=== PATIENT | female | born 1960 | race African-American/Black ===

== ENCOUNTER 2017-07-22 00:58 | Emergency (ER) | payer MEDICAID ==
[~2017-07-22] VITALS: Ht 160 cm; Wt 73.0 kg
[~2017-07-22 00:58] MED LIST: CALC-906 PO; CLON0.1T14 PO; DOLU50TA PO; GABA800T97 PO; LAMI100T4 PO; LISI10TA5 PO; VIT1TABL71 PO; WARF5TAB76 PO; ZIAG3 PO
[2017-07-22] MEDS ORDERED: KETOROLAC 60MG/2ML VIAL IM ONE (02:00)
[2017-07-22 03:00] VITALS: BP 169/78
== END 2017-07-22 03:00 | disposition home or self-care (01) ==
LOC: ER 00:58
DX: G44.209 Tension-type headache, unspecified, not intractable (principal); H54.62 Unqualified visual loss, left eye, normal vision right eye; E11.9 Type 2 diabetes mellitus without complications; R56.9 Unspecified convulsions; I10 Essential (primary) hypertension; Z79.01 Long term (current) use of anticoagulants; Z86.73 Personal history of transient ischemic attack (TIA), and cerebral infarction without residual deficits; Z88.5 Allergy status to narcotic agent; Z90.49 Acquired absence of other specified parts of digestive tract; Z90.710 Acquired absence of both cervix and uterus
CPT/HCPCS: 96372; 99283; J1885; Z7610

== ENCOUNTER 2017-08-05 17:01 | Emergency (ER) | payer MEDICAID ==
[~2017-08-05] VITALS: Ht 167.6 cm; Wt 65.0 kg
[2017-08-05] MEDS ORDERED: SODIUM CHLORIDE 0.9% 1000ML BAG (SEPSIS BOLUS) IV ONE (17:30)
[2017-08-05 18:28] LABS: BASOPHILS % 0.8 % (0.0-2.0); EOSINOPHILS % 2.6 % (0.0-5.0); HEMATOCRIT. 28.9 % (36.0-48.0); HEMOGLOBIN. 9.4 g/dL (12.0-16.0); LYMPHOCYTES % 17.6 % (20.0-50.0); MEAN CORPUSCULAR HEMOGLOBIN 29.8 pg (28.0-32.0); MEAN CORPUSCULAR VOLUME 91.3 fL (81.0-99.0); MEAN PLATELET VOLUME 7.9 fl (7.4-10.4); MONOCYTES % 10.9 % (2.0-8.0); NEUTROPHILS % 68.1 % (40.0-76.0); PLATELET 364 x1000/uL (130-400); RED BLOOD CELL COUNT 3.16 mill/uL (4.2-5.4)
[2017-08-05] MEDS ORDERED: KETOROLAC 30MG/ML VIAL ONE (18:29)
[2017-08-05] MEDS ORDERED: ACETAMINOPHEN 325MG TABLET PO ONE (18:30)
[2017-08-05] MEDS ORDERED: KETOROLAC 30MG/ML VIAL IV ONE (18:30)
[2017-08-05 18:36] LABS: CHLORIDE 103 mEq/L (98-107); PROTHROMBIN TIME 10.2 sec (9.4-11.6)
[2017-08-05] MEDS ORDERED: MORPHINE SULFATE 4 MG/ML CPJ (NOT FOR IM USE) IV ONE (19:15)
[2017-08-05 20:29] LABS: CLARITY URINE CLEAR (CLEAR); COLOR URINE YELLOW (YELLOW); KETONES URINE NEGATIVE (NEGATIVE); LEUKOCYTE ESTERASE URINE NEGATIVE (NEGATIVE); NITRITE URINE NEGATIVE (NEGATIVE); OCCULT BLOOD URINE NEGATIVE (NEGATIVE); PROTEIN URINE 4+ (NEGATIVE); SPECIFIC GRAVITY URINE 1.019 (1.005-1.030); UROBILINOGEN URINE 0.2 E.U./dL (0.2-1.0)
[2017-08-05 22:23] VITALS: BP 179/80
[2017-08-09] MEDS ORDERED: REN800 PO (12:14)
[2017-08-09] MEDS ORDERED: CHOL500063 PO (12:14)
[2017-08-09] MEDS ORDERED: ETRA200T PO (12:14)
[2017-08-09] MEDS ORDERED: [UNRECOGNIZED DRUG - CODE] PO (12:14)
[2017-08-09] MEDS ORDERED: DARU1TAB PO ×2 (12:14→12:19)
[2017-08-09] MEDS ORDERED: GABA-529 PO (12:15)
[2017-08-09] MEDS ORDERED: CHOL100044 PO (12:16)
[2017-08-09] MEDS ORDERED: ASPI-1160 PO (12:17)
[2017-08-09] MEDS ORDERED: HYDR-4135 PO (12:17)
[2017-08-09] MEDS ORDERED: LABE200T PO (12:22)
[2017-08-09] MEDS ORDERED: ATOR80TA PO (12:23)
[2017-08-09] MEDS ORDERED: DARB40VI IJ (12:25)
[2017-08-09] MEDS ORDERED: ATRO10DR LEFTEYE (12:28)
[2017-08-09] MEDS ORDERED: PRED1DRO LEFTEYE (12:30)
[2017-08-09] MEDS ORDERED: TIMO15DR12 LEFTEYE (12:32)
[2017-08-09] MEDS ORDERED: XALAO LEFTEYE (12:33)
[2017-08-09] MEDS ORDERED: BRIM.2 LEFTEYE (12:34)
== END 2017-08-05 23:32 | disposition home or self-care (01) ==
LOC: ER 17:31
DX: M79.1 Myalgia (principal); R53.1 Weakness; I10 Essential (primary) hypertension; E11.9 Type 2 diabetes mellitus without complications; Z99.2 Dependence on renal dialysis; Z86.73 Personal history of transient ischemic attack (TIA), and cerebral infarction without residual deficits; Z79.01 Long term (current) use of anticoagulants; Z88.5 Allergy status to narcotic agent
CPT/HCPCS: 36415; 71045; 74176; 80053; 81003; 83605; 85025; 85610; 87040; 87086; 93005; 96361; 96374; 99285; J2270; J7030; Z7610; J1885

== ENCOUNTER 2017-08-06 21:39 | Emergency (ER) | payer MEDICAID ==
[~2017-08-06] VITALS: Ht 162.6 cm; Wt 73.0 kg
[2017-08-07] MEDS ORDERED: ACETAMINOPHEN 500MG TABLET PO ONE
[2017-08-07] MEDS ORDERED: HYDROCODONE/ACETAMINOPHEN 5/325MG TABLET PO ONE (03:30)
[2017-08-07 08:01] VITALS: BP 159/74
[2017-08-09] MEDS ORDERED: ETRA200T PO (12:14)
[2017-08-09] MEDS ORDERED: [UNRECOGNIZED DRUG - CODE] PO (12:14)
[2017-08-09] MEDS ORDERED: REN800 PO (12:14)
[2017-08-09] MEDS ORDERED: CHOL500063 PO (12:14)
[2017-08-09] MEDS ORDERED: DARU1TAB PO ×2 (12:14→12:19)
[2017-08-09] MEDS ORDERED: GABA-529 PO (12:15)
[2017-08-09] MEDS ORDERED: CHOL100044 PO (12:16)
[2017-08-09] MEDS ORDERED: HYDR-4135 PO (12:17)
[2017-08-09] MEDS ORDERED: ASPI-1160 PO (12:17)
[2017-08-09] MEDS ORDERED: LABE200T PO (12:22)
[2017-08-09] MEDS ORDERED: ATOR80TA PO (12:23)
[2017-08-09] MEDS ORDERED: DARB40VI IJ (12:25)
[2017-08-09] MEDS ORDERED: ATRO10DR LEFTEYE (12:28)
[2017-08-09] MEDS ORDERED: PRED1DRO LEFTEYE (12:30)
[2017-08-09] MEDS ORDERED: TIMO15DR12 LEFTEYE (12:32)
[2017-08-09] MEDS ORDERED: XALAO LEFTEYE (12:33)
[2017-08-09] MEDS ORDERED: BRIM.2 LEFTEYE (12:34)
== END 2017-08-07 08:44 | disposition home or self-care (01) ==
LOC: ER 21:45
DX: S00.83XA Contusion of other part of head, initial encounter (principal); E11.9 Type 2 diabetes mellitus without complications; J34.2 Deviated nasal septum; R56.9 Unspecified convulsions; W18.30XA Fall on same level, unspecified, initial encounter; Y93.89 Activity, other specified; Y99.8 Other external cause status; Y92.89 Other specified places as the place of occurrence of the external cause; Z79.01 Long term (current) use of anticoagulants; Z88.5 Allergy status to narcotic agent; Z99.2 Dependence on renal dialysis; Z98.890 Other specified postprocedural states
CPT/HCPCS: 70486; 99284; Z7610

== ENCOUNTER 2018-01-04 03:40 | Emergency (ER) | payer MEDICAID ==
[~2018-01-04] VITALS: Ht 157.5 cm; Wt 54.5 kg
[~2018-01-04 03:40] MED LIST changes: +ACET500C42 PO; +AMLO10TA4 PO; +ASPI-1160 PO; +ATRO10DR LEFTEYE; +BRIM.2 LEFTEYE; -CALC-906 PO; +CHOL100044 PO; +CHOL500063 PO; -CLON0.1T14 PO; +DARB40VI SUBCUT; +DARU1TAB PO; +ETRA200T PO; +GABA-529 PO; +GABA-531 PO; -GABA800T97 PO; +HYDR-4134 PO; +LABE200T5 PO; -LAMI100T4 PO; +LEVE500T19 PO; -LISI10TA5 PO; +PRED1DRO LEFTEYE; +REN800 PO; +TIMO15DR12 LEFTEYE; -VIT1TABL71 PO; -WARF5TAB76 PO; +XALAO LEFTEYE; -ZIAG3 PO; +[UNRECOGNIZED DRUG - CODE] PO
[2018-01-04 06:08] VITALS: BP 113/68
== END 2018-01-04 06:30 | disposition home or self-care (01) ==
LOC: ER 03:40
DX: T82.898A Other specified complication of vascular prosthetic devices, implants and grafts, initial encounter (principal); Y84.1 Kidney dialysis as the cause of abnormal reaction of the patient, or of later complication, without mention of misadventure at the time of the procedure; E11.22 Type 2 diabetes mellitus with diabetic chronic kidney disease; I12.0 Hypertensive chronic kidney disease with stage 5 chronic kidney disease or end stage renal disease; N18.6 End stage renal disease; Z99.2 Dependence on renal dialysis; Z88.6 Allergy status to analgesic agent; Z88.5 Allergy status to narcotic agent; Y93.E1 Activity, personal bathing and showering; Y92.012 Bathroom of single-family (private) house as the place of occurrence of the external cause
CPT/HCPCS: 71045; 99283; Z7610

== ENCOUNTER 2018-01-19 09:46 | Emergency (ER) | payer MEDICAID ==
[~2018-01-19] VITALS: Ht 165.1 cm; Wt 70.0 kg
[~2018-01-19 09:46] MED LIST changes: +DARU1TAB MT; +ETRA200T MT
[2018-01-19] MEDS ORDERED: PROCHLORPERAZINE 10MG/2ML VIAL IV ONE (10:15)
[2018-01-19] MEDS ORDERED: DIPHENHYDRAMINE 50MG/ML VIAL IV ONE (10:15)
[2018-01-19 10:44] LABS: BASOPHILS % 0.9 % (0.0-2.0); EOSINOPHILS % 2.1 % (0.0-5.0); HEMATOCRIT. 36.6 % (36.0-48.0); HEMOGLOBIN. 11.3 g/dL (12.0-16.0); LYMPHOCYTES % 25.8 % (20.0-50.0); MEAN CORPUSCULAR HEMOGLOBIN 29.9 pg (28.0-32.0); MEAN CORPUSCULAR VOLUME 96.9 fL (81.0-99.0); MEAN PLATELET VOLUME 8.3 fl (7.4-10.4); MONOCYTES % 9.6 % (2.0-8.0); NEUTROPHILS % 61.6 % (40.0-76.0); PLATELET 169 x1000/uL (130-400); RED BLOOD CELL COUNT 3.78 mill/uL (4.2-5.4); RED CELL DISTRIBUTION WIDTH 15.4 % (11.6-14.6)
[2018-01-19 10:48] LABS: CHLORIDE 111 mEq/L (98-107)
[2018-01-19 11:00] LABS: CARBAMAZEPINE < 0.5 ug/mL (4-12); PHENOBARBITAL < 2.1 ug/mL (15.0-40.0)
[2018-01-19] MEDS ORDERED: TETRACAINE 0.5% OPHTH DROPS 4ML OP ONE (12:30)
[2018-01-19] MEDS ORDERED: ONDANSETRON HCL 4MG/2ML INJ IV STA (12:43)
[2018-01-19] MEDS ORDERED: MORPHINE SULFATE 4 MG/ML CPJ (NOT FOR IM USE) IV STA (12:43)
[2018-01-19 16:11] VITALS: BP 148/91
== END 2018-01-19 16:14 | disposition home or self-care (01) ==
LOC: ER 10:05
DX: R51 Headache (principal); E11.9 Type 2 diabetes mellitus without complications; I10 Essential (primary) hypertension; Z88.6 Allergy status to analgesic agent; Z88.5 Allergy status to narcotic agent; Z79.82 Long term (current) use of aspirin; Z79.899 Other long term (current) drug therapy; Z86.73 Personal history of transient ischemic attack (TIA), and cerebral infarction without residual deficits
CPT/HCPCS: 36415; 70450; 80053; 80156; 80165; 80184; 80185; 84484; 85025; 93005; 96374; 96375; 99285; J0780; J1200; J2270; J2405

== ENCOUNTER 2018-01-23 03:43 | Emergency (ER) | payer MEDICAID ==
[~2018-01-23] VITALS: Ht 160 cm; Wt 73.0 kg
[2018-01-23] MEDS ORDERED: HYDROCODONE/ACETAMINOPHEN 5/325MG TABLET PO ONE (05:15)
[2018-01-23 05:34] LABS: HEMATOCRIT. 32.2 % (36.0-48.0); HEMOGLOBIN. 10.2 g/dL (12.0-16.0); LYMPHOCYTES % 33.5 % (20.0-50.0); MEAN CORPUSCULAR HEMOGLOBIN 29.9 pg (28.0-32.0); MEAN CORPUSCULAR VOLUME 94.3 fL (81.0-99.0); MEAN PLATELET VOLUME 8.2 fl (7.4-10.4); MONOCYTES % 8.8 % (2.0-8.0); NEUTROPHILS % 53.7 % (40.0-76.0); PLATELET 168 x1000/uL (130-400); RED BLOOD CELL COUNT 3.41 mill/uL (4.2-5.4); RED CELL DISTRIBUTION WIDTH 14.6 % (11.6-14.6)
[2018-01-23 05:37] LABS: CHLORIDE 112 mEq/L (98-107)
[2018-01-23 08:00] VITALS: BP 141/73
== END 2018-01-23 09:00 | disposition home or self-care (01) ==
LOC: ER 03:43
DX: I10 Essential (primary) hypertension (principal); M54.9 Dorsalgia, unspecified; Z79.899 Other long term (current) drug therapy; Z79.82 Long term (current) use of aspirin; Z88.6 Allergy status to analgesic agent; Z88.9 Allergy status to unspecified drugs, medicaments and biological substances
CPT/HCPCS: 36415; 71045; 80053; 83880; 84484; 85025; 93005; 99285; Z7610

== ENCOUNTER 2018-04-02 22:40 | Emergency (ER) | payer MEDICAID ==
[~2018-04-02] VITALS: Ht 162.6 cm; Wt 50.0 kg
[2018-04-03] MEDS ORDERED: ACETAMINOPHEN 325MG TABLET PO STA (00:35)
[2018-04-03] MEDS ORDERED: BALANCED SALT IRRIG SOLN 15ML IO ONE (00:45)
[2018-04-03] MEDS ORDERED: FLUORESCEIN SODIUM 1MG/STRIP OP ONE (00:45)
[2018-04-03] MEDS ORDERED: TETRACAINE 0.5% OPHTH DROPS 4ML OP ONE (00:45)
[2018-04-03 01:29] LABS: CHLORIDE 96 mEq/L (98-107); EOSINOPHILS % 2.3 % (0.0-5.0); HEMATOCRIT. 27.7 % (36.0-48.0); HEMOGLOBIN. 8.9 g/dL (12.0-16.0); LYMPHOCYTES % 28.5 % (20.0-50.0); MEAN CORPUSCULAR HEMOGLOBIN 28.4 pg (28.0-32.0); MEAN CORPUSCULAR VOLUME 88.6 fL (81.0-99.0); MEAN PLATELET VOLUME 8.1 fl (7.4-10.4); MONOCYTES % 11.1 % (2.0-8.0); NEUTROPHILS % 57.1 % (40.0-76.0); PLATELET 159 x1000/uL (130-400); RED BLOOD CELL COUNT 3.12 mill/uL (4.2-5.4); RED CELL DISTRIBUTION WIDTH 15.2 % (11.6-14.6)
[2018-04-03] MEDS ORDERED: MORPHINE SULFATE 10 MG/ML CPJ IV NR (01:57)
[2018-04-03] MEDS ORDERED: MORPHINE SULFATE 10 MG/ML CPJ IM ONE (05:15)
[2018-04-03 08:34] VITALS: BP 113/51
== END 2018-04-03 08:35 | disposition home or self-care (01) ==
LOC: ER 22:40
DX: S00.83XA Contusion of other part of head, initial encounter (principal); H10.9 Unspecified conjunctivitis; I12.9 Hypertensive chronic kidney disease with stage 1 through stage 4 chronic kidney disease, or unspecified chronic kidney disease; N18.9 Chronic kidney disease, unspecified; R56.9 Unspecified convulsions; B20 Human immunodeficiency virus [HIV] disease; W01.0XXA Fall on same level from slipping, tripping and stumbling without subsequent striking against object, initial encounter; Y93.89 Activity, other specified; Y92.9 Unspecified place or not applicable; Z88.5 Allergy status to narcotic agent; Z88.6 Allergy status to analgesic agent; Z79.82 Long term (current) use of aspirin; Z86.73 Personal history of transient ischemic attack (TIA), and cerebral infarction without residual deficits
CPT/HCPCS: 36415; 70450; 80053; 82962; 85025; 96372; 96374; 99284; J2270

== ENCOUNTER 2018-04-04 13:39 | Inpatient (IN) | payer MEDICAID ==
[~2018-04-04] VITALS: Ht 160 cm; Wt 75.3 kg
[2018-04-04 15:21] LABS: BASOPHILS % 0.4 % (0.0-2.0); EOSINOPHILS % 4.8 % (0.0-5.0); HEMATOCRIT. 25.4 % (36.0-48.0); HEMOGLOBIN. 8.4 g/dL (12.0-16.0); LYMPHOCYTES % 20.4 % (20.0-50.0); MEAN CORPUSCULAR HEMOGLOBIN 29.1 pg (28.0-32.0); MEAN CORPUSCULAR VOLUME 88.2 fL (81.0-99.0); MEAN PLATELET VOLUME 8.8 fl (7.4-10.4); MONOCYTES % 7.5 % (2.0-8.0); NEUTROPHILS % 66.9 % (40.0-76.0); PLATELET 161 x1000/uL (130-400); RED BLOOD CELL COUNT 2.88 mill/uL (4.2-5.4); RED CELL DISTRIBUTION WIDTH 15.4 % (11.6-14.6)
[2018-04-04 15:22] LABS: CHLORIDE 98 mEq/L (98-107)
[2018-04-04 15:27] LABS: ETHANOL BLOOD < 10 mg/dL
[2018-04-04] MEDS ORDERED: LEVETIRACETAM 1000MG/100ML 100 ML IV ONE (15:30)
[2018-04-04] MEDS: ACETAMINOPHEN 650MG/20.3ML UDC PO ONE ×2 (16:00→19:30)
[2018-04-04 17:05] LABS: CLARITY URINE TURBID (CLEAR); COLOR URINE YELLOW (YELLOW); KETONES URINE TRACE (NEGATIVE); LEUKOCYTE ESTERASE URINE 3+ (NEGATIVE); NITRITE URINE NEGATIVE (NEGATIVE); OCCULT BLOOD URINE 1+ (NEGATIVE); PROTEIN URINE 3+ (NEGATIVE); SPECIFIC GRAVITY URINE 1.019 (1.005-1.030); UROBILINOGEN URINE 0.2 E.U./dL (0.2-1.0)
[2018-04-04 17:30] LABS: *AMPHETAMINES SCREEN URINE NEGATIVE (NEGATIVE); *BARBITURATES SCREEN URINE NEGATIVE (NEGATIVE); *BENZODIAZEPINES SCREEN URINE NEGATIVE (NEGATIVE); *COCAINE SCREEN URINE NEGATIVE (NEGATIVE); METHADONE URINE SCREEN NEGATIVE (NEGATIVE); OPIATES URINE SCREEN PRESUMTIVE POSITIVE (NEGATIVE); PHENCYCLIDINE URINE SCREEN NEGATIVE (NEGATIVE)
[2018-04-04] MEDS ORDERED: CEFTRIAXONE 1 G PREMIX 50 ML IV ONE (17:30)
[2018-04-04 17:31] LABS: CANNABINOID URINE SCREEN NEGATIVE (NEGATIVE)
[2018-04-04] MEDS: NAPROXEN 250MG TABLET PO PRN (23:22)
[2018-04-05] VITALS (10 sets, daily range): BP systolic 98–157; BP diastolic 50–71
[2018-04-05] MEDS ORDERED: ACETAMINOPHEN 325MG TABLET PO PRN (03:00)
[2018-04-05] MEDS ORDERED: DARBEPOETIN ALFA IN POLYSORBAT 40 MCG SUBCUT SCH (03:45)
[2018-04-05] MEDS ORDERED: LABETALOL HCL 200 MG PO SCH (03:45)
[2018-04-05] MEDS ORDERED: [UNRECOGNIZED DRUG - REMARK] PO SCH (03:45)
[2018-04-05] MEDS ORDERED: ACETAMINOPHEN 500MG TABLET PO PRN (04:45)
[2018-04-05] MEDS: GABAPENTIN 100MG CAPSULE PO SCH ×3 (06:29→21:20)
[2018-04-05] MEDS: HYDRALAZINE HCL 50MG TABLET PO SCH ×3 (06:29→21:20)
[2018-04-05] MEDS ORDERED: PNEUMOCOCCAL 23-VAL P-SAC VAC 0.5 ML IM ONE (08:00)
[2018-04-05] MEDS: AMLODIPINE 10MG TABLET PO SCH (08:28)
[2018-04-05] MEDS: ASPIRIN 81MG TABLET PO SCH (08:28)
[2018-04-05] MEDS: SEVELAMER CARBONATE 800 MG TABLET PO SCH ×3 (08:29→18:14)
[2018-04-05] MEDS: LEVETIRACETAM 500MG TABLET PO SCH ×2 (08:29→20:29)
[2018-04-05] MEDS ORDERED: ETRAVIRINE MT SCH (09:00)
[2018-04-05] MEDS ORDERED: MEDICATION NOT ON FORMULARY EA (Dolutegravir Sodium (Tivicay) 50 MG) PO SCH (09:00)
[2018-04-05] MEDS ORDERED: MEDICATION NOT ON FORMULARY EA (Gabapentin 100 MG) PO SCH (09:00)
[2018-04-05] MEDS: LABETALOL HCL 200MG TABLET PO SCH ×2 (09:00→20:29)
[2018-04-05] MEDS ORDERED: MEDICATION NOT ON FORMULARY EA (Sevelamer Hcl (Renagel) 800 MG) PO SCH (09:00)
[2018-04-05] MEDS ORDERED: MEDICATION NOT ON FORMULARY EA (Hydralazine Hcl 50 MG) PO SCH (09:00)
[2018-04-05] MEDS: NAPROXEN 250MG TABLET PO PRN (10:00)
[2018-04-05] MEDS ORDERED: INFLUENZA VIRUS VACCINE(AFLURIA) 0.5ML SYR IM ONE (10:00)
[2018-04-05 10:14] LABS: BASOPHILS % 0.8 % (0.0-2.0); EOSINOPHILS % 5.7 % (0.0-5.0); HEMATOCRIT. 21.9 % (36.0-48.0); LYMPHOCYTES % 28.1 % (20.0-50.0); MEAN CORPUSCULAR HEMOGLOBIN 28.6 pg (28.0-32.0); MEAN CORPUSCULAR VOLUME 89.9 fL (81.0-99.0); MEAN PLATELET VOLUME 8.8 fl (7.4-10.4); NEUTROPHILS % 57.4 % (40.0-76.0); PLATELET 138 x1000/uL (130-400); RED BLOOD CELL COUNT 2.43 mill/uL (4.2-5.4); RED CELL DISTRIBUTION WIDTH 15.6 % (11.6-14.6)
[2018-04-05 10:26] LABS: HEMOGLOBIN. 6.9 g/dL (12.0-16.0)
[2018-04-05] MEDS: HYDROCODONE/ACETAMINOPHEN 5/325MG TABLET PO PRN ×3 (12:03→23:10)
[2018-04-05] MEDS ORDERED: LEVETIRACETAM 500MG TABLET PO PRN (15:03)
[2018-04-06] VITALS: BP 108/70
[2018-04-06 00:56] LABS: HEMATOCRIT 28.9 % (36.0-48.0); HEMOGLOBIN 9.3 g/dL (12.0-16.0)
[2018-04-06 04:00] VITALS: BP 101/53
[2018-04-06] MEDS: HYDROCODONE/ACETAMINOPHEN 5/325MG TABLET PO PRN ×4 (04:31→21:00)
[2018-04-06] MEDS: GABAPENTIN 100MG CAPSULE PO SCH ×3 (05:27→21:00)
[2018-04-06] MEDS: HYDRALAZINE HCL 50MG TABLET PO SCH ×3 (05:27→21:00)
[2018-04-06 07:31] LABS: BASOPHILS % 0.4 % (0.0-2.0); EOSINOPHILS % 3.2 % (0.0-5.0); HEMATOCRIT. 25.4 % (36.0-48.0); HEMOGLOBIN. 8.5 g/dL (12.0-16.0); LYMPHOCYTES % 15.6 % (20.0-50.0); MEAN CORPUSCULAR HEMOGLOBIN 29.3 pg (28.0-32.0); MEAN CORPUSCULAR VOLUME 87.6 fL (81.0-99.0); MEAN PLATELET VOLUME 8.2 fl (7.4-10.4); NEUTROPHILS % 73.8 % (40.0-76.0); PLATELET 152 x1000/uL (130-400); RED BLOOD CELL COUNT 2.91 mill/uL (4.2-5.4); RED CELL DISTRIBUTION WIDTH 14.7 % (11.6-14.6)
[2018-04-06] MEDS: SEVELAMER CARBONATE 800 MG TABLET PO SCH ×3 (07:55→16:21)
[2018-04-06 08:00] VITALS: BP 95/36
[2018-04-06] MEDS: LEVETIRACETAM 500MG TABLET PO SCH ×2 (08:19→20:59)
[2018-04-06] MEDS: LABETALOL HCL 200MG TABLET PO SCH ×2 (08:19→20:59)
[2018-04-06] MEDS: NAPROXEN 250MG TABLET PO PRN (08:19)
[2018-04-06] MEDS: ASPIRIN 81MG TABLET PO SCH (08:19)
[2018-04-06] MEDS: AMLODIPINE 10MG TABLET PO SCH (08:19)
[2018-04-06 12:00] VITALS: BP 95/47
[2018-04-06 16:00] VITALS: BP 105/71
[2018-04-06] MEDS: FLUCONAZOLE 100MG TABLET PO SCH (18:42)
[2018-04-06 20:00] VITALS: BP 144/87
[2018-04-07] VITALS: BP 105/44
[2018-04-07] MEDS: HYDROCODONE/ACETAMINOPHEN 5/325MG TABLET PO PRN ×3 (01:49→12:22)
[2018-04-07 04:00] VITALS: BP 126/60
[2018-04-07] MEDS: HYDRALAZINE HCL 50MG TABLET PO SCH ×2 (05:26→14:00)
[2018-04-07] MEDS: GABAPENTIN 100MG CAPSULE PO SCH ×2 (05:26→14:00)
[2018-04-07 07:35] VITALS: BP 112/51
[2018-04-07 07:50] LABS: BASOPHILS % 0.4 % (0.0-2.0); EOSINOPHILS % 3.9 % (0.0-5.0); HEMATOCRIT. 26.3 % (36.0-48.0); HEMOGLOBIN. 8.8 g/dL (12.0-16.0); LYMPHOCYTES % 19.1 % (20.0-50.0); MEAN CORPUSCULAR HEMOGLOBIN 29.4 pg (28.0-32.0); MEAN CORPUSCULAR VOLUME 88.2 fL (81.0-99.0); MEAN PLATELET VOLUME 8.2 fl (7.4-10.4); MONOCYTES % 10.7 % (2.0-8.0); NEUTROPHILS % 65.9 % (40.0-76.0); PLATELET 154 x1000/uL (130-400); RED BLOOD CELL COUNT 2.98 mill/uL (4.2-5.4); RED CELL DISTRIBUTION WIDTH 15.3 % (11.6-14.6)
[2018-04-07] MEDS: FLUCONAZOLE 100MG TABLET PO SCH (08:29)
[2018-04-07] MEDS: LEVETIRACETAM 500MG TABLET PO SCH (08:29)
[2018-04-07] MEDS: SEVELAMER CARBONATE 800 MG TABLET PO SCH ×2 (08:29→13:10)
[2018-04-07] MEDS: ASPIRIN 81MG TABLET PO SCH (08:31)
[2018-04-07] MEDS: AMLODIPINE 10MG TABLET PO SCH (08:31)
[2018-04-07] MEDS: LABETALOL HCL 200MG TABLET PO SCH (08:31)
[2018-04-07] MEDS: LEVOFLOXACIN 250MG TABLET PO SCH ×2 (11:00→13:10)
[2018-04-07 12:00] VITALS: BP_SYST 106; BP_SYST 126; BP_DIAS 47; BP_DIAS 51
[2018-04-07 16:00] VITALS: BP 124/54
[2018-04-07 17:13] VITALS: BP 124/54
== END 2018-04-07 18:35 | disposition home or self-care (01) | DRG 470 ==
LOC: ER 13:39 → 8WST 17:22 → EDBEDREQ 17:25 → EDBEDREQTM 17:25 → ENRESERV 21:45
PROVIDERS: ADMIT Internal Medicine; ATTEND Internal Medicine
PROC: 30233N1 Transfusion of Nonautologous Red Blood Cells into Peripheral Vein, Percutaneous Approach (ICD-10-PCS; principal; 2018-04-05)
PROC: 5A1D70Z Performance of Urinary Filtration, Intermittent, Less than 6 Hours Per Day (ICD-10-PCS; 2018-04-05)
DX: I12.0 Hypertensive chronic kidney disease with stage 5 chronic kidney disease or end stage renal disease (principal); G40.419 Other generalized epilepsy and epileptic syndromes, intractable, without status epilepticus; N17.9 Acute kidney failure, unspecified; E11.22 Type 2 diabetes mellitus with diabetic chronic kidney disease; N39.0 Urinary tract infection, site not specified; N18.6 End stage renal disease; G89.4 Chronic pain syndrome; H40.9 Unspecified glaucoma; H54.62 Unqualified visual loss, left eye, normal vision right eye; Z86.73 Personal history of transient ischemic attack (TIA), and cerebral infarction without residual deficits; Z99.2 Dependence on renal dialysis; Z91.19 Patient's noncompliance with other medical treatment and regimen; Z88.8 Allergy status to other drugs, medicaments and biological substances; Z88.5 Allergy status to narcotic agent; Z79.899 Other long term (current) drug therapy; D63.1 Anemia in chronic kidney disease
CPT/HCPCS: 36415; 36430; 76700; 80048; 80076; 80305; 82140; 82542; 82962; 85014; 85018; 86850; 86900; 86920; 90686; 90732; 96365; 96367; 99285; G0482; J0696; J1953; J7050; P9016

== ENCOUNTER 2018-05-11 21:55 | Emergency (ER) | payer MEDICAID ==
[~2018-05-11] VITALS: Ht 162.6 cm; Wt 50.0 kg
[~2018-05-11 21:55] MED LIST changes: -GABA-531 PO; -LABE200T5 PO
[2018-05-11] MEDS ORDERED: HYDROCODONE/ACETAMINOPHEN 5/325MG TABLET PO ONE (23:30)
[2018-05-12 00:11] LABS: BASOPHILS % 0.5 % (0.0-2.0); EOSINOPHILS % 0.7 % (0.0-5.0); HEMATOCRIT. 37.8 % (36.0-48.0); HEMOGLOBIN. 12.2 g/dL (12.0-16.0); LYMPHOCYTES % 15.5 % (20.0-50.0); MEAN CORPUSCULAR HEMOGLOBIN 29.9 pg (28.0-32.0); MEAN CORPUSCULAR VOLUME 92.5 fL (81.0-99.0); MEAN PLATELET VOLUME 8.6 fl (7.4-10.4); MONOCYTES % 7.6 % (2.0-8.0); NEUTROPHILS % 75.7 % (40.0-76.0); PLATELET 201 x1000/uL (130-400); RED BLOOD CELL COUNT 4.09 mill/uL (4.2-5.4); RED CELL DISTRIBUTION WIDTH 16.7 % (11.6-14.6)
[2018-05-12 00:15] LABS: PROTHROMBIN TIME 9.7 sec (9.1-11.1)
[2018-05-12 00:18] LABS: CHLORIDE 98 mEq/L (98-107)
[2018-05-12] MEDS ORDERED: HYDROCODONE/ACETAMINOPHEN 5/325MG TABLET PO ONE (01:30)
[2018-05-12 05:25] VITALS: BP 166/80
== END 2018-05-12 05:25 | disposition home or self-care (01) ==
LOC: ER 21:55
DX: S09.8XXA Other specified injuries of head, initial encounter (principal); W01.0XXA Fall on same level from slipping, tripping and stumbling without subsequent striking against object, initial encounter; Y93.9 Activity, unspecified; Y92.89 Other specified places as the place of occurrence of the external cause; H10.9 Unspecified conjunctivitis; H57.12 Ocular pain, left eye; I12.0 Hypertensive chronic kidney disease with stage 5 chronic kidney disease or end stage renal disease; E11.22 Type 2 diabetes mellitus with diabetic chronic kidney disease; N18.6 End stage renal disease; Z88.6 Allergy status to analgesic agent; Z99.2 Dependence on renal dialysis; Z79.82 Long term (current) use of aspirin; Z91.011 Allergy to milk products
CPT/HCPCS: 36415; 99284

== ENCOUNTER 2018-06-11 21:10 | Inpatient (IN) | payer MEDICAID ==
[~2018-06-11] VITALS: Ht 162.6 cm; Wt 56.3 kg
[2018-06-11] MEDS ORDERED: SODIUM CHLORIDE 0.9% 1000ML BAG (SEPSIS BOLUS) IV ONE (21:45)
[2018-06-11 23:18] LABS: CHLORIDE 100 mEq/L (98-107); PROTHROMBIN TIME 9.6 sec (9.1-11.1)
[2018-06-11 23:21] LABS: HEMATOCRIT. 32.2 % (36.0-48.0); HEMOGLOBIN. 10.2 g/dL (12.0-16.0); MEAN CORPUSCULAR HEMOGLOBIN 29.6 pg (28.0-32.0); MEAN CORPUSCULAR VOLUME 93.4 fL (81.0-99.0); MEAN PLATELET VOLUME 8.8 fl (7.4-10.4); PLATELET 174 x1000/uL (130-400); RED BLOOD CELL COUNT 3.45 mill/uL (4.2-5.4); RED CELL DISTRIBUTION WIDTH 15.2 % (11.6-14.6)
[2018-06-11 23:33] LABS: PLATELET ESTIMATE NORMAL
[2018-06-12] VITALS (8 sets, daily range): BP systolic 94–168; BP diastolic 51–69
[2018-06-12] MEDS ORDERED: VANCOMYCIN 1 G PREMIX 200 ML IV ONE (01:15)
[2018-06-12] MEDS ORDERED: PIPERACILLIN/TAZ 3.375G PREMIX 50 ML IV ONE (01:15)
[2018-06-12 01:22] LABS: CLARITY URINE CLOUDY (CLEAR); COLOR URINE YELLOW (YELLOW); KETONES URINE TRACE (NEGATIVE); LEUKOCYTE ESTERASE URINE 1+ (NEGATIVE); NITRITE URINE NEGATIVE (NEGATIVE); OCCULT BLOOD URINE TRACE (NEGATIVE); PH URINE 5.5 (4.5-8.0); PROTEIN URINE 3+ (NEGATIVE); SPECIFIC GRAVITY URINE 1.022 (1.005-1.030); UROBILINOGEN URINE 0.2 E.U./dL (0.2-1.0)
[2018-06-12] MEDS ORDERED: DEXTROSE 50% WATER 50ML SYRINGE IV PRN (06:30)
[2018-06-12] MEDS ORDERED: TRAMADOL 50MG TABLET PO PRN (06:30)
[2018-06-12] MEDS: BLOOD SUGAR DIAGNOSTIC STRIP TEST SCH ×4 (06:55→20:46)
[2018-06-12] MEDS: INSULIN LISPRO 100 UNITS/ML SUBCUT SCH ×4 (07:20→20:46)
[2018-06-12] MEDS ORDERED: NAPROXEN 250MG TABLET PO PRN (08:00)
[2018-06-12] MEDS: HEPARIN 5000 UNITS/ML VIAL SUBCUT SCH ×2 (08:13→21:18)
[2018-06-12] MEDS: GABAPENTIN 100MG CAPSULE PO SCH ×3 (08:13→17:35)
[2018-06-12] MEDS: CEFTRIAXONE 1,000 MG in DEXTROSE 5% WATER 50 ML IV SCH (08:31)
[2018-06-12] MEDS ORDERED: LIDOCAINE HCL 1% 20ML VIAL (Pyxis) INJ ONE (10:57)
[2018-06-12] MEDS ORDERED: HYDROCODONE/ACETAMINOPHEN 5/325MG TABLET PO NR (11:00)
[2018-06-12] MEDS: FOLIC ACID/VITAMIN B COMP W-C TABLET PO SCH (11:16)
[2018-06-12] MEDS: SEVELAMER CARBONATE 800 MG TABLET PO SCH ×2 (13:52→17:35)
[2018-06-12] MEDS: CYCLOBENZAPRINE 10MG TABLET PO SCH ×2 (13:52→21:17)
[2018-06-12] MEDS ORDERED: HYDROCODONE/ACETAMINOPHEN 5/325MG TABLET PO PRN (18:30)
[2018-06-12] MEDS: HYDROCODONE/ACETAMINOPHEN 5/325MG TABLET PO PRN (20:06)
[2018-06-12] MEDS ORDERED: HEPARIN SODIUM 1,000 UNIT/1ML VIAL IV NR (21:15)
[2018-06-12] MEDS: ACETAMINOPHEN 325MG TABLET PO PRN (23:58)
[2018-06-13] VITALS (12 sets, daily range): BP systolic 115–134; BP diastolic 43–77
[2018-06-13] MEDS: INSULIN LISPRO 100 UNITS/ML SUBCUT SCH ×4 (05:31→21:00)
[2018-06-13] MEDS: BLOOD SUGAR DIAGNOSTIC STRIP TEST SCH ×4 (05:31→21:00)
[2018-06-13] MEDS: ACETAMINOPHEN 325MG TABLET PO PRN (05:33)
[2018-06-13] MEDS: CYCLOBENZAPRINE 10MG TABLET PO SCH ×3 (05:33→21:27)
[2018-06-13 07:13] LABS: BASOPHILS % 0.4 % (0.0-2.0); HEMATOCRIT. 27.5 % (36.0-48.0); HEMOGLOBIN. 8.9 g/dL (12.0-16.0); LYMPHOCYTES % 13.9 % (20.0-50.0); MEAN CORPUSCULAR HEMOGLOBIN 29.9 pg (28.0-32.0); MEAN CORPUSCULAR VOLUME 92.8 fL (81.0-99.0); MEAN PLATELET VOLUME 8.7 fl (7.4-10.4); NEUTROPHILS % 71.7 % (40.0-76.0); PLATELET 164 x1000/uL (130-400); RED BLOOD CELL COUNT 2.97 mill/uL (4.2-5.4); RED CELL DISTRIBUTION WIDTH 14.7 % (11.6-14.6)
[2018-06-13 08:10] LABS: PHOSPHORUS 2.3 mg/dL (2.5-4.9)
[2018-06-13] MEDS: SEVELAMER CARBONATE 800 MG TABLET PO SCH ×3 (08:15→17:05)
[2018-06-13] MEDS: HEPARIN 5000 UNITS/ML VIAL SUBCUT SCH ×2 (08:16→21:27)
[2018-06-13] MEDS: FOLIC ACID/VITAMIN B COMP W-C TABLET PO SCH (08:16)
[2018-06-13] MEDS: GABAPENTIN 100MG CAPSULE PO SCH ×3 (08:17→17:05)
[2018-06-13] MEDS: HYDROCODONE/ACETAMINOPHEN 5/325MG TABLET PO PRN ×2 (08:17→19:54)
[2018-06-13] MEDS ORDERED: VANCOMYCIN 500 MG PREMIX 100 ML IV SCH (15:00)
[2018-06-14] VITALS (11 sets, daily range): BP systolic 100–155; BP diastolic 52–91
[2018-06-14] MEDS: CYCLOBENZAPRINE 10MG TABLET PO SCH ×3 (05:55→21:19)
[2018-06-14] MEDS: BLOOD SUGAR DIAGNOSTIC STRIP TEST SCH ×4 (06:50→21:00)
[2018-06-14 07:14] LABS: BASOPHILS % 0.4 % (0.0-2.0); EOSINOPHILS % 4.7 % (0.0-5.0); HEMATOCRIT. 28.4 % (36.0-48.0); HEMOGLOBIN. 9.2 g/dL (12.0-16.0); LYMPHOCYTES % 17.8 % (20.0-50.0); MEAN CORPUSCULAR HEMOGLOBIN 30.2 pg (28.0-32.0); MEAN PLATELET VOLUME 8.2 fl (7.4-10.4); MONOCYTES % 10.8 % (2.0-8.0); NEUTROPHILS % 66.3 % (40.0-76.0); PLATELET 191 x1000/uL (130-400); RED BLOOD CELL COUNT 3.05 mill/uL (4.2-5.4); RED CELL DISTRIBUTION WIDTH 14.8 % (11.6-14.6)
[2018-06-14] MEDS: SEVELAMER CARBONATE 800 MG TABLET PO SCH ×3 (07:20→18:24)
[2018-06-14] MEDS: INSULIN LISPRO 100 UNITS/ML SUBCUT SCH ×4 (07:20→21:00)
[2018-06-14] MEDS: GABAPENTIN 100MG CAPSULE PO SCH ×3 (08:12→18:24)
[2018-06-14] MEDS: FOLIC ACID/VITAMIN B COMP W-C TABLET PO SCH (08:12)
[2018-06-14] MEDS: HYDROCODONE/ACETAMINOPHEN 5/325MG TABLET PO PRN ×2 (08:13→19:48)
[2018-06-14] MEDS: CEFTRIAXONE 1,000 MG in DEXTROSE 5% WATER 50 ML IV SCH (08:13)
[2018-06-14] MEDS: HEPARIN 5000 UNITS/ML VIAL SUBCUT SCH ×2 (08:26→21:18)
[2018-06-14] MEDS ORDERED: VANCOMYCIN 750 MG PREMIX 150 ML IV SCH (14:00)
[2018-06-14] MEDS ORDERED: ALPRAZOLAM 0.5 MG TABLET PO NR (14:30)
[2018-06-14] MEDS ORDERED: ATROPINE SULFATE LEFTEYE SCH (20:15)
[2018-06-14] MEDS ORDERED: MEDICATION NOT ON FORMULARY EA (Timolol Maleate 1 DROP) LEFTEYE SCH (20:15)
[2018-06-14] MEDS ORDERED: NACL 0.9% LEFTEYE SCH (20:15)
[2018-06-14] MEDS ORDERED: [UNRECOGNIZED DRUG - OTHER] LEFTEYE SCH (20:15)
[2018-06-14] MEDS ORDERED: EPOETIN ALFA 10000UNITS/ML VIAL SUBCUT SCH (21:00)
[2018-06-14] MEDS: PREDNISOLONE ACETATE 1% OPHTH DROPS 1ML LEFTEYE SCH (21:19)
[2018-06-14] MEDS: TIMOLOL MALEATE 0.5% OPHTH DROPS 5ML LEFTEYE SCH (21:20)
[2018-06-14] MEDS: ATROPINE SULFATE 1% OPHTH 2ML LEFTEYE SCH (21:20)
[2018-06-14] MEDS: LEVETIRACETAM 500MG TABLET PO SCH (21:22)
[2018-06-15] VITALS (7 sets, daily range): BP systolic 123–139; BP diastolic 64–79
[2018-06-15] MEDS: CYCLOBENZAPRINE 10MG TABLET PO SCH ×2 (07:03→15:10)
[2018-06-15] MEDS: HYDROCODONE/ACETAMINOPHEN 5/325MG TABLET PO PRN (07:04)
[2018-06-15] MEDS: BLOOD SUGAR DIAGNOSTIC STRIP TEST SCH ×4 (07:04→20:29)
[2018-06-15] MEDS: INSULIN LISPRO 100 UNITS/ML SUBCUT SCH ×4 (07:50→21:37)
[2018-06-15 07:55] LABS: BASOPHILS % 0.5 % (0.0-2.0); HEMATOCRIT. 28.2 % (36.0-48.0); LYMPHOCYTES % 23.5 % (20.0-50.0); MEAN CORPUSCULAR HEMOGLOBIN 29.9 pg (28.0-32.0); MEAN CORPUSCULAR VOLUME 93.8 fL (81.0-99.0); MEAN PLATELET VOLUME 8.2 fl (7.4-10.4); MONOCYTES % 12.1 % (2.0-8.0); NEUTROPHILS % 58.9 % (40.0-76.0); PLATELET 185 x1000/uL (130-400); RED BLOOD CELL COUNT 3.01 mill/uL (4.2-5.4); RED CELL DISTRIBUTION WIDTH 15.1 % (11.6-14.6)
[2018-06-15] MEDS: FOLIC ACID/VITAMIN B COMP W-C TABLET PO SCH (10:28)
[2018-06-15] MEDS: GABAPENTIN 100MG CAPSULE PO SCH ×3 (10:28→17:47)
[2018-06-15] MEDS: LEVETIRACETAM 500MG TABLET PO SCH ×2 (10:29→20:29)
[2018-06-15] MEDS: HEPARIN 5000 UNITS/ML VIAL SUBCUT SCH (10:29)
[2018-06-15] MEDS: SEVELAMER CARBONATE 800 MG TABLET PO SCH ×3 (10:29→17:46)
[2018-06-15] MEDS: TIMOLOL MALEATE 0.5% OPHTH DROPS 5ML LEFTEYE SCH ×2 (10:30→20:29)
[2018-06-15] MEDS: PREDNISOLONE ACETATE 1% OPHTH DROPS 1ML LEFTEYE SCH ×4 (10:30→20:29)
[2018-06-15] MEDS: ATROPINE SULFATE 1% OPHTH 2ML LEFTEYE SCH ×2 (10:30→20:29)
[2018-06-15] MEDS ORDERED: HEPARIN 100 UNITS/1 ML VIAL IVF SCH (13:00)
== END 2018-06-15 22:20 | disposition home or self-care (01) | DRG 720 ==
LOC: ER 21:10 → 3WST 06-12 01:37 → EDBEDREQ 06-12 01:39 → EDBEDREQTM 06-12 01:39 → ENRESERV 06-12 03:43 → 6EST 06-14 21:47
PROVIDERS: ADMIT Internal Medicine; ATTEND Internal Medicine
PROC: 02HV33Z Insertion of Infusion Device into Superior Vena Cava, Percutaneous Approach (ICD-10-PCS; principal; 2018-06-12)
PROC: B548ZZA Ultrasonography of Superior Vena Cava, Guidance (ICD-10-PCS; 2018-06-12)
PROC: 5A1D70Z Performance of Urinary Filtration, Intermittent, Less than 6 Hours Per Day (ICD-10-PCS; 2018-06-12)
PROC: 5A1D70Z Performance of Urinary Filtration, Intermittent, Less than 6 Hours Per Day (ICD-10-PCS; 2018-06-13)
PROC: 5A1D70Z Performance of Urinary Filtration, Intermittent, Less than 6 Hours Per Day (ICD-10-PCS; 2018-06-14)
DX: A41.9 Sepsis, unspecified organism (principal); G93.40 Encephalopathy, unspecified; E11.22 Type 2 diabetes mellitus with diabetic chronic kidney disease; I12.0 Hypertensive chronic kidney disease with stage 5 chronic kidney disease or end stage renal disease; I95.9 Hypotension, unspecified; E83.39 Other disorders of phosphorus metabolism; N18.6 End stage renal disease; D64.9 Anemia, unspecified; G40.909 Epilepsy, unspecified, not intractable, without status epilepticus; G89.29 Other chronic pain; H40.9 Unspecified glaucoma; H54.62 Unqualified visual loss, left eye, normal vision right eye; N39.0 Urinary tract infection, site not specified; R51 Headache; R29.6 Repeated falls; M54.9 Dorsalgia, unspecified; R62.7 Adult failure to thrive; W18.39XA Other fall on same level, initial encounter; Y93.89 Activity, other specified; Y99.8 Other external cause status; Z88.6 Allergy status to analgesic agent; Z88.8 Allergy status to other drugs, medicaments and biological substances; Z79.82 Long term (current) use of aspirin; Z79.899 Other long term (current) drug therapy; I69.354 Hemiplegia and hemiparesis following cerebral infarction affecting left non-dominant side; Z79.4 Long term (current) use of insulin; Z90.710 Acquired absence of both cervix and uterus; Z90.49 Acquired absence of other specified parts of digestive tract; Z91.19 Patient's noncompliance with other medical treatment and regimen; Z99.2 Dependence on renal dialysis; Y92.009 Unspecified place in unspecified non-institutional (private) residence as the place of occurrence of the external cause; Z83.3 Family history of diabetes mellitus; Z82.49 Family history of ischemic heart disease and other diseases of the circulatory system
CPT/HCPCS: 36415; 36569; 71045; 72170; 76937; 80048; 80051; 80202; 82542; 82962; 83605; 84100; 84145; 84484; 93005; 93971; 96365; 97162; 99291; C1725; J0696; J0885; J1642; J1644; J1815; J2543; J3370; J3490; J7030; J7040; J7050; J7060

== ENCOUNTER 2019-01-02 22:43 | Emergency (ER) | payer MEDICAID ==
[~2019-01-02] VITALS: Ht 165.1 cm; Wt 66.0 kg
[~2019-01-02 22:43] MED LIST changes: -ACET500C42 PO; -ASPI-1160 PO; +ASPI81TA47 MT; -DARB40VI SUBCUT; -DARU1TAB PO; -ETRA200T MT; -GABA-529 PO; -LEVE500T19 PO; -XALAO LEFTEYE; +[UNRECOGNIZED DRUG - CODE] OP; -[UNRECOGNIZED DRUG - CODE] PO
[2019-01-03] MEDS ORDERED: ACETAMINOPHEN 325MG TABLET PO STA (00:39)
[2019-01-03 01:02] LABS: INR 0.9; PROTHROMBIN TIME 9.6 sec (9.6-11.0)
[2019-01-03 01:15] LABS: CHLORIDE 101 mEq/L (98-107)
[2019-01-03 01:18] LABS: ETHANOL BLOOD < 10 mg/dL
[2019-01-03 01:29] LABS: HEMATOCRIT. 25.9 % (36.0-48.0); HEMOGLOBIN. 8.3 g/dL (12.0-16.0); MEAN CORPUSCULAR HEMOGLOBIN 28.1 pg (28.0-32.0); MEAN CORPUSCULAR VOLUME 87.3 fL (81.0-99.0); MEAN PLATELET VOLUME 7.6 fl (7.4-10.4); PLATELET 171 x1000/uL (130-400); RED BLOOD CELL COUNT 2.96 mill/uL (4.2-5.4); RED CELL DISTRIBUTION WIDTH 16.5 % (11.6-14.6)
[2019-01-03 01:49] LABS: CLARITY URINE CLEAR (CLEAR); COLOR URINE YELLOW (YELLOW); KETONES URINE NEGATIVE (NEGATIVE); LEUKOCYTE ESTERASE URINE NEGATIVE (NEGATIVE); NITRITE URINE NEGATIVE (NEGATIVE); OCCULT BLOOD URINE NEGATIVE (NEGATIVE); PH URINE 8.5 (4.5-8.0); PROTEIN URINE 3+ (NEGATIVE); SPECIFIC GRAVITY URINE 1.014 (1.005-1.030); UROBILINOGEN URINE 0.2 E.U./dL (0.2-1.0)
[2019-01-03 01:58] LABS: *AMPHETAMINES SCREEN URINE NEGATIVE (NEGATIVE); *BARBITURATES SCREEN URINE NEGATIVE (NEGATIVE); *BENZODIAZEPINES SCREEN URINE NEGATIVE (NEGATIVE); *COCAINE SCREEN URINE NEGATIVE (NEGATIVE); METHADONE URINE SCREEN NEGATIVE (NEGATIVE); OPIATES URINE SCREEN NEGATIVE (NEGATIVE); PHENCYCLIDINE URINE SCREEN NEGATIVE (NEGATIVE)
[2019-01-03 01:59] LABS: CANNABINOID URINE SCREEN NEGATIVE (NEGATIVE)
[2019-01-03 03:36] LABS: PLATELET ESTIMATE NORMAL
[2019-01-03] MEDS ORDERED: GABAPENTIN 400MG CAPSULE PO SCH (04:26)
[2019-01-03] MEDS ORDERED: HYDROCODONE/ACETAMINOPHEN 5/325MG TABLET PO STA (06:57)
[2019-01-03 07:48] VITALS: BP 160/80
== END 2019-01-03 08:08 | disposition home or self-care (01) ==
LOC: ER 22:43
DX: R10.12 Left upper quadrant pain (principal); I12.0 Hypertensive chronic kidney disease with stage 5 chronic kidney disease or end stage renal disease; N18.6 End stage renal disease; D63.1 Anemia in chronic kidney disease; Z99.2 Dependence on renal dialysis; Z90.49 Acquired absence of other specified parts of digestive tract; Z88.5 Allergy status to narcotic agent; Z88.8 Allergy status to other drugs, medicaments and biological substances; Z90.710 Acquired absence of both cervix and uterus
CPT/HCPCS: 36415; 76770; 80305; 80320; 81003; 99284; G0480

== ENCOUNTER 2019-01-23 19:32 | Emergency (ER) | payer MEDICAID ==
[~2019-01-23] VITALS: Ht 162.6 cm; Wt 68.0 kg
[2019-01-23] MEDS ORDERED: ONDANSETRON HCL 4MG/2ML INJ IV ONE (20:15)
[2019-01-23] MEDS ORDERED: MORPHINE SULFATE 4 MG/ML CPJ (NOT FOR IM USE) IV ONE (20:15)
[2019-01-23 20:52] LABS: BASOPHILS % 0.4 % (0.0-2.0); EOSINOPHILS % 0.7 % (0.0-5.0); HEMATOCRIT. 31.3 % (36.0-48.0); HEMOGLOBIN. 10.1 g/dL (12.0-16.0); LYMPHOCYTES % 9.4 % (20.0-50.0); MEAN CORPUSCULAR HEMOGLOBIN 28.6 pg (28.0-32.0); MEAN CORPUSCULAR VOLUME 88.3 fL (81.0-99.0); MEAN PLATELET VOLUME 8.3 fl (7.4-10.4); MONOCYTES % 11.1 % (2.0-8.0); NEUTROPHILS % 78.4 % (40.0-76.0); PLATELET 240 x1000/uL (130-400); RED BLOOD CELL COUNT 3.54 mill/uL (4.2-5.4); RED CELL DISTRIBUTION WIDTH 15.8 % (11.6-14.6)
[2019-01-23 20:58] LABS: CHLORIDE 102 mEq/L (98-107)
[2019-01-24 00:34] VITALS: BP 144/87
== END 2019-01-24 01:08 | disposition home or self-care (01) ==
LOC: ER 20:08
DX: R53.1 Weakness (principal); R51 Headache; G40.909 Epilepsy, unspecified, not intractable, without status epilepticus; I12.0 Hypertensive chronic kidney disease with stage 5 chronic kidney disease or end stage renal disease; N18.6 End stage renal disease; Z90.49 Acquired absence of other specified parts of digestive tract; Z90.710 Acquired absence of both cervix and uterus; Z99.2 Dependence on renal dialysis; Z88.6 Allergy status to analgesic agent
CPT/HCPCS: 36415; 70450; 80053; 84484; 85025; 93005; 96374; 96375; 99284; J2270; J2405; Z7610

== ENCOUNTER 2019-02-15 02:20 | Inpatient (IN) | payer MEDICAID ==
[~2019-02-15] VITALS: Ht 160 cm; Wt 71.7 kg
[2019-02-15] MEDS ORDERED: MORPHINE SULFATE 4 MG/ML CPJ (NOT FOR IM USE) IV STA (03:30)
[2019-02-15] MEDS ORDERED: DIPHENHYDRAMINE 50MG/ML VIAL IV ONE (03:30)
[2019-02-15] MEDS ORDERED: ONDANSETRON HCL 4MG/2ML INJ IV STA (03:30)
[2019-02-15] MEDS ORDERED: ASPIRIN 81MG TABLET PO ONE (03:30)
[2019-02-15] MEDS ORDERED: NITROGLYCERIN OINT 1GM/INCH UDPKT TD ONE (03:30)
[2019-02-15 03:52] LABS: BASOPHILS % 0.8 % (0.0-2.0); EOSINOPHILS % 1.1 % (0.0-5.0); HEMATOCRIT. 23.5 % (36.0-48.0); HEMOGLOBIN. 7.6 g/dL (12.0-16.0); MEAN CORPUSCULAR HEMOGLOBIN 28.4 pg (28.0-32.0); MEAN CORPUSCULAR VOLUME 88.3 fL (81.0-99.0); MEAN PLATELET VOLUME 9.4 fl (7.4-10.4); MONOCYTES % 14.3 % (2.0-8.0); NEUTROPHILS % 58.8 % (40.0-76.0); PLATELET 135 x1000/uL (130-400); RED BLOOD CELL COUNT 2.66 mill/uL (4.2-5.4)
[2019-02-15 03:56] LABS: CHLORIDE 109 mEq/L (98-107)
[2019-02-15 08:00] VITALS: BP 181/90
[2019-02-15] MEDS ORDERED: DEXTROSE 50% WATER 50ML SYRINGE IV PRN (08:45)
[2019-02-15] MEDS ORDERED: ENOXAPARIN 30MG/0.3ML SYR SUBCUT SCH (09:30)
[2019-02-15] MEDS: HYDROCODONE/ACETAMINOPHEN 5/325MG TABLET PO PRN ×3 (09:56→20:27)
[2019-02-15] MEDS: CLONIDINE 0.1MG TABLET PO SCH ×3 (10:00→21:05)
[2019-02-15] MEDS: FOLIC ACID/VITAMIN B COMP W-C TABLET PO SCH (10:22)
[2019-02-15] MEDS: AMLODIPINE 10MG TABLET PO SCH (10:23)
[2019-02-15] MEDS: MORPHINE SULFATE 2 MG/ML CPJ (NOT FOR IM USE) IV PRN ×2 (11:35→17:53)
[2019-02-15] MEDS: BLOOD SUGAR DIAGNOSTIC STRIP TEST SCH ×3 (11:42→21:03)
[2019-02-15 12:00] VITALS: BP 150/61
[2019-02-15] MEDS: HYDRALAZINE HCL 50MG TABLET PO SCH ×2 (13:33→21:05)
[2019-02-15] MEDS: CALCIUM ACETATE 667MG CAPSULE PO SCH ×2 (13:36→18:29)
[2019-02-15] MEDS: INSULIN LISPRO 100 UNITS/ML SUBCUT SCH ×3 (13:37→20:55)
[2019-02-15 13:49] LABS: CREATINE KINASE MB FRACTION 2.2 ng/mL (0.5-3.6)
[2019-02-15 16:00] VITALS: BP 131/68
[2019-02-15 16:01] LABS: HEMATOCRIT 23.4 % (36.0-48.0); HEMOGLOBIN 7.6 g/dL (12.0-16.0)
[2019-02-15] MEDS: NITROGLYCERIN OINT 1GM/INCH UDPKT TD SCH ×2 (16:08→21:06)
[2019-02-15] MEDS ORDERED: LORAZEPAM 2MG/ML CPJ IV PRN (17:30)
[2019-02-15 20:00] VITALS: BP 122/64
[2019-02-15] MEDS: LEVETIRACETAM 500MG/5ML CUP PO SCH (21:03)
[2019-02-16] VITALS (11 sets, daily range): BP systolic 96–138; BP diastolic 50–72
[2019-02-16] MEDS: HYDROCODONE/ACETAMINOPHEN 5/325MG TABLET PO PRN ×2 (01:16→19:10)
[2019-02-16] MEDS: CLONIDINE 0.1MG TABLET PO SCH ×3 (04:00→16:49)
[2019-02-16] MEDS: HYDRALAZINE HCL 50MG TABLET PO SCH ×2 (05:28→14:00)
[2019-02-16] MEDS: NITROGLYCERIN OINT 1GM/INCH UDPKT TD SCH ×2 (05:29→16:50)
[2019-02-16] MEDS: MORPHINE SULFATE 2 MG/ML CPJ (NOT FOR IM USE) IV PRN ×2 (05:30→13:27)
[2019-02-16] MEDS ORDERED: LORAZEPAM 0.5MG TABLET PO PRN (07:00)
[2019-02-16 07:02] LABS: BASOPHILS % 0.4 % (0.0-2.0); EOSINOPHILS % 1.7 % (0.0-5.0); HEMATOCRIT. 22.8 % (36.0-48.0); HEMOGLOBIN. 7.5 g/dL (12.0-16.0); LYMPHOCYTES % 17.2 % (20.0-50.0); MEAN CORPUSCULAR HEMOGLOBIN 28.9 pg (28.0-32.0); MEAN CORPUSCULAR VOLUME 88.4 fL (81.0-99.0); MEAN PLATELET VOLUME 9.4 fl (7.4-10.4); MONOCYTES % 9.4 % (2.0-8.0); NEUTROPHILS % 71.3 % (40.0-76.0); PLATELET 146 x1000/uL (130-400); RED BLOOD CELL COUNT 2.58 mill/uL (4.2-5.4); RED CELL DISTRIBUTION WIDTH 16.7 % (11.6-14.6)
[2019-02-16] MEDS: BLOOD SUGAR DIAGNOSTIC STRIP TEST SCH ×3 (07:40→17:40)
[2019-02-16] MEDS: INSULIN LISPRO 100 UNITS/ML SUBCUT SCH ×3 (08:10→18:10)
[2019-02-16] MEDS: CALCIUM ACETATE 667MG CAPSULE PO SCH ×3 (08:58→18:13)
[2019-02-16] MEDS: FOLIC ACID/VITAMIN B COMP W-C TABLET PO SCH (08:58)
[2019-02-16] MEDS: LEVETIRACETAM 500MG/5ML CUP PO SCH (08:59)
[2019-02-16] MEDS: AMLODIPINE 10MG TABLET PO SCH (08:59)
[2019-02-16] MEDS ORDERED: MEDICATION NOT ON FORMULARY EA (Dolutegravir Sodium (Tivicay) 50 MG) PO SCH (09:00)
[2019-02-16] MEDS ORDERED: BRIMONIDINE 0.2% OPHTH DROPS 5ML LEFTEYE SCH (09:00)
[2019-02-16] MEDS ORDERED: ETRAVIRINE 200 MG PO SCH (09:00)
[2019-02-16] MEDS: TIMOLOL MALEATE 0.5% OPHTH DROPS 5ML LEFTEYE SCH ×2 (09:00→18:13)
== END 2019-02-16 21:16 | disposition home or self-care (01) | DRG 199 ==
LOC: ER 02:20 → 7WST 05:10 → EDBEDREQTM 05:13 → EDBEDREQ 05:13 → ENRESERV 06:22
PROVIDERS: ADMIT Internal Medicine; ATTEND Internal Medicine
PROC: 5A1D70Z Performance of Urinary Filtration, Intermittent, Less than 6 Hours Per Day (ICD-10-PCS; 2019-02-15)
PROC: 30233N1 Transfusion of Nonautologous Red Blood Cells into Peripheral Vein, Percutaneous Approach (ICD-10-PCS; principal; 2019-02-16)
DX: I16.0 Hypertensive urgency (principal); E11.22 Type 2 diabetes mellitus with diabetic chronic kidney disease; N18.6 End stage renal disease; R07.81 Pleurodynia; I12.0 Hypertensive chronic kidney disease with stage 5 chronic kidney disease or end stage renal disease; G40.909 Epilepsy, unspecified, not intractable, without status epilepticus; D64.9 Anemia, unspecified; G89.4 Chronic pain syndrome; J98.11 Atelectasis; J44.9 Chronic obstructive pulmonary disease, unspecified; R74.0 Nonspecific elevation of levels of transaminase and lactic acid dehydrogenase [LDH]; F17.210 Nicotine dependence, cigarettes, uncomplicated; Z86.73 Personal history of transient ischemic attack (TIA), and cerebral infarction without residual deficits; Z99.2 Dependence on renal dialysis; Z88.6 Allergy status to analgesic agent; Z88.8 Allergy status to other drugs, medicaments and biological substances; Z79.899 Other long term (current) drug therapy; Z79.82 Long term (current) use of aspirin; Z90.710 Acquired absence of both cervix and uterus; Z90.49 Acquired absence of other specified parts of digestive tract; Z21 Asymptomatic human immunodeficiency virus [HIV] infection status
CPT/HCPCS: 36415; 71045; 80048; 82553; 82962; 83540; 83550; 84484; 85014; 85018; 86850; 86900; 86920; 93005; 99285; J1200; J1650; J1815; J2060; J2270; J2405; P9016

== ENCOUNTER 2019-04-04 16:19 | Inpatient (IN) | payer MEDICAID ==
[~2019-04-04] VITALS: Ht 160 cm; Wt 67.8 kg
[2019-04-04] MEDS ORDERED: ONDANSETRON HCL 4MG/2ML INJ IV STA (17:58)
[2019-04-04] MEDS ORDERED: MORPHINE SULFATE 4 MG/ML CPJ (NOT FOR IM USE) IV STA (17:58)
[2019-04-04] MEDS ORDERED: ASPIRIN 81MG TABLET PO ONE (18:00)
[2019-04-04 19:19] LABS: BASOPHILS % 0.5 % (0.0-2.0); EOSINOPHILS % 1.9 % (0.0-5.0); HEMATOCRIT. 23.7 % (36.0-48.0); HEMOGLOBIN. 7.9 g/dL (12.0-16.0); LYMPHOCYTES % 19.2 % (20.0-50.0); MEAN CORPUSCULAR HEMOGLOBIN 31.5 pg (28.0-32.0); MEAN CORPUSCULAR VOLUME 93.9 fL (81.0-99.0); MEAN PLATELET VOLUME 7.9 fl (7.4-10.4); MONOCYTES % 13.2 % (2.0-8.0); NEUTROPHILS % 65.2 % (40.0-76.0); PLATELET 230 x1000/uL (130-400); RED BLOOD CELL COUNT 2.52 mill/uL (4.2-5.4); RED CELL DISTRIBUTION WIDTH 16.2 % (11.6-14.6)
[2019-04-04 19:25] LABS: CHLORIDE 111 mEq/L (98-107)
[2019-04-04 19:29] LABS: PARTIAL THROMBOPLASTIN TIME 26.1 sec (23.4-31.0); PROTHROMBIN TIME 10.3 sec (9.6-11.0)
[2019-04-04 21:28] VITALS: BP 164/72
[2019-04-05] MEDS ORDERED: DEXTROSE 50% WATER 50ML SYRINGE IV PRN (00:15)
[2019-04-05] MEDS: MORPHINE SULFATE 2 MG/ML CPJ (NOT FOR IM USE) IV PRN ×3 (01:21→17:01)
[2019-04-05] MEDS: BLOOD SUGAR DIAGNOSTIC STRIP TEST SCH ×4 (07:10→20:39)
[2019-04-05 08:15] VITALS: BP 145/73
[2019-04-05 08:43] LABS: BASOPHILS % 0.5 % (0.0-2.0); EOSINOPHILS % 2.7 % (0.0-5.0); LYMPHOCYTES % 21.2 % (20.0-50.0); MEAN CORPUSCULAR HEMOGLOBIN 31.7 pg (28.0-32.0); MEAN CORPUSCULAR VOLUME 93.3 fL (81.0-99.0); MEAN PLATELET VOLUME 8.3 fl (7.4-10.4); MONOCYTES % 13.1 % (2.0-8.0); NEUTROPHILS % 62.5 % (40.0-76.0); PLATELET 193 x1000/uL (130-400); RED BLOOD CELL COUNT 2.11 mill/uL (4.2-5.4); RED CELL DISTRIBUTION WIDTH 16.4 % (11.6-14.6)
[2019-04-05] MEDS ORDERED: HEPARIN 5000 UNITS/ML VIAL SUBCUT SCH (09:00)
[2019-04-05] MEDS ORDERED: ASPIRIN 81MG TABLET PO SCH (09:00)
[2019-04-05 09:31] LABS: CHLORIDE 113 mEq/L (98-107)
[2019-04-05 09:55] LABS: CREATINE KINASE 113 IU/L (26-192)
[2019-04-05 09:57] LABS: CREATINE KINASE MB FRACTION 4.3 ng/mL (0.5-3.6)
[2019-04-05] MEDS: PANTOPRAZOLE 40MG DR TABLET PO SCH (10:15)
[2019-04-05] MEDS: NICOTINE 14MG PATCH TD SCH (10:15)
[2019-04-05] MEDS: DIPHENHYDRAMINE 25MG CAPSULE PO PRN (11:19)
[2019-04-05 11:46] LABS: HEMATOCRIT. 19.7 % (36.0-48.0); HEMOGLOBIN. 6.7 g/dL (12.0-16.0)
[2019-04-05 12:30] VITALS: BP 115/69
[2019-04-05 14:04] LABS: *AMPHETAMINES SCREEN URINE NEGATIVE (NEGATIVE); *BARBITURATES SCREEN URINE NEGATIVE (NEGATIVE); *BENZODIAZEPINES SCREEN URINE NEGATIVE (NEGATIVE); *COCAINE SCREEN URINE NEGATIVE (NEGATIVE); CANNABINOID URINE SCREEN NEGATIVE (NEGATIVE); METHADONE URINE SCREEN NEGATIVE (NEGATIVE); OPIATES URINE SCREEN PRESUMTIVE POSITIVE (NEGATIVE); PHENCYCLIDINE URINE SCREEN NEGATIVE (NEGATIVE)
[2019-04-05] MEDS ORDERED: LIDOCAINE HCL 1% 20ML VIAL (Pyxis) INJ ONE (14:05)
[2019-04-05] MEDS ORDERED: SODIUM BICARBONATE 4% (2.4MEQ) 5ML VIAL IV ONE (14:05)
[2019-04-05] MEDS ORDERED: HYDRALAZINE 20MG/ML VIAL IV PRN (15:15)
[2019-04-05] MEDS ORDERED: ACETAMINOPHEN 650MG SUPP PR PRN (15:15)
[2019-04-05] MEDS ORDERED: IPRATROPIUM/ALBUTEROL 0.5-3(2.5)MG/3ML NEB HHN PRN (15:15)
[2019-04-05] MEDS ORDERED: ONDANSETRON HCL 4MG/2ML INJ IV PRN (15:15)
[2019-04-05] MEDS ORDERED: LORAZEPAM 2MG/ML CPJ IV PRN (15:15)
[2019-04-05] MEDS ORDERED: LACTULOSE 20G/30ML UDC PO PRN (15:15)
[2019-04-05 16:30] VITALS: BP 156/64
[2019-04-05] MEDS ORDERED: MEDICATION NOT ON FORMULARY EA (Sevelamer Hcl (Renagel) 800 MG) PO SCH (17:00)
[2019-04-05] MEDS ORDERED: ETRAVIRINE 200 MG PO SCH (17:00)
[2019-04-05] MEDS: AMLODIPINE 10MG TABLET PO SCH (17:13)
[2019-04-05 17:15] VITALS: BP 156/64
[2019-04-05] MEDS: PREDNISOLONE ACETATE 1% OPHTH DROPS 5ML LEFTEYE SCH ×2 (17:15→20:39)
[2019-04-05] MEDS: TIMOLOL MALEATE 0.5% OPHTH DROPS 5ML LEFTEYE SCH (17:16)
[2019-04-05 17:29] LABS: BG BASE EXCESS 5.2 mmol/L (-2.0-2.0); BG DEOXYHEMOGLOBIN 3.8 % (0.0-5.0); BG FRACTION INSPIRED OXYGEN 21; BG HCO3 ACT 28.2 mmol/L (22.0-26.0); BG METHEMOGLOBIN 0.3 % (0.0-1.5); BG OXYGEN SATURATION 96.1 % (92.0-98.5); BG OXYHEMOGLOBIN 94.9 % (94.0-97.0); BG PCO2 35.5 mmHg (35.0-45.0); BG PH 7.518 (7.350-7.450); BG PO2 78.1 mmHg (75.0-100.0); BG SAMPLE SITE RIGHT BRACHIAL; BG VENT MODE ROOM AIR
[2019-04-05] MEDS: SEVELAMER CARBONATE 800 MG TABLET PO SCH (19:26)
[2019-04-05 20:00] VITALS: BP 118/71
[2019-04-05] MEDS: DIPHENHYDRAMINE 50MG/ML VIAL IV PRN (20:38)
[2019-04-05] MEDS: HYDRALAZINE HCL 25MG TABLET PO SCH (20:49)
[2019-04-05] MEDS: INSULIN LISPRO 100 UNITS/ML SUBCUT SCH (20:49)
[2019-04-05 22:21] LABS: HEMATOCRIT 22.7 % (36.0-48.0); HEMOGLOBIN 7.8 g/dL (12.0-16.0)
[2019-04-05 22:35] LABS: CREATINE KINASE MB FRACTION 2.4 ng/mL (0.5-3.6)
[2019-04-06] VITALS: BP 125/78
[2019-04-06] MEDS: MORPHINE SULFATE 2 MG/ML CPJ (NOT FOR IM USE) IV PRN ×4 (01:25→21:21)
[2019-04-06 04:00] VITALS: BP 153/83
[2019-04-06] MEDS: DIPHENHYDRAMINE 50MG/ML VIAL IV PRN ×3 (04:00→23:49)
[2019-04-06 06:16] LABS: BASOPHILS % 0.4 % (0.0-2.0); EOSINOPHILS % 0.9 % (0.0-5.0); HEMATOCRIT. 23.9 % (36.0-48.0); HEMOGLOBIN. 8.3 g/dL (12.0-16.0); MEAN CORPUSCULAR HEMOGLOBIN 33.4 pg (28.0-32.0); MEAN CORPUSCULAR VOLUME 96.1 fL (81.0-99.0); MONOCYTES % 12.3 % (2.0-8.0); NEUTROPHILS % 70.4 % (40.0-76.0); RED BLOOD CELL COUNT 2.49 mill/uL (4.2-5.4); RED CELL DISTRIBUTION WIDTH 16.2 % (11.6-14.6)
[2019-04-06] MEDS: BLOOD SUGAR DIAGNOSTIC STRIP TEST SCH ×4 (06:40→21:07)
[2019-04-06] MEDS: PANTOPRAZOLE 40MG DR TABLET PO SCH (06:40)
[2019-04-06] MEDS: HYDRALAZINE HCL 25MG TABLET PO SCH ×3 (06:40→21:06)
[2019-04-06] MEDS: INSULIN LISPRO 100 UNITS/ML SUBCUT SCH ×4 (07:50→21:00)
[2019-04-06] MEDS: SEVELAMER CARBONATE 800 MG TABLET PO SCH ×3 (08:44→17:33)
[2019-04-06] MEDS: AMLODIPINE 10MG TABLET PO SCH (08:45)
[2019-04-06] MEDS: NICOTINE 14MG PATCH TD SCH (08:45)
[2019-04-06] MEDS: CHOLECALCIFEROL (D3) 1000 UNIT TABLET PO SCH (08:45)
[2019-04-06] MEDS: TIMOLOL MALEATE 0.5% OPHTH DROPS 5ML LEFTEYE SCH ×2 (08:46→17:34)
[2019-04-06] MEDS: PREDNISOLONE ACETATE 1% OPHTH DROPS 5ML LEFTEYE SCH ×4 (08:46→21:07)
[2019-04-06] MEDS: BRIMONIDINE 0.2% OPHTH DROPS 5ML LEFTEYE SCH (08:46)
[2019-04-06 08:59] LABS: MEAN PLATELET VOLUME 8.3 fl (7.4-10.4); PLATELET 209 x1000/uL (130-400)
[2019-04-06] MEDS ORDERED: MEDICATION NOT ON FORMULARY EA (Dolutegravir Sodium (Tivicay) 50 MG) PO SCH (09:00)
[2019-04-06] MEDS: DIPHENHYDRAMINE 25MG CAPSULE PO PRN (10:02)
[2019-04-06 12:00] VITALS: BP 129/63
[2019-04-06 16:00] VITALS: BP 134/62
[2019-04-06 20:00] VITALS: BP 116/63
[2019-04-07] VITALS: BP 139/45
[2019-04-07] MEDS: MORPHINE SULFATE 2 MG/ML CPJ (NOT FOR IM USE) IV PRN ×3 (02:28→21:29)
[2019-04-07 04:00] VITALS: BP 128/82
[2019-04-07] MEDS: DIPHENHYDRAMINE 50MG/ML VIAL IV PRN ×2 (06:44→12:21)
[2019-04-07] MEDS: PANTOPRAZOLE 40MG DR TABLET PO SCH (06:44)
[2019-04-07] MEDS: HYDRALAZINE HCL 25MG TABLET PO SCH ×3 (06:44→21:28)
[2019-04-07] MEDS: BLOOD SUGAR DIAGNOSTIC STRIP TEST SCH ×4 (06:45→20:48)
[2019-04-07] MEDS: INSULIN LISPRO 100 UNITS/ML SUBCUT SCH ×4 (07:50→20:48)
[2019-04-07 08:00] VITALS: BP 171/73
[2019-04-07 09:09] LABS: % CD 3 POS. LYMPHOCYTES 86.2 % (57.5-86.2); % CD 4 POS. LYMPHOCYTES 40.8 % (30.8-58.5); % CD 8 POS. LYMPH 44.2 % (12.0-35.5); ABSOLUTE CD 3 517 /uL (622-2402); ABSOLUTE CD 4 HELPER 245 /uL (359-1519); ABSOLUTE CD 8 SUPPRESSOR 265 /uL (109-897); ABSOLUTE EOSINOPHILS 0.1 x10E3/uL (0.0-0.4); ABSOLUTE LYMPHOCYTES 0.6 x10E3/uL (0.7-3.1); ABSOLUTE MONOCYTES 0.3 x10E3/uL (0.1-0.9); ABSOLUTE NEUTROPHILS 3.4 x10E3/uL (1.4-7.0); BASOPHILS 0 % (Not Estab.); CD4/CD8 RATIO 0.92 (0.92-3.72); HEMATOCRIT 21.2 % (34.0-46.6); HEMOGLOBIN 6.7 g/dL (11.1-15.9); IMMATURE GRANULOCYTES 0 % (Not Estab.); LYMPHOCYTES 14 % (Not Estab.); MEAN CORPUSCULAR HEMOGLOBIN 29.6 pg (26.6-33.0); MEAN CORPUSCULAR HGB CONC. 31.6 g/dL (31.5-35.7); MEAN CORPUSCULAR VOLUME 94 fL (79-97); MONOCYTES 8 % (Not Estab.); NEUTROPHILS 76 % (Not Estab.); PLATELETS 233 x10E3/uL (150-450); RBC 2.26 x10E6/uL (3.77-5.28); WBC 4.4 x10E3/uL (3.4-10.8)
[2019-04-07] MEDS: CHOLECALCIFEROL (D3) 1000 UNIT TABLET PO SCH (09:42)
[2019-04-07] MEDS: AMLODIPINE 10MG TABLET PO SCH (09:42)
[2019-04-07] MEDS: SEVELAMER CARBONATE 800 MG TABLET PO SCH ×3 (09:42→18:09)
[2019-04-07] MEDS: PREDNISOLONE ACETATE 1% OPHTH DROPS 5ML LEFTEYE SCH ×4 (09:43→21:29)
[2019-04-07] MEDS: BRIMONIDINE 0.2% OPHTH DROPS 5ML LEFTEYE SCH (09:43)
[2019-04-07] MEDS: NICOTINE 14MG PATCH TD SCH (09:43)
[2019-04-07] MEDS: TIMOLOL MALEATE 0.5% OPHTH DROPS 5ML LEFTEYE SCH ×2 (09:43→18:11)
[2019-04-07 10:15] LABS: HEMATOCRIT. 24.3 % (36.0-48.0); HEMOGLOBIN. 7.9 g/dL (12.0-16.0); MEAN CORPUSCULAR VOLUME 91.9 fL (81.0-99.0); MEAN PLATELET VOLUME 8.7 fl (7.4-10.4); PLATELET 192 x1000/uL (130-400); RED BLOOD CELL COUNT 2.65 mill/uL (4.2-5.4); RED CELL DISTRIBUTION WIDTH 16.2 % (11.6-14.6)
[2019-04-07 10:50] LABS: PLATELET ESTIMATE NORMAL
[2019-04-07 12:00] VITALS: BP 169/78
[2019-04-07 16:00] VITALS: BP 128/60
[2019-04-07 19:42] LABS: HEMOGLOBIN 7.9 g/dL (12.0-16.0)
[2019-04-07 20:00] VITALS: BP 161/70
[2019-04-08] VITALS: BP 162/76
[2019-04-08] MEDS: DIPHENHYDRAMINE 50MG/ML VIAL IV PRN ×3 (00:24→23:31)
[2019-04-08] MEDS: MORPHINE SULFATE 2 MG/ML CPJ (NOT FOR IM USE) IV PRN ×3 (01:27→21:13)
[2019-04-08 04:00] VITALS: BP 163/74
[2019-04-08] MEDS: HYDRALAZINE HCL 25MG TABLET PO SCH ×4 (06:00→21:12)
[2019-04-08] MEDS: BLOOD SUGAR DIAGNOSTIC STRIP TEST SCH ×4 (06:31→21:14)
[2019-04-08] MEDS: INSULIN LISPRO 100 UNITS/ML SUBCUT SCH ×4 (06:31→21:19)
[2019-04-08] MEDS: PANTOPRAZOLE 40MG DR TABLET PO SCH ×2 (06:31→07:00)
[2019-04-08 07:01] LABS: BASOPHILS % 0.6 % (0.0-2.0); EOSINOPHILS % 1.7 % (0.0-5.0); HEMATOCRIT. 21.3 % (36.0-48.0); HEMOGLOBIN. 7.1 g/dL (12.0-16.0); LYMPHOCYTES % 14.1 % (20.0-50.0); MEAN CORPUSCULAR HEMOGLOBIN 30.5 pg (28.0-32.0); MEAN CORPUSCULAR VOLUME 91.3 fL (81.0-99.0); MEAN PLATELET VOLUME 8.4 fl (7.4-10.4); MONOCYTES % 11.3 % (2.0-8.0); NEUTROPHILS % 72.3 % (40.0-76.0); PLATELET 160 x1000/uL (130-400); RED BLOOD CELL COUNT 2.34 mill/uL (4.2-5.4); RED CELL DISTRIBUTION WIDTH 16.1 % (11.6-14.6)
[2019-04-08 08:00] VITALS: BP 111/58
[2019-04-08] MEDS ORDERED: POTASSIUM CHLORIDE 10MEQ TABLET SR PO NR (09:00)
[2019-04-08] MEDS: SEVELAMER CARBONATE 800 MG TABLET PO SCH ×3 (10:00→17:44)
[2019-04-08] MEDS: PREDNISOLONE ACETATE 1% OPHTH DROPS 5ML LEFTEYE SCH ×4 (10:03→21:15)
[2019-04-08] MEDS: TIMOLOL MALEATE 0.5% OPHTH DROPS 5ML LEFTEYE SCH ×2 (10:03→17:44)
[2019-04-08] MEDS: BRIMONIDINE 0.2% OPHTH DROPS 5ML LEFTEYE SCH (10:04)
[2019-04-08] MEDS: NICOTINE 14MG PATCH TD SCH (10:10)
[2019-04-08] MEDS: CHOLECALCIFEROL (D3) 1000 UNIT TABLET PO SCH (10:10)
[2019-04-08] MEDS: AMLODIPINE 10MG TABLET PO SCH (10:10)
[2019-04-08 11:01] LABS: PHOSPHORUS 1.7 mg/dL (2.5-4.9)
[2019-04-08 12:00] VITALS: BP 110/54
[2019-04-08 13:24] LABS: HEPATITIS B SURFACE ANTIGEN NEGATIVE
[2019-04-08 16:00] VITALS: BP 108/51
[2019-04-08 20:00] VITALS: BP 103/51
[2019-04-09] VITALS: BP 123/53
[2019-04-09] MEDS: MORPHINE SULFATE 2 MG/ML CPJ (NOT FOR IM USE) IV PRN ×5 (02:24→23:44)
[2019-04-09 04:00] VITALS: BP 136/65
[2019-04-09] MEDS: BLOOD SUGAR DIAGNOSTIC STRIP TEST SCH ×4 (06:07→21:00)
[2019-04-09] MEDS: INSULIN LISPRO 100 UNITS/ML SUBCUT SCH ×4 (06:07→21:00)
[2019-04-09] MEDS: DIPHENHYDRAMINE 50MG/ML VIAL IV PRN ×2 (06:37→14:45)
[2019-04-09] MEDS: HYDRALAZINE HCL 25MG TABLET PO SCH ×3 (06:37→21:54)
[2019-04-09] MEDS: PANTOPRAZOLE 40MG DR TABLET PO SCH (06:37)
[2019-04-09 07:04] LABS: HEMATOCRIT. 24.1 % (36.0-48.0); HEMOGLOBIN. 7.8 g/dL (12.0-16.0); MEAN CORPUSCULAR HEMOGLOBIN 30.2 pg (28.0-32.0); MEAN CORPUSCULAR VOLUME 92.8 fL (81.0-99.0); MEAN PLATELET VOLUME 8.5 fl (7.4-10.4); PLATELET 181 x1000/uL (130-400); RED CELL DISTRIBUTION WIDTH 15.9 % (11.6-14.6)
[2019-04-09 08:00] VITALS: BP 131/57
[2019-04-09] MEDS: AMLODIPINE 10MG TABLET PO SCH (08:00)
[2019-04-09] MEDS: CHOLECALCIFEROL (D3) 1000 UNIT TABLET PO SCH (08:13)
[2019-04-09] MEDS: NICOTINE 14MG PATCH TD SCH (08:13)
[2019-04-09] MEDS: SEVELAMER CARBONATE 800 MG TABLET PO SCH ×3 (08:13→17:32)
[2019-04-09] MEDS: TIMOLOL MALEATE 0.5% OPHTH DROPS 5ML LEFTEYE SCH ×2 (08:13→17:33)
[2019-04-09] MEDS: PREDNISOLONE ACETATE 1% OPHTH DROPS 5ML LEFTEYE SCH ×4 (08:14→21:53)
[2019-04-09] MEDS: BRIMONIDINE 0.2% OPHTH DROPS 5ML LEFTEYE SCH (08:14)
[2019-04-09 12:00] VITALS: BP 153/63
[2019-04-09 13:16] LABS: PLATELET ESTIMATE NORMAL
[2019-04-09 13:49] LABS: HEMOGLOBIN 7.7 g/dL (12.0-16.0)
[2019-04-09 16:00] VITALS: BP 111/63
[2019-04-09 20:00] VITALS: BP 143/63
[2019-04-09] MEDS: ACETAMINOPHEN 325MG TABLET PO PRN (21:55)
[2019-04-10] VITALS: BP 125/60
[2019-04-10 04:00] VITALS: BP 131/72
[2019-04-10] MEDS: HYDRALAZINE HCL 25MG TABLET PO SCH ×3 (05:59→22:21)
[2019-04-10] MEDS: DIPHENHYDRAMINE 50MG/ML VIAL IV PRN ×4 (05:59→20:53)
[2019-04-10] MEDS: BLOOD SUGAR DIAGNOSTIC STRIP TEST SCH ×4 (07:20→21:00)
[2019-04-10] MEDS: INSULIN LISPRO 100 UNITS/ML SUBCUT SCH ×4 (07:50→22:04)
[2019-04-10 08:00] VITALS: BP 136/75
[2019-04-10] MEDS: CHOLECALCIFEROL (D3) 1000 UNIT TABLET PO SCH (09:26)
[2019-04-10] MEDS: NICOTINE 14MG PATCH TD SCH (09:28)
[2019-04-10] MEDS: PANTOPRAZOLE 40MG DR TABLET PO SCH (09:28)
[2019-04-10] MEDS: AMLODIPINE 10MG TABLET PO SCH (09:28)
[2019-04-10] MEDS: SEVELAMER CARBONATE 800 MG TABLET PO SCH ×3 (09:28→18:47)
[2019-04-10] MEDS: TIMOLOL MALEATE 0.5% OPHTH DROPS 5ML LEFTEYE SCH ×2 (09:29→18:48)
[2019-04-10] MEDS: BRIMONIDINE 0.2% OPHTH DROPS 5ML LEFTEYE SCH ×2 (09:29→18:47)
[2019-04-10] MEDS: PREDNISOLONE ACETATE 1% OPHTH DROPS 5ML LEFTEYE SCH ×4 (09:29→22:20)
[2019-04-10 10:37] LABS: HEMATOCRIT. 26.9 % (36.0-48.0); HEMOGLOBIN. 8.9 g/dL (12.0-16.0); MEAN CORPUSCULAR HEMOGLOBIN 30.2 pg (28.0-32.0); MEAN CORPUSCULAR VOLUME 91.9 fL (81.0-99.0); MEAN PLATELET VOLUME 8.4 fl (7.4-10.4); PLATELET 207 x1000/uL (130-400); RED BLOOD CELL COUNT 2.93 mill/uL (4.2-5.4); RED CELL DISTRIBUTION WIDTH 15.6 % (11.6-14.6)
[2019-04-10 12:00] VITALS: BP 140/75
[2019-04-10 14:46] LABS: PLATELET ESTIMATE NORMAL
[2019-04-10] MEDS ORDERED: VANCOMYCIN 1 G PREMIX 200 ML IV SCH (15:00)
[2019-04-10] MEDS: PIPERACILLIN/TAZOBACTAM 2.25 G in DEXTROSE 5% WATER 50 ML IV SCH ×2 (16:07→22:01)
[2019-04-10 17:36] LABS: CLARITY URINE CLOUDY (CLEAR); COLOR URINE YELLOW (YELLOW); KETONES URINE NEGATIVE (NEGATIVE); LEUKOCYTE ESTERASE URINE 1+ (NEGATIVE); NITRITE URINE NEGATIVE (NEGATIVE); OCCULT BLOOD URINE NEGATIVE (NEGATIVE); PH URINE >=9.0 (4.5-8.0); PROTEIN URINE 3+ (NEGATIVE); SPECIFIC GRAVITY URINE 1.009 (1.005-1.030); UROBILINOGEN URINE 0.2 E.U./dL (0.2-1.0)
[2019-04-10 21:00] VITALS: BP 120/63
[2019-04-11] VITALS: BP 138/60
[2019-04-11] MEDS: DIPHENHYDRAMINE 50MG/ML VIAL IV PRN ×3 (02:51→21:13)
[2019-04-11 04:00] VITALS: BP 121/58
[2019-04-11] MEDS: PIPERACILLIN/TAZOBACTAM 2.25 G in DEXTROSE 5% WATER 50 ML IV SCH ×3 (05:33→21:14)
[2019-04-11] MEDS: HYDRALAZINE HCL 25MG TABLET PO SCH ×3 (06:19→21:13)
[2019-04-11] MEDS: BLOOD SUGAR DIAGNOSTIC STRIP TEST SCH ×4 (06:20→20:47)
[2019-04-11] MEDS: PANTOPRAZOLE 40MG DR TABLET PO SCH (06:20)
[2019-04-11] MEDS: INSULIN LISPRO 100 UNITS/ML SUBCUT SCH ×4 (06:57→21:26)
[2019-04-11 06:58] LABS: BASOPHILS % 0.5 % (0.0-2.0); EOSINOPHILS % 2.7 % (0.0-5.0); HEMATOCRIT. 23.6 % (36.0-48.0); HEMOGLOBIN. 7.9 g/dL (12.0-16.0); MEAN CORPUSCULAR HEMOGLOBIN 30.6 pg (28.0-32.0); MEAN CORPUSCULAR VOLUME 91.3 fL (81.0-99.0); MEAN PLATELET VOLUME 8.4 fl (7.4-10.4); MONOCYTES % 11.5 % (2.0-8.0); NEUTROPHILS % 68.3 % (40.0-76.0); PLATELET 179 x1000/uL (130-400); RED BLOOD CELL COUNT 2.59 mill/uL (4.2-5.4); RED CELL DISTRIBUTION WIDTH 15.1 % (11.6-14.6)
[2019-04-11 08:00] VITALS: BP 156/77
[2019-04-11] MEDS: AMLODIPINE 10MG TABLET PO SCH (09:06)
[2019-04-11] MEDS: CHOLECALCIFEROL (D3) 1000 UNIT TABLET PO SCH (09:06)
[2019-04-11] MEDS: DIPHENHYDRAMINE 25MG CAPSULE PO PRN (09:06)
[2019-04-11] MEDS: SEVELAMER CARBONATE 800 MG TABLET PO SCH ×3 (09:06→17:49)
[2019-04-11] MEDS: PREDNISOLONE ACETATE 1% OPHTH DROPS 5ML LEFTEYE SCH ×4 (09:07→21:14)
[2019-04-11] MEDS: TIMOLOL MALEATE 0.5% OPHTH DROPS 5ML LEFTEYE SCH ×2 (09:07→17:48)
[2019-04-11] MEDS: NICOTINE 14MG PATCH TD SCH (09:07)
[2019-04-11 12:00] VITALS: BP 148/85
[2019-04-11 15:29] LABS: HEPATITIS B SURFACE AB 107.2 mIU/mL
[2019-04-11 16:12] VITALS: BP 152/66
[2019-04-11 20:52] VITALS: BP 123/65
[2019-04-11] MEDS: EPOETIN ALFA 10000UNITS/ML VIAL SUBCUT SCH (21:30)
[2019-04-12 00:23] VITALS: BP 136/73
[2019-04-12] MEDS: DIPHENHYDRAMINE 50MG/ML VIAL IV PRN ×3 (04:10→16:06)
[2019-04-12 04:49] VITALS: BP 156/78
[2019-04-12] MEDS: PIPERACILLIN/TAZOBACTAM 2.25 G in DEXTROSE 5% WATER 50 ML IV SCH (05:33)
[2019-04-12] MEDS: HYDRALAZINE HCL 25MG TABLET PO SCH ×3 (05:34→21:35)
[2019-04-12] MEDS: BLOOD SUGAR DIAGNOSTIC STRIP TEST SCH ×4 (06:26→21:00)
[2019-04-12] MEDS: PANTOPRAZOLE 40MG DR TABLET PO SCH (06:26)
[2019-04-12 07:09] LABS: BASOPHILS % 0.5 % (0.0-2.0); EOSINOPHILS % 2.1 % (0.0-5.0); HEMOGLOBIN. 8.3 g/dL (12.0-16.0); LYMPHOCYTES % 18.9 % (20.0-50.0); MEAN CORPUSCULAR HEMOGLOBIN 30.3 pg (28.0-32.0); MEAN CORPUSCULAR VOLUME 91.4 fL (81.0-99.0); MEAN PLATELET VOLUME 8.5 fl (7.4-10.4); NEUTROPHILS % 66.5 % (40.0-76.0); PLATELET 198 x1000/uL (130-400); RED BLOOD CELL COUNT 2.73 mill/uL (4.2-5.4); RED CELL DISTRIBUTION WIDTH 15.2 % (11.6-14.6)
[2019-04-12 07:28] LABS: CHLORIDE 103 mEq/L (98-107)
[2019-04-12] MEDS: INSULIN LISPRO 100 UNITS/ML SUBCUT SCH ×4 (07:50→22:06)
[2019-04-12 08:00] VITALS: BP 143/72
[2019-04-12] MEDS: AMLODIPINE 10MG TABLET PO SCH (09:00)
[2019-04-12] MEDS: SEVELAMER CARBONATE 800 MG TABLET PO SCH ×3 (09:39→18:11)
[2019-04-12] MEDS: CHOLECALCIFEROL (D3) 1000 UNIT TABLET PO SCH (09:39)
[2019-04-12] MEDS: PREDNISOLONE ACETATE 1% OPHTH DROPS 5ML LEFTEYE SCH ×4 (09:40→21:55)
[2019-04-12] MEDS: BRIMONIDINE 0.2% OPHTH DROPS 5ML LEFTEYE SCH (09:40)
[2019-04-12] MEDS: NICOTINE 14MG PATCH TD SCH (09:40)
[2019-04-12] MEDS: TIMOLOL MALEATE 0.5% OPHTH DROPS 5ML LEFTEYE SCH ×2 (09:40→18:12)
[2019-04-12 12:00] VITALS: BP 121/86
[2019-04-12] MEDS ORDERED: VANCOMYCIN 1250MG in DEXTROSE 5% WATER 250ML IV SCH (12:00)
[2019-04-12] MEDS: ACETAMINOPHEN 325MG TABLET PO PRN (13:15)
[2019-04-12] MEDS ORDERED: LEVOFLOXACIN 250MG PREMIX 50 ML IV SCH (15:00)
[2019-04-12 16:00] VITALS: BP 170/86
[2019-04-12] MEDS ORDERED: IBUPROFEN 800MG TABLET PO NR (17:00)
[2019-04-12] MEDS ORDERED: HEPARIN SODIUM 1,000 UNIT/1ML VIAL IV NR (17:30)
[2019-04-12 20:52] VITALS: BP 90/52
[2019-04-12] MEDS: LEVOFLOXACIN 250MG PREMIX 50 ML IV SCH ×2 (21:00→21:36)
[2019-04-12] MEDS: DIPHENHYDRAMINE 25MG CAPSULE PO PRN (22:10)
[2019-04-13] VITALS: BP 111/71
[2019-04-13] MEDS: LEVOFLOXACIN 250MG TABLET PO SCH (00:28)
[2019-04-13 04:00] VITALS: BP 146/74
[2019-04-13] MEDS: HYDRALAZINE HCL 25MG TABLET PO SCH ×3 (05:40→21:56)
[2019-04-13] MEDS: DIPHENHYDRAMINE 25MG CAPSULE PO PRN (05:41)
[2019-04-13] MEDS: BLOOD SUGAR DIAGNOSTIC STRIP TEST SCH ×4 (06:27→21:54)
[2019-04-13] MEDS: PANTOPRAZOLE 40MG DR TABLET PO SCH (06:28)
[2019-04-13 06:46] LABS: EOSINOPHILS % 1.4 % (0.0-5.0); HEMATOCRIT. 26.3 % (36.0-48.0); HEMOGLOBIN. 8.6 g/dL (12.0-16.0); LYMPHOCYTES % 18.1 % (20.0-50.0); MEAN CORPUSCULAR HEMOGLOBIN 29.8 pg (28.0-32.0); MEAN CORPUSCULAR VOLUME 90.7 fL (81.0-99.0); MONOCYTES % 12.5 % (2.0-8.0); PLATELET 182 x1000/uL (130-400); RED BLOOD CELL COUNT 2.89 mill/uL (4.2-5.4); RED CELL DISTRIBUTION WIDTH 14.8 % (11.6-14.6)
[2019-04-13] MEDS: INSULIN LISPRO 100 UNITS/ML SUBCUT SCH ×4 (07:08→21:00)
[2019-04-13 08:00] VITALS: BP 117/65
[2019-04-13] MEDS: NICOTINE 14MG PATCH TD SCH (10:02)
[2019-04-13] MEDS: AMLODIPINE 10MG TABLET PO SCH (10:03)
[2019-04-13] MEDS: SEVELAMER CARBONATE 800 MG TABLET PO SCH ×3 (10:03→18:16)
[2019-04-13] MEDS: CHOLECALCIFEROL (D3) 1000 UNIT TABLET PO SCH (10:03)
[2019-04-13] MEDS: PREDNISOLONE ACETATE 1% OPHTH DROPS 5ML LEFTEYE SCH ×4 (10:04→21:55)
[2019-04-13] MEDS: TIMOLOL MALEATE 0.5% OPHTH DROPS 5ML LEFTEYE SCH ×2 (10:04→18:17)
[2019-04-13] MEDS: BRIMONIDINE 0.2% OPHTH DROPS 5ML LEFTEYE SCH (10:04)
[2019-04-13 12:00] VITALS: BP 111/73
[2019-04-13 16:00] VITALS: BP 112/67
[2019-04-13] MEDS: DIPHENHYDRAMINE 50MG/ML VIAL IV PRN (18:17)
[2019-04-13 20:00] VITALS: BP_SYST 124; BP_SYST 153; BP_DIAS 69; BP_DIAS 89
[2019-04-13] MEDS: EPOETIN ALFA 10000UNITS/ML VIAL SUBCUT SCH (21:55)
[2019-04-14] VITALS: BP 118/56
[2019-04-14] MEDS: IBUPROFEN 800MG TABLET PO PRN ×2 (02:09→14:03)
[2019-04-14 04:00] VITALS: BP 117/50
[2019-04-14] MEDS: HYDRALAZINE HCL 25MG TABLET PO SCH ×3 (06:06→22:28)
[2019-04-14] MEDS: BLOOD SUGAR DIAGNOSTIC STRIP TEST SCH ×4 (06:26→21:15)
[2019-04-14] MEDS: PANTOPRAZOLE 40MG DR TABLET PO SCH (06:26)
[2019-04-14] MEDS: INSULIN LISPRO 100 UNITS/ML SUBCUT SCH ×4 (07:50→21:00)
[2019-04-14 08:00] VITALS: BP 150/66
[2019-04-14] MEDS: CHOLECALCIFEROL (D3) 1000 UNIT TABLET PO SCH (08:53)
[2019-04-14] MEDS: SEVELAMER CARBONATE 800 MG TABLET PO SCH ×3 (08:53→16:50)
[2019-04-14] MEDS: PREDNISOLONE ACETATE 1% OPHTH DROPS 5ML LEFTEYE SCH ×4 (08:53→21:14)
[2019-04-14] MEDS: NICOTINE 14MG PATCH TD SCH (08:53)
[2019-04-14] MEDS: AMLODIPINE 10MG TABLET PO SCH (08:54)
[2019-04-14] MEDS: TIMOLOL MALEATE 0.5% OPHTH DROPS 5ML LEFTEYE SCH ×2 (08:54→16:42)
[2019-04-14] MEDS: BRIMONIDINE 0.2% OPHTH DROPS 5ML LEFTEYE SCH (08:54)
[2019-04-14 10:27] LABS: BASOPHILS % 0.7 % (0.0-2.0); EOSINOPHILS % 0.7 % (0.0-5.0); HEMATOCRIT. 26.8 % (36.0-48.0); HEMOGLOBIN. 8.8 g/dL (12.0-16.0); LYMPHOCYTES % 13.1 % (20.0-50.0); MEAN CORPUSCULAR VOLUME 91.8 fL (81.0-99.0); MEAN PLATELET VOLUME 8.2 fl (7.4-10.4); MONOCYTES % 13.7 % (2.0-8.0); NEUTROPHILS % 71.8 % (40.0-76.0); PLATELET 201 x1000/uL (130-400); RED BLOOD CELL COUNT 2.92 mill/uL (4.2-5.4); RED CELL DISTRIBUTION WIDTH 15.1 % (11.6-14.6)
[2019-04-14 12:00] VITALS: BP 148/68
[2019-04-14] MEDS: ACETAMINOPHEN 325MG TABLET PO PRN ×2 (15:54→22:27)
[2019-04-14 16:00] VITALS: BP 143/78
[2019-04-14] MEDS: DIPHENHYDRAMINE 25MG CAPSULE PO PRN (16:42)
[2019-04-14 20:00] VITALS: BP 121/59
[2019-04-14] MEDS: LEVOFLOXACIN 250MG TABLET PO SCH (23:42)
[2019-04-15 00:43] VITALS: BP 122/51
[2019-04-15 04:00] VITALS: BP 119/57
[2019-04-15] MEDS: HYDRALAZINE HCL 25MG TABLET PO SCH ×3 (07:05→22:00)
[2019-04-15] MEDS: INSULIN LISPRO 100 UNITS/ML SUBCUT SCH ×4 (07:50→21:31)
[2019-04-15] MEDS: BLOOD SUGAR DIAGNOSTIC STRIP TEST SCH ×4 (07:51→21:31)
[2019-04-15 08:00] VITALS: BP 142/70
[2019-04-15] MEDS: SEVELAMER CARBONATE 800 MG TABLET PO SCH ×3 (08:47→17:17)
[2019-04-15] MEDS: CHOLECALCIFEROL (D3) 1000 UNIT TABLET PO SCH (08:47)
[2019-04-15] MEDS: PANTOPRAZOLE 40MG DR TABLET PO SCH (08:47)
[2019-04-15] MEDS: AMLODIPINE 10MG TABLET PO SCH (08:47)
[2019-04-15] MEDS: BRIMONIDINE 0.2% OPHTH DROPS 5ML LEFTEYE SCH (08:48)
[2019-04-15] MEDS: PREDNISOLONE ACETATE 1% OPHTH DROPS 5ML LEFTEYE SCH ×4 (08:48→21:31)
[2019-04-15] MEDS: TIMOLOL MALEATE 0.5% OPHTH DROPS 5ML LEFTEYE SCH ×2 (08:49→17:17)
[2019-04-15] MEDS: NICOTINE 14MG PATCH TD SCH (08:49)
[2019-04-15] MEDS: IBUPROFEN 800MG TABLET PO PRN (09:45)
[2019-04-15] MEDS: DIPHENHYDRAMINE 25MG CAPSULE PO PRN ×2 (11:28→18:17)
[2019-04-15] MEDS: CLONIDINE 0.1MG TABLET PO PRN (11:59)
[2019-04-15 12:17] VITALS: BP 174/86
[2019-04-15] MEDS ORDERED: LORAZEPAM 0.5MG TABLET PO NR (12:30)
[2019-04-15 16:00] VITALS: BP 113/59
[2019-04-15 20:00] VITALS: BP 99/49
[2019-04-15] MEDS: EPOETIN ALFA 10000UNITS/ML VIAL SUBCUT SCH (21:31)
[2019-04-16] VITALS: BP 122/64
[2019-04-16 04:00] VITALS: BP 132/74
[2019-04-16] MEDS: DIPHENHYDRAMINE 50MG/ML VIAL IV PRN ×2 (04:43→19:50)
[2019-04-16] MEDS: IBUPROFEN 800MG TABLET PO PRN (04:50)
[2019-04-16] MEDS: HYDRALAZINE HCL 25MG TABLET PO SCH ×3 (06:00→21:26)
[2019-04-16] MEDS: PANTOPRAZOLE 40MG DR TABLET PO SCH (06:31)
[2019-04-16] MEDS: BLOOD SUGAR DIAGNOSTIC STRIP TEST SCH ×4 (06:31→21:15)
[2019-04-16 07:19] LABS: BASOPHILS % 0.2 % (0.0-2.0); EOSINOPHILS % 0.7 % (0.0-5.0); LYMPHOCYTES % 11.8 % (20.0-50.0); MEAN CORPUSCULAR HEMOGLOBIN 30.9 pg (28.0-32.0); MEAN CORPUSCULAR VOLUME 92.8 fL (81.0-99.0); MEAN PLATELET VOLUME 8.6 fl (7.4-10.4); MONOCYTES % 11.5 % (2.0-8.0); NEUTROPHILS % 75.8 % (40.0-76.0); PLATELET 192 x1000/uL (130-400); RED BLOOD CELL COUNT 2.58 mill/uL (4.2-5.4); RED CELL DISTRIBUTION WIDTH 14.8 % (11.6-14.6)
[2019-04-16 08:00] VITALS: BP 123/65
[2019-04-16] MEDS: PREDNISOLONE ACETATE 1% OPHTH DROPS 5ML LEFTEYE SCH ×4 (08:35→21:20)
[2019-04-16] MEDS: FOLIC ACID/VITAMIN B COMP W-C TABLET PO SCH (08:35)
[2019-04-16] MEDS: BRIMONIDINE 0.2% OPHTH DROPS 5ML LEFTEYE SCH (08:35)
[2019-04-16] MEDS: TIMOLOL MALEATE 0.5% OPHTH DROPS 5ML LEFTEYE SCH ×2 (08:35→17:47)
[2019-04-16] MEDS: CHOLECALCIFEROL (D3) 1000 UNIT TABLET PO SCH (08:35)
[2019-04-16] MEDS: SEVELAMER CARBONATE 800 MG TABLET PO SCH ×3 (08:36→17:46)
[2019-04-16] MEDS: AMLODIPINE 10MG TABLET PO SCH (08:36)
[2019-04-16] MEDS: NICOTINE 14MG PATCH TD SCH (08:36)
[2019-04-16] MEDS: INSULIN LISPRO 100 UNITS/ML SUBCUT SCH ×4 (08:38→21:19)
[2019-04-16] MEDS: CLONAZEPAM 1MG TABLET PO PRN (10:07)
[2019-04-16 12:00] VITALS: BP 107/59
[2019-04-16] MEDS ORDERED: HYDROCODONE/ACETAMINOPHEN 5/325MG TABLET PO PRN (12:55)
[2019-04-16 16:00] VITALS: BP 125/82
[2019-04-16] MEDS: HYDROCODONE/ACETAMINOPHEN 10/325MG TABLET PO PRN (17:46)
[2019-04-16 20:00] VITALS: BP 112/49
[2019-04-16] MEDS: LEVOFLOXACIN 250MG TABLET PO SCH (23:34)
[2019-04-17] VITALS: BP 109/48
[2019-04-17] MEDS: HYDROCODONE/ACETAMINOPHEN 10/325MG TABLET PO PRN ×4 (01:10→20:51)
[2019-04-17 04:00] VITALS: BP 92/50
[2019-04-17] MEDS: DIPHENHYDRAMINE 50MG/ML VIAL IV PRN ×2 (04:38→19:01)
[2019-04-17] MEDS: HYDRALAZINE HCL 25MG TABLET PO SCH ×3 (06:00→21:27)
[2019-04-17] MEDS: PANTOPRAZOLE 40MG DR TABLET PO SCH (06:29)
[2019-04-17] MEDS: BLOOD SUGAR DIAGNOSTIC STRIP TEST SCH ×4 (06:36→20:51)
[2019-04-17 07:13] LABS: BASOPHILS % 0.5 % (0.0-2.0); EOSINOPHILS % 1.2 % (0.0-5.0); HEMATOCRIT. 24.4 % (36.0-48.0); LYMPHOCYTES % 13.3 % (20.0-50.0); MEAN CORPUSCULAR HEMOGLOBIN 30.2 pg (28.0-32.0); MEAN CORPUSCULAR VOLUME 92.2 fL (81.0-99.0); MEAN PLATELET VOLUME 8.6 fl (7.4-10.4); MONOCYTES % 13.8 % (2.0-8.0); NEUTROPHILS % 71.2 % (40.0-76.0); PLATELET 196 x1000/uL (130-400); RED BLOOD CELL COUNT 2.65 mill/uL (4.2-5.4); RED CELL DISTRIBUTION WIDTH 15.5 % (11.6-14.6)
[2019-04-17] MEDS: INSULIN LISPRO 100 UNITS/ML SUBCUT SCH ×4 (07:50→20:51)
[2019-04-17 08:00] VITALS: BP 117/59
[2019-04-17] MEDS: CHOLECALCIFEROL (D3) 1000 UNIT TABLET PO SCH (08:22)
[2019-04-17] MEDS: SEVELAMER CARBONATE 800 MG TABLET PO SCH ×3 (08:22→18:57)
[2019-04-17] MEDS: AMLODIPINE 10MG TABLET PO SCH (08:22)
[2019-04-17] MEDS: FOLIC ACID/VITAMIN B COMP W-C TABLET PO SCH (08:22)
[2019-04-17] MEDS: NICOTINE 14MG PATCH TD SCH (08:22)
[2019-04-17] MEDS: PREDNISOLONE ACETATE 1% OPHTH DROPS 5ML LEFTEYE SCH ×4 (08:23→20:50)
[2019-04-17] MEDS: BRIMONIDINE 0.2% OPHTH DROPS 5ML LEFTEYE SCH (08:23)
[2019-04-17] MEDS: TIMOLOL MALEATE 0.5% OPHTH DROPS 5ML LEFTEYE SCH ×2 (08:23→18:56)
[2019-04-17] MEDS: CLONAZEPAM 1MG TABLET PO PRN (10:44)
[2019-04-17 12:00] VITALS: BP 133/65
[2019-04-17 16:00] VITALS: BP 121/63
[2019-04-17] MEDS: DIPHENHYDRAMINE 25MG CAPSULE PO PRN (18:57)
[2019-04-17 20:00] VITALS: BP 109/52
[2019-04-18] VITALS: BP 133/58
[2019-04-18] MEDS: HYDROCODONE/ACETAMINOPHEN 10/325MG TABLET PO PRN ×3 (02:59→17:37)
[2019-04-18 04:00] VITALS: BP 147/78
[2019-04-18] MEDS: DIPHENHYDRAMINE 50MG/ML VIAL IV PRN ×3 (05:09→21:20)
[2019-04-18] MEDS: HYDRALAZINE HCL 25MG TABLET PO SCH ×3 (05:09→21:21)
[2019-04-18] MEDS: PANTOPRAZOLE 40MG DR TABLET PO SCH (06:20)
[2019-04-18] MEDS: BLOOD SUGAR DIAGNOSTIC STRIP TEST SCH ×4 (06:20→21:21)
[2019-04-18 07:17] LABS: BASOPHILS % 0.6 % (0.0-2.0); EOSINOPHILS % 1.5 % (0.0-5.0); HEMATOCRIT. 24.5 % (36.0-48.0); LYMPHOCYTES % 10.8 % (20.0-50.0); MEAN CORPUSCULAR HEMOGLOBIN 30.3 pg (28.0-32.0); MEAN CORPUSCULAR VOLUME 93.1 fL (81.0-99.0); MEAN PLATELET VOLUME 8.4 fl (7.4-10.4); MONOCYTES % 11.9 % (2.0-8.0); NEUTROPHILS % 75.2 % (40.0-76.0); PLATELET 183 x1000/uL (130-400); RED BLOOD CELL COUNT 2.63 mill/uL (4.2-5.4); RED CELL DISTRIBUTION WIDTH 15.1 % (11.6-14.6)
[2019-04-18] MEDS: INSULIN LISPRO 100 UNITS/ML SUBCUT SCH ×4 (07:50→21:00)
[2019-04-18 08:01] VITALS: BP 130/68
[2019-04-18] MEDS: FOLIC ACID/VITAMIN B COMP W-C TABLET PO SCH (09:05)
[2019-04-18] MEDS: TIMOLOL MALEATE 0.5% OPHTH DROPS 5ML LEFTEYE SCH ×2 (09:05→17:28)
[2019-04-18] MEDS: PREDNISOLONE ACETATE 1% OPHTH DROPS 5ML LEFTEYE SCH ×4 (09:05→21:20)
[2019-04-18] MEDS: SEVELAMER CARBONATE 800 MG TABLET PO SCH ×3 (09:05→17:28)
[2019-04-18] MEDS: CHOLECALCIFEROL (D3) 1000 UNIT TABLET PO SCH (09:05)
[2019-04-18] MEDS: BRIMONIDINE 0.2% OPHTH DROPS 5ML LEFTEYE SCH (09:05)
[2019-04-18] MEDS: AMLODIPINE 10MG TABLET PO SCH (09:06)
[2019-04-18] MEDS: NICOTINE 14MG PATCH TD SCH (09:06)
[2019-04-18 11:55] VITALS: BP 152/76
[2019-04-18] MEDS: CLONAZEPAM 1MG TABLET PO PRN (14:39)
[2019-04-18 15:57] VITALS: BP 108/54
[2019-04-18 20:00] VITALS: BP 129/64
[2019-04-18] MEDS: LEVOFLOXACIN 250MG TABLET PO SCH (23:51)
[2019-04-19] VITALS: BP 124/71
[2019-04-19] MEDS: HYDROCODONE/ACETAMINOPHEN 10/325MG TABLET PO PRN ×4 (02:27→23:08)
[2019-04-19 04:00] VITALS: BP 147/81
[2019-04-19] MEDS: DIPHENHYDRAMINE 50MG/ML VIAL IV PRN ×3 (04:28→22:22)
[2019-04-19 07:10] LABS: BASOPHILS % 0.5 % (0.0-2.0); EOSINOPHILS % 1.2 % (0.0-5.0); HEMATOCRIT. 24.4 % (36.0-48.0); LYMPHOCYTES % 9.3 % (20.0-50.0); MEAN CORPUSCULAR HEMOGLOBIN 30.2 pg (28.0-32.0); MEAN CORPUSCULAR VOLUME 92.3 fL (81.0-99.0); MEAN PLATELET VOLUME 8.3 fl (7.4-10.4); PLATELET 183 x1000/uL (130-400); RED BLOOD CELL COUNT 2.64 mill/uL (4.2-5.4); RED CELL DISTRIBUTION WIDTH 15.6 % (11.6-14.6)
[2019-04-19] MEDS: PANTOPRAZOLE 40MG DR TABLET PO SCH (07:19)
[2019-04-19] MEDS: HYDRALAZINE HCL 25MG TABLET PO SCH (07:20)
[2019-04-19] MEDS: BLOOD SUGAR DIAGNOSTIC STRIP TEST SCH ×4 (07:21→20:47)
[2019-04-19] MEDS: INSULIN LISPRO 100 UNITS/ML SUBCUT SCH ×4 (07:50→20:46)
[2019-04-19 08:00] VITALS: BP 146/64
[2019-04-19] MEDS: AMLODIPINE 10MG TABLET PO SCH (09:00)
[2019-04-19] MEDS: BRIMONIDINE 0.2% OPHTH DROPS 5ML LEFTEYE SCH (10:37)
[2019-04-19] MEDS: PREDNISOLONE ACETATE 1% OPHTH DROPS 5ML LEFTEYE SCH ×4 (10:37→20:46)
[2019-04-19] MEDS: TIMOLOL MALEATE 0.5% OPHTH DROPS 5ML LEFTEYE SCH ×2 (10:37→17:00)
[2019-04-19] MEDS: FOLIC ACID/VITAMIN B COMP W-C TABLET PO SCH (10:38)
[2019-04-19] MEDS: NICOTINE 14MG PATCH TD SCH (10:38)
[2019-04-19] MEDS: CHOLECALCIFEROL (D3) 1000 UNIT TABLET PO SCH (10:38)
[2019-04-19] MEDS: SEVELAMER CARBONATE 800 MG TABLET PO SCH ×3 (10:38→17:50)
[2019-04-19 12:00] VITALS: BP 112/67
[2019-04-19] MEDS: HYDRALAZINE HCL 50MG TABLET PO SCH ×2 (14:00→21:13)
[2019-04-19 16:00] VITALS: BP 161/71
[2019-04-19 20:00] VITALS: BP 121/52
[2019-04-19] MEDS: CLONAZEPAM 1MG TABLET PO PRN (20:46)
[2019-04-20] VITALS: BP 131/75
[2019-04-20 04:00] VITALS: BP 116/54
[2019-04-20] MEDS: DIPHENHYDRAMINE 50MG/ML VIAL IV PRN ×3 (04:25→18:29)
[2019-04-20] MEDS: HYDROCODONE/ACETAMINOPHEN 10/325MG TABLET PO PRN ×4 (06:01→22:08)
[2019-04-20] MEDS: HYDRALAZINE HCL 50MG TABLET PO SCH ×3 (06:01→22:09)
[2019-04-20] MEDS: BLOOD SUGAR DIAGNOSTIC STRIP TEST SCH ×4 (06:30→21:00)
[2019-04-20] MEDS: PANTOPRAZOLE 40MG DR TABLET PO SCH (06:30)
[2019-04-20] MEDS: INSULIN LISPRO 100 UNITS/ML SUBCUT SCH ×4 (07:50→21:00)
[2019-04-20 08:00] VITALS: BP 110/50
[2019-04-20 09:17] LABS: HEMATOCRIT. 23.6 % (36.0-48.0); HEMOGLOBIN. 7.6 g/dL (12.0-16.0); MEAN CORPUSCULAR HEMOGLOBIN 30.1 pg (28.0-32.0); MEAN CORPUSCULAR VOLUME 93.1 fL (81.0-99.0); PLATELET 166 x1000/uL (130-400); RED BLOOD CELL COUNT 2.53 mill/uL (4.2-5.4); RED CELL DISTRIBUTION WIDTH 16.1 % (11.6-14.6)
[2019-04-20] MEDS: FOLIC ACID/VITAMIN B COMP W-C TABLET PO SCH (09:27)
[2019-04-20] MEDS: CHOLECALCIFEROL (D3) 1000 UNIT TABLET PO SCH (09:27)
[2019-04-20] MEDS: AMLODIPINE 10MG TABLET PO SCH (09:28)
[2019-04-20] MEDS: NICOTINE 14MG PATCH TD SCH (09:28)
[2019-04-20] MEDS: SEVELAMER CARBONATE 800 MG TABLET PO SCH ×3 (09:28→18:31)
[2019-04-20] MEDS: BRIMONIDINE 0.2% OPHTH DROPS 5ML LEFTEYE SCH (09:28)
[2019-04-20] MEDS: PREDNISOLONE ACETATE 1% OPHTH DROPS 5ML LEFTEYE SCH ×4 (09:28→22:09)
[2019-04-20] MEDS: TIMOLOL MALEATE 0.5% OPHTH DROPS 5ML LEFTEYE SCH ×2 (09:29→18:31)
[2019-04-20] MEDS: CLONAZEPAM 1MG TABLET PO PRN (10:45)
[2019-04-20 12:00] VITALS: BP 138/62
[2019-04-20 13:57] LABS: NUCLEATED RED BLOOD CELLS 1 /100 WBC
[2019-04-20 13:58] LABS: PLATELET ESTIMATE NORMAL
[2019-04-20 20:00] VITALS: BP 113/61
[2019-04-21] VITALS: BP 122/74
[2019-04-21] MEDS: DIPHENHYDRAMINE 50MG/ML VIAL IV PRN ×4 (00:55→23:49)
[2019-04-21 04:00] VITALS: BP 156/73
[2019-04-21] MEDS: HYDRALAZINE HCL 50MG TABLET PO SCH ×3 (06:00→23:50)
[2019-04-21] MEDS: PANTOPRAZOLE 40MG DR TABLET PO SCH (06:22)
[2019-04-21] MEDS: BLOOD SUGAR DIAGNOSTIC STRIP TEST SCH ×4 (06:23→21:40)
[2019-04-21 06:48] LABS: HEMATOCRIT. 22.1 % (36.0-48.0); HEMOGLOBIN. 7.4 g/dL (12.0-16.0); MEAN CORPUSCULAR HEMOGLOBIN 30.9 pg (28.0-32.0); MEAN CORPUSCULAR VOLUME 92.8 fL (81.0-99.0); MEAN PLATELET VOLUME 8.4 fl (7.4-10.4); PLATELET 153 x1000/uL (130-400); RED BLOOD CELL COUNT 2.38 mill/uL (4.2-5.4); RED CELL DISTRIBUTION WIDTH 15.7 % (11.6-14.6)
[2019-04-21] MEDS: INSULIN LISPRO 100 UNITS/ML SUBCUT SCH ×4 (07:50→21:00)
[2019-04-21 08:00] VITALS: BP 162/90
[2019-04-21] MEDS: PREDNISOLONE ACETATE 1% OPHTH DROPS 5ML LEFTEYE SCH ×4 (08:43→23:50)
[2019-04-21] MEDS: CHOLECALCIFEROL (D3) 1000 UNIT TABLET PO SCH (08:44)
[2019-04-21] MEDS: SEVELAMER CARBONATE 800 MG TABLET PO SCH ×3 (08:44→17:50)
[2019-04-21] MEDS: BRIMONIDINE 0.2% OPHTH DROPS 5ML LEFTEYE SCH (08:44)
[2019-04-21] MEDS: TIMOLOL MALEATE 0.5% OPHTH DROPS 5ML LEFTEYE SCH ×2 (08:44→17:50)
[2019-04-21] MEDS: FOLIC ACID/VITAMIN B COMP W-C TABLET PO SCH (08:44)
[2019-04-21] MEDS: AMLODIPINE 10MG TABLET PO SCH (08:44)
[2019-04-21] MEDS: NICOTINE 14MG PATCH TD SCH (08:45)
[2019-04-21 11:11] LABS: PLATELET ESTIMATE NORMAL
[2019-04-21] MEDS: HYDROCODONE/ACETAMINOPHEN 10/325MG TABLET PO PRN (11:38)
[2019-04-21 12:00] VITALS: BP 137/73
[2019-04-21 16:23] VITALS: BP 160/87
[2019-04-21] MEDS: LORAZEPAM 0.5MG TABLET PO PRN (19:05)
[2019-04-21 20:00] VITALS: BP 120/68
[2019-04-21] MEDS: EPOETIN ALFA 10000UNITS/ML VIAL SUBCUT SCH (23:49)
[2019-04-22] VITALS: BP 130/76
[2019-04-22 04:00] VITALS: BP 131/69
[2019-04-22] MEDS: DIPHENHYDRAMINE 50MG/ML VIAL IV PRN ×3 (06:26→18:26)
[2019-04-22] MEDS: PANTOPRAZOLE 40MG DR TABLET PO SCH (06:26)
[2019-04-22] MEDS: HYDRALAZINE HCL 50MG TABLET PO SCH ×3 (06:26→21:13)
[2019-04-22] MEDS: BLOOD SUGAR DIAGNOSTIC STRIP TEST SCH ×4 (06:26→21:00)
[2019-04-22] MEDS: INSULIN LISPRO 100 UNITS/ML SUBCUT SCH ×4 (07:50→21:00)
[2019-04-22 08:00] VITALS: BP 151/79
[2019-04-22] MEDS: TIMOLOL MALEATE 0.5% OPHTH DROPS 5ML LEFTEYE SCH ×2 (08:36→16:58)
[2019-04-22] MEDS: PREDNISOLONE ACETATE 1% OPHTH DROPS 5ML LEFTEYE SCH ×4 (08:36→21:12)
[2019-04-22] MEDS: NICOTINE 14MG PATCH TD SCH (08:36)
[2019-04-22] MEDS: FOLIC ACID/VITAMIN B COMP W-C TABLET PO SCH (08:36)
[2019-04-22] MEDS: BRIMONIDINE 0.2% OPHTH DROPS 5ML LEFTEYE SCH (08:36)
[2019-04-22] MEDS: SEVELAMER CARBONATE 800 MG TABLET PO SCH ×3 (08:37→16:58)
[2019-04-22] MEDS: AMLODIPINE 10MG TABLET PO SCH (08:37)
[2019-04-22] MEDS: CHOLECALCIFEROL (D3) 1000 UNIT TABLET PO SCH (08:37)
[2019-04-22 09:08] LABS: HEMOGLOBIN. 7.6 g/dL (12.0-16.0); MEAN CORPUSCULAR HEMOGLOBIN 30.7 pg (28.0-32.0); MEAN CORPUSCULAR VOLUME 92.2 fL (81.0-99.0); MEAN PLATELET VOLUME 8.7 fl (7.4-10.4); PLATELET 192 x1000/uL (130-400); RED BLOOD CELL COUNT 2.49 mill/uL (4.2-5.4); RED CELL DISTRIBUTION WIDTH 15.9 % (11.6-14.6)
[2019-04-22 10:23] LABS: PLATELET ESTIMATE NORMAL
[2019-04-22 12:00] VITALS: BP 142/71
[2019-04-22 16:23] VITALS: BP 130/65
[2019-04-22] MEDS: HYDROCODONE/ACETAMINOPHEN 5/325MG TABLET PO PRN (16:59)
[2019-04-22 20:00] VITALS: BP 122/62
[2019-04-22] MEDS: LORAZEPAM 0.5MG TABLET PO PRN (21:55)
[2019-04-23] VITALS: BP 111/49
[2019-04-23] MEDS: DIPHENHYDRAMINE 25MG CAPSULE PO PRN (00:21)
[2019-04-23] MEDS: HYDROCODONE/ACETAMINOPHEN 5/325MG TABLET PO PRN ×3 (03:33→21:14)
[2019-04-23 04:00] VITALS: BP 136/65
[2019-04-23] MEDS: PANTOPRAZOLE 40MG DR TABLET PO SCH (06:33)
[2019-04-23] MEDS: BLOOD SUGAR DIAGNOSTIC STRIP TEST SCH ×4 (06:34→21:12)
[2019-04-23] MEDS: HYDRALAZINE HCL 50MG TABLET PO SCH ×3 (06:34→21:13)
[2019-04-23 06:55] LABS: HEMATOCRIT 24.8 % (36.0-48.0); MEAN CORPUSCULAR VOLUME 93.5 fL (81.0-99.0); PLATELET 188 x1000/uL (130-400); RED BLOOD CELL COUNT 2.66 mill/uL (4.2-5.4); RED CELL DISTRIBUTION WIDTH 16.4 % (11.6-14.6)
[2019-04-23] MEDS: INSULIN LISPRO 100 UNITS/ML SUBCUT SCH ×4 (07:05→21:00)
[2019-04-23] MEDS: SEVELAMER CARBONATE 800 MG TABLET PO SCH ×3 (08:30→17:09)
[2019-04-23] MEDS: FOLIC ACID/VITAMIN B COMP W-C TABLET PO SCH (08:30)
[2019-04-23] MEDS: CHOLECALCIFEROL (D3) 1000 UNIT TABLET PO SCH (08:30)
[2019-04-23] MEDS: BRIMONIDINE 0.2% OPHTH DROPS 5ML LEFTEYE SCH (08:31)
[2019-04-23] MEDS: PREDNISOLONE ACETATE 1% OPHTH DROPS 5ML LEFTEYE SCH ×4 (08:31→21:12)
[2019-04-23] MEDS: TIMOLOL MALEATE 0.5% OPHTH DROPS 5ML LEFTEYE SCH ×2 (08:31→17:10)
[2019-04-23] MEDS: NICOTINE 14MG PATCH TD SCH (08:31)
[2019-04-23 08:33] VITALS: BP 135/53
[2019-04-23] MEDS: AMLODIPINE 10MG TABLET PO SCH (08:44)
[2019-04-23] MEDS: DIPHENHYDRAMINE 50MG/ML VIAL IV PRN ×2 (08:44→17:10)
[2019-04-23 12:30] VITALS: BP 156/76
[2019-04-23] MEDS: LORAZEPAM 0.5MG TABLET PO PRN (14:43)
[2019-04-23 16:12] VITALS: BP 144/68
[2019-04-23 20:47] VITALS: BP 118/65
[2019-04-23] MEDS: EPOETIN ALFA 10000UNITS/ML VIAL SUBCUT SCH (21:12)
[2019-04-24] VITALS (7 sets, daily range): BP systolic 118–168; BP diastolic 63–87
[2019-04-24] MEDS: ACETAMINOPHEN 325MG TABLET PO PRN ×2 (00:52→11:37)
[2019-04-24] MEDS: HYDRALAZINE HCL 50MG TABLET PO SCH ×3 (06:17→21:25)
[2019-04-24] MEDS: HYDROCODONE/ACETAMINOPHEN 5/325MG TABLET PO PRN ×2 (06:17→15:05)
[2019-04-24] MEDS: PANTOPRAZOLE 40MG DR TABLET PO SCH (06:17)
[2019-04-24] MEDS: INSULIN LISPRO 100 UNITS/ML SUBCUT SCH ×4 (07:20→21:00)
[2019-04-24] MEDS: BLOOD SUGAR DIAGNOSTIC STRIP TEST SCH ×4 (07:31→21:24)
[2019-04-24 08:07] LABS: HEMATOCRIT 25.3 % (36.0-48.0); HEMOGLOBIN 8.3 g/dL (12.0-16.0); MEAN CORPUSCULAR HEMOGLOBIN 30.2 pg (28.0-32.0); MEAN CORPUSCULAR VOLUME 91.9 fL (81.0-99.0); PLATELET 166 x1000/uL (130-400); RED BLOOD CELL COUNT 2.75 mill/uL (4.2-5.4); RED CELL DISTRIBUTION WIDTH 16.5 % (11.6-14.6)
[2019-04-24] MEDS: AMLODIPINE 10MG TABLET PO SCH (09:00)
[2019-04-24] MEDS: DIPHENHYDRAMINE 50MG/ML VIAL IV PRN ×2 (09:11→19:46)
[2019-04-24] MEDS: BRIMONIDINE 0.2% OPHTH DROPS 5ML LEFTEYE SCH (09:11)
[2019-04-24] MEDS: FOLIC ACID/VITAMIN B COMP W-C TABLET PO SCH (09:11)
[2019-04-24] MEDS: TIMOLOL MALEATE 0.5% OPHTH DROPS 5ML LEFTEYE SCH ×2 (09:11→17:57)
[2019-04-24] MEDS: CHOLECALCIFEROL (D3) 1000 UNIT TABLET PO SCH (09:11)
[2019-04-24] MEDS: PREDNISOLONE ACETATE 1% OPHTH DROPS 5ML LEFTEYE SCH ×4 (09:11→21:24)
[2019-04-24] MEDS: SEVELAMER CARBONATE 800 MG TABLET PO SCH ×3 (09:11→17:56)
[2019-04-24] MEDS: NICOTINE 14MG PATCH TD SCH (09:12)
[2019-04-24] MEDS ORDERED: HEPARIN SODIUM 1,000 UNIT/1ML VIAL IV SCH (12:45)
[2019-04-24] MEDS: LORAZEPAM 0.5MG TABLET PO PRN (17:56)
[2019-04-24] MEDS: MORPHINE SULFATE 2 MG/ML CPJ (NOT FOR IM USE) IV PRN (22:04)
[2019-04-25] VITALS: BP 128/68
[2019-04-25] MEDS: DIPHENHYDRAMINE 50MG/ML VIAL IV PRN ×3 (01:51→17:23)
[2019-04-25] MEDS: HYDROCODONE/ACETAMINOPHEN 5/325MG TABLET PO PRN ×2 (03:13→14:56)
[2019-04-25 04:00] VITALS: BP 147/68
[2019-04-25] MEDS: HYDRALAZINE HCL 50MG TABLET PO SCH ×3 (05:04→21:21)
[2019-04-25] MEDS: MORPHINE SULFATE 2 MG/ML CPJ (NOT FOR IM USE) IV PRN ×3 (05:05→21:21)
[2019-04-25] MEDS: BLOOD SUGAR DIAGNOSTIC STRIP TEST SCH ×4 (06:35→21:00)
[2019-04-25] MEDS: PANTOPRAZOLE 40MG DR TABLET PO SCH (06:39)
[2019-04-25] MEDS: INSULIN LISPRO 100 UNITS/ML SUBCUT SCH ×4 (07:50→21:00)
[2019-04-25 08:00] VITALS: BP 141/70
[2019-04-25 08:39] LABS: HEMATOCRIT. 27.6 % (36.0-48.0); MEAN CORPUSCULAR HEMOGLOBIN 30.3 pg (28.0-32.0); MEAN CORPUSCULAR VOLUME 92.4 fL (81.0-99.0); MEAN PLATELET VOLUME 8.4 fl (7.4-10.4); PLATELET 161 x1000/uL (130-400); RED BLOOD CELL COUNT 2.98 mill/uL (4.2-5.4); RED CELL DISTRIBUTION WIDTH 16.4 % (11.6-14.6)
[2019-04-25 09:41] LABS: PLATELET ESTIMATE NORMAL
[2019-04-25] MEDS: AMLODIPINE 10MG TABLET PO SCH (10:02)
[2019-04-25] MEDS: SEVELAMER CARBONATE 800 MG TABLET PO SCH ×3 (10:02→17:22)
[2019-04-25] MEDS: CHOLECALCIFEROL (D3) 1000 UNIT TABLET PO SCH (10:02)
[2019-04-25] MEDS: FOLIC ACID/VITAMIN B COMP W-C TABLET PO SCH (10:02)
[2019-04-25] MEDS: NICOTINE 14MG PATCH TD SCH (10:03)
[2019-04-25] MEDS: TIMOLOL MALEATE 0.5% OPHTH DROPS 5ML LEFTEYE SCH ×2 (10:03→17:22)
[2019-04-25] MEDS: PREDNISOLONE ACETATE 1% OPHTH DROPS 5ML LEFTEYE SCH ×4 (10:03→21:22)
[2019-04-25] MEDS: BRIMONIDINE 0.2% OPHTH DROPS 5ML LEFTEYE SCH (10:04)
[2019-04-25 12:00] VITALS: BP 167/85
[2019-04-25 16:00] VITALS: BP 134/69
[2019-04-25] MEDS: LORAZEPAM 0.5MG TABLET PO PRN (17:22)
[2019-04-25 20:00] VITALS: BP 137/65
[2019-04-26] VITALS: BP 140/74
[2019-04-26 04:00] VITALS: BP 157/81
[2019-04-26] MEDS: MORPHINE SULFATE 2 MG/ML CPJ (NOT FOR IM USE) IV PRN ×2 (04:06→13:12)
[2019-04-26] MEDS: HYDRALAZINE HCL 50MG TABLET PO SCH ×3 (06:00→21:09)
[2019-04-26] MEDS: BLOOD SUGAR DIAGNOSTIC STRIP TEST SCH ×4 (06:44→21:00)
[2019-04-26] MEDS: PANTOPRAZOLE 40MG DR TABLET PO SCH (06:45)
[2019-04-26] MEDS: DIPHENHYDRAMINE 50MG/ML VIAL IV PRN ×2 (06:46→16:26)
[2019-04-26 07:46] LABS: HEMATOCRIT 24.6 % (36.0-48.0); HEMATOCRIT. 24.4 % (36.0-48.0); MEAN CORPUSCULAR HEMOGLOBIN 30.1 pg (28.0-32.0); MEAN CORPUSCULAR HEMOGLOBIN 30.4 pg (28.0-32.0); MEAN CORPUSCULAR VOLUME 92.4 fL (81.0-99.0); MEAN CORPUSCULAR VOLUME 92.7 fL (81.0-99.0); MEAN PLATELET VOLUME 8.7 fl (7.4-10.4); PLATELET 169 x1000/uL (130-400); PLATELET 173 x1000/uL (130-400); RED BLOOD CELL COUNT 2.64 mill/uL (4.2-5.4); RED BLOOD CELL COUNT 2.66 mill/uL (4.2-5.4); RED CELL DISTRIBUTION WIDTH 16.7 % (11.6-14.6); RED CELL DISTRIBUTION WIDTH 16.8 % (11.6-14.6)
[2019-04-26] MEDS: INSULIN LISPRO 100 UNITS/ML SUBCUT SCH ×4 (07:50→21:00)
[2019-04-26] MEDS: BRIMONIDINE 0.2% OPHTH DROPS 5ML LEFTEYE SCH (09:14)
[2019-04-26] MEDS: PREDNISOLONE ACETATE 1% OPHTH DROPS 5ML LEFTEYE SCH ×4 (09:14→20:49)
[2019-04-26] MEDS: NICOTINE 14MG PATCH TD SCH (09:14)
[2019-04-26] MEDS: TIMOLOL MALEATE 0.5% OPHTH DROPS 5ML LEFTEYE SCH ×2 (09:14→17:39)
[2019-04-26] MEDS: SEVELAMER CARBONATE 800 MG TABLET PO SCH ×3 (09:14→17:39)
[2019-04-26] MEDS: AMLODIPINE 10MG TABLET PO SCH (09:15)
[2019-04-26] MEDS: FOLIC ACID/VITAMIN B COMP W-C TABLET PO SCH (09:15)
[2019-04-26] MEDS: HYDROCODONE/ACETAMINOPHEN 5/325MG TABLET PO PRN ×2 (09:15→20:51)
[2019-04-26] MEDS: CHOLECALCIFEROL (D3) 1000 UNIT TABLET PO SCH (09:19)
[2019-04-26 10:35] LABS: PLATELET ESTIMATE NORMAL
[2019-04-26 12:00] VITALS: BP 115/53
[2019-04-26 16:00] VITALS: BP 146/99
[2019-04-26 20:40] VITALS: BP 130/65
[2019-04-26] MEDS: EPOETIN ALFA 10000UNITS/ML VIAL SUBCUT SCH (23:00)
[2019-04-27] MEDS: HYDRALAZINE HCL 50MG TABLET PO SCH ×3 (05:58→21:02)
[2019-04-27] MEDS: HYDROCODONE/ACETAMINOPHEN 5/325MG TABLET PO PRN ×3 (06:03→20:32)
[2019-04-27] MEDS: INSULIN LISPRO 100 UNITS/ML SUBCUT SCH ×4 (06:04→21:00)
[2019-04-27] MEDS: BLOOD SUGAR DIAGNOSTIC STRIP TEST SCH ×4 (06:04→21:02)
[2019-04-27] MEDS: PANTOPRAZOLE 40MG DR TABLET PO SCH (06:06)
[2019-04-27 07:45] LABS: HEMATOCRIT. 24.7 % (36.0-48.0); HEMOGLOBIN. 8.2 g/dL (12.0-16.0); MEAN CORPUSCULAR HEMOGLOBIN 30.8 pg (28.0-32.0); MEAN CORPUSCULAR VOLUME 92.7 fL (81.0-99.0); MEAN PLATELET VOLUME 8.2 fl (7.4-10.4); PLATELET 171 x1000/uL (130-400); RED BLOOD CELL COUNT 2.67 mill/uL (4.2-5.4)
[2019-04-27 08:00] VITALS: BP 135/61
[2019-04-27] MEDS: FOLIC ACID/VITAMIN B COMP W-C TABLET PO SCH (08:28)
[2019-04-27] MEDS: CHOLECALCIFEROL (D3) 1000 UNIT TABLET PO SCH (08:29)
[2019-04-27] MEDS: SEVELAMER CARBONATE 800 MG TABLET PO SCH ×3 (08:29→18:15)
[2019-04-27] MEDS: AMLODIPINE 10MG TABLET PO SCH (08:44)
[2019-04-27] MEDS: PREDNISOLONE ACETATE 1% OPHTH DROPS 5ML LEFTEYE SCH ×4 (09:00→20:33)
[2019-04-27] MEDS: NICOTINE 14MG PATCH TD SCH (09:00)
[2019-04-27] MEDS: BRIMONIDINE 0.2% OPHTH DROPS 5ML LEFTEYE SCH ×2 (09:00→18:16)
[2019-04-27] MEDS: TIMOLOL MALEATE 0.5% OPHTH DROPS 5ML LEFTEYE SCH ×2 (09:00→18:16)
[2019-04-27 11:20] LABS: PLATELET ESTIMATE NORMAL
[2019-04-27 12:00] VITALS: BP 143/71
[2019-04-27 20:00] VITALS: BP 110/52
[2019-04-28] VITALS: BP 133/64
[2019-04-28 04:00] VITALS: BP 144/67
[2019-04-28] MEDS: HYDROCODONE/ACETAMINOPHEN 5/325MG TABLET PO PRN ×4 (04:12→20:22)
[2019-04-28] MEDS: HYDRALAZINE HCL 50MG TABLET PO SCH ×3 (06:33→21:31)
[2019-04-28] MEDS: PANTOPRAZOLE 40MG DR TABLET PO SCH (06:34)
[2019-04-28] MEDS: BLOOD SUGAR DIAGNOSTIC STRIP TEST SCH ×4 (07:43→21:32)
[2019-04-28] MEDS: INSULIN LISPRO 100 UNITS/ML SUBCUT SCH ×4 (07:50→21:00)
[2019-04-28 08:00] VITALS: BP 143/55
[2019-04-28] MEDS: TIMOLOL MALEATE 0.5% OPHTH DROPS 5ML LEFTEYE SCH ×2 (09:10→17:50)
[2019-04-28] MEDS: PREDNISOLONE ACETATE 1% OPHTH DROPS 5ML LEFTEYE SCH ×4 (09:10→20:23)
[2019-04-28] MEDS: SEVELAMER CARBONATE 800 MG TABLET PO SCH ×3 (09:10→17:50)
[2019-04-28] MEDS: FOLIC ACID/VITAMIN B COMP W-C TABLET PO SCH (09:11)
[2019-04-28] MEDS: AMLODIPINE 10MG TABLET PO SCH (09:11)
[2019-04-28] MEDS: CHOLECALCIFEROL (D3) 1000 UNIT TABLET PO SCH (09:11)
[2019-04-28] MEDS: NICOTINE 14MG PATCH TD SCH (09:13)
[2019-04-28 12:00] VITALS: BP 166/90
[2019-04-28] MEDS ORDERED: HEPARIN SODIUM 1,000 UNIT/1ML VIAL IV NR (13:30)
[2019-04-28] MEDS ORDERED: HYDRALAZINE 10 MG in SODIUM CHLORIDE 0.9% 49.5 ML IV PRN (15:00)
[2019-04-28 16:00] VITALS: BP 123/69
[2019-04-28] MEDS: LORAZEPAM 0.5MG TABLET PO PRN (17:50)
[2019-04-28 20:00] VITALS: BP 134/62
[2019-04-29] VITALS: BP 130/59
[2019-04-29] MEDS: HYDROCODONE/ACETAMINOPHEN 5/325MG TABLET PO PRN ×5 (00:54→20:22)
[2019-04-29 04:00] VITALS: BP 148/70
[2019-04-29] MEDS: HYDRALAZINE HCL 50MG TABLET PO SCH ×3 (05:09→21:10)
[2019-04-29] MEDS: PANTOPRAZOLE 40MG DR TABLET PO SCH (06:37)
[2019-04-29] MEDS: BLOOD SUGAR DIAGNOSTIC STRIP TEST SCH ×4 (07:29→20:23)
[2019-04-29] MEDS: INSULIN LISPRO 100 UNITS/ML SUBCUT SCH ×4 (07:50→20:27)
[2019-04-29 08:00] VITALS: BP 131/110
[2019-04-29] MEDS: SEVELAMER CARBONATE 800 MG TABLET PO SCH ×3 (08:05→16:52)
[2019-04-29] MEDS: CHOLECALCIFEROL (D3) 1000 UNIT TABLET PO SCH (08:05)
[2019-04-29] MEDS: FOLIC ACID/VITAMIN B COMP W-C TABLET PO SCH (08:05)
[2019-04-29] MEDS: BRIMONIDINE 0.2% OPHTH DROPS 5ML LEFTEYE SCH (08:05)
[2019-04-29] MEDS: DIPHENHYDRAMINE 25MG CAPSULE PO PRN ×2 (08:05→15:44)
[2019-04-29] MEDS: PREDNISOLONE ACETATE 1% OPHTH DROPS 5ML LEFTEYE SCH ×4 (08:05→20:21)
[2019-04-29] MEDS: AMLODIPINE 10MG TABLET PO SCH (08:05)
[2019-04-29] MEDS: NICOTINE 14MG PATCH TD SCH (08:05)
[2019-04-29] MEDS: TIMOLOL MALEATE 0.5% OPHTH DROPS 5ML LEFTEYE SCH ×2 (08:06→16:52)
[2019-04-29 12:00] VITALS: BP 139/70
[2019-04-29 16:00] VITALS: BP 136/71
[2019-04-29 18:43] LABS: MEAN CORPUSCULAR HEMOGLOBIN 30.1 pg (28.0-32.0); MEAN CORPUSCULAR VOLUME 93.8 fL (81.0-99.0); MEAN PLATELET VOLUME 8.2 fl (7.4-10.4); PLATELET 187 x1000/uL (130-400); RED BLOOD CELL COUNT 2.99 mill/uL (4.2-5.4); RED CELL DISTRIBUTION WIDTH 17.2 % (11.6-14.6)
[2019-04-29 20:00] VITALS: BP 140/67
[2019-04-29 21:17] LABS: PLATELET ESTIMATE NORMAL
[2019-04-29] MEDS: DIPHENHYDRAMINE 50MG/ML VIAL IV PRN (22:18)
[2019-04-30] VITALS: BP 148/72
[2019-04-30] MEDS: HYDROCODONE/ACETAMINOPHEN 5/325MG TABLET PO PRN ×5 (01:15→20:04)
[2019-04-30 04:00] VITALS: BP 154/78
[2019-04-30] MEDS: DIPHENHYDRAMINE 50MG/ML VIAL IV PRN ×4 (04:15→22:47)
[2019-04-30] MEDS: PANTOPRAZOLE 40MG DR TABLET PO SCH (06:35)
[2019-04-30] MEDS: HYDRALAZINE HCL 50MG TABLET PO SCH ×3 (06:35→21:17)
[2019-04-30] MEDS: BLOOD SUGAR DIAGNOSTIC STRIP TEST SCH ×4 (06:53→20:22)
[2019-04-30] MEDS: INSULIN LISPRO 100 UNITS/ML SUBCUT SCH ×4 (06:58→20:44)
[2019-04-30 08:00] VITALS: BP 172/84
[2019-04-30] MEDS: BRIMONIDINE 0.2% OPHTH DROPS 5ML LEFTEYE SCH (09:01)
[2019-04-30] MEDS: SEVELAMER CARBONATE 800 MG TABLET PO SCH ×3 (09:02→16:39)
[2019-04-30] MEDS: AMLODIPINE 10MG TABLET PO SCH (09:02)
[2019-04-30] MEDS: NICOTINE 14MG PATCH TD SCH (09:02)
[2019-04-30] MEDS: PREDNISOLONE ACETATE 1% OPHTH DROPS 5ML LEFTEYE SCH ×4 (09:02→20:15)
[2019-04-30] MEDS: TIMOLOL MALEATE 0.5% OPHTH DROPS 5ML LEFTEYE SCH ×2 (09:02→16:38)
[2019-04-30] MEDS: FOLIC ACID/VITAMIN B COMP W-C TABLET PO SCH (09:02)
[2019-04-30] MEDS: CHOLECALCIFEROL (D3) 1000 UNIT TABLET PO SCH (09:02)
[2019-04-30] MEDS: CLONIDINE 0.1MG TABLET PO PRN (11:49)
[2019-04-30 12:00] VITALS: BP 172/85
[2019-04-30 16:00] VITALS: BP 104/59
[2019-04-30 20:00] VITALS: BP 140/81
[2019-04-30] MEDS ORDERED: EPOETIN ALFA 10000UNITS/ML VIAL SUBCUT SCH (21:00)
[2019-04-30] MEDS: LORAZEPAM 0.5MG TABLET PO PRN (21:43)
[2019-05-01] VITALS: BP 145/69
[2019-05-01] MEDS: HYDROCODONE/ACETAMINOPHEN 5/325MG TABLET PO PRN ×3 (03:40→21:10)
[2019-05-01 04:00] VITALS: BP 159/76
[2019-05-01] MEDS: DIPHENHYDRAMINE 50MG/ML VIAL IV PRN ×3 (05:19→18:41)
[2019-05-01] MEDS: PANTOPRAZOLE 40MG DR TABLET PO SCH (06:23)
[2019-05-01] MEDS: HYDRALAZINE HCL 50MG TABLET PO SCH ×3 (06:24→21:10)
[2019-05-01] MEDS: BLOOD SUGAR DIAGNOSTIC STRIP TEST SCH ×4 (06:24→21:17)
[2019-05-01 07:03] LABS: HEMATOCRIT. 27.3 % (36.0-48.0); HEMOGLOBIN. 9.4 g/dL (12.0-16.0); MEAN CORPUSCULAR VOLUME 92.8 fL (81.0-99.0); MEAN PLATELET VOLUME 8.1 fl (7.4-10.4); PLATELET 169 x1000/uL (130-400); RED BLOOD CELL COUNT 2.94 mill/uL (4.2-5.4); RED CELL DISTRIBUTION WIDTH 17.3 % (11.6-14.6)
[2019-05-01] MEDS: INSULIN LISPRO 100 UNITS/ML SUBCUT SCH ×4 (07:50→21:24)
[2019-05-01 08:00] VITALS: BP 155/69
[2019-05-01] MEDS: CHOLECALCIFEROL (D3) 1000 UNIT TABLET PO SCH (08:38)
[2019-05-01] MEDS: SEVELAMER CARBONATE 800 MG TABLET PO SCH ×3 (08:38→17:15)
[2019-05-01] MEDS: TIMOLOL MALEATE 0.5% OPHTH DROPS 5ML LEFTEYE SCH ×2 (08:38→17:15)
[2019-05-01] MEDS: NICOTINE 14MG PATCH TD SCH (08:38)
[2019-05-01] MEDS: BRIMONIDINE 0.2% OPHTH DROPS 5ML LEFTEYE SCH (08:38)
[2019-05-01] MEDS: FOLIC ACID/VITAMIN B COMP W-C TABLET PO SCH (08:38)
[2019-05-01] MEDS: PREDNISOLONE ACETATE 1% OPHTH DROPS 5ML LEFTEYE SCH ×4 (08:39→21:09)
[2019-05-01] MEDS: AMLODIPINE 10MG TABLET PO SCH (08:41)
[2019-05-01 11:26] LABS: PLATELET ESTIMATE NORMAL
[2019-05-01 12:00] VITALS: BP 148/83
[2019-05-01 16:00] VITALS: BP 149/75
[2019-05-01 20:00] VITALS: BP 141/70
[2019-05-02] VITALS: BP 121/48
[2019-05-02] MEDS: DIPHENHYDRAMINE 50MG/ML VIAL IV PRN ×2 (01:07→08:53)
[2019-05-02] MEDS: HYDROCODONE/ACETAMINOPHEN 5/325MG TABLET PO PRN ×3 (02:30→11:41)
[2019-05-02 04:00] VITALS: BP 139/65
[2019-05-02] MEDS: PANTOPRAZOLE 40MG DR TABLET PO SCH (06:22)
[2019-05-02] MEDS: HYDRALAZINE HCL 50MG TABLET PO SCH ×2 (06:22→13:08)
[2019-05-02] MEDS: BLOOD SUGAR DIAGNOSTIC STRIP TEST SCH ×3 (06:27→17:37)
[2019-05-02] MEDS: INSULIN LISPRO 100 UNITS/ML SUBCUT SCH ×3 (07:50→17:37)
[2019-05-02] MEDS: AMLODIPINE 10MG TABLET PO SCH (08:51)
[2019-05-02] MEDS: CHOLECALCIFEROL (D3) 1000 UNIT TABLET PO SCH (08:52)
[2019-05-02] MEDS: PREDNISOLONE ACETATE 1% OPHTH DROPS 5ML LEFTEYE SCH ×3 (08:52→17:00)
[2019-05-02] MEDS: FOLIC ACID/VITAMIN B COMP W-C TABLET PO SCH (08:52)
[2019-05-02] MEDS: SEVELAMER CARBONATE 800 MG TABLET PO SCH ×3 (08:52→18:45)
[2019-05-02] MEDS: TIMOLOL MALEATE 0.5% OPHTH DROPS 5ML LEFTEYE SCH ×2 (08:52→17:00)
[2019-05-02] MEDS: BRIMONIDINE 0.2% OPHTH DROPS 5ML LEFTEYE SCH (08:52)
[2019-05-02] MEDS: NICOTINE 14MG PATCH TD SCH (08:52)
[2019-05-02 16:00] VITALS: BP 138/75
[2019-05-02] MEDS ORDERED: LORAZEPAM 0.5MG TABLET PO PRN (19:00)
[2019-05-02] MEDS ORDERED: HYDROCODONE/ACETAMINOPHEN 5/325MG TABLET PO PRN (19:00)
== END 2019-05-02 19:07 | disposition left against medical advice (07) | DRG 425 ==
LOC: ER 16:19 → 8WST 19:52 → EDBEDREQTM 19:55 → EDBEDREQ 19:55 → ENRESERV 20:05 → 6WST 04-05 07:50 → 6EST 04-27 05:31
PROVIDERS: ADMIT Internal Medicine; ATTEND Internal Medicine
PROC: 02HV33Z Insertion of Infusion Device into Superior Vena Cava, Percutaneous Approach (ICD-10-PCS; principal; 2019-04-05)
PROC: B548ZZA Ultrasonography of Superior Vena Cava, Guidance (ICD-10-PCS; 2019-04-05)
PROC: B5181ZA Fluoroscopy of Superior Vena Cava using Low Osmolar Contrast, Guidance (ICD-10-PCS; 2019-04-05)
PROC: 30233N1 Transfusion of Nonautologous Red Blood Cells into Peripheral Vein, Percutaneous Approach (ICD-10-PCS; 2019-04-05)
PROC: 5A1D70Z Performance of Urinary Filtration, Intermittent, Less than 6 Hours Per Day (ICD-10-PCS; 2019-04-05)
PROC: 5A1D70Z Performance of Urinary Filtration, Intermittent, Less than 6 Hours Per Day (ICD-10-PCS; 2019-04-07)
PROC: 5A1D70Z Performance of Urinary Filtration, Intermittent, Less than 6 Hours Per Day (ICD-10-PCS; 2019-04-09)
PROC: 5A1D70Z Performance of Urinary Filtration, Intermittent, Less than 6 Hours Per Day (ICD-10-PCS; 2019-04-12)
PROC: 5A1D70Z Performance of Urinary Filtration, Intermittent, Less than 6 Hours Per Day (ICD-10-PCS; 2019-04-14)
PROC: 5A1D70Z Performance of Urinary Filtration, Intermittent, Less than 6 Hours Per Day (ICD-10-PCS; 2019-04-16)
PROC: 5A1D70Z Performance of Urinary Filtration, Intermittent, Less than 6 Hours Per Day (ICD-10-PCS; 2019-04-19)
PROC: 5A1D70Z Performance of Urinary Filtration, Intermittent, Less than 6 Hours Per Day (ICD-10-PCS; 2019-04-21)
PROC: 5A1D70Z Performance of Urinary Filtration, Intermittent, Less than 6 Hours Per Day (ICD-10-PCS; 2019-04-24)
PROC: 5A1D70Z Performance of Urinary Filtration, Intermittent, Less than 6 Hours Per Day (ICD-10-PCS; 2019-04-26)
PROC: 5A1D70Z Performance of Urinary Filtration, Intermittent, Less than 6 Hours Per Day (ICD-10-PCS; 2019-04-27)
PROC: 5A1D70Z Performance of Urinary Filtration, Intermittent, Less than 6 Hours Per Day (ICD-10-PCS; 2019-04-28)
PROC: 5A1D70Z Performance of Urinary Filtration, Intermittent, Less than 6 Hours Per Day (ICD-10-PCS; 2019-04-30)
DX: E87.5 Hyperkalemia (principal); E11.22 Type 2 diabetes mellitus with diabetic chronic kidney disease; E87.2 Acidosis; R09.1 Pleurisy; N18.6 End stage renal disease; I12.0 Hypertensive chronic kidney disease with stage 5 chronic kidney disease or end stage renal disease; I16.0 Hypertensive urgency; G40.909 Epilepsy, unspecified, not intractable, without status epilepticus; F17.210 Nicotine dependence, cigarettes, uncomplicated; Z60.2 Problems related to living alone; D63.8 Anemia in other chronic diseases classified elsewhere; F17.200 Nicotine dependence, unspecified, uncomplicated; I69.354 Hemiplegia and hemiparesis following cerebral infarction affecting left non-dominant side; Z99.2 Dependence on renal dialysis; Z91.15 Patient's noncompliance with renal dialysis; Z91.19 Patient's noncompliance with other medical treatment and regimen; Z88.6 Allergy status to analgesic agent; Z88.8 Allergy status to other drugs, medicaments and biological substances; Z79.2 Long term (current) use of antibiotics; Z79.82 Long term (current) use of aspirin; Z79.899 Other long term (current) drug therapy
CPT/HCPCS: 36415; 36573; 36600; 71045; 76937; 80048; 80051; 80053; 80202; 80305; 81003; 82375; 82550; 82553; 82805; 82962; 83735; 83880; 84100; 84484; 85014; 85018; 85025; 85027; 86359; 86360; 86705; 86706; 86709; 86803; 86850; 86900; 86920; 87070; 87077; 87340; 87804; 93005; 96374; 97110; 97116; 97162; 99285; C1725; C1893; J0360; J0885; J1200; J1644; J1815; J1956; J2060; J2270; J2405; J2543; J3370; J3490; J7040; J7060; P9016; Q0163; A4315

== ENCOUNTER 2019-05-30 14:39 | Inpatient (IN) | payer MEDICAID ==
[~2019-05-30] VITALS: Ht 160 cm; Wt 60.3 kg
[2019-05-30] MEDS ORDERED: LORAZEPAM 2MG/ML CPJ IV ONE (15:30)
[2019-05-30] MEDS ORDERED: HYDRALAZINE 20MG/ML VIAL IV ONE ×2 (15:30→18:45)
[2019-05-30] MEDS ORDERED: NITROGLYCERIN OINT 1GM/INCH UDPKT TD ONE (16:45)
[2019-05-30] MEDS ORDERED: NITROGLYCERIN 0.4MG TABLET SL SL PRN (16:45)
[2019-05-30] MEDS ORDERED: ASPIRIN 81MG TABLET PO ONE (16:45)
[2019-05-30 16:52] LABS: BASOPHILS % 0.5 % (0.0-2.0); EOSINOPHILS % 0.9 % (0.0-5.0); HEMATOCRIT. 36.3 % (36.0-48.0); HEMOGLOBIN. 11.4 g/dL (12.0-16.0); LYMPHOCYTES % 13.8 % (20.0-50.0); MEAN CORPUSCULAR HEMOGLOBIN 28.8 pg (28.0-32.0); MEAN CORPUSCULAR VOLUME 91.7 fL (81.0-99.0); MONOCYTES % 7.7 % (2.0-8.0); NEUTROPHILS % 77.1 % (40.0-76.0); PLATELET 90 x1000/uL (130-400); RED BLOOD CELL COUNT 3.96 mill/uL (4.2-5.4); RED CELL DISTRIBUTION WIDTH 17.4 % (11.6-14.6)
[2019-05-30 17:00] LABS: CHLORIDE 111 mEq/L (98-107)
[2019-05-30] MEDS ORDERED: INSULIN REGULAR (HUMULIN R) 300UNITS/3ML IV ONE (17:45)
[2019-05-30] MEDS ORDERED: CALCIUM GLUCONATE 1,000 MG in DEXT 5% WATER 100 ML IV ONE (17:45)
[2019-05-30] MEDS ORDERED: DEXTROSE 50% WATER 50ML SYRINGE IV ONE (17:45)
[2019-05-30] MEDS ORDERED: SODIUM BICARBONATE 8.4% 1 MEQ/ML 50ML SYR IV ONE (17:45)
[2019-05-30] MEDS ORDERED: HYDROCODONE/ACETAMINOPHEN 5/325MG TABLET PO ONE (19:00)
[2019-05-30 22:06] VITALS: BP 204/98
[2019-05-31] VITALS (23 sets, daily range): BP systolic 124–201; BP diastolic 60–110
[2019-05-31] MEDS ORDERED: DEXTROSE 50% WATER 50ML SYRINGE IV PRN (00:30)
[2019-05-31] MEDS: HYDROCODONE/ACETAMINOPHEN 5/325MG TABLET PO PRN ×2 (01:53→20:56)
[2019-05-31] MEDS ORDERED: CLONIDINE 0.1MG TABLET PO PRN (03:15)
[2019-05-31] MEDS ORDERED: ACETAMINOPHEN 325MG TABLET PO PRN (03:30)
[2019-05-31] MEDS: MORPHINE SULFATE 2 MG/ML CPJ (NOT FOR IM USE) IV PRN ×4 (03:58→23:16)
[2019-05-31] MEDS: HYDRALAZINE HCL 50MG TABLET PO SCH ×3 (05:38→22:14)
[2019-05-31] MEDS: BLOOD SUGAR DIAGNOSTIC STRIP TEST SCH ×4 (07:30→21:27)
[2019-05-31 07:33] LABS: BASOPHILS % 0.4 % (0.0-2.0); EOSINOPHILS % 0.2 % (0.0-5.0); HEMATOCRIT. 28.3 % (36.0-48.0); HEMOGLOBIN. 9.3 g/dL (12.0-16.0); MEAN CORPUSCULAR VOLUME 88.8 fL (81.0-99.0); MEAN PLATELET VOLUME 9.3 fl (7.4-10.4); MONOCYTES % 14.1 % (2.0-8.0); NEUTROPHILS % 67.3 % (40.0-76.0); PLATELET 76 x1000/uL (130-400); RED BLOOD CELL COUNT 3.19 mill/uL (4.2-5.4)
[2019-05-31] MEDS ORDERED: NEOMYCIN/POLYMYXN B/GRAMICIDIN OPHTH DROPS 10ML LEFTEYE SCH (09:00)
[2019-05-31] MEDS ORDERED: ETRAVIRINE 200 MG PO SCH (09:00)
[2019-05-31] MEDS: SEVELAMER CARBONATE 800 MG TABLET PO SCH ×3 (10:12→17:01)
[2019-05-31] MEDS: CHOLECALCIFEROL (D3) 1000 UNIT TABLET PO SCH (10:13)
[2019-05-31] MEDS: AMLODIPINE 10MG TABLET PO SCH (10:13)
[2019-05-31] MEDS: ASPIRIN 81MG EC TABLET PO SCH (10:13)
[2019-05-31] MEDS: TIMOLOL MALEATE 0.5% OPHTH DROPS 5ML LEFTEYE SCH ×2 (10:14→17:01)
[2019-05-31] MEDS: BRIMONIDINE 0.2% OPHTH DROPS 5ML LEFTEYE SCH (10:14)
[2019-05-31] MEDS: PREDNISOLONE ACETATE 1% OPHTH DROPS 5ML LEFTEYE SCH ×4 (10:14→22:10)
[2019-05-31] MEDS: ATROPINE SULFATE 1% OPHTH 2ML LEFTEYE SCH ×2 (10:14→17:21)
[2019-05-31] MEDS: INSULIN LISPRO 100 UNITS/ML SUBCUT SCH ×4 (10:20→21:06)
[2019-05-31] MEDS ORDERED: LEVETIRACETAM 500 MG in SODIUM CHLORIDE 0.9% 100 ML IV SCH (10:30)
[2019-05-31] MEDS: LEVETIRACETAM 500MG PREMIX 100 ML IV SCH ×2 (14:42→22:08)
[2019-05-31] MEDS ORDERED: VANCOMYCIN 1 G PREMIX 200 ML IV NR (16:00)
[2019-05-31] MEDS: PIPERACILLIN/TAZOBACTAM 2.25 G in DEXTROSE 5% WATER 50 ML IV SCH (17:01)
[2019-05-31] MEDS ORDERED: BISACODYL 10MG SUPP PR PRN (19:15)
[2019-05-31] MEDS ORDERED: LORAZEPAM 0.5MG TABLET PO PRN (19:15)
[2019-05-31] MEDS ORDERED: IPRATROPIUM/ALBUTEROL 0.5-3(2.5)MG/3ML NEB HHN PRN (19:15)
[2019-06-01] VITALS (12 sets, daily range): BP systolic 111–157; BP diastolic 54–79
[2019-06-01] MEDS: HYDRALAZINE HCL 50MG TABLET PO SCH ×3 (05:38→21:46)
[2019-06-01] MEDS: PIPERACILLIN/TAZOBACTAM 2.25 G in DEXTROSE 5% WATER 50 ML IV SCH ×2 (05:38→18:50)
[2019-06-01] MEDS: MORPHINE SULFATE 2 MG/ML CPJ (NOT FOR IM USE) IV PRN ×3 (05:39→20:25)
[2019-06-01 06:56] LABS: HEMATOCRIT. 26.4 % (36.0-48.0); HEMOGLOBIN. 8.5 g/dL (12.0-16.0); MEAN CORPUSCULAR HEMOGLOBIN 28.9 pg (28.0-32.0); MEAN CORPUSCULAR VOLUME 89.7 fL (81.0-99.0); MEAN PLATELET VOLUME 9.7 fl (7.4-10.4); PLATELET 88 x1000/uL (130-400); RED BLOOD CELL COUNT 2.94 mill/uL (4.2-5.4); RED CELL DISTRIBUTION WIDTH 16.9 % (11.6-14.6)
[2019-06-01] MEDS: BLOOD SUGAR DIAGNOSTIC STRIP TEST SCH ×4 (07:30→21:00)
[2019-06-01] MEDS: INSULIN LISPRO 100 UNITS/ML SUBCUT SCH ×4 (08:00→22:03)
[2019-06-01] MEDS: SEVELAMER CARBONATE 800 MG TABLET PO SCH ×3 (08:51→18:15)
[2019-06-01] MEDS: TIMOLOL MALEATE 0.5% OPHTH DROPS 5ML LEFTEYE SCH ×2 (08:55→18:17)
[2019-06-01] MEDS: ATROPINE SULFATE 1% OPHTH 2ML LEFTEYE SCH ×2 (08:55→18:16)
[2019-06-01] MEDS: PREDNISOLONE ACETATE 1% OPHTH DROPS 5ML LEFTEYE SCH ×4 (08:55→22:02)
[2019-06-01] MEDS: BRIMONIDINE 0.2% OPHTH DROPS 5ML LEFTEYE SCH (08:56)
[2019-06-01] MEDS ORDERED: ERGOCALCIFEROL 50000UNITS CAPSULE PO SCH (09:00)
[2019-06-01] MEDS: AMLODIPINE 10MG TABLET PO SCH (09:00)
[2019-06-01 10:29] LABS: PLATELET ESTIMATE DECREASED
[2019-06-01] MEDS ORDERED: VANCOMYCIN 750 MG PREMIX 150 ML IV NR (17:00)
[2019-06-01] MEDS: LEVETIRACETAM 500MG PREMIX 100 ML IV SCH ×2 (18:02→21:46)
[2019-06-01] MEDS: ASPIRIN 81MG EC TABLET PO SCH (18:15)
[2019-06-01] MEDS: CHOLECALCIFEROL (D3) 1000 UNIT TABLET PO SCH (18:15)
[2019-06-01] MEDS: EPOETIN ALFA 10000UNITS/ML VIAL SUBCUT SCH (22:03)
[2019-06-02] VITALS (12 sets, daily range): BP systolic 94–148; BP diastolic 50–72
[2019-06-02] MEDS: MORPHINE SULFATE 2 MG/ML CPJ (NOT FOR IM USE) IV PRN ×3 (01:08→18:51)
[2019-06-02] MEDS: HYDRALAZINE HCL 50MG TABLET PO SCH ×3 (05:23→21:11)
[2019-06-02] MEDS: PIPERACILLIN/TAZOBACTAM 2.25 G in DEXTROSE 5% WATER 50 ML IV SCH ×2 (05:24→17:33)
[2019-06-02] MEDS: INSULIN LISPRO 100 UNITS/ML SUBCUT SCH ×5 (07:50→21:00)
[2019-06-02] MEDS: BLOOD SUGAR DIAGNOSTIC STRIP TEST SCH ×4 (07:50→21:00)
[2019-06-02] MEDS: SEVELAMER CARBONATE 800 MG TABLET PO SCH ×3 (08:00→17:40)
[2019-06-02] MEDS: LEVETIRACETAM 500MG PREMIX 100 ML IV SCH ×2 (09:00→20:43)
[2019-06-02] MEDS: CHOLECALCIFEROL (D3) 1000 UNIT TABLET PO SCH (09:12)
[2019-06-02] MEDS: ASPIRIN 81MG EC TABLET PO SCH (09:12)
[2019-06-02] MEDS: AMLODIPINE 10MG TABLET PO SCH (09:13)
[2019-06-02] MEDS: ATROPINE SULFATE 1% OPHTH 2ML LEFTEYE SCH ×2 (09:28→17:33)
[2019-06-02] MEDS: PREDNISOLONE ACETATE 1% OPHTH DROPS 5ML LEFTEYE SCH ×4 (09:28→21:02)
[2019-06-02] MEDS: BRIMONIDINE 0.2% OPHTH DROPS 5ML LEFTEYE SCH (09:29)
[2019-06-02] MEDS: TIMOLOL MALEATE 0.5% OPHTH DROPS 5ML LEFTEYE SCH ×2 (09:29→17:34)
[2019-06-02 14:51] LABS: HEMOGLOBIN. 11.4 g/dL (12.0-16.0); MEAN CORPUSCULAR HEMOGLOBIN 29.5 pg (28.0-32.0); MEAN CORPUSCULAR VOLUME 92.8 fL (81.0-99.0); MEAN PLATELET VOLUME 10.4 fl (7.4-10.4); PLATELET 119 x1000/uL (130-400); RED BLOOD CELL COUNT 3.88 mill/uL (4.2-5.4); RED CELL DISTRIBUTION WIDTH 17.1 % (11.6-14.6)
[2019-06-02 16:13] LABS: PLATELET ESTIMATE DECREASED
[2019-06-02] MEDS: HYDROCODONE/ACETAMINOPHEN 5/325MG TABLET PO PRN (20:43)
[2019-06-03] VITALS (12 sets, daily range): BP systolic 95–156; BP diastolic 51–92
[2019-06-03] MEDS: MORPHINE SULFATE 2 MG/ML CPJ (NOT FOR IM USE) IV PRN ×3 (00:19→17:13)
[2019-06-03] MEDS: HYDROCODONE/ACETAMINOPHEN 5/325MG TABLET PO PRN ×2 (04:37→12:48)
[2019-06-03] MEDS: HYDRALAZINE HCL 50MG TABLET PO SCH ×3 (05:36→21:31)
[2019-06-03] MEDS: PIPERACILLIN/TAZOBACTAM 2.25 G in DEXTROSE 5% WATER 50 ML IV SCH (05:36)
[2019-06-03 07:21] LABS: HEMATOCRIT. 27.4 % (36.0-48.0); HEMOGLOBIN. 8.9 g/dL (12.0-16.0); MEAN CORPUSCULAR HEMOGLOBIN 28.8 pg (28.0-32.0); MEAN CORPUSCULAR VOLUME 88.9 fL (81.0-99.0); PLATELET 137 x1000/uL (130-400); RED BLOOD CELL COUNT 3.08 mill/uL (4.2-5.4); RED CELL DISTRIBUTION WIDTH 16.8 % (11.6-14.6)
[2019-06-03] MEDS: BLOOD SUGAR DIAGNOSTIC STRIP TEST SCH ×4 (07:30→21:31)
[2019-06-03] MEDS: INSULIN LISPRO 100 UNITS/ML SUBCUT SCH ×4 (08:00→21:00)
[2019-06-03] MEDS: ASPIRIN 81MG EC TABLET PO SCH (09:10)
[2019-06-03] MEDS: CHOLECALCIFEROL (D3) 1000 UNIT TABLET PO SCH (09:10)
[2019-06-03] MEDS: SEVELAMER CARBONATE 800 MG TABLET PO SCH ×3 (09:10→17:19)
[2019-06-03] MEDS: BRIMONIDINE 0.2% OPHTH DROPS 5ML LEFTEYE SCH (09:11)
[2019-06-03] MEDS: PREDNISOLONE ACETATE 1% OPHTH DROPS 5ML LEFTEYE SCH ×4 (09:11→21:30)
[2019-06-03] MEDS: ATROPINE SULFATE 1% OPHTH 2ML LEFTEYE SCH ×2 (09:11→17:19)
[2019-06-03] MEDS: TIMOLOL MALEATE 0.5% OPHTH DROPS 5ML LEFTEYE SCH ×2 (09:12→17:19)
[2019-06-03] MEDS: LEVETIRACETAM 500MG PREMIX 100 ML IV SCH (09:30)
[2019-06-03] MEDS: AMLODIPINE 10MG TABLET PO SCH (09:30)
[2019-06-03] MEDS: LEVETIRACETAM 500MG TABLET PO SCH ×2 (11:00→21:30)
[2019-06-03] MEDS ORDERED: HYDR-4001 MT (11:49)
[2019-06-03 13:40] LABS: PLATELET ESTIMATE NORMAL
[2019-06-03] MEDS: EPOETIN ALFA 10000UNITS/ML VIAL SUBCUT SCH (21:30)
[2019-06-04] VITALS: BP 95/57
== END 2019-06-04 01:30 | disposition home or self-care (01) | DRG 53 ==
LOC: ER 14:39 → ENRESERV 19:33 → 5EST 23:19
PROVIDERS: ADMIT Internal Medicine; ATTEND Internal Medicine
PROC: 5A1D70Z Performance of Urinary Filtration, Intermittent, Less than 6 Hours Per Day (ICD-10-PCS; principal; 2019-05-30)
PROC: 5A1D70Z Performance of Urinary Filtration, Intermittent, Less than 6 Hours Per Day (ICD-10-PCS; 2019-06-01)
PROC: 5A1D70Z Performance of Urinary Filtration, Intermittent, Less than 6 Hours Per Day (ICD-10-PCS; 2019-06-03)
DX: G40.909 Epilepsy, unspecified, not intractable, without status epilepticus (principal); E43 Unspecified severe protein-calorie malnutrition; E11.22 Type 2 diabetes mellitus with diabetic chronic kidney disease; D69.6 Thrombocytopenia, unspecified; E87.5 Hyperkalemia; E87.1 Hypo-osmolality and hyponatremia; I13.11 Hypertensive heart and chronic kidney disease without heart failure, with stage 5 chronic kidney disease, or end stage renal disease; I16.0 Hypertensive urgency; N18.6 End stage renal disease; D63.8 Anemia in other chronic diseases classified elsewhere; E87.70 Fluid overload, unspecified; W18.39XA Other fall on same level, initial encounter; Z86.73 Personal history of transient ischemic attack (TIA), and cerebral infarction without residual deficits; Z91.19 Patient's noncompliance with other medical treatment and regimen; Z99.2 Dependence on renal dialysis; Z88.6 Allergy status to analgesic agent; Z88.8 Allergy status to other drugs, medicaments and biological substances; Z79.899 Other long term (current) drug therapy; Z68.23 Body mass index [BMI] 23.0-23.9, adult
CPT/HCPCS: 36415; 71045; 73610; 73721; 80048; 80053; 80202; 82542; 82962; 83880; 84145; 84484; 85025; 86850; 86900; 87804; 93005; 97162; 97530; 99285; J0360; J0610; J0885; J1815; J1953; J2060; J2270; J2543; J3370; J3490; J7060

== ENCOUNTER 2019-06-04 18:15 | Emergency (ER) | payer MEDICAID ==
[~2019-06-04] VITALS: Ht 162.6 cm; Wt 66.0 kg
[~2019-06-04 18:15] MED LIST changes: +HYDR-4001 MT
[2019-06-04] MEDS ORDERED: SODIUM CHLORIDE 0.9% 1,000 ML IV ONE (18:45)
[2019-06-04 19:08] LABS: CHLORIDE 102 mEq/L (98-107)
[2019-06-04 19:12] LABS: ETHANOL BLOOD < 10 mg/dL; HEMATOCRIT. 34.2 % (36.0-48.0); HEMOGLOBIN. 11.1 g/dL (12.0-16.0); MEAN CORPUSCULAR HEMOGLOBIN 29.3 pg (28.0-32.0); MEAN CORPUSCULAR VOLUME 90.4 fL (81.0-99.0); PLATELET 205 x1000/uL (130-400); RED BLOOD CELL COUNT 3.78 mill/uL (4.2-5.4)
[2019-06-04 19:17] LABS: CREATINE KINASE 79 IU/L (26-192)
[2019-06-04 20:55] LABS: PLATELET ESTIMATE NORMAL
[2019-06-04] MEDS ORDERED: LEVETIRACETAM 500MG TABLET PO ONE (21:15)
[2019-06-04 21:56] VITALS: BP 120/55
== END 2019-06-04 21:58 | disposition home or self-care (01) ==
LOC: ER 18:15 → CANBEDREQ 22:34
DX: R56.9 Unspecified convulsions (principal); I12.0 Hypertensive chronic kidney disease with stage 5 chronic kidney disease or end stage renal disease; N18.6 End stage renal disease; Z88.6 Allergy status to analgesic agent; Z99.2 Dependence on renal dialysis; Z86.73 Personal history of transient ischemic attack (TIA), and cerebral infarction without residual deficits; Z79.82 Long term (current) use of aspirin
CPT/HCPCS: 36415; 70450; 71045; 80053; 80307; 80320; 80329; 82550; 83880; 84443; 84484; 85025; 93005; 99285; J7030; G0480

== ENCOUNTER 2019-06-08 18:07 | Emergency (ER) | payer MEDICAID ==
[~2019-06-08] VITALS: Ht 167.6 cm; Wt 64.0 kg
[2019-06-08 23:43] LABS: CHLORIDE 98 mEq/L (98-107)
[2019-06-08 23:45] LABS: INR 1.1; PROTHROMBIN TIME 11.4 sec (9.6-11.0)
[2019-06-08 23:48] LABS: ETHANOL BLOOD < 10 mg/dL
[2019-06-08 23:55] LABS: CARBAMAZEPINE < 0.5 ug/mL (4-12); PHENOBARBITAL < 2.1 ug/mL (15.0-40.0); VALPROIC ACID < 3.0 ug/mL (50-100)
[2019-06-08 23:59] LABS: HEMATOCRIT. 25.1 % (36.0-48.0); HEMOGLOBIN. 8.1 g/dL (12.0-16.0); MEAN CORPUSCULAR HEMOGLOBIN 28.2 pg (28.0-32.0); MEAN CORPUSCULAR VOLUME 87.3 fL (81.0-99.0); MEAN PLATELET VOLUME 8.3 fl (7.4-10.4); PLATELET 189 x1000/uL (130-400); RED BLOOD CELL COUNT 2.87 mill/uL (4.2-5.4); RED CELL DISTRIBUTION WIDTH 17.3 % (11.6-14.6)
[2019-06-09 00:40] LABS: PLATELET ESTIMATE NORMAL
[2019-06-09] MEDS ORDERED: PHENYTOIN SODIUM 1,000 MG in SODIUM CHLORIDE 0.9% 100 ML IV NR (01:00)
[2019-06-09 08:54] LABS: CLARITY URINE CLOUDY (CLEAR); COLOR URINE YELLOW (YELLOW); KETONES URINE NEGATIVE (NEGATIVE); LEUKOCYTE ESTERASE URINE 1+ (NEGATIVE); NITRITE URINE NEGATIVE (NEGATIVE); OCCULT BLOOD URINE TRACE (NEGATIVE); PROTEIN URINE 4+ (NEGATIVE); UROBILINOGEN URINE 0.2 E.U./dL (0.2-1.0)
[2019-06-09 09:25] LABS: *AMPHETAMINES SCREEN URINE NEGATIVE (NEGATIVE); *BARBITURATES SCREEN URINE NEGATIVE (NEGATIVE); *BENZODIAZEPINES SCREEN URINE PRESUMTIVE POSITIVE (NEGATIVE); *COCAINE SCREEN URINE NEGATIVE (NEGATIVE); METHADONE URINE SCREEN NEGATIVE (NEGATIVE)
[2019-06-09 09:26] LABS: CANNABINOID URINE SCREEN NEGATIVE (NEGATIVE); OPIATES URINE SCREEN PRESUMTIVE POSITIVE (NEGATIVE); PHENCYCLIDINE URINE SCREEN NEGATIVE (NEGATIVE)
[2019-06-09 10:25] VITALS: BP 94/50
== END 2019-06-09 10:20 | disposition short-term general hospital (02) ==
LOC: ER 18:07 → CANBEDREQ 06-09 11:46
DX: R56.9 Unspecified convulsions (principal); F17.200 Nicotine dependence, unspecified, uncomplicated; I12.0 Hypertensive chronic kidney disease with stage 5 chronic kidney disease or end stage renal disease; N18.6 End stage renal disease; H26.9 Unspecified cataract; Z99.2 Dependence on renal dialysis; Z88.6 Allergy status to analgesic agent; Z79.82 Long term (current) use of aspirin; Z86.73 Personal history of transient ischemic attack (TIA), and cerebral infarction without residual deficits
CPT/HCPCS: 36415; 70450; 71045; 80053; 80156; 80165; 80184; 80185; 80305; 80320; 81003; 85025; 85610; 96365; 99285; J1165; J7050; Z7610; G0480

== ENCOUNTER 2019-06-15 18:14 | Inpatient (IN) | payer MEDICAID ==
[~2019-06-15] VITALS: Ht 177.8 cm; Wt 58.5 kg
[2019-06-15] MEDS ORDERED: ONDANSETRON HCL 4MG/2ML INJ IV STA (19:51)
[2019-06-15] MEDS ORDERED: MORPHINE SULFATE 4 MG/ML CPJ (NOT FOR IM USE) IV STA (19:51)
[2019-06-15 20:21] LABS: BASOPHILS % 0.7 % (0.0-2.0); EOSINOPHILS % 0.4 % (0.0-5.0); HEMOGLOBIN. 8.8 g/dL (12.0-16.0); LYMPHOCYTES % 9.1 % (20.0-50.0); MEAN CORPUSCULAR HEMOGLOBIN 28.4 pg (28.0-32.0); MEAN CORPUSCULAR VOLUME 87.2 fL (81.0-99.0); MONOCYTES % 12.1 % (2.0-8.0); NEUTROPHILS % 77.7 % (40.0-76.0); PLATELET 229 x1000/uL (130-400); RED CELL DISTRIBUTION WIDTH 17.9 % (11.6-14.6)
[2019-06-15 20:27] LABS: CHLORIDE 105 mEq/L (98-107)
[2019-06-15] MEDS ORDERED: ACETAMINOPHEN 325MG TABLET PO ONE (23:15)
[2019-06-16] MEDS ORDERED: ONDANSETRON HCL 4MG/2ML INJ IV PRN ×2 (08:30→15:45)
[2019-06-16] MEDS ORDERED: CLONIDINE 0.1MG TABLET PO PRN (08:30)
[2019-06-16] MEDS ORDERED: ASPIRIN 81MG EC TABLET PO SCH (09:00)
[2019-06-16] MEDS: AMLODIPINE 10MG TABLET PO SCH (09:23)
[2019-06-16 14:05] VITALS: BP 146/77
[2019-06-16 14:30] VITALS: BP 146/77
[2019-06-16] MEDS: HYDRALAZINE HCL 50MG TABLET PO SCH ×2 (14:43→22:00)
[2019-06-16 15:39] LABS: CHLORIDE 105 mEq/L (98-107)
[2019-06-16] MEDS ORDERED: HYDRALAZINE 20MG/ML VIAL IV PRN (15:45)
[2019-06-16] MEDS ORDERED: MEDICATION NOT ON FORMULARY EA (Cholecalciferol (Vitamin D3) (Vitamin D3) 5,000 UNIT) PO SCH (15:45)
[2019-06-16] MEDS ORDERED: IPRATROPIUM/ALBUTEROL 0.5-3(2.5)MG/3ML NEB HHN PRN (15:45)
[2019-06-16] MEDS ORDERED: ACETAMINOPHEN 325MG TABLET PO PRN (15:45)
[2019-06-16] MEDS ORDERED: ACETAMINOPHEN 650MG SUPP PR PRN (15:45)
[2019-06-16] MEDS ORDERED: BISACODYL 10MG SUPP PR PRN (15:45)
[2019-06-16 15:48] LABS: CREATINE KINASE 103 IU/L (26-192)
[2019-06-16 15:49] LABS: CREATINE KINASE MB FRACTION < 1.0 ng/mL (0.5-3.6)
[2019-06-16 16:00] VITALS: BP_SYST 161; BP_SYST 163; BP_DIAS 70; BP_DIAS 73
[2019-06-16] MEDS ORDERED: LORAZEPAM 2MG/ML CPJ IV PRN (16:30)
[2019-06-16] MEDS ORDERED: DEXTROSE 50% WATER 50ML SYRINGE IV PRN (16:32)
[2019-06-16 16:55] LABS: HEMATOCRIT 30.8 % (36.0-48.0); MEAN CORPUSCULAR HEMOGLOBIN 28.2 pg (28.0-32.0); MEAN CORPUSCULAR VOLUME 86.6 fL (81.0-99.0); PLATELET 246 x1000/uL (130-400); RED BLOOD CELL COUNT 3.55 mill/uL (4.2-5.4); RED CELL DISTRIBUTION WIDTH 17.9 % (11.6-14.6)
[2019-06-16] MEDS ORDERED: MEDICATION NOT ON FORMULARY EA (Sevelamer Hcl (Renagel) 800 MG) PO SCH (17:00)
[2019-06-16] MEDS ORDERED: NACL 0.9% LEFTEYE SCH (17:00)
[2019-06-16] MEDS ORDERED: ATROPINE SULFATE LEFTEYE SCH (17:00)
[2019-06-16] MEDS ORDERED: ETRAVIRINE 200 MG PO SCH (17:00)
[2019-06-16] MEDS ORDERED: [UNRECOGNIZED DRUG - OTHER] LEFTEYE SCH (17:00)
[2019-06-16] MEDS: INSULIN LISPRO 100 UNITS/ML SUBCUT SCH ×2 (17:50→20:58)
[2019-06-16] MEDS: BLOOD SUGAR DIAGNOSTIC STRIP TEST SCH ×2 (18:19→20:58)
[2019-06-16] MEDS: ATROPINE SULFATE 1% OPHTH 2ML LEFTEYE SCH (18:20)
[2019-06-16] MEDS: PREDNISOLONE ACETATE 1% OPHTH DROPS 5ML LEFTEYE SCH ×2 (18:20→21:16)
[2019-06-16] MEDS: SEVELAMER CARBONATE 800 MG TABLET PO SCH (18:20)
[2019-06-16] MEDS: TIMOLOL MALEATE 0.5% OPHTH DROPS 5ML LEFTEYE SCH (18:20)
[2019-06-16] MEDS: MORPHINE SULFATE 2 MG/ML CPJ (NOT FOR IM USE) IV PRN (18:40)
[2019-06-16 20:00] VITALS: BP 148/69
[2019-06-16] MEDS ORDERED: EPOETIN ALFA 10000UNITS/ML VIAL SUBCUT SCH (21:00)
[2019-06-16] MEDS: LEVETIRACETAM 500MG PREMIX 100 ML IV SCH (21:15)
[2019-06-16] MEDS ORDERED: HYDRALAZINE HCL 50MG TABLET PO SCH (22:00)
[2019-06-17] VITALS: BP 137/64
[2019-06-17 00:27] LABS: CREATINE KINASE 53 IU/L (26-192)
[2019-06-17 00:28] LABS: CREATINE KINASE MB FRACTION < 1.0 ng/mL (0.5-3.6)
[2019-06-17 04:00] VITALS: BP 134/61
[2019-06-17] MEDS: HYDRALAZINE HCL 50MG TABLET PO SCH ×3 (05:23→21:03)
[2019-06-17] MEDS: MORPHINE SULFATE 2 MG/ML CPJ (NOT FOR IM USE) IV PRN (06:08)
[2019-06-17] MEDS: BLOOD SUGAR DIAGNOSTIC STRIP TEST SCH ×4 (06:23→20:55)
[2019-06-17] MEDS: SEVELAMER CARBONATE 800 MG TABLET PO SCH ×3 (07:50→17:50)
[2019-06-17] MEDS: INSULIN LISPRO 100 UNITS/ML SUBCUT SCH ×4 (07:50→20:54)
[2019-06-17 08:00] VITALS: BP 151/69
[2019-06-17] MEDS: AMLODIPINE 10MG TABLET PO SCH (09:00)
[2019-06-17] MEDS ORDERED: AMLODIPINE 10MG TABLET PO SCH (09:00)
[2019-06-17] MEDS: TIMOLOL MALEATE 0.5% OPHTH DROPS 5ML LEFTEYE SCH ×2 (09:00→16:55)
[2019-06-17] MEDS ORDERED: MEDICATION NOT ON FORMULARY EA (Dolutegravir Sodium (Tivicay) 50 MG) PO SCH (09:00)
[2019-06-17] MEDS: PREDNISOLONE ACETATE 1% OPHTH DROPS 5ML LEFTEYE SCH ×4 (09:00→20:54)
[2019-06-17] MEDS: CHOLECALCIFEROL (D3) 1000 UNIT TABLET PO SCH (09:00)
[2019-06-17] MEDS: ATROPINE SULFATE 1% OPHTH 2ML LEFTEYE SCH ×2 (09:00→16:55)
[2019-06-17] MEDS: ASPIRIN 81MG EC TABLET PO SCH (09:00)
[2019-06-17] MEDS: BRIMONIDINE 0.2% OPHTH DROPS 5ML LEFTEYE SCH (09:00)
[2019-06-17 10:01] LABS: BG BASE EXCESS -2.9 mmol/L (-2.0-2.0); BG CARBOXYHEMOGLOBIN 0.3 % (0.5-1.5); BG DEOXYHEMOGLOBIN 6.1 % (0.0-5.0); BG HCO3 ACT 19.6 mmol/L (22.0-26.0); BG METHEMOGLOBIN 0.1 % (0.0-1.5); BG OXYGEN SATURATION 93.9 % (92.0-98.5); BG OXYHEMOGLOBIN 93.5 % (94.0-97.0); BG PCO2 26.6 mmHg (35.0-45.0); BG PH 7.485 (7.350-7.450); BG PO2 67.8 mmHg (75.0-100.0); BG SAMPLE SITE RIGHT RADIAL; BG TOTAL HEMOGLOBIN 9.9 g/dL (12.0-18.0); BG VENT MODE ROOM AIR
[2019-06-17] MEDS: LEVETIRACETAM 500MG PREMIX 100 ML IV SCH ×2 (10:23→21:03)
[2019-06-17 12:00] VITALS: BP 105/51
[2019-06-17 12:31] LABS: HEMATOCRIT. 28.5 % (36.0-48.0); HEMOGLOBIN. 9.3 g/dL (12.0-16.0); MEAN CORPUSCULAR HEMOGLOBIN 28.5 pg (28.0-32.0); MEAN CORPUSCULAR VOLUME 87.1 fL (81.0-99.0); MEAN PLATELET VOLUME 8.6 fl (7.4-10.4); PLATELET 276 x1000/uL (130-400); RED BLOOD CELL COUNT 3.27 mill/uL (4.2-5.4); RED CELL DISTRIBUTION WIDTH 17.5 % (11.6-14.6)
[2019-06-17 13:22] LABS: PLATELET ESTIMATE NORMAL
[2019-06-17 16:00] VITALS: BP 114/49
[2019-06-17] MEDS: PIPERACILLIN/TAZOBACTAM 2.25 G in DEXTROSE 5% WATER 50 ML IV SCH (17:03)
[2019-06-17] MEDS ORDERED: VANCOMYCIN 1500MG in DEXTROSE 5% WATER 250ML IV NR (17:30)
[2019-06-17 20:00] VITALS: BP 118/50
[2019-06-17] MEDS: LACTULOSE 20G/30ML UDC PO SCH (21:03)
[2019-06-17] MEDS: HYDROCODONE/ACETAMINOPHEN 5/325MG TABLET PO PRN (21:08)
[2019-06-17] MEDS ORDERED: DIPHENHYDRAMINE 50MG/ML VIAL IV NR (22:45)
[2019-06-18] VITALS: BP 122/80
[2019-06-18] MEDS ORDERED: LORAZEPAM 2MG/ML CPJ IV SCH (00:30)
[2019-06-18 04:30] VITALS: BP 142/80
[2019-06-18] MEDS: PIPERACILLIN/TAZOBACTAM 2.25 G in DEXTROSE 5% WATER 50 ML IV SCH ×2 (05:21→16:52)
[2019-06-18] MEDS: LACTULOSE 20G/30ML UDC PO SCH ×3 (05:22→16:53)
[2019-06-18] MEDS: HYDRALAZINE HCL 50MG TABLET PO SCH ×3 (05:22→21:18)
[2019-06-18] MEDS: HYDROCODONE/ACETAMINOPHEN 5/325MG TABLET PO PRN ×3 (05:30→20:18)
[2019-06-18] MEDS: BLOOD SUGAR DIAGNOSTIC STRIP TEST SCH ×4 (06:21→20:03)
[2019-06-18 07:25] VITALS: BP 106/50
[2019-06-18] MEDS: INSULIN LISPRO 100 UNITS/ML SUBCUT SCH ×4 (07:35→20:03)
[2019-06-18] MEDS: SEVELAMER CARBONATE 800 MG TABLET PO SCH ×3 (08:23→16:52)
[2019-06-18] MEDS: CHOLECALCIFEROL (D3) 1000 UNIT TABLET PO SCH (08:24)
[2019-06-18] MEDS: LEVETIRACETAM 500MG PREMIX 100 ML IV SCH ×2 (08:26→20:18)
[2019-06-18] MEDS: ASPIRIN 81MG EC TABLET PO SCH (08:26)
[2019-06-18] MEDS: AMLODIPINE 10MG TABLET PO SCH (08:27)
[2019-06-18 09:50] LABS: HEMOGLOBIN. 9.1 g/dL (12.0-16.0); MEAN CORPUSCULAR HEMOGLOBIN 28.2 pg (28.0-32.0); MEAN CORPUSCULAR VOLUME 87.2 fL (81.0-99.0); PLATELET 271 x1000/uL (130-400); RED BLOOD CELL COUNT 3.21 mill/uL (4.2-5.4); RED CELL DISTRIBUTION WIDTH 17.9 % (11.6-14.6)
[2019-06-18] MEDS: TIMOLOL MALEATE 0.5% OPHTH DROPS 5ML LEFTEYE SCH ×2 (10:46→16:54)
[2019-06-18] MEDS: BRIMONIDINE 0.2% OPHTH DROPS 5ML LEFTEYE SCH (10:46)
[2019-06-18] MEDS: PREDNISOLONE ACETATE 1% OPHTH DROPS 5ML LEFTEYE SCH ×4 (10:47→20:17)
[2019-06-18] MEDS: ATROPINE SULFATE 1% OPHTH 2ML LEFTEYE SCH ×2 (10:47→16:54)
[2019-06-18 12:06] VITALS: BP 120/66
[2019-06-18] MEDS ORDERED: DIPHENHYDRAMINE 50MG/ML VIAL IV NR (12:15)
[2019-06-18 15:06] LABS: PLATELET ESTIMATE NORMAL
[2019-06-18 16:45] VITALS: BP 127/66
[2019-06-18 19:54] VITALS: BP 116/57
[2019-06-18] MEDS ORDERED: EPOETIN ALFA 4000UNITS/ML VIAL SUBCUT NR (21:15)
[2019-06-19] VITALS: BP 121/50
[2019-06-19] MEDS: LACTULOSE 20G/30ML UDC PO SCH ×3 (00:43→12:53)
[2019-06-19] MEDS: PIPERACILLIN/TAZOBACTAM 2.25 G in DEXTROSE 5% WATER 50 ML IV SCH ×2 (04:21→17:06)
[2019-06-19] MEDS: HYDROCODONE/ACETAMINOPHEN 5/325MG TABLET PO PRN ×3 (04:22→23:09)
[2019-06-19 04:30] VITALS: BP 148/75
[2019-06-19] MEDS: HYDRALAZINE HCL 50MG TABLET PO SCH ×3 (05:05→22:47)
[2019-06-19] MEDS: BLOOD SUGAR DIAGNOSTIC STRIP TEST SCH ×4 (06:27→22:35)
[2019-06-19] MEDS: INSULIN LISPRO 100 UNITS/ML SUBCUT SCH ×4 (07:50→21:50)
[2019-06-19 08:00] VITALS: BP 110/54
[2019-06-19] MEDS: AMLODIPINE 10MG TABLET PO SCH (09:00)
[2019-06-19] MEDS ORDERED: AMIKACIN 500MG in SODIUM CHLORIDE 0.9% 100ML IV NR (09:00)
[2019-06-19] MEDS: CHOLECALCIFEROL (D3) 1000 UNIT TABLET PO SCH (09:24)
[2019-06-19] MEDS: LEVETIRACETAM 500MG PREMIX 100 ML IV SCH ×2 (09:24→21:30)
[2019-06-19] MEDS: SEVELAMER CARBONATE 800 MG TABLET PO SCH ×3 (09:24→17:06)
[2019-06-19] MEDS: ASPIRIN 81MG EC TABLET PO SCH (09:24)
[2019-06-19] MEDS: TIMOLOL MALEATE 0.5% OPHTH DROPS 5ML LEFTEYE SCH ×2 (09:25→17:07)
[2019-06-19] MEDS: BRIMONIDINE 0.2% OPHTH DROPS 5ML LEFTEYE SCH (09:25)
[2019-06-19] MEDS: ATROPINE SULFATE 1% OPHTH 2ML LEFTEYE SCH ×2 (09:25→17:07)
[2019-06-19] MEDS: PREDNISOLONE ACETATE 1% OPHTH DROPS 5ML LEFTEYE SCH ×4 (09:25→22:47)
[2019-06-19 10:34] LABS: ABSOLUTE LYMPHOCYTES 1.2 x10E3/uL (0.7-3.1); ABSOLUTE MONOCYTES 1.7 x10E3/uL (0.1-0.9); ABSOLUTE NEUTROPHILS 11.1 x10E3/uL (1.4-7.0); BASOPHILS 0 % (Not Estab.); HEMATOCRIT 29.5 % (34.0-46.6); HEMOGLOBIN 8.5 g/dL (11.1-15.9); IMMATURE GRANULOCYTES 1 % (Not Estab.); IMMATURE GRANULOCYTES ABSOLUTE 0.1 x10E3/uL (0.0-0.1); LYMPHOCYTES 8 % (Not Estab.); MEAN CORPUSCULAR HEMOGLOBIN 27.4 pg (26.6-33.0); MEAN CORPUSCULAR HGB CONC. 28.8 g/dL (31.5-35.7); MEAN CORPUSCULAR VOLUME 95 fL (79-97); MONOCYTES 12 % (Not Estab.); NEUTROPHILS 79 % (Not Estab.); PLATELETS 286 x10E3/uL (150-450); RED CELL DISTRIBUTION WIDTH 16.6 % (11.7-15.4); WBC 14.1 x10E3/uL (3.4-10.8)
[2019-06-19 12:15] VITALS: BP 127/67
[2019-06-19 16:15] LABS: HEMOGLOBIN. 9.4 g/dL (12.0-16.0); MEAN CORPUSCULAR HEMOGLOBIN 28.1 pg (28.0-32.0); MEAN CORPUSCULAR VOLUME 86.8 fL (81.0-99.0); PLATELET 293 x1000/uL (130-400); RED BLOOD CELL COUNT 3.34 mill/uL (4.2-5.4); RED CELL DISTRIBUTION WIDTH 17.7 % (11.6-14.6)
[2019-06-19 16:19] LABS: PROTHROMBIN TIME 10.4 sec (9.6-11.0)
[2019-06-19 16:33] VITALS: BP 137/69
[2019-06-19 17:01] LABS: PLATELET ESTIMATE NORMAL
[2019-06-19 20:00] VITALS: BP 141/70
[2019-06-20] VITALS: BP 138/65
[2019-06-20 04:00] VITALS: BP 143/72
[2019-06-20] MEDS: HYDROCODONE/ACETAMINOPHEN 5/325MG TABLET PO PRN ×7 (04:59→18:06)
[2019-06-20] MEDS: PIPERACILLIN/TAZOBACTAM 2.25 G in DEXTROSE 5% WATER 50 ML IV SCH (05:30)
[2019-06-20 06:08] LABS: BASOPHILS % 0.5 % (0.0-2.0); EOSINOPHILS % 1.4 % (0.0-5.0); HEMATOCRIT. 26.1 % (36.0-48.0); HEMOGLOBIN. 8.6 g/dL (12.0-16.0); LYMPHOCYTES % 9.6 % (20.0-50.0); MEAN CORPUSCULAR HEMOGLOBIN 28.3 pg (28.0-32.0); MONOCYTES % 13.2 % (2.0-8.0); NEUTROPHILS % 75.3 % (40.0-76.0); PLATELET 303 x1000/uL (130-400); RED BLOOD CELL COUNT 3.04 mill/uL (4.2-5.4); RED CELL DISTRIBUTION WIDTH 17.7 % (11.6-14.6)
[2019-06-20] MEDS: HYDRALAZINE HCL 50MG TABLET PO SCH ×3 (06:42→22:00)
[2019-06-20] MEDS: INSULIN LISPRO 100 UNITS/ML SUBCUT SCH ×4 (06:54→21:00)
[2019-06-20] MEDS: BLOOD SUGAR DIAGNOSTIC STRIP TEST SCH ×4 (06:56→21:46)
[2019-06-20 08:00] VITALS: BP 124/60
[2019-06-20] MEDS: AMLODIPINE 10MG TABLET PO SCH (09:00)
[2019-06-20] MEDS: LEVETIRACETAM 500MG PREMIX 100 ML IV SCH ×2 (09:48→21:57)
[2019-06-20] MEDS: SEVELAMER CARBONATE 800 MG TABLET PO SCH ×3 (09:49→18:14)
[2019-06-20] MEDS: LACTULOSE 20G/30ML UDC PO SCH (09:49)
[2019-06-20] MEDS: CHOLECALCIFEROL (D3) 1000 UNIT TABLET PO SCH (09:49)
[2019-06-20] MEDS: ASPIRIN 81MG EC TABLET PO SCH (09:55)
[2019-06-20] MEDS: TIMOLOL MALEATE 0.5% OPHTH DROPS 5ML LEFTEYE SCH ×2 (09:57→18:10)
[2019-06-20] MEDS: PREDNISOLONE ACETATE 1% OPHTH DROPS 5ML LEFTEYE SCH ×4 (09:58→21:57)
[2019-06-20] MEDS: BRIMONIDINE 0.2% OPHTH DROPS 5ML LEFTEYE SCH ×2 (09:58→18:09)
[2019-06-20] MEDS: ATROPINE SULFATE 1% OPHTH 2ML LEFTEYE SCH ×2 (09:59→18:09)
[2019-06-20 10:10] LABS: % CD 3 POS. LYMPHOCYTES 60.2 % (57.5-86.2); % CD 4 POS. LYMPHOCYTES 23.2 % (30.8-58.5); % CD 8 POS. LYMPH 36.4 % (12.0-35.5); ABSOLUTE CD 3 722 /uL (622-2402); ABSOLUTE CD 4 HELPER 278 /uL (359-1519); ABSOLUTE CD 8 SUPPRESSOR 437 /uL (109-897); CD4/CD8 RATIO 0.64 (0.92-3.72)
[2019-06-20] MEDS ORDERED: VANCOMYCIN 1 G PREMIX 200 ML IV SCH (11:00)
[2019-06-20] MEDS ORDERED: AMIKACIN SULFATE 250 MG in SODIUM CHLORIDE 0.9% 100 ML IV SCH (14:00)
[2019-06-20 16:00] VITALS: BP 100/51
[2019-06-20] MEDS: CEFTRIAXONE 2 G in DEXTROSE 5% WATER 50 ML IV SCH (18:08)
[2019-06-20 20:00] VITALS: BP 114/57
[2019-06-20 22:18] VITALS: BP 94/44
[2019-06-21] VITALS: BP 111/47
[2019-06-21 04:21] VITALS: BP 139/68
[2019-06-21] MEDS: HYDROCODONE/ACETAMINOPHEN 5/325MG TABLET PO PRN ×3 (04:28→18:21)
[2019-06-21] MEDS: BLOOD SUGAR DIAGNOSTIC STRIP TEST SCH ×4 (06:33→20:26)
[2019-06-21] MEDS: HYDRALAZINE HCL 50MG TABLET PO SCH ×3 (06:44→21:04)
[2019-06-21] MEDS: INSULIN LISPRO 100 UNITS/ML SUBCUT SCH ×4 (06:47→20:26)
[2019-06-21 08:13] VITALS: BP 95/44
[2019-06-21] MEDS: AMLODIPINE 10MG TABLET PO SCH (09:00)
[2019-06-21] MEDS: ATROPINE SULFATE 1% OPHTH 2ML LEFTEYE SCH ×2 (09:18→18:22)
[2019-06-21] MEDS: BRIMONIDINE 0.2% OPHTH DROPS 5ML LEFTEYE SCH (09:18)
[2019-06-21] MEDS: TIMOLOL MALEATE 0.5% OPHTH DROPS 5ML LEFTEYE SCH ×2 (09:18→18:22)
[2019-06-21] MEDS: PREDNISOLONE ACETATE 1% OPHTH DROPS 5ML LEFTEYE SCH ×4 (09:18→22:06)
[2019-06-21] MEDS: ASPIRIN 81MG EC TABLET PO SCH (09:23)
[2019-06-21] MEDS: LACTULOSE 20G/30ML UDC PO SCH (09:24)
[2019-06-21] MEDS: CHOLECALCIFEROL (D3) 1000 UNIT TABLET PO SCH (09:30)
[2019-06-21] MEDS: LEVETIRACETAM 500MG PREMIX 100 ML IV SCH ×2 (09:32→22:14)
[2019-06-21] MEDS: SEVELAMER CARBONATE 800 MG TABLET PO SCH ×3 (10:08→18:20)
[2019-06-21 12:08] VITALS: BP 90/40
[2019-06-21 16:14] VITALS: BP 111/56
[2019-06-21] MEDS: CEFTRIAXONE 2 G in DEXTROSE 5% WATER 50 ML IV SCH (18:23)
[2019-06-21 20:00] VITALS: BP 103/57
[2019-06-22] VITALS: BP 111/69
[2019-06-22] MEDS: HYDROCODONE/ACETAMINOPHEN 5/325MG TABLET PO PRN ×3 (00:33→17:52)
[2019-06-22 04:00] VITALS: BP 106/52
[2019-06-22] MEDS: HYDRALAZINE HCL 50MG TABLET PO SCH ×3 (06:00→21:16)
[2019-06-22] MEDS: BLOOD SUGAR DIAGNOSTIC STRIP TEST SCH ×4 (06:28→21:17)
[2019-06-22] MEDS: INSULIN LISPRO 100 UNITS/ML SUBCUT SCH ×4 (06:28→21:23)
[2019-06-22 07:27] LABS: BASOPHILS % 0.5 % (0.0-2.0); EOSINOPHILS % 0.8 % (0.0-5.0); HEMOGLOBIN. 8.6 g/dL (12.0-16.0); MEAN CORPUSCULAR VOLUME 87.6 fL (81.0-99.0); MEAN PLATELET VOLUME 8.6 fl (7.4-10.4); MONOCYTES % 12.6 % (2.0-8.0); NEUTROPHILS % 77.1 % (40.0-76.0); PLATELET 271 x1000/uL (130-400); RED BLOOD CELL COUNT 3.08 mill/uL (4.2-5.4); RED CELL DISTRIBUTION WIDTH 17.8 % (11.6-14.6)
[2019-06-22 08:00] VITALS: BP 150/66
[2019-06-22] MEDS: ATROPINE SULFATE 1% OPHTH 2ML LEFTEYE SCH ×2 (08:50→17:22)
[2019-06-22] MEDS: SEVELAMER CARBONATE 800 MG TABLET PO SCH ×3 (08:51→18:32)
[2019-06-22] MEDS: PREDNISOLONE ACETATE 1% OPHTH DROPS 5ML LEFTEYE SCH ×4 (08:51→21:23)
[2019-06-22] MEDS: ASPIRIN 81MG EC TABLET PO SCH (08:51)
[2019-06-22] MEDS: CHOLECALCIFEROL (D3) 1000 UNIT TABLET PO SCH (08:51)
[2019-06-22] MEDS: TIMOLOL MALEATE 0.5% OPHTH DROPS 5ML LEFTEYE SCH ×2 (08:51→17:52)
[2019-06-22] MEDS: LACTULOSE 20G/30ML UDC PO SCH (08:52)
[2019-06-22] MEDS: LEVETIRACETAM 500MG PREMIX 100 ML IV SCH ×2 (08:52→21:23)
[2019-06-22] MEDS ORDERED: ERGOCALCIFEROL 50000UNITS CAPSULE PO SCH (09:00)
[2019-06-22 11:09] LABS: PARTIAL THROMBOPLASTIN TIME 29.6 sec (23.4-31.0); PROTHROMBIN TIME 10.8 sec (9.6-11.0)
[2019-06-22] MEDS: MORPHINE SULFATE 2 MG/ML CPJ (NOT FOR IM USE) IV PRN (11:49)
[2019-06-22 12:00] VITALS: BP 108/70
[2019-06-22] MEDS: AMLODIPINE 10MG TABLET PO SCH (13:29)
[2019-06-22] MEDS: DIPHENHYDRAMINE 50MG/ML VIAL IV PRN ×2 (15:50→21:57)
[2019-06-22 16:00] VITALS: BP 116/59
[2019-06-22] MEDS: CEFTRIAXONE 2 G in DEXTROSE 5% WATER 50 ML IV SCH (17:23)
[2019-06-22 20:00] VITALS: BP 98/45
[2019-06-23] VITALS (7 sets, daily range): BP systolic 110–146; BP diastolic 57–78
[2019-06-23] MEDS: HYDROCODONE/ACETAMINOPHEN 5/325MG TABLET PO PRN ×2 (04:30→16:37)
[2019-06-23] MEDS: DIPHENHYDRAMINE 50MG/ML VIAL IV PRN ×3 (05:27→18:04)
[2019-06-23] MEDS: HYDRALAZINE HCL 50MG TABLET PO SCH ×3 (05:27→21:00)
[2019-06-23] MEDS: BLOOD SUGAR DIAGNOSTIC STRIP TEST SCH ×4 (06:37→20:52)
[2019-06-23 07:26] LABS: HEMATOCRIT 28.1 % (36.0-48.0); HEMOGLOBIN 9.2 g/dL (12.0-16.0); MEAN CORPUSCULAR HEMOGLOBIN 28.2 pg (28.0-32.0); MEAN CORPUSCULAR VOLUME 86.5 fL (81.0-99.0); PLATELET 288 x1000/uL (130-400); RED BLOOD CELL COUNT 3.25 mill/uL (4.2-5.4); RED CELL DISTRIBUTION WIDTH 17.5 % (11.6-14.6)
[2019-06-23] MEDS: INSULIN LISPRO 100 UNITS/ML SUBCUT SCH ×4 (07:50→20:52)
[2019-06-23] MEDS: MORPHINE SULFATE 2 MG/ML CPJ (NOT FOR IM USE) IV PRN (10:43)
[2019-06-23] MEDS: LACTULOSE 20G/30ML UDC PO SCH (11:34)
[2019-06-23] MEDS: ATROPINE SULFATE 1% OPHTH 2ML LEFTEYE SCH ×2 (11:34→16:42)
[2019-06-23] MEDS: BRIMONIDINE 0.2% OPHTH DROPS 5ML LEFTEYE SCH (11:34)
[2019-06-23] MEDS: PREDNISOLONE ACETATE 1% OPHTH DROPS 5ML LEFTEYE SCH ×4 (11:34→20:51)
[2019-06-23] MEDS: TIMOLOL MALEATE 0.5% OPHTH DROPS 5ML LEFTEYE SCH ×2 (11:34→16:42)
[2019-06-23] MEDS: LEVETIRACETAM 500MG PREMIX 100 ML IV SCH ×2 (11:35→20:51)
[2019-06-23] MEDS: CHOLECALCIFEROL (D3) 1000 UNIT TABLET PO SCH (11:35)
[2019-06-23] MEDS: ASPIRIN 81MG EC TABLET PO SCH (11:35)
[2019-06-23] MEDS: SEVELAMER CARBONATE 800 MG TABLET PO SCH ×3 (11:35→18:03)
[2019-06-23] MEDS: AMLODIPINE 10MG TABLET PO SCH (11:35)
[2019-06-23] MEDS: CEFTRIAXONE 2 G in DEXTROSE 5% WATER 50 ML IV SCH (16:42)
[2019-06-24] VITALS (18 sets, daily range): BP systolic 122–164; BP diastolic 60–82
[2019-06-24] MEDS: DIPHENHYDRAMINE 50MG/ML VIAL IV PRN ×3 (00:14→17:24)
[2019-06-24] MEDS: HYDROCODONE/ACETAMINOPHEN 5/325MG TABLET PO PRN ×3 (01:09→21:21)
[2019-06-24] MEDS: HYDRALAZINE HCL 50MG TABLET PO SCH ×3 (05:58→21:21)
[2019-06-24] MEDS: BLOOD SUGAR DIAGNOSTIC STRIP TEST SCH ×4 (06:39→21:21)
[2019-06-24 06:58] LABS: HEMOGLOBIN. 8.7 g/dL (12.0-16.0); MEAN CORPUSCULAR VOLUME 87.2 fL (81.0-99.0); PLATELET 307 x1000/uL (130-400); RED CELL DISTRIBUTION WIDTH 17.7 % (11.6-14.6)
[2019-06-24] MEDS ORDERED: FENTANYL CITRATE/PF 50MCG/ML 2ML VIAL ONE (07:39)
[2019-06-24] MEDS ORDERED: LIDOCAINE HCL 1% 20ML VIAL (Pyxis) INJ ONE (07:42)
[2019-06-24] MEDS ORDERED: SODIUM BICARBONATE 4% (2.4MEQ) 5ML VIAL IV ONE (07:42)
[2019-06-24] MEDS: INSULIN LISPRO 100 UNITS/ML SUBCUT SCH ×4 (07:50→21:00)
[2019-06-24] MEDS ORDERED: MIDAZOLAM HCL 2 MG/2 ML VIAL ONE (08:10)
[2019-06-24] MEDS ORDERED: FENTANYL CITRATE/PF 50MCG/ML 2ML VIAL IV ONE (08:30)
[2019-06-24] MEDS ORDERED: MIDAZOLAM HCL 5 MG/5 ML VIAL IV ONE (08:30)
[2019-06-24] MEDS ORDERED: MIDAZOLAM HCL 2 MG/2 ML VIAL IV SCH (08:30)
[2019-06-24] MEDS ORDERED: FENTANYL CITRATE/PF 50MCG/ML 2ML VIAL IV SCH (08:30)
[2019-06-24] MEDS: AMLODIPINE 10MG TABLET PO SCH (09:00)
[2019-06-24] MEDS: CHOLECALCIFEROL (D3) 1000 UNIT TABLET PO SCH (09:05)
[2019-06-24] MEDS: LACTULOSE 20G/30ML UDC PO SCH (09:05)
[2019-06-24] MEDS: ASPIRIN 81MG EC TABLET PO SCH (09:05)
[2019-06-24] MEDS: SEVELAMER CARBONATE 800 MG TABLET PO SCH ×3 (09:05→18:40)
[2019-06-24] MEDS: ATROPINE SULFATE 1% OPHTH 2ML LEFTEYE SCH ×2 (09:06→17:24)
[2019-06-24] MEDS: BRIMONIDINE 0.2% OPHTH DROPS 5ML LEFTEYE SCH (09:06)
[2019-06-24] MEDS: TIMOLOL MALEATE 0.5% OPHTH DROPS 5ML LEFTEYE SCH ×2 (09:07→17:24)
[2019-06-24] MEDS: PREDNISOLONE ACETATE 1% OPHTH DROPS 5ML LEFTEYE SCH ×4 (09:07→21:20)
[2019-06-24] MEDS: LEVETIRACETAM 500MG PREMIX 100 ML IV SCH ×2 (09:08→21:21)
[2019-06-24 10:10] LABS: PLATELET ESTIMATE NORMAL
[2019-06-24] MEDS: CEFTRIAXONE 2 G in DEXTROSE 5% WATER 50 ML IV SCH (18:40)
[2019-06-25] VITALS: BP 111/53
[2019-06-25] MEDS: DIPHENHYDRAMINE 50MG/ML VIAL IV PRN ×4 (00:30→21:44)
[2019-06-25 04:30] VITALS: BP 148/69
[2019-06-25] MEDS: HYDRALAZINE HCL 50MG TABLET PO SCH ×3 (06:06→21:44)
[2019-06-25] MEDS: HYDROCODONE/ACETAMINOPHEN 5/325MG TABLET PO PRN (06:06)
[2019-06-25] MEDS: BLOOD SUGAR DIAGNOSTIC STRIP TEST SCH ×4 (07:25→21:28)
[2019-06-25 07:27] LABS: BASOPHILS % 0.8 % (0.0-2.0); EOSINOPHILS % 1.1 % (0.0-5.0); HEMATOCRIT. 26.2 % (36.0-48.0); HEMOGLOBIN. 8.7 g/dL (12.0-16.0); LYMPHOCYTES % 19.8 % (20.0-50.0); MEAN CORPUSCULAR HEMOGLOBIN 28.5 pg (28.0-32.0); MEAN CORPUSCULAR VOLUME 86.3 fL (81.0-99.0); MEAN PLATELET VOLUME 7.8 fl (7.4-10.4); MONOCYTES % 14.1 % (2.0-8.0); NEUTROPHILS % 64.2 % (40.0-76.0); PLATELET 299 x1000/uL (130-400); RED BLOOD CELL COUNT 3.04 mill/uL (4.2-5.4); RED CELL DISTRIBUTION WIDTH 17.1 % (11.6-14.6)
[2019-06-25] MEDS: INSULIN LISPRO 100 UNITS/ML SUBCUT SCH ×4 (07:48→21:00)
[2019-06-25 08:00] VITALS: BP 140/66
[2019-06-25] MEDS: ASPIRIN 81MG EC TABLET PO SCH (08:19)
[2019-06-25] MEDS: SEVELAMER CARBONATE 800 MG TABLET PO SCH ×3 (08:19→18:08)
[2019-06-25] MEDS: LACTULOSE 20G/30ML UDC PO SCH (08:19)
[2019-06-25] MEDS: AMLODIPINE 10MG TABLET PO SCH (08:19)
[2019-06-25] MEDS: LEVETIRACETAM 500MG PREMIX 100 ML IV SCH ×2 (08:19→21:45)
[2019-06-25] MEDS: CHOLECALCIFEROL (D3) 1000 UNIT TABLET PO SCH (08:19)
[2019-06-25] MEDS: BRIMONIDINE 0.2% OPHTH DROPS 5ML LEFTEYE SCH (08:20)
[2019-06-25] MEDS: ATROPINE SULFATE 1% OPHTH 2ML LEFTEYE SCH ×2 (08:20→18:08)
[2019-06-25] MEDS: PREDNISOLONE ACETATE 1% OPHTH DROPS 5ML LEFTEYE SCH ×4 (08:20→21:45)
[2019-06-25] MEDS: TIMOLOL MALEATE 0.5% OPHTH DROPS 5ML LEFTEYE SCH ×2 (08:21→18:09)
[2019-06-25 12:00] VITALS: BP 130/59
[2019-06-25] MEDS: MORPHINE SULFATE 2 MG/ML CPJ (NOT FOR IM USE) IV PRN ×2 (13:43→22:48)
[2019-06-25 16:00] VITALS: BP 125/63
[2019-06-25] MEDS: CEFTRIAXONE 2 G in DEXTROSE 5% WATER 50 ML IV SCH (18:13)
[2019-06-25 20:00] VITALS: BP 140/62
[2019-06-26] VITALS: BP 153/70
[2019-06-26 04:00] VITALS: BP 140/64
[2019-06-26] MEDS: DIPHENHYDRAMINE 50MG/ML VIAL IV PRN ×2 (05:32→11:24)
[2019-06-26] MEDS: HYDRALAZINE HCL 50MG TABLET PO SCH ×2 (05:32→13:20)
[2019-06-26 05:47] LABS: BASOPHILS % 1.1 % (0.0-2.0); EOSINOPHILS % 1.2 % (0.0-5.0); HEMATOCRIT. 27.2 % (36.0-48.0); HEMOGLOBIN. 8.8 g/dL (12.0-16.0); LYMPHOCYTES % 23.1 % (20.0-50.0); MEAN CORPUSCULAR VOLUME 86.8 fL (81.0-99.0); MEAN PLATELET VOLUME 7.5 fl (7.4-10.4); MONOCYTES % 14.8 % (2.0-8.0); NEUTROPHILS % 59.8 % (40.0-76.0); PLATELET 305 x1000/uL (130-400); RED BLOOD CELL COUNT 3.14 mill/uL (4.2-5.4); RED CELL DISTRIBUTION WIDTH 17.5 % (11.6-14.6)
[2019-06-26] MEDS: BLOOD SUGAR DIAGNOSTIC STRIP TEST SCH ×3 (07:14→17:04)
[2019-06-26 07:29] VITALS: BP 143/71
[2019-06-26] MEDS: INSULIN LISPRO 100 UNITS/ML SUBCUT SCH ×3 (07:39→17:04)
[2019-06-26] MEDS: MORPHINE SULFATE 2 MG/ML CPJ (NOT FOR IM USE) IV PRN (08:03)
[2019-06-26] MEDS: AMLODIPINE 10MG TABLET PO SCH (08:04)
[2019-06-26] MEDS: CHOLECALCIFEROL (D3) 1000 UNIT TABLET PO SCH (08:04)
[2019-06-26] MEDS: LEVETIRACETAM 500MG PREMIX 100 ML IV SCH (08:04)
[2019-06-26] MEDS: ASPIRIN 81MG EC TABLET PO SCH (08:04)
[2019-06-26] MEDS: SEVELAMER CARBONATE 800 MG TABLET PO SCH ×2 (08:04→11:24)
[2019-06-26] MEDS: LACTULOSE 20G/30ML UDC PO SCH (08:04)
[2019-06-26] MEDS: BRIMONIDINE 0.2% OPHTH DROPS 5ML LEFTEYE SCH (08:05)
[2019-06-26] MEDS: ATROPINE SULFATE 1% OPHTH 2ML LEFTEYE SCH (08:05)
[2019-06-26] MEDS: TIMOLOL MALEATE 0.5% OPHTH DROPS 5ML LEFTEYE SCH (08:05)
[2019-06-26] MEDS: PREDNISOLONE ACETATE 1% OPHTH DROPS 5ML LEFTEYE SCH ×2 (08:05→13:20)
[2019-06-26] MEDS: HYDROCODONE/ACETAMINOPHEN 5/325MG TABLET PO PRN (11:24)
[2019-06-26 12:00] VITALS: BP 138/69
[2019-06-26 12:27] VITALS: BP 138/69
[2019-06-26 16:00] VITALS: BP 144/66
[2019-06-26] MEDS: CEFTRIAXONE 2 G in DEXTROSE 5% WATER 50 ML IV SCH (17:00)
== END 2019-06-26 18:00 | disposition home or self-care (01) | DRG 721 ==
LOC: ER 18:14 → 6WST 06-16 01:16 → EDBEDREQ 06-16 01:19 → EDBEDREQTM 06-16 01:19 → EDBEDREQDT 06-16 01:19 → ENRESERV 06-16 13:11
PROVIDERS: ADMIT Internal Medicine; ATTEND Internal Medicine
PROC: 5A1D70Z Performance of Urinary Filtration, Intermittent, Less than 6 Hours Per Day (ICD-10-PCS; 2019-06-16)
PROC: 5A1D70Z Performance of Urinary Filtration, Intermittent, Less than 6 Hours Per Day (ICD-10-PCS; 2019-06-19)
PROC: 5A1D70Z Performance of Urinary Filtration, Intermittent, Less than 6 Hours Per Day (ICD-10-PCS; 2019-06-21)
PROC: 05PYX3Z Removal of Infusion Device from Upper Vein, External Approach (ICD-10-PCS; 2019-06-22)
PROC: 5A1D70Z Performance of Urinary Filtration, Intermittent, Less than 6 Hours Per Day (ICD-10-PCS; 2019-06-23)
PROC: 0JH63XZ Insertion of Tunneled Vascular Access Device into Chest Subcutaneous Tissue and Fascia, Percutaneous Approach (ICD-10-PCS; principal; 2019-06-24)
PROC: 02HV33Z Insertion of Infusion Device into Superior Vena Cava, Percutaneous Approach (ICD-10-PCS; 2019-06-24)
PROC: B5181ZA Fluoroscopy of Superior Vena Cava using Low Osmolar Contrast, Guidance (ICD-10-PCS; 2019-06-24)
PROC: B548ZZA Ultrasonography of Superior Vena Cava, Guidance (ICD-10-PCS; 2019-06-24)
PROC: 5A1D70Z Performance of Urinary Filtration, Intermittent, Less than 6 Hours Per Day (ICD-10-PCS; 2019-06-26)
DX: T85.79XA Infection and inflammatory reaction due to other internal prosthetic devices, implants and grafts, initial encounter (principal); A41.59 Other Gram-negative sepsis; G93.41 Metabolic encephalopathy; E72.20 Disorder of urea cycle metabolism, unspecified; E11.22 Type 2 diabetes mellitus with diabetic chronic kidney disease; I12.0 Hypertensive chronic kidney disease with stage 5 chronic kidney disease or end stage renal disease; D63.8 Anemia in other chronic diseases classified elsewhere; B96.89 Other specified bacterial agents as the cause of diseases classified elsewhere; F17.210 Nicotine dependence, cigarettes, uncomplicated; G40.909 Epilepsy, unspecified, not intractable, without status epilepticus; E11.65 Type 2 diabetes mellitus with hyperglycemia; N18.6 End stage renal disease; Z86.73 Personal history of transient ischemic attack (TIA), and cerebral infarction without residual deficits; Z99.2 Dependence on renal dialysis; Z91.19 Patient's noncompliance with other medical treatment and regimen; Z88.1 Allergy status to other antibiotic agents; Z88.5 Allergy status to narcotic agent; Z88.8 Allergy status to other drugs, medicaments and biological substances
CPT/HCPCS: 36415; 36558; 36589; 36600; 71045; 76937; 77001; 80048; 80053; 80150; 80202; 82140; 82375; 82550; 82553; 82805; 82962; 83036; 84443; 84484; 85025; 85027; 86359; 86360; 87077; 87186; 93005; 93306; 97116; 97162; 97530; 99152; 99153; 99291; C1750; C1769; J0278; J0360; J0696; J0885; J1200; J1642; J1815; J1953; J2060; J2250; J2270; J2405; J2543; J3010; J3370; J3490; J7050; J7060; G0500

== ENCOUNTER 2019-06-30 11:04 | Inpatient (IN) | payer MEDICAID ==
[~2019-06-30] VITALS: Ht 162.6 cm; Wt 59.6 kg
[2019-06-30] MEDS ORDERED: MORPHINE SULFATE 4 MG/ML CPJ (NOT FOR IM USE) IV STA (11:23)
[2019-06-30 12:03] LABS: BASOPHILS % 0.6 % (0.0-2.0); EOSINOPHILS % 0.7 % (0.0-5.0); HEMATOCRIT. 33.5 % (36.0-48.0); HEMOGLOBIN. 10.9 g/dL (12.0-16.0); LYMPHOCYTES % 16.1 % (20.0-50.0); MEAN CORPUSCULAR HEMOGLOBIN 28.6 pg (28.0-32.0); MEAN CORPUSCULAR VOLUME 88.1 fL (81.0-99.0); MEAN PLATELET VOLUME 7.8 fl (7.4-10.4); NEUTROPHILS % 69.6 % (40.0-76.0); PLATELET 326 x1000/uL (130-400); RED CELL DISTRIBUTION WIDTH 18.1 % (11.6-14.6)
[2019-06-30 12:10] LABS: CHLORIDE 103 mEq/L (98-107)
[2019-06-30] MEDS ORDERED: HYDRALAZINE 20MG/ML VIAL IV ONE (13:00)
[2019-06-30] MEDS ORDERED: CEFTRIAXONE 1 G PREMIX 50 ML IV SCH (14:45)
[2019-06-30] MEDS ORDERED: ONDANSETRON HCL 4MG/2ML INJ IV PRN (14:45)
[2019-06-30] MEDS ORDERED: LORAZEPAM 0.5MG TABLET PO PRN (14:45)
[2019-06-30] MEDS ORDERED: CLONIDINE 0.1MG TABLET PO PRN (14:45)
[2019-06-30] MEDS ORDERED: ACETAMINOPHEN 325MG TABLET PO PRN (14:45)
[2019-06-30] MEDS ORDERED: MAGNESIUM/ALUMINUM HYDROXIDE/SIMETHICONE 30ML UDC PO PRN (14:45)
[2019-06-30] MEDS ORDERED: DOCUSATE SODIUM 100MG CAPSULE PO PRN (14:45)
[2019-06-30] MEDS ORDERED: IPRATROPIUM/ALBUTEROL 0.5-3(2.5)MG/3ML NEB NEB PRN (14:45)
[2019-06-30] MEDS ORDERED: GUAIFENESIN 200MG/10ML SUGAR FREE UDC PO PRN (14:45)
[2019-06-30] MEDS: HYDROCODONE/ACETAMINOPHEN 5/325MG TABLET PO PRN ×2 (15:10→21:45)
[2019-06-30] MEDS: DIPHENHYDRAMINE 50MG/ML VIAL IV PRN ×2 (15:35→20:32)
[2019-06-30] MEDS ORDERED: MORPHINE SULFATE 2 MG/ML CPJ (NOT FOR IM USE) IV NR (18:00)
[2019-06-30 20:00] VITALS: BP 138/55
[2019-06-30 22:30] VITALS: BP 153/96
[2019-07-01] VITALS: BP 153/96
[2019-07-01] MEDS: HYDROCODONE/ACETAMINOPHEN 5/325MG TABLET PO PRN ×4 (01:52→20:43)
[2019-07-01] MEDS: CEFTRIAXONE 1 G PREMIX 50 ML IV SCH ×2 (02:42→21:28)
[2019-07-01 04:00] VITALS: BP_SYST 125; BP_SYST 153; BP_DIAS 56; BP_DIAS 96
[2019-07-01] MEDS: DIPHENHYDRAMINE 50MG/ML VIAL IV PRN ×3 (05:36→21:28)
[2019-07-01 06:07] LABS: CHLORIDE 102 mEq/L (98-107)
[2019-07-01 06:27] LABS: BASOPHILS % 1.1 % (0.0-2.0); EOSINOPHILS % 0.7 % (0.0-5.0); HEMATOCRIT. 29.5 % (36.0-48.0); HEMOGLOBIN. 9.5 g/dL (12.0-16.0); LYMPHOCYTES % 9.6 % (20.0-50.0); MEAN CORPUSCULAR HEMOGLOBIN 28.2 pg (28.0-32.0); MEAN CORPUSCULAR VOLUME 87.8 fL (81.0-99.0); MEAN PLATELET VOLUME 7.6 fl (7.4-10.4); NEUTROPHILS % 78.6 % (40.0-76.0); PLATELET 239 x1000/uL (130-400); RED BLOOD CELL COUNT 3.36 mill/uL (4.2-5.4); RED CELL DISTRIBUTION WIDTH 18.4 % (11.6-14.6)
[2019-07-01 08:00] VITALS: BP 83/53
[2019-07-01 12:00] VITALS: BP 115/57
[2019-07-01] MEDS ORDERED: MEDICATION NOT ON FORMULARY EA (Cholecalciferol (Vitamin D3) (Vitamin D3) 5,000 UNIT) PO SCH (15:00)
[2019-07-01] MEDS ORDERED: LORAZEPAM 0.5MG TABLET PO PRN (15:00)
[2019-07-01 16:00] VITALS: BP 122/61
[2019-07-01] MEDS ORDERED: NACL 0.9% LEFTEYE SCH (17:00)
[2019-07-01] MEDS ORDERED: [UNRECOGNIZED DRUG - OTHER] LEFTEYE SCH (17:00)
[2019-07-01] MEDS ORDERED: MEDICATION NOT ON FORMULARY EA (Sevelamer Hcl (Renagel) 800 MG) PO SCH (17:00)
[2019-07-01] MEDS ORDERED: ATROPINE SULFATE LEFTEYE SCH (17:00)
[2019-07-01] MEDS: SEVELAMER CARBONATE 800 MG TABLET PO SCH (19:31)
[2019-07-01] MEDS: HYDRALAZINE HCL 50MG TABLET PO SCH (19:33)
[2019-07-01 20:00] VITALS: BP 132/73
[2019-07-01] MEDS: LEVETIRACETAM 500MG/5ML CUP PO SCH (21:03)
[2019-07-01] MEDS: TIMOLOL MALEATE 0.5% OPHTH DROPS 5ML LEFTEYE SCH (21:11)
[2019-07-02] VITALS: BP 109/50
[2019-07-02] MEDS: HYDROCODONE/ACETAMINOPHEN 5/325MG TABLET PO PRN ×3 (02:04→19:04)
[2019-07-02 04:00] VITALS: BP 122/54
[2019-07-02] MEDS: HYDRALAZINE HCL 50MG TABLET PO SCH ×3 (06:35→21:31)
[2019-07-02 06:52] LABS: EOSINOPHILS % 1.3 % (0.0-5.0); HEMATOCRIT. 26.8 % (36.0-48.0); HEMOGLOBIN. 8.7 g/dL (12.0-16.0); MEAN CORPUSCULAR HEMOGLOBIN 28.8 pg (28.0-32.0); MEAN CORPUSCULAR VOLUME 88.3 fL (81.0-99.0); MEAN PLATELET VOLUME 7.9 fl (7.4-10.4); MONOCYTES % 12.4 % (2.0-8.0); NEUTROPHILS % 69.3 % (40.0-76.0); PLATELET 218 x1000/uL (130-400); RED BLOOD CELL COUNT 3.03 mill/uL (4.2-5.4); RED CELL DISTRIBUTION WIDTH 18.1 % (11.6-14.6)
[2019-07-02 08:00] VITALS: BP 149/74
[2019-07-02] MEDS ORDERED: BRIMONIDINE 0.2% OPHTH DROPS 5ML LEFTEYE SCH (09:00)
[2019-07-02] MEDS: LEVETIRACETAM 500MG/5ML CUP PO SCH ×2 (09:13→21:31)
[2019-07-02] MEDS: ASPIRIN 81MG EC TABLET PO SCH (09:13)
[2019-07-02] MEDS: TIMOLOL MALEATE 0.5% OPHTH DROPS 5ML LEFTEYE SCH ×2 (09:13→19:04)
[2019-07-02] MEDS: AMLODIPINE 10MG TABLET PO SCH (09:13)
[2019-07-02] MEDS: CHOLECALCIFEROL (D3) 1000 UNIT TABLET PO SCH (09:14)
[2019-07-02] MEDS: DIPHENHYDRAMINE 50MG/ML VIAL IV PRN ×3 (09:24→23:01)
[2019-07-02] MEDS: SEVELAMER CARBONATE 800 MG TABLET PO SCH ×3 (09:24→19:04)
[2019-07-02 12:00] VITALS: BP 155/63
[2019-07-02 16:00] VITALS: BP 161/69
[2019-07-02 20:00] VITALS: BP 152/64
[2019-07-02] MEDS: CEFTRIAXONE 1 G PREMIX 50 ML IV SCH (21:43)
[2019-07-03] VITALS: BP 135/62
[2019-07-03 04:00] VITALS: BP 121/74
[2019-07-03] MEDS: HYDRALAZINE HCL 50MG TABLET PO SCH ×3 (06:00→20:31)
[2019-07-03 08:00] VITALS: BP 129/64
[2019-07-03] MEDS: DIPHENHYDRAMINE 50MG/ML VIAL IV PRN ×3 (09:34→20:30)
[2019-07-03 09:56] LABS: BASOPHILS % 1.1 % (0.0-2.0); EOSINOPHILS % 1.5 % (0.0-5.0); HEMATOCRIT. 28.9 % (36.0-48.0); HEMOGLOBIN. 9.4 g/dL (12.0-16.0); MEAN CORPUSCULAR HEMOGLOBIN 28.8 pg (28.0-32.0); MEAN CORPUSCULAR VOLUME 88.5 fL (81.0-99.0); MEAN PLATELET VOLUME 8.4 fl (7.4-10.4); MONOCYTES % 14.6 % (2.0-8.0); NEUTROPHILS % 63.8 % (40.0-76.0); PLATELET 223 x1000/uL (130-400); RED BLOOD CELL COUNT 3.27 mill/uL (4.2-5.4); RED CELL DISTRIBUTION WIDTH 18.9 % (11.6-14.6)
[2019-07-03] MEDS: SEVELAMER CARBONATE 800 MG TABLET PO SCH ×3 (10:12→17:40)
[2019-07-03] MEDS: ASPIRIN 81MG EC TABLET PO SCH (10:12)
[2019-07-03] MEDS: AMLODIPINE 10MG TABLET PO SCH (10:13)
[2019-07-03] MEDS: TIMOLOL MALEATE 0.5% OPHTH DROPS 5ML LEFTEYE SCH ×2 (10:13→17:41)
[2019-07-03] MEDS: LEVETIRACETAM 500MG/5ML CUP PO SCH ×2 (10:13→20:31)
[2019-07-03] MEDS: CHOLECALCIFEROL (D3) 1000 UNIT TABLET PO SCH (10:13)
[2019-07-03] MEDS: HYDROCODONE/ACETAMINOPHEN 5/325MG TABLET PO PRN ×2 (10:26→17:41)
[2019-07-03 12:00] VITALS: BP 127/60
[2019-07-03 20:00] VITALS: BP 101/57
[2019-07-04] VITALS: BP 127/52
[2019-07-04] MEDS: HYDROCODONE/ACETAMINOPHEN 5/325MG TABLET PO PRN ×3 (01:50→21:09)
[2019-07-04 04:00] VITALS: BP 137/64
[2019-07-04] MEDS: DIPHENHYDRAMINE 50MG/ML VIAL IV PRN (04:17)
[2019-07-04] MEDS: HYDRALAZINE HCL 50MG TABLET PO SCH ×3 (05:39→21:07)
[2019-07-04 08:00] VITALS: BP 127/85
[2019-07-04] MEDS: ASPIRIN 81MG EC TABLET PO SCH (08:34)
[2019-07-04] MEDS: CHOLECALCIFEROL (D3) 1000 UNIT TABLET PO SCH (08:34)
[2019-07-04] MEDS: SEVELAMER CARBONATE 800 MG TABLET PO SCH ×3 (08:34→16:46)
[2019-07-04] MEDS: TIMOLOL MALEATE 0.5% OPHTH DROPS 5ML LEFTEYE SCH ×2 (08:34→16:46)
[2019-07-04] MEDS: LEVETIRACETAM 500MG/5ML CUP PO SCH ×2 (08:35→21:10)
[2019-07-04] MEDS: AMLODIPINE 10MG TABLET PO SCH (08:44)
[2019-07-04 12:00] VITALS: BP 131/64
[2019-07-04] MEDS: DIPHENHYDRAMINE 25MG CAPSULE PO PRN (12:24)
[2019-07-04 16:00] LABS: BASOPHILS % 1.2 % (0.0-2.0); EOSINOPHILS % 1.9 % (0.0-5.0); HEMATOCRIT. 28.7 % (36.0-48.0); HEMOGLOBIN. 9.3 g/dL (12.0-16.0); LYMPHOCYTES % 17.6 % (20.0-50.0); MEAN CORPUSCULAR HEMOGLOBIN 28.7 pg (28.0-32.0); MEAN CORPUSCULAR VOLUME 88.6 fL (81.0-99.0); MEAN PLATELET VOLUME 7.5 fl (7.4-10.4); MONOCYTES % 13.3 % (2.0-8.0); PLATELET 203 x1000/uL (130-400); RED BLOOD CELL COUNT 3.24 mill/uL (4.2-5.4); RED CELL DISTRIBUTION WIDTH 18.7 % (11.6-14.6)
[2019-07-04 20:00] VITALS: BP 120/69
[2019-07-04] MEDS ORDERED: HEPARIN SODIUM 1,000 UNIT/1ML VIAL IV NR ×2 (20:30→20:45)
[2019-07-05] VITALS: BP 111/53
[2019-07-05] MEDS: HYDROCODONE/ACETAMINOPHEN 5/325MG TABLET PO PRN ×3 (01:45→22:08)
[2019-07-05 04:00] VITALS: BP 140/70
[2019-07-05] MEDS: HYDRALAZINE HCL 50MG TABLET PO SCH ×3 (06:09→22:09)
[2019-07-05 08:00] VITALS: BP 133/62
[2019-07-05] MEDS: ASPIRIN 81MG EC TABLET PO SCH (08:37)
[2019-07-05] MEDS: AMLODIPINE 10MG TABLET PO SCH (08:37)
[2019-07-05] MEDS: LEVETIRACETAM 500MG/5ML CUP PO SCH ×2 (08:37→22:08)
[2019-07-05] MEDS: SEVELAMER CARBONATE 800 MG TABLET PO SCH ×3 (08:37→16:42)
[2019-07-05] MEDS: CHOLECALCIFEROL (D3) 1000 UNIT TABLET PO SCH (08:37)
[2019-07-05] MEDS: TIMOLOL MALEATE 0.5% OPHTH DROPS 5ML LEFTEYE SCH ×2 (08:58→16:42)
[2019-07-05] MEDS ORDERED: DOLUTEGRAVIR 50 MG PO SCH (09:00)
[2019-07-05] MEDS ORDERED: ETRAVIRINE 200 MG PO SCH (09:00)
[2019-07-05 12:00] VITALS: BP 128/65
[2019-07-05 16:00] VITALS: BP 97/45
[2019-07-05] MEDS: LACTULOSE 20G/30ML UDC PO SCH (16:41)
[2019-07-05 20:00] VITALS: BP 127/62
[2019-07-06] VITALS: BP 123/57
[2019-07-06 04:00] VITALS: BP 134/64
[2019-07-06 06:09] LABS: HEMATOCRIT 27.6 % (36.0-48.0); HEMOGLOBIN 8.8 g/dL (12.0-16.0); MEAN CORPUSCULAR HEMOGLOBIN 28.2 pg (28.0-32.0); MEAN CORPUSCULAR VOLUME 88.1 fL (81.0-99.0); PLATELET 187 x1000/uL (130-400); RED BLOOD CELL COUNT 3.13 mill/uL (4.2-5.4); RED CELL DISTRIBUTION WIDTH 18.4 % (11.6-14.6)
[2019-07-06] MEDS: HYDRALAZINE HCL 50MG TABLET PO SCH ×2 (06:24→13:05)
[2019-07-06] MEDS: HYDROCODONE/ACETAMINOPHEN 5/325MG TABLET PO PRN ×3 (06:26→23:01)
[2019-07-06 08:00] VITALS: BP 127/86
[2019-07-06] MEDS: ASPIRIN 81MG EC TABLET PO SCH (08:22)
[2019-07-06] MEDS: TIMOLOL MALEATE 0.5% OPHTH DROPS 5ML LEFTEYE SCH ×2 (08:22→17:06)
[2019-07-06] MEDS: AMLODIPINE 10MG TABLET PO SCH (08:22)
[2019-07-06] MEDS: LEVETIRACETAM 500MG/5ML CUP PO SCH ×2 (08:22→22:00)
[2019-07-06] MEDS: SEVELAMER CARBONATE 800 MG TABLET PO SCH ×3 (08:22→17:05)
[2019-07-06] MEDS: LACTULOSE 20G/30ML UDC PO SCH (08:22)
[2019-07-06] MEDS: CHOLECALCIFEROL (D3) 1000 UNIT TABLET PO SCH (08:22)
[2019-07-06 12:00] VITALS: BP 102/63
[2019-07-06 16:00] VITALS: BP 131/65
[2019-07-06 20:00] VITALS: BP 126/68
[2019-07-06] MEDS ORDERED: HEPARIN SODIUM 1,000 UNIT/1ML VIAL IV ONE (20:30)
[2019-07-06] MEDS ORDERED: HEPARIN SODIUM 1,000 UNIT/1ML VIAL IV NR (21:00)
[2019-07-06] MEDS: DIPHENHYDRAMINE 25MG CAPSULE PO PRN (21:52)
[2019-07-07] VITALS: BP 152/71
[2019-07-07] MEDS: HYDRALAZINE HCL 50MG TABLET PO SCH ×4 (01:15→21:28)
[2019-07-07 04:00] VITALS: BP 131/52
[2019-07-07] MEDS: SEVELAMER CARBONATE 800 MG TABLET PO SCH ×3 (08:43→17:04)
[2019-07-07] MEDS: AMLODIPINE 10MG TABLET PO SCH (08:45)
[2019-07-07] MEDS: LEVETIRACETAM 500MG/5ML CUP PO SCH ×2 (08:45→21:28)
[2019-07-07] MEDS: ASPIRIN 81MG EC TABLET PO SCH (08:45)
[2019-07-07] MEDS: LACTULOSE 20G/30ML UDC PO SCH (08:45)
[2019-07-07] MEDS: CHOLECALCIFEROL (D3) 1000 UNIT TABLET PO SCH (08:45)
[2019-07-07] MEDS: TIMOLOL MALEATE 0.5% OPHTH DROPS 5ML LEFTEYE SCH ×2 (08:45→17:04)
[2019-07-07] MEDS: HYDROCODONE/ACETAMINOPHEN 5/325MG TABLET PO PRN ×2 (08:46→17:09)
[2019-07-07 09:17] LABS: HEMATOCRIT 29.4 % (36.0-48.0); HEMOGLOBIN 9.4 g/dL (12.0-16.0); MEAN CORPUSCULAR HEMOGLOBIN 28.1 pg (28.0-32.0); PLATELET 190 x1000/uL (130-400); RED BLOOD CELL COUNT 3.34 mill/uL (4.2-5.4); RED CELL DISTRIBUTION WIDTH 19.1 % (11.6-14.6)
[2019-07-07] MEDS: DIPHENHYDRAMINE 25MG CAPSULE PO PRN (19:03)
[2019-07-07 20:00] VITALS: BP 126/55
[2019-07-08] VITALS: BP 125/58
[2019-07-08] MEDS: HYDROCODONE/ACETAMINOPHEN 5/325MG TABLET PO PRN ×3 (02:00→21:18)
[2019-07-08 04:00] VITALS: BP 129/65
[2019-07-08] MEDS: HYDRALAZINE HCL 50MG TABLET PO SCH ×3 (05:03→21:18)
[2019-07-08] MEDS: LACTULOSE 20G/30ML UDC PO SCH (08:19)
[2019-07-08] MEDS: TIMOLOL MALEATE 0.5% OPHTH DROPS 5ML LEFTEYE SCH ×2 (08:20→17:00)
[2019-07-08] MEDS: SEVELAMER CARBONATE 800 MG TABLET PO SCH ×3 (08:32→17:50)
[2019-07-08] MEDS: ASPIRIN 81MG EC TABLET PO SCH (08:32)
[2019-07-08] MEDS: CHOLECALCIFEROL (D3) 1000 UNIT TABLET PO SCH (08:32)
[2019-07-08] MEDS: LEVETIRACETAM 500MG/5ML CUP PO SCH ×2 (08:32→21:17)
[2019-07-08] MEDS: AMLODIPINE 10MG TABLET PO SCH (08:37)
[2019-07-08 08:44] LABS: HEMATOCRIT. 30.3 % (36.0-48.0); HEMOGLOBIN. 9.7 g/dL (12.0-16.0); MEAN CORPUSCULAR HEMOGLOBIN 28.2 pg (28.0-32.0); MEAN CORPUSCULAR VOLUME 88.5 fL (81.0-99.0); MEAN PLATELET VOLUME 7.4 fl (7.4-10.4); PLATELET 175 x1000/uL (130-400); RED BLOOD CELL COUNT 3.43 mill/uL (4.2-5.4); RED CELL DISTRIBUTION WIDTH 18.9 % (11.6-14.6)
[2019-07-08 10:19] LABS: PLATELET ESTIMATE NORMAL
[2019-07-08] MEDS ORDERED: DEXTROSE 50% WATER 50ML SYRINGE IV NR (10:42)
[2019-07-08] MEDS ORDERED: SODIUM BICARBONATE 8.4% 1 MEQ/ML 50ML SYR IV NR (10:42)
[2019-07-08 12:00] VITALS: BP 108/69
[2019-07-08] MEDS ORDERED: INSULIN REGULAR (HUMULIN R) UD 100 UNITS/ML SYR IV NR (13:00)
[2019-07-08 20:00] VITALS: BP 143/87
[2019-07-09] VITALS: BP 129/65
[2019-07-09] MEDS: DIPHENHYDRAMINE 25MG CAPSULE PO PRN ×2 (00:28→16:57)
[2019-07-09 04:00] VITALS: BP 145/87
[2019-07-09] MEDS: HYDROCODONE/ACETAMINOPHEN 5/325MG TABLET PO PRN ×3 (05:23→22:15)
[2019-07-09] MEDS: HYDRALAZINE HCL 50MG TABLET PO SCH ×3 (05:23→21:14)
[2019-07-09 08:00] VITALS: BP 114/60
[2019-07-09] MEDS: LACTULOSE 20G/30ML UDC PO SCH (08:54)
[2019-07-09] MEDS: SEVELAMER CARBONATE 800 MG TABLET PO SCH ×3 (08:55→16:56)
[2019-07-09] MEDS: AMLODIPINE 10MG TABLET PO SCH (08:56)
[2019-07-09] MEDS: CHOLECALCIFEROL (D3) 1000 UNIT TABLET PO SCH (08:56)
[2019-07-09] MEDS: ASPIRIN 81MG EC TABLET PO SCH (08:56)
[2019-07-09] MEDS: TIMOLOL MALEATE 0.5% OPHTH DROPS 5ML LEFTEYE SCH ×2 (08:56→16:29)
[2019-07-09] MEDS: LEVETIRACETAM 500MG/5ML CUP PO SCH ×2 (08:57→21:08)
[2019-07-09 12:00] VITALS: BP 130/68
[2019-07-09 16:00] VITALS: BP 114/62
[2019-07-09 20:00] VITALS: BP 117/60
[2019-07-10] VITALS: BP 116/74
[2019-07-10 04:00] VITALS: BP 126/69
[2019-07-10] MEDS: HYDRALAZINE HCL 50MG TABLET PO SCH ×3 (05:19→21:06)
[2019-07-10 06:14] LABS: HEMATOCRIT. 31.2 % (36.0-48.0); MEAN CORPUSCULAR HEMOGLOBIN 28.6 pg (28.0-32.0); MEAN CORPUSCULAR VOLUME 89.1 fL (81.0-99.0); MEAN PLATELET VOLUME 8.1 fl (7.4-10.4); PLATELET 195 x1000/uL (130-400); RED BLOOD CELL COUNT 3.49 mill/uL (4.2-5.4); RED CELL DISTRIBUTION WIDTH 19.6 % (11.6-14.6)
[2019-07-10 08:00] VITALS: BP 135/58
[2019-07-10] MEDS: AMLODIPINE 10MG TABLET PO SCH (08:13)
[2019-07-10] MEDS: SEVELAMER CARBONATE 800 MG TABLET PO SCH ×3 (08:13→17:37)
[2019-07-10] MEDS: LACTULOSE 20G/30ML UDC PO SCH (08:14)
[2019-07-10] MEDS: TIMOLOL MALEATE 0.5% OPHTH DROPS 5ML LEFTEYE SCH ×2 (08:14→17:37)
[2019-07-10] MEDS: LEVETIRACETAM 500MG/5ML CUP PO SCH ×2 (08:16→20:06)
[2019-07-10] MEDS: ASPIRIN 81MG EC TABLET PO SCH (08:16)
[2019-07-10] MEDS: CHOLECALCIFEROL (D3) 1000 UNIT TABLET PO SCH (08:16)
[2019-07-10] MEDS: HYDROCODONE/ACETAMINOPHEN 5/325MG TABLET PO PRN ×2 (08:17→21:55)
[2019-07-10 10:06] LABS: PLATELET ESTIMATE NORMAL
[2019-07-10] MEDS: DIPHENHYDRAMINE 50MG/ML VIAL IV PRN (17:43)
[2019-07-10 20:00] VITALS: BP 139/66
[2019-07-11] VITALS: BP 136/67
[2019-07-11] MEDS: DIPHENHYDRAMINE 50MG/ML VIAL IV PRN ×4 (00:12→17:22)
[2019-07-11 04:00] VITALS: BP 139/69
[2019-07-11] MEDS: HYDRALAZINE HCL 50MG TABLET PO SCH ×3 (05:02→21:01)
[2019-07-11 07:19] LABS: HEMATOCRIT. 31.1 % (36.0-48.0); HEMOGLOBIN. 9.9 g/dL (12.0-16.0); MEAN CORPUSCULAR HEMOGLOBIN 28.2 pg (28.0-32.0); MEAN CORPUSCULAR VOLUME 88.3 fL (81.0-99.0); MEAN PLATELET VOLUME 7.8 fl (7.4-10.4); PLATELET 188 x1000/uL (130-400); RED BLOOD CELL COUNT 3.52 mill/uL (4.2-5.4); RED CELL DISTRIBUTION WIDTH 18.9 % (11.6-14.6)
[2019-07-11 08:00] VITALS: BP 134/61
[2019-07-11] MEDS: AMLODIPINE 10MG TABLET PO SCH (09:01)
[2019-07-11] MEDS: SEVELAMER CARBONATE 800 MG TABLET PO SCH ×3 (09:01→17:29)
[2019-07-11] MEDS: CHOLECALCIFEROL (D3) 1000 UNIT TABLET PO SCH (09:02)
[2019-07-11] MEDS: LACTULOSE 20G/30ML UDC PO SCH (09:03)
[2019-07-11] MEDS: ASPIRIN 81MG EC TABLET PO SCH (09:03)
[2019-07-11] MEDS: HYDROCODONE/ACETAMINOPHEN 5/325MG TABLET PO PRN ×2 (09:03→17:24)
[2019-07-11] MEDS: LEVETIRACETAM 500MG/5ML CUP PO SCH ×2 (09:03→21:00)
[2019-07-11] MEDS: TIMOLOL MALEATE 0.5% OPHTH DROPS 5ML LEFTEYE SCH ×2 (11:17→17:21)
[2019-07-11 11:41] LABS: PLATELET ESTIMATE NORMAL
[2019-07-11 12:00] VITALS: BP 149/77
[2019-07-11] MEDS ORDERED: HEPARIN SODIUM 1,000 UNIT/1ML VIAL IV NR (14:45)
[2019-07-11 16:00] VITALS: BP 131/73
[2019-07-11 20:00] VITALS: BP 113/82
[2019-07-12] VITALS: BP 146/71
[2019-07-12] MEDS: DIPHENHYDRAMINE 50MG/ML VIAL IV PRN ×4 (01:25→21:34)
[2019-07-12 04:00] VITALS: BP 131/70
[2019-07-12] MEDS: HYDRALAZINE HCL 50MG TABLET PO SCH ×3 (05:18→21:34)
[2019-07-12] MEDS: HYDROCODONE/ACETAMINOPHEN 5/325MG TABLET PO PRN ×2 (05:19→15:59)
[2019-07-12] MEDS: ASPIRIN 81MG EC TABLET PO SCH (08:35)
[2019-07-12] MEDS: AMLODIPINE 10MG TABLET PO SCH (08:35)
[2019-07-12] MEDS: LEVETIRACETAM 500MG/5ML CUP PO SCH ×2 (08:35→21:33)
[2019-07-12] MEDS: CHOLECALCIFEROL (D3) 1000 UNIT TABLET PO SCH (08:35)
[2019-07-12] MEDS: SEVELAMER CARBONATE 800 MG TABLET PO SCH ×3 (08:35→17:53)
[2019-07-12] MEDS: LACTULOSE 20G/30ML UDC PO SCH (08:35)
[2019-07-12] MEDS: TIMOLOL MALEATE 0.5% OPHTH DROPS 5ML LEFTEYE SCH ×2 (09:00→17:54)
[2019-07-12 15:29] LABS: HEMATOCRIT. 31.2 % (36.0-48.0); HEMOGLOBIN. 9.9 g/dL (12.0-16.0); MEAN CORPUSCULAR HEMOGLOBIN 27.9 pg (28.0-32.0); MEAN CORPUSCULAR VOLUME 87.6 fL (81.0-99.0); MEAN PLATELET VOLUME 8.1 fl (7.4-10.4); PLATELET 179 x1000/uL (130-400); RED BLOOD CELL COUNT 3.56 mill/uL (4.2-5.4); RED CELL DISTRIBUTION WIDTH 18.6 % (11.6-14.6)
[2019-07-12 16:00] VITALS: BP 131/70
[2019-07-12 16:24] LABS: PLATELET ESTIMATE NORMAL
[2019-07-12 20:00] VITALS: BP 114/56
[2019-07-13] VITALS (7 sets, daily range): BP systolic 113–137; BP diastolic 53–84
[2019-07-13] MEDS: HYDROCODONE/ACETAMINOPHEN 5/325MG TABLET PO PRN ×2 (00:34→21:21)
[2019-07-13] MEDS: HYDRALAZINE HCL 50MG TABLET PO SCH ×3 (05:33→21:21)
[2019-07-13] MEDS: DIPHENHYDRAMINE 50MG/ML VIAL IV PRN ×2 (05:34→16:30)
[2019-07-13 07:19] LABS: HEMATOCRIT. 32.5 % (36.0-48.0); HEMOGLOBIN. 10.6 g/dL (12.0-16.0); MEAN CORPUSCULAR HEMOGLOBIN 28.5 pg (28.0-32.0); MEAN CORPUSCULAR VOLUME 87.3 fL (81.0-99.0); MEAN PLATELET VOLUME 7.8 fl (7.4-10.4); PLATELET 167 x1000/uL (130-400); RED BLOOD CELL COUNT 3.73 mill/uL (4.2-5.4); RED CELL DISTRIBUTION WIDTH 18.7 % (11.6-14.6)
[2019-07-13] MEDS: SEVELAMER CARBONATE 800 MG TABLET PO SCH ×2 (08:31→14:35)
[2019-07-13] MEDS: ASPIRIN 81MG EC TABLET PO SCH (08:31)
[2019-07-13] MEDS: AMLODIPINE 10MG TABLET PO SCH (08:31)
[2019-07-13] MEDS: LEVETIRACETAM 500MG/5ML CUP PO SCH ×2 (08:31→21:20)
[2019-07-13] MEDS: CHOLECALCIFEROL (D3) 1000 UNIT TABLET PO SCH (08:31)
[2019-07-13] MEDS: LACTULOSE 20G/30ML UDC PO SCH (08:31)
[2019-07-13] MEDS: TIMOLOL MALEATE 0.5% OPHTH DROPS 5ML LEFTEYE SCH ×2 (08:32→16:30)
[2019-07-13 09:38] LABS: PLATELET ESTIMATE NORMAL
[2019-07-13] MEDS ORDERED: HEPARIN SODIUM 1,000 UNIT/1ML VIAL IV NR (11:45)
[2019-07-13 16:50] LABS: HEMATOCRIT. 32.6 % (36.0-48.0); HEMOGLOBIN. 10.2 g/dL (12.0-16.0); MEAN CORPUSCULAR HEMOGLOBIN 27.7 pg (28.0-32.0); MEAN CORPUSCULAR VOLUME 88.4 fL (81.0-99.0); MEAN PLATELET VOLUME 7.8 fl (7.4-10.4); PLATELET 162 x1000/uL (130-400); RED BLOOD CELL COUNT 3.69 mill/uL (4.2-5.4); RED CELL DISTRIBUTION WIDTH 18.5 % (11.6-14.6)
[2019-07-13 17:26] LABS: PLATELET ESTIMATE NORMAL
[2019-07-13] MEDS ORDERED: DIPHENHYDRAMINE 25MG CAPSULE PO PRN (23:56)
[2019-07-14] VITALS: BP 134/69
[2019-07-14] MEDS: HYDROCODONE/ACETAMINOPHEN 5/325MG TABLET PO PRN (02:11)
[2019-07-14] MEDS ORDERED: HYDROCODONE/ACETAMINOPHEN 5/325MG TABLET PO ONE (02:15)
[2019-07-14] MEDS: HYDROCODONE/ACETAMINOPHEN 5/325MG TABLET PO SCH ×2 (02:30→02:36)
[2019-07-14 04:00] VITALS: BP 127/62
[2019-07-14] MEDS: HYDRALAZINE HCL 50MG TABLET PO SCH (05:17)
[2019-07-14] MEDS: LEVETIRACETAM 500MG/5ML CUP PO SCH (08:15)
[2019-07-14] MEDS: LACTULOSE 20G/30ML UDC PO SCH (08:16)
[2019-07-14] MEDS: AMLODIPINE 10MG TABLET PO SCH (08:16)
[2019-07-14] MEDS: SEVELAMER CARBONATE 800 MG TABLET PO SCH ×2 (08:16→12:50)
[2019-07-14] MEDS: TIMOLOL MALEATE 0.5% OPHTH DROPS 5ML LEFTEYE SCH (08:16)
[2019-07-14] MEDS: ASPIRIN 81MG EC TABLET PO SCH (08:16)
[2019-07-14] MEDS: CHOLECALCIFEROL (D3) 1000 UNIT TABLET PO SCH (08:16)
[2019-07-14 08:29] VITALS: BP 124/53
[2019-07-14] MEDS ORDERED: NEOMYCIN/POLYMYXN B/GRAMICIDIN OPHTH DROPS 10ML LEFTEYE SCH (09:00)
[2019-07-14] MEDS ORDERED: TRAM50TA94 MT (12:11)
[2019-07-14 12:52] VITALS: BP 113/53
== END 2019-07-14 14:00 | disposition home or self-care (01) | DRG 199 ==
LOC: ER 11:04 → 7WST 13:09 → ENRESERV 20:39 → 6EST 07-03 21:51 → 6WST 07-13 23:38
PROVIDERS: ADMIT Internal Medicine; ATTEND Internal Medicine
PROC: 5A1D70Z Performance of Urinary Filtration, Intermittent, Less than 6 Hours Per Day (ICD-10-PCS; principal; 2019-06-30)
PROC: 05PYX3Z Removal of Infusion Device from Upper Vein, External Approach (ICD-10-PCS; 2019-06-30)
PROC: 02H633Z Insertion of Infusion Device into Right Atrium, Percutaneous Approach (ICD-10-PCS; 2019-06-30)
PROC: 5A1D70Z Performance of Urinary Filtration, Intermittent, Less than 6 Hours Per Day (ICD-10-PCS; 2019-07-02)
PROC: 5A1D70Z Performance of Urinary Filtration, Intermittent, Less than 6 Hours Per Day (ICD-10-PCS; 2019-07-04)
PROC: 5A1D70Z Performance of Urinary Filtration, Intermittent, Less than 6 Hours Per Day (ICD-10-PCS; 2019-07-06)
PROC: 5A1D70Z Performance of Urinary Filtration, Intermittent, Less than 6 Hours Per Day (ICD-10-PCS; 2019-07-08)
PROC: 5A1D70Z Performance of Urinary Filtration, Intermittent, Less than 6 Hours Per Day (ICD-10-PCS; 2019-07-11)
PROC: 5A1D70Z Performance of Urinary Filtration, Intermittent, Less than 6 Hours Per Day (ICD-10-PCS; 2019-07-13)
PROC: 5A1D70Z Performance of Urinary Filtration, Intermittent, Less than 6 Hours Per Day (ICD-10-PCS; 2019-07-14)
DX: I16.0 Hypertensive urgency (principal); E43 Unspecified severe protein-calorie malnutrition; E11.22 Type 2 diabetes mellitus with diabetic chronic kidney disease; I13.2 Hypertensive heart and chronic kidney disease with heart failure and with stage 5 chronic kidney disease, or end stage renal disease; E87.5 Hyperkalemia; M94.0 Chondrocostal junction syndrome [Tietze]; N18.6 End stage renal disease; Z99.2 Dependence on renal dialysis; D63.8 Anemia in other chronic diseases classified elsewhere; F17.210 Nicotine dependence, cigarettes, uncomplicated; R94.4 Abnormal results of kidney function studies; G40.909 Epilepsy, unspecified, not intractable, without status epilepticus; I50.32 Chronic diastolic (congestive) heart failure; Z86.73 Personal history of transient ischemic attack (TIA), and cerebral infarction without residual deficits; Z91.19 Patient's noncompliance with other medical treatment and regimen; Z88.5 Allergy status to narcotic agent; Z91.09 Other allergy status, other than to drugs and biological substances; Z79.891 Long term (current) use of opiate analgesic; Z79.82 Long term (current) use of aspirin; Z79.899 Other long term (current) drug therapy; Z91.15 Patient's noncompliance with renal dialysis; Z68.22 Body mass index [BMI] 22.0-22.9, adult
CPT/HCPCS: 36415; 71045; 80048; 80053; 83880; 84484; 85025; 85027; 93005; 96374; 97116; 97162; 99285; J0360; J0696; J1200; J1644; J1815; J2270; J3490; Q0163

== ENCOUNTER 2019-07-15 02:37 | Emergency (ER) | payer MEDICAID ==
[~2019-07-15] VITALS: Ht 165.1 cm; Wt 61.0 kg
[2019-07-15] MEDS ORDERED: NITROGLYCERIN 0.4MG TABLET SL SL PRN (03:00)
[2019-07-15] MEDS ORDERED: DIPHENHYDRAMINE 25MG CAPSULE PO ONE (03:00)
[2019-07-15 03:17] LABS: CHLORIDE 102 mEq/L (98-107)
[2019-07-15 03:23] LABS: BASOPHILS % 0.1 % (0.0-2.0); EOSINOPHILS % 1.1 % (0.0-5.0); HEMATOCRIT. 34.5 % (36.0-48.0); HEMOGLOBIN. 11.1 g/dL (12.0-16.0); LYMPHOCYTES % 8.1 % (20.0-50.0); MEAN CORPUSCULAR HEMOGLOBIN 28.2 pg (28.0-32.0); MEAN CORPUSCULAR VOLUME 87.7 fL (81.0-99.0); MEAN PLATELET VOLUME 8.1 fl (7.4-10.4); MONOCYTES % 6.4 % (2.0-8.0); NEUTROPHILS % 84.3 % (40.0-76.0); PLATELET 166 x1000/uL (130-400); RED BLOOD CELL COUNT 3.93 mill/uL (4.2-5.4)
[2019-07-15 15:30] VITALS: BP 135/69
== END 2019-07-15 15:42 | disposition home or self-care (01) ==
LOC: ER 02:49
DX: R07.89 Other chest pain (principal); N18.6 End stage renal disease; I10 Essential (primary) hypertension; Z98.890 Other specified postprocedural states; F17.290 Nicotine dependence, other tobacco product, uncomplicated; Z79.899 Other long term (current) drug therapy; Z88.5 Allergy status to narcotic agent; Z88.6 Allergy status to analgesic agent
CPT/HCPCS: 36415; 71045; 80053; 83880; 84484; 85025; 93005; 99285; Q0163

== ENCOUNTER 2019-12-13 15:21 | Emergency (ER) | payer MEDICAID ==
[~2019-12-13] VITALS: Ht 167.6 cm; Wt 72.0 kg
[2019-12-13] MEDS ORDERED: ACETAMINOPHEN 325MG TABLET PO STA (16:04)
[2019-12-13 17:01] LABS: CHLORIDE 99 mEq/L (98-107)
[2019-12-13 17:06] LABS: HEMATOCRIT. 34.2 % (36.0-48.0); HEMOGLOBIN. 10.6 g/dL (12.0-16.0); MEAN CORPUSCULAR HEMOGLOBIN 28.5 pg (28.0-32.0); MEAN CORPUSCULAR VOLUME 91.7 fL (81.0-99.0); MEAN PLATELET VOLUME 8.3 fl (7.4-10.4); PLATELET 134 x1000/uL (130-400); RED BLOOD CELL COUNT 3.73 mill/uL (4.2-5.4); RED CELL DISTRIBUTION WIDTH 20.2 % (11.6-14.6)
[2019-12-13 17:50] VITALS: BP 160/98
[2019-12-13 17:58] LABS: PLATELET ESTIMATE NORMAL
== END 2019-12-13 18:34 | disposition home or self-care (01) ==
LOC: ER 15:21
DX: I11.0 Hypertensive heart disease with heart failure (principal); I50.9 Heart failure, unspecified; E11.9 Type 2 diabetes mellitus without complications; Z88.6 Allergy status to analgesic agent; Z79.899 Other long term (current) drug therapy; Z48.00 Encounter for change or removal of nonsurgical wound dressing
CPT/HCPCS: 36415; 80053; 85025; 86850; 86900; 99283

== ENCOUNTER 2020-11-09 09:02 | Inpatient (IN) | payer MEDICAID ==
[~2020-11-09] VITALS: Ht 154.9 cm; Wt 72.1 kg
[2020-11-09] VITALS (15 sets, daily range): BP systolic 143–179; BP diastolic 74–89
[~2020-11-09 09:02] MED LIST changes: -AMLO10TA4 PO; -ASPI81TA47 MT; -ATRO10DR LEFTEYE; +AZIT500T8 PO; -BRIM.2 LEFTEYE; -CHOL100044 PO; -CHOL500063 PO; -DARU1TAB MT; +DIPH25CA83 MT; -DOLU50TA PO; -ETRA200T PO; +FAMO-135 MT; -HYDR-4134 PO; +P20 MT; -PRED1DRO LEFTEYE; -REN800 PO; +SULF-292 PO; -TIMO15DR12 LEFTEYE; -[UNRECOGNIZED DRUG - CODE] OP
[2020-11-09 10:23] LABS: BASOPHILS % 0.4 % (0.0-2.0); HEMATOCRIT. 27.3 % (36.0-48.0); HEMOGLOBIN. 9.1 g/dL (12.0-16.0); LYMPHOCYTES % 13.6 % (20.0-50.0); MEAN CORPUSCULAR HEMOGLOBIN 32.4 pg (28.0-32.0); MEAN CORPUSCULAR VOLUME 97.5 fL (81.0-99.0); MEAN PLATELET VOLUME 8.3 fl (7.4-10.4); MONOCYTES % 11.8 % (2.0-8.0); NEUTROPHILS % 74.2 % (40.0-76.0); PLATELET 162 x1000/uL (130-400); RED CELL DISTRIBUTION WIDTH 17.2 % (11.6-14.6)
[2020-11-09 10:28] LABS: CHLORIDE 107 mEq/L (98-107)
[2020-11-09] MEDS ORDERED: ALBUTEROL (0.083%) 2.5MG/3ML NEB HHN ONE (11:15)
[2020-11-09] MEDS ORDERED: CALCIUM CHLORIDE 1GM/10ML SYR IV ONE (11:15)
[2020-11-09] MEDS ORDERED: DEXTROSE 50% WATER 50ML SYRINGE IV ONE (11:15)
[2020-11-09] MEDS ORDERED: SODIUM BICARBONATE 8.4% 1 MEQ/ML 50ML SYR IV ONE (11:15)
[2020-11-09] MEDS ORDERED: INSULIN REGULAR (HUMULIN R) 300UNITS/3ML VIAL IV ONE (11:15)
[2020-11-09] MEDS: SODIUM POLYSTYRENE SULFONATE 15 G/60 ML BOT PO ONE ×2 (11:38→12:12)
[2020-11-09] MEDS ORDERED: MORPHINE SULFATE 4 MG/ML CPJ (NOT FOR IM USE) IV ONE (12:45)
[2020-11-09 12:54] LABS: INR < 0.9; PROTHROMBIN TIME 9.9 sec (9.6-11.0)
[2020-11-09] MEDS ORDERED: LIDOCAINE HCL 1% 20ML VIAL (Pyxis) INJ ONE (13:53)
[2020-11-09] MEDS ORDERED: HEPARIN 1000 UNITS/ML 10ML ONE (13:53)
[2020-11-09] MEDS ORDERED: FENTANYL CITRATE/PF 50MCG/ML 2ML VIAL IV SCH (14:00)
[2020-11-09] MEDS ORDERED: CEFAZOLIN 1000MG PREMIX 50 ML IV SCH (14:00)
[2020-11-09] MEDS ORDERED: TRAMADOL 50MG TABLET PO PRN (16:30)
[2020-11-09] MEDS ORDERED: DOCUSATE SODIUM 100MG CAPSULE PO PRN (16:30)
[2020-11-09] MEDS ORDERED: ZOLPIDEM TARTRATE 5MG TABLET PO PRN (16:30)
[2020-11-09] MEDS ORDERED: ONDANSETRON HCL 4MG/2ML INJ IV PRN (16:30)
[2020-11-09] MEDS ORDERED: MAGNESIUM/ALUMINUM HYDROXIDE/SIMETHICONE 30ML UDC PO PRN (16:30)
[2020-11-09] MEDS ORDERED: GUAIFENESIN 200MG/10ML SUGAR FREE UDC PO PRN (16:30)
[2020-11-09] MEDS ORDERED: NITROGLYCERIN 0.4MG TABLET SL SL PRN (16:30)
[2020-11-09] MEDS ORDERED: ACETAMINOPHEN 325MG TABLET PO PRN (16:30)
[2020-11-09] MEDS ORDERED: ENOXAPARIN 30MG/0.3ML SYR SUBCUT SCH (17:00)
[2020-11-09] MEDS ORDERED: NALOXONE HCL 0.4MG/ML VIAL IV PRN (17:15)
[2020-11-09] MEDS: SEVELAMER CARBONATE 800 MG TABLET PO SCH ×2 (17:40→20:35)
[2020-11-09] MEDS: NITROGLYCERIN OINT 1GM/INCH UDPKT TD SCH (19:00)
[2020-11-09] MEDS: DIPHENHYDRAMINE 50MG/ML VIAL IV PRN (19:15)
[2020-11-09] MEDS: ENOXAPARIN 40MG/0.4ML SYR SUBCUT SCH (19:16)
[2020-11-09] MEDS: FAMOTIDINE 20MG TABLET PO SCH (20:35)
[2020-11-09] MEDS: EPOETIN ALFA-EPBX 4,000 UNIT/ML VIAL SUBCUT NR (21:00)
[2020-11-10] VITALS: BP 138/66
[2020-11-10 00:31] LABS: CREATINE KINASE MB FRACTION 2.8 ng/mL (0.5-3.6)
[2020-11-10] MEDS: DIPHENHYDRAMINE 50MG/ML VIAL IV PRN ×2 (01:41→18:27)
[2020-11-10 04:00] VITALS: BP 140/114
[2020-11-10 04:07] LABS: HEPATITIS B SURFACE ANTIGEN NEGATIVE
[2020-11-10] MEDS: NITROGLYCERIN OINT 1GM/INCH UDPKT TD SCH ×3 (04:59→21:48)
[2020-11-10] MEDS: CLONIDINE 0.1MG TABLET PO PRN ×2 (05:02→09:33)
[2020-11-10] MEDS: EPOETIN ALFA-EPBX 4,000 UNIT/ML VIAL SUBCUT NR (06:10)
[2020-11-10 07:15] LABS: BASOPHILS % 0.2 % (0.0-2.0); EOSINOPHILS % 0.2 % (0.0-5.0); HEMATOCRIT. 27.6 % (36.0-48.0); MEAN CORPUSCULAR HEMOGLOBIN 31.5 pg (28.0-32.0); MEAN CORPUSCULAR VOLUME 96.9 fL (81.0-99.0); MONOCYTES % 12.6 % (2.0-8.0); PLATELET 165 x1000/uL (130-400); RED BLOOD CELL COUNT 2.85 mill/uL (4.2-5.4); RED CELL DISTRIBUTION WIDTH 17.5 % (11.6-14.6)
[2020-11-10 07:28] LABS: CHLORIDE 106 mEq/L (98-107)
[2020-11-10 07:40] LABS: CREATINE KINASE 43 IU/L (26-192)
[2020-11-10 07:44] LABS: CREATINE KINASE MB FRACTION 1.8 ng/mL (0.5-3.6)
[2020-11-10 08:00] VITALS: BP 187/91
[2020-11-10] MEDS: AMLODIPINE 10MG TABLET PO SCH (08:10)
[2020-11-10] MEDS: ASPIRIN 325MG EC TABLET PO SCH (08:10)
[2020-11-10] MEDS: SEVELAMER CARBONATE 800 MG TABLET PO SCH ×3 (08:10→18:27)
[2020-11-10] MEDS: MINOXIDIL 2.5MG TABLET PO SCH ×2 (09:33→21:00)
[2020-11-10 12:00] VITALS: BP 108/47
[2020-11-10 16:00] VITALS: BP 134/65
[2020-11-10] MEDS: FOLIC ACID/VITAMIN B COMP W-C TABLET PO SCH (18:27)
[2020-11-10] MEDS: ENOXAPARIN 40MG/0.4ML SYR SUBCUT SCH (18:27)
[2020-11-10] MEDS: IRON SUCROSE COMPLEX 100 MG/5 ML ML IV SCH (19:42)
[2020-11-10] MEDS: ACETAMINOPHEN 325MG TABLET PO PRN (19:47)
[2020-11-10 20:00] VITALS: BP 128/68
[2020-11-10] MEDS ORDERED: EPOETIN ALFA-EPBX 4,000 UNIT/ML VIAL SUBCUT NR (21:00)
[2020-11-10] MEDS: FAMOTIDINE 20MG TABLET PO SCH (21:53)
[2020-11-11] VITALS (13 sets, daily range): BP systolic 81–139; BP diastolic 35–81
[2020-11-11] MEDS: ACETAMINOPHEN 325MG TABLET PO PRN (04:13)
[2020-11-11] MEDS: NITROGLYCERIN OINT 1GM/INCH UDPKT TD SCH ×3 (05:15→23:27)
[2020-11-11] MEDS: DIPHENHYDRAMINE 50MG/ML VIAL IV PRN (06:27)
[2020-11-11] MEDS: SEVELAMER CARBONATE 800 MG TABLET PO SCH ×4 (07:40→17:57)
[2020-11-11] MEDS: MINOXIDIL 2.5MG TABLET PO SCH ×3 (09:00→23:27)
[2020-11-11] MEDS: BENAZEPRIL 10MG TABLET PO SCH ×3 (09:00→23:27)
[2020-11-11] MEDS: FOLIC ACID/VITAMIN B COMP W-C TABLET PO SCH ×2 (09:00→09:34)
[2020-11-11] MEDS: AMLODIPINE 10MG TABLET PO SCH ×2 (09:00→09:35)
[2020-11-11] MEDS: ASPIRIN 325MG EC TABLET PO SCH ×2 (09:00→09:35)
[2020-11-11] MEDS ORDERED: CALCIUM CHLORIDE 1GM/10ML SYR IV ONE (09:02)
[2020-11-11] MEDS ORDERED: EPINEPHRINE 0.1MG/ML (1:10,000) 10ML SYR ONE (09:02)
[2020-11-11] MEDS ORDERED: SODIUM BICARBONATE 8.4% 1 MEQ/ML 50ML SYR IV ONE (09:02)
[2020-11-11] MEDS ORDERED: DEXTROSE 50% WATER 50ML SYRINGE IV ONE (09:02)
[2020-11-11] MEDS: ENOXAPARIN 40MG/0.4ML SYR SUBCUT SCH (17:57)
[2020-11-11] MEDS: IRON SUCROSE COMPLEX 100 MG/5 ML ML IV SCH (21:24)
[2020-11-11 23:07] LABS: BG BASE EXCESS -7.8 mmol/L (-2.0-2.0); BG CARBOXYHEMOGLOBIN 0.3 % (0.5-1.5); BG DEOXYHEMOGLOBIN 0.5 % (0.0-5.0); BG HCO3 ACT 16.8 mmol/L (22.0-26.0); BG METHEMOGLOBIN 0.2 % (0.0-1.5); BG OXYGEN SATURATION 99.5 % (92.0-98.5); BG PCO2 30.8 mmHg (35.0-45.0); BG PH 7.354 (7.350-7.450)
[2020-11-11 23:11] LABS: BG FRACTION INSPIRED OXYGEN 100; BG SAMPLE SITE RIGHT RADIAL; BG TOTAL RESPIRATORY RATE 17 b/min; BG VENT MODE VENT - AC
[2020-11-11] MEDS: FAMOTIDINE 20MG TABLET PO SCH (23:27)
[2020-11-11] MEDS: PHENYLEPHRINE 100 MG in DEXT 5% WATER 240 ML IV PRN (23:35)
[2020-11-12] VITALS (98 sets, daily range): BP systolic 70–160; BP diastolic 43–111
[2020-11-12 00:32] LABS: HEMATOCRIT. 25.7 % (36.0-48.0); HEMOGLOBIN. 8.4 g/dL (12.0-16.0); MEAN CORPUSCULAR VOLUME 97.6 fL (81.0-99.0); MEAN PLATELET VOLUME 8.4 fl (7.4-10.4); PLATELET 85 x1000/uL (130-400); RED BLOOD CELL COUNT 2.63 mill/uL (4.2-5.4); RED CELL DISTRIBUTION WIDTH 17.5 % (11.6-14.6)
[2020-11-12 00:38] LABS: CHLORIDE 109 mEq/L (98-107)
[2020-11-12 00:50] LABS: CREATINE KINASE 136 IU/L (26-192)
[2020-11-12 00:51] LABS: CREATINE KINASE MB FRACTION < 1.0 ng/mL (0.5-3.6)
[2020-11-12] MEDS ORDERED: GENTAMICIN 100MG PREMIX 50 ML IV NR (01:00)
[2020-11-12] MEDS ORDERED: GENTAMICIN 100MG PREMIX 100 ML IV NR (01:00)
[2020-11-12] MEDS: DIPHENHYDRAMINE 50MG/ML VIAL IV PRN ×2 (01:25→17:40)
[2020-11-12] MEDS ORDERED: VANCOMYCIN 1 G PREMIX 200 ML IV NR (02:00)
[2020-11-12] MEDS ORDERED: SODIUM POLYSTYRENE SULFONATE 15 G/60 ML BOT PO NR (03:00)
[2020-11-12] MEDS ORDERED: NOREPINEPHRINE 32 MG in DEXT 5% WATER 218 ML IV PRN (03:15)
[2020-11-12] MEDS: METHYLPREDNISOLONE SOD SUCC 40 MG/ML VIAL IV SCH ×3 (03:20→21:29)
[2020-11-12] MEDS: LORAZEPAM 2MG/ML CPJ IV PRN ×2 (03:20→13:58)
[2020-11-12] MEDS: PROPOFOL 10MG/ML 100ML 100 ML IV PRN ×2 (04:38→13:00)
[2020-11-12] MEDS: NITROGLYCERIN OINT 1GM/INCH UDPKT TD SCH ×3 (06:00→22:07)
[2020-11-12] MEDS: SEVELAMER CARBONATE 800 MG TABLET PO SCH ×3 (07:30→17:40)
[2020-11-12 08:52] LABS: NUCLEATED RED BLOOD CELLS 1 /100 WBC; PLATELET ESTIMATE DECREASED
[2020-11-12] MEDS: BENAZEPRIL 10MG TABLET PO SCH (09:00)
[2020-11-12 09:33] LABS: HEMATOCRIT. 27.8 % (36.0-48.0); HEMOGLOBIN. 9.2 g/dL (12.0-16.0); MEAN CORPUSCULAR HEMOGLOBIN 31.7 pg (28.0-32.0); MEAN PLATELET VOLUME 8.6 fl (7.4-10.4); PLATELET 98 x1000/uL (130-400); RED CELL DISTRIBUTION WIDTH 17.6 % (11.6-14.6)
[2020-11-12] MEDS: MINOXIDIL 2.5MG TABLET PO SCH ×2 (09:46→21:00)
[2020-11-12] MEDS: AMLODIPINE 10MG TABLET PO SCH (09:46)
[2020-11-12] MEDS: FOLIC ACID/VITAMIN B COMP W-C TABLET PO SCH (09:46)
[2020-11-12] MEDS ORDERED: LEVETIRACETAM 1000MG PREMIX 100 ML IV SCH (11:00)
[2020-11-12] MEDS: ASPIRIN 325MG TABLET PO SCH (11:26)
[2020-11-12 12:15] LABS: BG BASE EXCESS 4.7 mmol/L (-2.0-2.0); BG CARBOXYHEMOGLOBIN 0.6 % (0.5-1.5); BG DEOXYHEMOGLOBIN 2.5 % (0.0-5.0); BG FRACTION INSPIRED OXYGEN 40; BG HCO3 ACT 27.2 mmol/L (22.0-26.0); BG OXYGEN SATURATION 97.5 % (92.0-98.5); BG OXYHEMOGLOBIN 96.9 % (94.0-97.0); BG PH 7.547 (7.350-7.450); BG PO2 92.5 mmHg (75.0-100.0); BG SAMPLE SITE RIGHT BRACHIAL; BG VENT MODE VENT - AC
[2020-11-12] MEDS: IPRATROPIUM/ALBUTEROL 0.5-3(2.5)MG/3ML NEB NEB PRN ×2 (13:02→20:05)
[2020-11-12] MEDS ORDERED: VANCOMYCIN 1250MG in DEXTROSE 5% WATER 250ML IV NR (16:00)
[2020-11-12] MEDS: ENOXAPARIN 40MG/0.4ML SYR SUBCUT SCH (16:11)
[2020-11-12] MEDS ORDERED: AMIKACIN SULFATE 450 MG in SODIUM CHLORIDE 0.9% 100 ML IV NR (17:00)
[2020-11-12] MEDS: IRON SUCROSE COMPLEX 100 MG/5 ML ML IV SCH (17:40)
[2020-11-12] MEDS ORDERED: CEFEPIME 1,000 MG in DEXTROSE 5% WATER 50 ML IV SCH (18:00)
[2020-11-12 18:43] LABS: PLATELET ESTIMATE DECREASED
[2020-11-12] MEDS: FAMOTIDINE 20MG TABLET PO SCH (21:29)
[2020-11-12] MEDS: LEVETIRACETAM 500MG PREMIX 100 ML IV SCH (21:29)
[2020-11-13] VITALS (93 sets, daily range): BP systolic 101–149; BP diastolic 51–75
[2020-11-13] MEDS: METHYLPREDNISOLONE SOD SUCC 40 MG/ML VIAL IV SCH ×3 (05:35→21:06)
[2020-11-13] MEDS: NITROGLYCERIN OINT 1GM/INCH UDPKT TD SCH ×3 (05:36→21:06)
[2020-11-13] MEDS: PHENYLEPHRINE 100 MG in DEXT 5% WATER 240 ML IV PRN (05:49)
[2020-11-13 06:15] LABS: HEMATOCRIT. 26.3 % (36.0-48.0); HEMOGLOBIN. 8.7 g/dL (12.0-16.0); MEAN CORPUSCULAR HEMOGLOBIN 31.7 pg (28.0-32.0); MEAN CORPUSCULAR VOLUME 95.8 fL (81.0-99.0); PLATELET 85 x1000/uL (130-400); RED BLOOD CELL COUNT 2.74 mill/uL (4.2-5.4); RED CELL DISTRIBUTION WIDTH 18.1 % (11.6-14.6)
[2020-11-13] MEDS: SEVELAMER CARBONATE 800 MG TABLET PO SCH ×3 (07:40→17:17)
[2020-11-13 08:10] LABS: BG BASE EXCESS 0.2 mmol/L (-2.0-2.0); BG CARBOXYHEMOGLOBIN 0.4 % (0.5-1.5); BG DEOXYHEMOGLOBIN 1.6 % (0.0-5.0); BG HCO3 ACT 22.9 mmol/L (22.0-26.0); BG METHEMOGLOBIN 0.3 % (0.0-1.5); BG OXYGEN SATURATION 98.4 % (92.0-98.5); BG OXYHEMOGLOBIN 97.7 % (94.0-97.0); BG PCO2 29.6 mmHg (35.0-45.0); BG PH 7.506 (7.350-7.450); BG PO2 127.7 mmHg (75.0-100.0); BG SAMPLE SITE RIGHT RADIAL; BG TOTAL HEMOGLOBIN 8.9 g/dL (12.0-18.0); BG VENT MODE VENT - AC
[2020-11-13] MEDS: IPRATROPIUM/ALBUTEROL 0.5-3(2.5)MG/3ML NEB NEB PRN ×3 (08:20→15:39)
[2020-11-13] MEDS: LEVETIRACETAM 500MG PREMIX 100 ML IV SCH ×2 (08:26→21:06)
[2020-11-13] MEDS: FOLIC ACID/VITAMIN B COMP W-C TABLET PO SCH (08:26)
[2020-11-13] MEDS: AMLODIPINE 10MG TABLET PO SCH (08:28)
[2020-11-13] MEDS: MINOXIDIL 2.5MG TABLET PO SCH ×2 (08:28→21:06)
[2020-11-13] MEDS: ASPIRIN 325MG TABLET PO SCH (08:42)
[2020-11-13] MEDS: ENOXAPARIN 40MG/0.4ML SYR SUBCUT SCH (17:00)
[2020-11-13] MEDS: ACETAMINOPHEN 325MG TABLET PO PRN (17:18)
[2020-11-13] MEDS: CEFEPIME 2,000 MG in DEXT 5% WATER 100 ML IV SCH (17:18)
[2020-11-13] MEDS: FAMOTIDINE 20MG TABLET PO SCH (21:06)
[2020-11-14] VITALS (44 sets, daily range): BP systolic 93–159; BP diastolic 43–122
[2020-11-14 05:45] LABS: HEMATOCRIT. 28.2 % (36.0-48.0); HEMOGLOBIN. 8.9 g/dL (12.0-16.0); MEAN CORPUSCULAR HEMOGLOBIN 30.8 pg (28.0-32.0); MEAN CORPUSCULAR VOLUME 97.3 fL (81.0-99.0); PLATELET 94 x1000/uL (130-400); RED BLOOD CELL COUNT 2.89 mill/uL (4.2-5.4); RED CELL DISTRIBUTION WIDTH 18.2 % (11.6-14.6)
[2020-11-14] MEDS: METHYLPREDNISOLONE SOD SUCC 40 MG/ML VIAL IV SCH ×3 (06:09→21:35)
[2020-11-14] MEDS: SEVELAMER CARBONATE 800 MG TABLET PO SCH ×3 (06:09→17:00)
[2020-11-14] MEDS: NITROGLYCERIN OINT 1GM/INCH UDPKT TD SCH ×3 (06:09→21:34)
[2020-11-14] MEDS: CLONIDINE 0.1MG TABLET PO PRN (06:10)
[2020-11-14] MEDS: ASPIRIN 325MG TABLET PO SCH (09:54)
[2020-11-14] MEDS: LEVETIRACETAM 500MG PREMIX 100 ML IV SCH ×2 (09:54→21:33)
[2020-11-14] MEDS: FOLIC ACID/VITAMIN B COMP W-C TABLET PO SCH (09:54)
[2020-11-14] MEDS: MINOXIDIL 2.5MG TABLET PO SCH ×2 (09:55→21:34)
[2020-11-14] MEDS: AMLODIPINE 10MG TABLET PO SCH (09:55)
[2020-11-14] MEDS: ACETAMINOPHEN 325MG TABLET PO PRN (09:56)
[2020-11-14] MEDS: ENOXAPARIN 30MG/0.3ML SYR SUBCUT SCH (15:00)
[2020-11-14 15:42] LABS: PLATELET ESTIMATE DECREASED
[2020-11-14 17:21] LABS: PLATELET ESTIMATE DECREASED
[2020-11-14] MEDS: CEFEPIME 2,000 MG in DEXT 5% WATER 100 ML IV SCH (18:22)
[2020-11-14] MEDS: SULFAMETHOXAZOLE/TRIMETHOPRIM 800/160MG TABLET PO SCH (18:23)
[2020-11-14] MEDS: FAMOTIDINE 20MG TABLET PO SCH (21:33)
[2020-11-15] VITALS (47 sets, daily range): BP systolic 79–178; BP diastolic 36–90
[2020-11-15] MEDS ORDERED: AMIKACIN SULFATE 350 MG in SODIUM CHLORIDE 0.9% 100 ML IV SCH
[2020-11-15] MEDS: NITROGLYCERIN OINT 1GM/INCH UDPKT TD SCH ×3 (06:02→21:37)
[2020-11-15] MEDS: SEVELAMER CARBONATE 800 MG TABLET PO SCH ×3 (06:03→18:10)
[2020-11-15] MEDS: METHYLPREDNISOLONE SOD SUCC 40 MG/ML VIAL IV SCH (06:03)
[2020-11-15 06:15] LABS: HEMATOCRIT. 26.2 % (36.0-48.0); HEMOGLOBIN. 8.3 g/dL (12.0-16.0); MEAN CORPUSCULAR HEMOGLOBIN 31.7 pg (28.0-32.0); MEAN CORPUSCULAR VOLUME 99.8 fL (81.0-99.0); MEAN PLATELET VOLUME 10.1 fl (7.4-10.4); PLATELET 87 x1000/uL (130-400); RED BLOOD CELL COUNT 2.62 mill/uL (4.2-5.4); RED CELL DISTRIBUTION WIDTH 18.1 % (11.6-14.6)
[2020-11-15 08:58] LABS: BG BASE EXCESS 3.2 mmol/L (-2.0-2.0); BG CARBOXYHEMOGLOBIN 0.9 % (0.5-1.5); BG DEOXYHEMOGLOBIN 1.8 % (0.0-5.0); BG FRACTION INSPIRED OXYGEN 30; BG HCO3 ACT 26.8 mmol/L (22.0-26.0); BG METHEMOGLOBIN 0.1 % (0.0-1.5); BG OXYGEN SATURATION 98.2 % (92.0-98.5); BG OXYHEMOGLOBIN 97.2 % (94.0-97.0); BG PCO2 36.7 mmHg (35.0-45.0); BG PH 7.482 (7.350-7.450); BG SAMPLE SITE RIGHT RADIAL; BG TOTAL HEMOGLOBIN 8.4 g/dL (12.0-18.0); BG VENT MODE VENT - AC
[2020-11-15] MEDS: FOLIC ACID/VITAMIN B COMP W-C TABLET PO SCH (09:13)
[2020-11-15] MEDS: ASPIRIN 325MG TABLET PO SCH (09:13)
[2020-11-15] MEDS: MINOXIDIL 2.5MG TABLET PO SCH ×2 (09:13→20:35)
[2020-11-15] MEDS: AMLODIPINE 10MG TABLET PO SCH (09:13)
[2020-11-15] MEDS: ENOXAPARIN 30MG/0.3ML SYR SUBCUT SCH (09:14)
[2020-11-15] MEDS: LEVETIRACETAM 500MG PREMIX 100 ML IV SCH ×2 (11:32→20:36)
[2020-11-15] MEDS: LORAZEPAM 2MG/ML CPJ IV PRN (13:57)
[2020-11-15] MEDS: CEFEPIME 2,000 MG in DEXT 5% WATER 100 ML IV SCH (16:39)
[2020-11-15 19:46] LABS: PLATELET ESTIMATE DECREASED
[2020-11-15] MEDS: FAMOTIDINE 20MG TABLET PO SCH (20:34)
[2020-11-16] VITALS (45 sets, daily range): BP systolic 88–172; BP diastolic 45–83
[2020-11-16] MEDS: NITROGLYCERIN OINT 1GM/INCH UDPKT TD SCH ×3 (06:14→21:37)
[2020-11-16] MEDS: SEVELAMER CARBONATE 800 MG TABLET PO SCH ×4 (06:14→17:58)
[2020-11-16] MEDS: AMLODIPINE 10MG TABLET PO SCH (08:06)
[2020-11-16 08:31] LABS: BG BASE EXCESS 1.6 mmol/L (-2.0-2.0); BG CARBOXYHEMOGLOBIN 0.6 % (0.5-1.5); BG DEOXYHEMOGLOBIN 1.9 % (0.0-5.0); BG HCO3 ACT 25.3 mmol/L (22.0-26.0); BG METHEMOGLOBIN 0.3 % (0.0-1.5); BG OXYGEN SATURATION 98.1 % (92.0-98.5); BG OXYHEMOGLOBIN 97.2 % (94.0-97.0); BG PH 7.465 (7.350-7.450); BG PO2 112.2 mmHg (75.0-100.0); BG SAMPLE SITE RIGHT RADIAL; BG TOTAL HEMOGLOBIN 8.1 g/dL (12.0-18.0); BG VENT MODE VENT - SIMV
[2020-11-16 09:03] LABS: HEMATOCRIT. 25.8 % (36.0-48.0); MEAN CORPUSCULAR HEMOGLOBIN 32.1 pg (28.0-32.0); MEAN CORPUSCULAR VOLUME 103.1 fL (81.0-99.0); RED CELL DISTRIBUTION WIDTH 17.6 % (11.6-14.6)
[2020-11-16] MEDS: ENOXAPARIN 30MG/0.3ML SYR SUBCUT SCH (09:40)
[2020-11-16] MEDS: AZITHROMYCIN 500 MG TABLET PO SCH (09:40)
[2020-11-16] MEDS: METHYLPREDNISOLONE SOD SUCC 40 MG/ML VIAL IV SCH (09:40)
[2020-11-16] MEDS: SULFAMETHOXAZOLE/TRIMETHOPRIM 800/160MG TABLET PO SCH (09:41)
[2020-11-16] MEDS: ASPIRIN 325MG TABLET PO SCH (09:41)
[2020-11-16] MEDS: LEVETIRACETAM 500MG PREMIX 100 ML IV SCH ×2 (09:41→21:54)
[2020-11-16] MEDS: MINOXIDIL 2.5MG TABLET PO SCH ×2 (09:41→21:38)
[2020-11-16] MEDS: FOLIC ACID/VITAMIN B COMP W-C TABLET PO SCH (09:42)
[2020-11-16 10:21] LABS: PLATELET 98 x1000/uL (130-400)
[2020-11-16 10:24] LABS: PLATELET ESTIMATE SLIGHTLY DECREASED
[2020-11-16] MEDS ORDERED: GENTAMICIN XX SCH (13:00)
[2020-11-16] MEDS ORDERED: CEFEPIME XX SCH (13:00)
[2020-11-16] MEDS ORDERED: GENTAMICIN 100MG PREMIX 50 ML IV NR (16:00)
[2020-11-16] MEDS: CEFEPIME 2,000 MG in DEXT 5% WATER 100 ML IV SCH (18:07)
[2020-11-16] MEDS ORDERED: VANCOMYCIN 500 MG PREMIX 100 ML IV SCH (20:00)
[2020-11-16] MEDS: METOCLOPRAMIDE HCL 10MG/2ML VIAL IV SCH (21:38)
[2020-11-16] MEDS: FAMOTIDINE 20MG TABLET PO SCH (21:38)
[2020-11-17] VITALS (55 sets, daily range): BP systolic 84–179; BP diastolic 32–89
[2020-11-17] MEDS: METOCLOPRAMIDE HCL 10MG/2ML VIAL IV SCH ×4 (03:15→21:42)
[2020-11-17] MEDS: NITROGLYCERIN OINT 1GM/INCH UDPKT TD SCH ×3 (06:41→21:41)
[2020-11-17] MEDS: SEVELAMER CARBONATE 800 MG TABLET PO SCH ×3 (08:30→17:31)
[2020-11-17] MEDS: FOLIC ACID/VITAMIN B COMP W-C TABLET PO SCH (08:30)
[2020-11-17] MEDS: MINOXIDIL 2.5MG TABLET PO SCH ×2 (08:30→21:40)
[2020-11-17] MEDS: ASPIRIN 325MG TABLET PO SCH (08:31)
[2020-11-17] MEDS: METHYLPREDNISOLONE SOD SUCC 40 MG/ML VIAL IV SCH (08:31)
[2020-11-17] MEDS: AMLODIPINE 10MG TABLET PO SCH (08:31)
[2020-11-17] MEDS: ENOXAPARIN 30MG/0.3ML SYR SUBCUT SCH (08:32)
[2020-11-17] MEDS: LEVETIRACETAM 500MG PREMIX 100 ML IV SCH ×2 (09:07→21:43)
[2020-11-17] MEDS: DOCUSATE SODIUM SUGAR FREE 100MG/10ML UDC PO PRN (09:43)
[2020-11-17 10:18] LABS: BG BASE EXCESS 0.5 mmol/L (-2.0-2.0); BG CARBOXYHEMOGLOBIN 0.6 % (0.5-1.5); BG DEOXYHEMOGLOBIN 1.8 % (0.0-5.0); BG FRACTION INSPIRED OXYGEN 30; BG HCO3 ACT 24.7 mmol/L (22.0-26.0); BG METHEMOGLOBIN 0.3 % (0.0-1.5); BG OXYGEN SATURATION 98.2 % (92.0-98.5); BG OXYHEMOGLOBIN 97.3 % (94.0-97.0); BG PCO2 37.5 mmHg (35.0-45.0); BG PH 7.436 (7.350-7.450); BG PO2 115.1 mmHg (75.0-100.0); BG SAMPLE SITE RIGHT RADIAL; BG TOTAL HEMOGLOBIN 8.5 g/dL (12.0-18.0); BG VENT MODE VENT - SIMV
[2020-11-17] MEDS: LACTULOSE 20G/30ML UDC PO SCH ×2 (10:38→17:31)
[2020-11-17 12:34] LABS: HEMATOCRIT. 22.4 % (36.0-48.0); HEMOGLOBIN. 7.2 g/dL (12.0-16.0); MEAN CORPUSCULAR HEMOGLOBIN 31.5 pg (28.0-32.0); MEAN CORPUSCULAR VOLUME 97.3 fL (81.0-99.0); MEAN PLATELET VOLUME 11.2 fl (7.4-10.4); PLATELET 138 x1000/uL (130-400)
[2020-11-17] MEDS ORDERED: DEXTROSE 50% WATER 50ML SYRINGE IV PRN (13:15)
[2020-11-17] MEDS: INSULIN LISPRO 100 UNITS/ML SUBCUT SCH ×3 (13:44→21:00)
[2020-11-17 14:15] LABS: PLATELET ESTIMATE NORMAL
[2020-11-17] MEDS: CEFEPIME 2,000 MG in DEXT 5% WATER 100 ML IV SCH (17:31)
[2020-11-17] MEDS: BLOOD SUGAR DIAGNOSTIC STRIP TEST SCH ×2 (17:46→21:42)
[2020-11-17] MEDS ORDERED: METOCLOPRAMIDE HCL 10MG/2ML VIAL IV SCH (21:00)
[2020-11-17] MEDS: FAMOTIDINE 20MG TABLET PO SCH (21:41)
[2020-11-18] VITALS (49 sets, daily range): BP systolic 83–145; BP diastolic 43–92
[2020-11-18] MEDS: METOCLOPRAMIDE HCL 10MG/2ML VIAL IV SCH ×4 (02:33→21:59)
[2020-11-18] MEDS: NITROGLYCERIN OINT 1GM/INCH UDPKT TD SCH ×3 (05:21→22:00)
[2020-11-18 05:48] LABS: GENTAMICIN RANDOM 3.3 ug/mL
[2020-11-18 05:49] LABS: HEMATOCRIT. 25.5 % (36.0-48.0); HEMOGLOBIN. 8.3 g/dL (12.0-16.0); MEAN CORPUSCULAR VOLUME 98.7 fL (81.0-99.0); MEAN PLATELET VOLUME 10.6 fl (7.4-10.4); PLATELET 199 x1000/uL (130-400); RED BLOOD CELL COUNT 2.59 mill/uL (4.2-5.4); RED CELL DISTRIBUTION WIDTH 16.6 % (11.6-14.6)
[2020-11-18] MEDS: BLOOD SUGAR DIAGNOSTIC STRIP TEST SCH ×4 (07:50→21:59)
[2020-11-18] MEDS: ASPIRIN 325MG TABLET PO SCH (08:14)
[2020-11-18] MEDS: METHYLPREDNISOLONE SOD SUCC 40 MG/ML VIAL IV SCH (08:14)
[2020-11-18] MEDS: LACTULOSE 20G/30ML UDC PO SCH ×2 (08:14→21:58)
[2020-11-18] MEDS: SEVELAMER CARBONATE 800 MG TABLET PO SCH ×3 (08:14→17:34)
[2020-11-18] MEDS: FOLIC ACID/VITAMIN B COMP W-C TABLET PO SCH (08:15)
[2020-11-18] MEDS: LEVETIRACETAM 500MG PREMIX 100 ML IV SCH ×2 (08:16→21:59)
[2020-11-18] MEDS: INSULIN LISPRO 100 UNITS/ML SUBCUT SCH ×4 (08:17→22:17)
[2020-11-18] MEDS: MINOXIDIL 2.5MG TABLET PO SCH ×2 (08:17→21:59)
[2020-11-18] MEDS: AMLODIPINE 10MG TABLET PO SCH (08:18)
[2020-11-18 08:47] LABS: BG BASE EXCESS 0.7 mmol/L (-2.0-2.0); BG CARBOXYHEMOGLOBIN 1.1 % (0.5-1.5); BG DEOXYHEMOGLOBIN 1.8 % (0.0-5.0); BG FRACTION INSPIRED OXYGEN 30; BG HCO3 ACT 25.5 mmol/L (22.0-26.0); BG METHEMOGLOBIN 0.2 % (0.0-1.5); BG OXYGEN SATURATION 98.2 % (92.0-98.5); BG OXYHEMOGLOBIN 96.9 % (94.0-97.0); BG PCO2 41.5 mmHg (35.0-45.0); BG PH 7.406 (7.350-7.450); BG PO2 118.5 mmHg (75.0-100.0); BG SAMPLE SITE RIGHT RADIAL; BG TOTAL HEMOGLOBIN 7.3 g/dL (12.0-18.0); BG VENT MODE VENT - SIMV
[2020-11-18] MEDS ORDERED: BISACODYL 10MG SUPP PR NR (10:00)
[2020-11-18 14:15] LABS: PLATELET ESTIMATE NORMAL
[2020-11-18] MEDS: CEFEPIME 2,000 MG in DEXT 5% WATER 100 ML IV SCH (17:15)
[2020-11-18] MEDS: FAMOTIDINE 20MG TABLET PO SCH (21:58)
[2020-11-19] VITALS (90 sets, daily range): BP systolic 71–182; BP diastolic 40–89
[2020-11-19] MEDS: METOCLOPRAMIDE HCL 10MG/2ML VIAL IV SCH ×4 (03:03→21:52)
[2020-11-19] MEDS: NITROGLYCERIN OINT 1GM/INCH UDPKT TD SCH ×3 (05:29→22:00)
[2020-11-19 06:47] LABS: HEMATOCRIT 24.3 % (36.0-48.0); HEMOGLOBIN 7.9 g/dL (12.0-16.0); MEAN CORPUSCULAR HEMOGLOBIN 31.5 pg (28.0-32.0); MEAN CORPUSCULAR VOLUME 97.6 fL (81.0-99.0); PLATELET 242 x1000/uL (130-400); RED BLOOD CELL COUNT 2.49 mill/uL (4.2-5.4)
[2020-11-19] MEDS: BLOOD SUGAR DIAGNOSTIC STRIP TEST SCH ×3 (08:04→17:29)
[2020-11-19] MEDS ORDERED: HEPARIN SODIUM 1,000 UNIT/1ML VIAL IV SCH (08:15)
[2020-11-19] MEDS: ASPIRIN 325MG TABLET PO SCH (08:39)
[2020-11-19] MEDS: SULFAMETHOXAZOLE/TRIMETHOPRIM 800/160MG TABLET PO SCH (08:39)
[2020-11-19] MEDS: FOLIC ACID/VITAMIN B COMP W-C TABLET PO SCH (08:39)
[2020-11-19] MEDS: LACTULOSE 20G/30ML UDC PO SCH ×2 (08:39→21:52)
[2020-11-19] MEDS: SEVELAMER CARBONATE 800 MG TABLET PO SCH ×3 (08:40→17:58)
[2020-11-19] MEDS: INSULIN LISPRO 100 UNITS/ML SUBCUT SCH ×3 (08:40→17:58)
[2020-11-19] MEDS: MINOXIDIL 2.5MG TABLET PO SCH ×2 (09:00→21:53)
[2020-11-19] MEDS: AMLODIPINE 10MG TABLET PO SCH (09:00)
[2020-11-19 09:20] LABS: BG BASE EXCESS -1.8 mmol/L (-2.0-2.0); BG DEOXYHEMOGLOBIN 1.8 % (0.0-5.0); BG FRACTION INSPIRED OXYGEN 30; BG HCO3 ACT 23.1 mmol/L (22.0-26.0); BG METHEMOGLOBIN 0.1 % (0.0-1.5); BG OXYGEN SATURATION 98.2 % (92.0-98.5); BG OXYHEMOGLOBIN 97.1 % (94.0-97.0); BG PCO2 39.7 mmHg (35.0-45.0); BG PH 7.383 (7.350-7.450); BG PO2 122.7 mmHg (75.0-100.0); BG SAMPLE SITE RIGHT RADIAL; BG TOTAL HEMOGLOBIN 8.3 g/dL (12.0-18.0); BG TOTAL RESPIRATORY RATE 15 b/min; BG VENT MODE VENT - SIMV
[2020-11-19] MEDS: LEVETIRACETAM 500MG PREMIX 100 ML IV SCH ×2 (10:46→21:53)
[2020-11-19] MEDS: METHYLPREDNISOLONE SOD SUCC 40 MG/ML VIAL IV SCH (10:46)
[2020-11-19] MEDS: CEFEPIME 2,000 MG in DEXT 5% WATER 100 ML IV SCH (17:05)
[2020-11-19] MEDS ORDERED: GENTAMICIN 100MG PREMIX 50 ML IV SCH (18:00)
[2020-11-19] MEDS ORDERED: EPOETIN ALFA-EPBX 4,000 UNIT/ML VIAL SUBCUT NR (21:00)
[2020-11-19] MEDS: FAMOTIDINE 20MG TABLET PO SCH (21:52)
[2020-11-20] VITALS (88 sets, daily range): BP systolic 85–167; BP diastolic 37–74
[2020-11-20] MEDS: BLOOD SUGAR DIAGNOSTIC STRIP TEST SCH ×4 (00:11→18:00)
[2020-11-20] MEDS: INSULIN LISPRO 100 UNITS/ML SUBCUT SCH ×4 (00:16→18:18)
[2020-11-20] MEDS: METOCLOPRAMIDE HCL 10MG/2ML VIAL IV SCH ×4 (03:43→21:53)
[2020-11-20] MEDS: NITROGLYCERIN OINT 1GM/INCH UDPKT TD SCH ×3 (05:17→21:53)
[2020-11-20] MEDS: LEVETIRACETAM 500MG PREMIX 100 ML IV SCH ×2 (08:38→21:53)
[2020-11-20] MEDS: METHYLPREDNISOLONE SOD SUCC 40 MG/ML VIAL IV SCH (08:39)
[2020-11-20] MEDS: SEVELAMER CARBONATE 800 MG TABLET PO SCH ×3 (08:39→18:17)
[2020-11-20] MEDS: FOLIC ACID/VITAMIN B COMP W-C TABLET PO SCH (08:39)
[2020-11-20] MEDS: LACTULOSE 20G/30ML UDC PO SCH ×2 (08:39→21:53)
[2020-11-20] MEDS: AMLODIPINE 10MG TABLET PO SCH (08:40)
[2020-11-20] MEDS: MINOXIDIL 2.5MG TABLET PO SCH (08:40)
[2020-11-20] MEDS: ASPIRIN 325MG TABLET PO SCH (08:41)
[2020-11-20 08:51] LABS: BG BASE EXCESS 1.2 mmol/L (-2.0-2.0); BG CARBOXYHEMOGLOBIN 0.3 % (0.5-1.5); BG DEOXYHEMOGLOBIN 2.4 % (0.0-5.0); BG FRACTION INSPIRED OXYGEN 30; BG HCO3 ACT 25.8 mmol/L (22.0-26.0); BG METHEMOGLOBIN 1.3 % (0.0-1.5); BG OXYGEN SATURATION 97.6 % (92.0-98.5); BG PCO2 40.8 mmHg (35.0-45.0); BG PH 7.419 (7.350-7.450); BG PO2 121.9 mmHg (75.0-100.0); BG SAMPLE SITE RIGHT RADIAL; BG TOTAL HEMOGLOBIN 7.8 g/dL (12.0-18.0); BG VENT MODE VENT - SIMV
[2020-11-20] MEDS ORDERED: [UNRECOGNIZED DRUG - REMARK] XX SCH (15:30)
[2020-11-20] MEDS: CEFEPIME 2,000 MG in DEXT 5% WATER 100 ML IV SCH (18:17)
[2020-11-20] MEDS: FAMOTIDINE 20MG TABLET PO SCH (21:53)
[2020-11-21] VITALS (60 sets, daily range): BP systolic 82–171; BP diastolic 37–90
[2020-11-21] MEDS: BLOOD SUGAR DIAGNOSTIC STRIP TEST SCH ×4 (00:48→18:00)
[2020-11-21] MEDS: INSULIN LISPRO 100 UNITS/ML SUBCUT SCH ×4 (00:49→18:21)
[2020-11-21] MEDS: METOCLOPRAMIDE HCL 10MG/2ML VIAL IV SCH ×4 (03:13→20:13)
[2020-11-21] MEDS: NITROGLYCERIN OINT 1GM/INCH UDPKT TD SCH ×3 (06:26→21:29)
[2020-11-21 09:32] LABS: CHLORIDE 108 mEq/L (98-107)
[2020-11-21 09:33] LABS: HEMOGLOBIN. 7.1 g/dL (12.0-16.0); MEAN CORPUSCULAR HEMOGLOBIN 31.5 pg (28.0-32.0); MEAN CORPUSCULAR VOLUME 97.2 fL (81.0-99.0); MEAN PLATELET VOLUME 9.4 fl (7.4-10.4); PLATELET 247 x1000/uL (130-400); RED BLOOD CELL COUNT 2.26 mill/uL (4.2-5.4); RED CELL DISTRIBUTION WIDTH 17.1 % (11.6-14.6)
[2020-11-21] MEDS ORDERED: LIDOCAINE HCL/EPINEPHRINE 1%-EPI 1:100,000 20 ML VIAL ONE (09:58)
[2020-11-21] MEDS ORDERED: ROCURONIUM BROMIDE 10MG/ML VIAL 5ML IV ONE (10:16)
[2020-11-21] MEDS ORDERED: MIDAZOLAM HCL 2 MG/2 ML VIAL ONE (10:16)
[2020-11-21] MEDS ORDERED: CEFAZOLIN SODIUM 1000MG/VIAL ONE (10:36)
[2020-11-21] MEDS: METHYLPREDNISOLONE SOD SUCC 40 MG/ML VIAL IV SCH (11:58)
[2020-11-21] MEDS: LEVETIRACETAM 500MG PREMIX 100 ML IV SCH ×2 (11:58→20:14)
[2020-11-21] MEDS: DOCUSATE SODIUM SUGAR FREE 100MG/10ML UDC PO PRN (11:58)
[2020-11-21] MEDS: AMLODIPINE 10MG TABLET PO SCH (11:59)
[2020-11-21] MEDS: LACTULOSE 20G/30ML UDC PO SCH ×2 (11:59→20:13)
[2020-11-21] MEDS: FOLIC ACID/VITAMIN B COMP W-C TABLET PO SCH (12:01)
[2020-11-21] MEDS: SEVELAMER CARBONATE 800 MG TABLET PO SCH ×3 (12:02→18:00)
[2020-11-21] MEDS: ASPIRIN 325MG TABLET PO SCH (12:02)
[2020-11-21] MEDS: SULFAMETHOXAZOLE/TRIMETHOPRIM 800/160MG TABLET PO SCH (12:46)
[2020-11-21 12:56] LABS: PLATELET ESTIMATE NORMAL
[2020-11-21] MEDS: CEFEPIME 2,000 MG in DEXT 5% WATER 100 ML IV SCH (18:15)
[2020-11-21] MEDS: FAMOTIDINE 20MG TABLET PO SCH (20:14)
[2020-11-22] VITALS (12 sets, daily range): BP systolic 112–157; BP diastolic 47–76
[2020-11-22] MEDS: BLOOD SUGAR DIAGNOSTIC STRIP TEST SCH ×4 (00:44→17:34)
[2020-11-22] MEDS: METOCLOPRAMIDE HCL 10MG/2ML VIAL IV SCH ×4 (02:59→20:50)
[2020-11-22] MEDS: NITROGLYCERIN OINT 1GM/INCH UDPKT TD SCH ×3 (05:02→21:06)
[2020-11-22] MEDS: INSULIN LISPRO 100 UNITS/ML SUBCUT SCH ×4 (05:55→17:42)
[2020-11-22 07:27] LABS: HEMOGLOBIN. 8.2 g/dL (12.0-16.0); MEAN CORPUSCULAR HEMOGLOBIN 31.6 pg (28.0-32.0); MEAN CORPUSCULAR VOLUME 96.8 fL (81.0-99.0); MEAN PLATELET VOLUME 9.8 fl (7.4-10.4); PLATELET 246 x1000/uL (130-400); RED BLOOD CELL COUNT 2.58 mill/uL (4.2-5.4); RED CELL DISTRIBUTION WIDTH 16.7 % (11.6-14.6)
[2020-11-22 07:40] LABS: INR 1.1; PROTHROMBIN TIME 12.2 sec (9.6-11.0)
[2020-11-22] MEDS: SEVELAMER CARBONATE 800 MG TABLET PO SCH ×3 (08:00→17:19)
[2020-11-22] MEDS: ASPIRIN 325MG TABLET PO SCH (08:34)
[2020-11-22] MEDS: FOLIC ACID/VITAMIN B COMP W-C TABLET PO SCH (08:37)
[2020-11-22] MEDS: AMLODIPINE 10MG TABLET PO SCH (08:37)
[2020-11-22] MEDS: LACTULOSE 20G/30ML UDC PO SCH ×2 (08:37→20:49)
[2020-11-22] MEDS: METHYLPREDNISOLONE SOD SUCC 40 MG/ML VIAL IV SCH (08:52)
[2020-11-22] MEDS: LEVETIRACETAM 500MG PREMIX 100 ML IV SCH ×2 (08:53→20:49)
[2020-11-22 10:15] LABS: PLATELET ESTIMATE NORMAL
[2020-11-22 11:29] LABS: BG BASE EXCESS -1.4 mmol/L (-2.0-2.0); BG CARBOXYHEMOGLOBIN 0.3 % (0.5-1.5); BG DEOXYHEMOGLOBIN 3.3 % (0.0-5.0); BG FRACTION INSPIRED OXYGEN 30; BG HCO3 ACT 22.9 mmol/L (22.0-26.0); BG METHEMOGLOBIN 0.3 % (0.0-1.5); BG OXYGEN SATURATION 96.7 % (92.0-98.5); BG OXYHEMOGLOBIN 96.1 % (94.0-97.0); BG PCO2 36.6 mmHg (35.0-45.0); BG PH 7.414 (7.350-7.450); BG PO2 92.4 mmHg (75.0-100.0); BG SAMPLE SITE RIGHT RADIAL; BG VENT MODE VENT - SIMV
[2020-11-22] MEDS ORDERED: MIDAZOLAM HCL 5 MG/5 ML VIAL ONE (13:58)
[2020-11-22] MEDS ORDERED: FENTANYL CITRATE/PF 50MCG/ML 2ML VIAL ONE (13:58)
[2020-11-22] MEDS ORDERED: MIDAZOLAM HCL 5 MG/5 ML VIAL IV PRN (14:24)
[2020-11-22] MEDS: CEFEPIME 2,000 MG in DEXT 5% WATER 100 ML IV SCH (17:19)
[2020-11-22] MEDS: FAMOTIDINE 20MG TABLET PO SCH (20:50)
[2020-11-23] VITALS (12 sets, daily range): BP systolic 116–161; BP diastolic 53–76
[2020-11-23] MEDS: INSULIN LISPRO 100 UNITS/ML SUBCUT SCH ×5 (00:05→23:51)
[2020-11-23] MEDS: BLOOD SUGAR DIAGNOSTIC STRIP TEST SCH ×5 (00:05→23:45)
[2020-11-23] MEDS: METOCLOPRAMIDE HCL 10MG/2ML VIAL IV SCH ×4 (03:04→21:50)
[2020-11-23] MEDS: NITROGLYCERIN OINT 1GM/INCH UDPKT TD SCH ×4 (05:51→21:51)
[2020-11-23] MEDS ORDERED: METHYLPREDNISOLONE SOD SUCC 40 MG/ML VIAL IV SCH (09:00)
[2020-11-23] MEDS: AMLODIPINE 10MG TABLET PO SCH (09:00)
[2020-11-23] MEDS: SEVELAMER CARBONATE 800 MG TABLET PO SCH ×3 (09:34→17:21)
[2020-11-23] MEDS: LEVETIRACETAM 500MG PREMIX 100 ML IV SCH ×2 (09:34→21:50)
[2020-11-23] MEDS: LACTULOSE 20G/30ML UDC PO SCH ×2 (09:34→21:50)
[2020-11-23] MEDS: FOLIC ACID/VITAMIN B COMP W-C TABLET PO SCH (09:34)
[2020-11-23] MEDS: ASPIRIN 325MG TABLET PO SCH (09:34)
[2020-11-23] MEDS: AZITHROMYCIN 500 MG TABLET PO SCH (09:35)
[2020-11-23] MEDS: SULFAMETHOXAZOLE/TRIMETHOPRIM 800/160MG TABLET PO SCH (09:35)
[2020-11-23] MEDS ORDERED: GENTAMICIN 80MG PREMIX 100 ML IV NR (16:00)
[2020-11-23] MEDS: CEFEPIME 2,000 MG in DEXT 5% WATER 100 ML IV SCH (17:21)
[2020-11-23] MEDS ORDERED: EPOETIN ALFA-EPBX 4,000 UNIT/ML VIAL SUBCUT NR (21:00)
[2020-11-23] MEDS: FAMOTIDINE 20MG TABLET PO SCH (21:51)
[2020-11-24] VITALS (18 sets, daily range): BP systolic 97–170; BP diastolic 50–105
[2020-11-24] MEDS: CLONIDINE 0.1MG TABLET PO PRN ×2 (01:43→20:20)
[2020-11-24] MEDS: METOCLOPRAMIDE HCL 10MG/2ML VIAL IV SCH ×4 (02:24→20:21)
[2020-11-24] MEDS: NITROGLYCERIN OINT 1GM/INCH UDPKT TD SCH ×3 (05:31→21:02)
[2020-11-24] MEDS: BLOOD SUGAR DIAGNOSTIC STRIP TEST SCH ×4 (05:47→23:35)
[2020-11-24] MEDS: INSULIN LISPRO 100 UNITS/ML SUBCUT SCH ×4 (05:52→23:39)
[2020-11-24 07:15] LABS: HEMOGLOBIN. 8.3 g/dL (12.0-16.0); MEAN CORPUSCULAR HEMOGLOBIN 31.3 pg (28.0-32.0); MEAN CORPUSCULAR VOLUME 97.4 fL (81.0-99.0); MEAN PLATELET VOLUME 9.2 fl (7.4-10.4); PLATELET 249 x1000/uL (130-400); RED BLOOD CELL COUNT 2.66 mill/uL (4.2-5.4)
[2020-11-24] MEDS: LEVETIRACETAM 500MG PREMIX 100 ML IV SCH ×2 (08:44→20:21)
[2020-11-24] MEDS: LACTULOSE 20G/30ML UDC PO SCH ×2 (08:44→20:21)
[2020-11-24] MEDS: ASPIRIN 325MG TABLET PO SCH (08:44)
[2020-11-24] MEDS: SEVELAMER CARBONATE 800 MG TABLET PO SCH ×3 (08:45→17:25)
[2020-11-24] MEDS: AMLODIPINE 10MG TABLET PO SCH (08:45)
[2020-11-24] MEDS: FOLIC ACID/VITAMIN B COMP W-C TABLET PO SCH (08:45)
[2020-11-24] MEDS ORDERED: METHYLPREDNISOLONE SOD SUCC 40 MG/ML VIAL IV SCH (09:00)
[2020-11-24] MEDS ORDERED: KCL 20MEQ/100ML PREMIX 100 ML IV SCH (13:00)
[2020-11-24] MEDS: CEFEPIME 2,000 MG in DEXT 5% WATER 100 ML IV SCH (17:25)
[2020-11-24 19:47] LABS: PLATELET ESTIMATE NORMAL
[2020-11-24] MEDS: FAMOTIDINE 20MG TABLET PO SCH (20:21)
[2020-11-24] MEDS ORDERED: HYDRALAZINE 20MG/ML VIAL IV PRN (21:15)
[2020-11-25] VITALS (12 sets, daily range): BP systolic 110–167; BP diastolic 57–84
[2020-11-25] MEDS: METOCLOPRAMIDE HCL 10MG/2ML VIAL IV SCH ×4 (02:04→20:19)
[2020-11-25 04:38] LABS: BASOPHILS % 0.4 % (0.0-2.0); EOSINOPHILS % 1.2 % (0.0-5.0); HEMATOCRIT. 26.2 % (36.0-48.0); HEMOGLOBIN. 8.5 g/dL (12.0-16.0); LYMPHOCYTES % 9.1 % (20.0-50.0); MEAN CORPUSCULAR HEMOGLOBIN 31.4 pg (28.0-32.0); MEAN CORPUSCULAR VOLUME 97.1 fL (81.0-99.0); MEAN PLATELET VOLUME 9.1 fl (7.4-10.4); MONOCYTES % 9.9 % (2.0-8.0); NEUTROPHILS % 79.4 % (40.0-76.0); PLATELET 216 x1000/uL (130-400); RED CELL DISTRIBUTION WIDTH 16.5 % (11.6-14.6)
[2020-11-25 05:04] LABS: GENTAMICIN RANDOM 3.7 ug/mL
[2020-11-25] MEDS: NITROGLYCERIN OINT 1GM/INCH UDPKT TD SCH ×3 (05:09→21:22)
[2020-11-25] MEDS: BLOOD SUGAR DIAGNOSTIC STRIP TEST SCH ×3 (05:18→18:17)
[2020-11-25] MEDS: INSULIN LISPRO 100 UNITS/ML SUBCUT SCH ×4 (05:18→23:59)
[2020-11-25] MEDS: CLONIDINE 0.1MG TABLET PO PRN (06:16)
[2020-11-25] MEDS: FOLIC ACID/VITAMIN B COMP W-C TABLET PO SCH (09:27)
[2020-11-25] MEDS: LEVETIRACETAM 500MG PREMIX 100 ML IV SCH ×2 (09:27→20:18)
[2020-11-25] MEDS: LACTULOSE 20G/30ML UDC PO SCH ×2 (09:27→20:18)
[2020-11-25] MEDS: AMLODIPINE 10MG TABLET PO SCH (09:28)
[2020-11-25] MEDS: ASPIRIN 325MG TABLET PO SCH (09:28)
[2020-11-25] MEDS: HYDRALAZINE HCL 25MG TABLET GT SCH ×3 (09:33→21:23)
[2020-11-25] MEDS: SEVELAMER CARBONATE 800 MG TABLET PO SCH ×3 (09:33→18:17)
[2020-11-25] MEDS: CEFEPIME 2,000 MG in DEXT 5% WATER 100 ML IV SCH (18:17)
[2020-11-25] MEDS: FAMOTIDINE 20MG TABLET PO SCH (20:18)
[2020-11-26] VITALS (13 sets, daily range): BP systolic 127–171; BP diastolic 58–87
[2020-11-26] MEDS: BLOOD SUGAR DIAGNOSTIC STRIP TEST SCH ×5 (00:02→23:59)
[2020-11-26] MEDS: METOCLOPRAMIDE HCL 10MG/2ML VIAL IV SCH ×4 (02:21→23:59)
[2020-11-26] MEDS: INSULIN LISPRO 100 UNITS/ML SUBCUT SCH ×3 (05:14→19:03)
[2020-11-26] MEDS: NITROGLYCERIN OINT 1GM/INCH UDPKT TD SCH ×3 (05:14→23:57)
[2020-11-26] MEDS: HYDRALAZINE HCL 25MG TABLET GT SCH ×3 (05:15→23:59)
[2020-11-26 06:22] LABS: HEMATOCRIT. 25.6 % (36.0-48.0); HEMOGLOBIN. 8.1 g/dL (12.0-16.0); MEAN CORPUSCULAR VOLUME 97.5 fL (81.0-99.0); MEAN PLATELET VOLUME 9.8 fl (7.4-10.4); PLATELET 187 x1000/uL (130-400); RED BLOOD CELL COUNT 2.63 mill/uL (4.2-5.4); RED CELL DISTRIBUTION WIDTH 16.8 % (11.6-14.6)
[2020-11-26] MEDS: LEVETIRACETAM 500MG PREMIX 100 ML IV SCH ×2 (08:42→23:58)
[2020-11-26] MEDS: ASPIRIN 325MG TABLET PO SCH (08:42)
[2020-11-26] MEDS: FOLIC ACID/VITAMIN B COMP W-C TABLET PO SCH (08:43)
[2020-11-26] MEDS: SULFAMETHOXAZOLE/TRIMETHOPRIM 800/160MG TABLET PO SCH (08:43)
[2020-11-26] MEDS: AMLODIPINE 10MG TABLET PO SCH (08:43)
[2020-11-26] MEDS: LACTULOSE 20G/30ML UDC PO SCH ×2 (08:43→21:00)
[2020-11-26] MEDS: SEVELAMER CARBONATE 800 MG TABLET PO SCH ×3 (08:48→18:00)
[2020-11-26 15:51] LABS: PLATELET ESTIMATE NORMAL
[2020-11-26] MEDS: CEFEPIME 2,000 MG in DEXT 5% WATER 100 ML IV SCH (18:31)
[2020-11-26] MEDS: FAMOTIDINE 20MG TABLET PO SCH (23:59)
[2020-11-27] VITALS (13 sets, daily range): BP systolic 65–170; BP diastolic 55–87
[2020-11-27] MEDS: INSULIN LISPRO 100 UNITS/ML SUBCUT SCH ×5 (00:10→23:31)
[2020-11-27] MEDS: METOCLOPRAMIDE HCL 10MG/2ML VIAL IV SCH ×4 (05:00→23:30)
[2020-11-27] MEDS: NITROGLYCERIN OINT 1GM/INCH UDPKT TD SCH ×3 (05:01→21:16)
[2020-11-27] MEDS: BLOOD SUGAR DIAGNOSTIC STRIP TEST SCH ×3 (05:02→18:13)
[2020-11-27] MEDS: HYDRALAZINE HCL 25MG TABLET GT SCH ×3 (05:02→21:16)
[2020-11-27] MEDS: SEVELAMER CARBONATE 800 MG TABLET PO SCH ×3 (08:05→18:12)
[2020-11-27] MEDS: ASPIRIN 325MG TABLET PO SCH (08:05)
[2020-11-27] MEDS: LACTULOSE 20G/30ML UDC PO SCH ×2 (08:05→21:15)
[2020-11-27] MEDS: FOLIC ACID/VITAMIN B COMP W-C TABLET PO SCH (08:05)
[2020-11-27] MEDS: AMLODIPINE 10MG TABLET PO SCH (08:05)
[2020-11-27] MEDS: LEVETIRACETAM 500MG PREMIX 100 ML IV SCH (08:05)
[2020-11-27 08:07] LABS: HEMATOCRIT. 29.5 % (36.0-48.0); HEMOGLOBIN. 9.2 g/dL (12.0-16.0); MEAN CORPUSCULAR HEMOGLOBIN 30.5 pg (28.0-32.0); MEAN CORPUSCULAR VOLUME 97.9 fL (81.0-99.0); MEAN PLATELET VOLUME 10.1 fl (7.4-10.4); PLATELET 204 x1000/uL (130-400); RED BLOOD CELL COUNT 3.01 mill/uL (4.2-5.4)
[2020-11-27] MEDS: POTASSIUM CHLORIDE 20MEQ/PACKET PO SCH (10:32)
[2020-11-27 20:51] LABS: PLATELET ESTIMATE NORMAL
[2020-11-27] MEDS: LEVETIRACETAM 500MG TABLET PO SCH (21:16)
[2020-11-27] MEDS: FAMOTIDINE 20MG TABLET PO SCH (21:16)
[2020-11-28] VITALS (12 sets, daily range): BP systolic 117–155; BP diastolic 51–79
[2020-11-28] MEDS: BLOOD SUGAR DIAGNOSTIC STRIP TEST SCH ×6 (00:03→23:11)
[2020-11-28] MEDS: CLONIDINE 0.1MG TABLET PO PRN (01:26)
[2020-11-28] MEDS: METOCLOPRAMIDE HCL 10MG/2ML VIAL IV SCH ×4 (05:54→23:11)
[2020-11-28] MEDS: INSULIN LISPRO 100 UNITS/ML SUBCUT SCH ×4 (05:54→23:13)
[2020-11-28] MEDS: NITROGLYCERIN OINT 1GM/INCH UDPKT TD SCH ×3 (05:55→21:16)
[2020-11-28] MEDS: HYDRALAZINE HCL 25MG TABLET GT SCH ×3 (05:55→21:16)
[2020-11-28 06:14] LABS: BASOPHILS % 0.8 % (0.0-2.0); EOSINOPHILS % 0.8 % (0.0-5.0); HEMATOCRIT. 26.1 % (36.0-48.0); HEMOGLOBIN. 8.2 g/dL (12.0-16.0); LYMPHOCYTES % 11.4 % (20.0-50.0); MEAN CORPUSCULAR HEMOGLOBIN 31.4 pg (28.0-32.0); MEAN CORPUSCULAR VOLUME 99.9 fL (81.0-99.0); MEAN PLATELET VOLUME 9.7 fl (7.4-10.4); PLATELET 149 x1000/uL (130-400); RED BLOOD CELL COUNT 2.61 mill/uL (4.2-5.4); RED CELL DISTRIBUTION WIDTH 16.8 % (11.6-14.6)
[2020-11-28] MEDS: SEVELAMER CARBONATE 800 MG TABLET PO SCH ×3 (08:10→17:38)
[2020-11-28] MEDS: LACTULOSE 20G/30ML UDC PO SCH ×3 (09:00→21:15)
[2020-11-28] MEDS: AMLODIPINE 10MG TABLET PO SCH ×2 (09:00→12:10)
[2020-11-28] MEDS: LEVETIRACETAM 500MG TABLET PO SCH ×3 (09:00→21:16)
[2020-11-28] MEDS: FOLIC ACID/VITAMIN B COMP W-C TABLET PO SCH ×3 (09:00→12:21)
[2020-11-28] MEDS: POTASSIUM CHLORIDE 20MEQ/PACKET PO SCH ×3 (09:00→12:21)
[2020-11-28] MEDS: ASPIRIN 325MG TABLET PO SCH ×3 (09:00→12:20)
[2020-11-28] MEDS: SULFAMETHOXAZOLE/TRIMETHOPRIM 800/160MG TABLET PO SCH ×2 (09:00→12:11)
[2020-11-28] MEDS: FAMOTIDINE 20MG TABLET PO SCH (21:16)
[2020-11-29] VITALS (12 sets, daily range): BP systolic 107–142; BP diastolic 52–68
[2020-11-29] MEDS: BLOOD SUGAR DIAGNOSTIC STRIP TEST SCH ×3 (05:20→17:44)
[2020-11-29] MEDS: HYDRALAZINE HCL 25MG TABLET GT SCH ×3 (05:22→21:31)
[2020-11-29] MEDS: NITROGLYCERIN OINT 1GM/INCH UDPKT TD SCH ×3 (05:22→21:31)
[2020-11-29] MEDS: METOCLOPRAMIDE HCL 10MG/2ML VIAL IV SCH ×3 (05:22→17:56)
[2020-11-29] MEDS: INSULIN LISPRO 100 UNITS/ML SUBCUT SCH ×3 (05:23→17:58)
[2020-11-29] MEDS: FOLIC ACID/VITAMIN B COMP W-C TABLET PO SCH (08:25)
[2020-11-29] MEDS: LEVETIRACETAM 500MG TABLET PO SCH ×2 (08:25→21:31)
[2020-11-29] MEDS: LACTULOSE 20G/30ML UDC PO SCH ×2 (08:25→21:31)
[2020-11-29] MEDS: SEVELAMER CARBONATE 800 MG TABLET PO SCH ×3 (08:25→17:56)
[2020-11-29] MEDS: ASPIRIN 325MG TABLET PO SCH (08:26)
[2020-11-29] MEDS: POTASSIUM CHLORIDE 20MEQ/PACKET PO SCH (08:26)
[2020-11-29] MEDS: AMLODIPINE 10MG TABLET PO SCH (08:26)
[2020-11-29] MEDS: FAMOTIDINE 20MG TABLET PO SCH (21:31)
[2020-11-30] VITALS (12 sets, daily range): BP systolic 105–149; BP diastolic 51–77
[2020-11-30] MEDS: BLOOD SUGAR DIAGNOSTIC STRIP TEST SCH ×4 (00:44→17:25)
[2020-11-30] MEDS: METOCLOPRAMIDE HCL 10MG/2ML VIAL IV SCH ×4 (00:54→17:25)
[2020-11-30] MEDS: INSULIN LISPRO 100 UNITS/ML SUBCUT SCH ×4 (00:55→17:39)
[2020-11-30] MEDS: NITROGLYCERIN OINT 1GM/INCH UDPKT TD SCH ×3 (06:00→21:20)
[2020-11-30] MEDS: HYDRALAZINE HCL 25MG TABLET GT SCH ×3 (06:00→21:19)
[2020-11-30] MEDS: LACTULOSE 20G/30ML UDC PO SCH ×2 (08:41→21:19)
[2020-11-30] MEDS: LEVETIRACETAM 500MG TABLET PO SCH ×2 (08:41→21:19)
[2020-11-30] MEDS: AZITHROMYCIN 500 MG TABLET PO SCH (08:42)
[2020-11-30] MEDS: ASPIRIN 325MG TABLET PO SCH (08:42)
[2020-11-30] MEDS: FOLIC ACID/VITAMIN B COMP W-C TABLET PO SCH (08:42)
[2020-11-30] MEDS: POTASSIUM CHLORIDE 20MEQ/PACKET PO SCH (08:42)
[2020-11-30] MEDS: SULFAMETHOXAZOLE/TRIMETHOPRIM 800/160MG TABLET PO SCH (08:43)
[2020-11-30] MEDS: AMLODIPINE 10MG TABLET PO SCH (08:44)
[2020-11-30] MEDS: SEVELAMER CARBONATE 800 MG TABLET PO SCH ×3 (08:50→17:25)
[2020-11-30 09:02] LABS: BG BASE EXCESS -2.4 mmol/L (-2.0-2.0); BG CARBOXYHEMOGLOBIN 0.9 % (0.5-1.5); BG DEOXYHEMOGLOBIN 1.3 % (0.0-5.0); BG FRACTION INSPIRED OXYGEN 30; BG HCO3 ACT 22.5 mmol/L (22.0-26.0); BG METHEMOGLOBIN 0.3 % (0.0-1.5); BG OXYGEN SATURATION 98.7 % (92.0-98.5); BG OXYHEMOGLOBIN 97.5 % (94.0-97.0); BG PCO2 38.9 mmHg (35.0-45.0); BG PO2 134.3 mmHg (75.0-100.0); BG SAMPLE SITE RIGHT RADIAL; BG TOTAL HEMOGLOBIN 7.5 g/dL (12.0-18.0); BG VENT MODE VENT - SIMV
[2020-11-30 09:34] LABS: BASOPHILS % 0.7 % (0.0-2.0); EOSINOPHILS % 1.5 % (0.0-5.0); HEMATOCRIT. 23.8 % (36.0-48.0); HEMOGLOBIN. 7.7 g/dL (12.0-16.0); MEAN CORPUSCULAR VOLUME 99.3 fL (81.0-99.0); MEAN PLATELET VOLUME 10.2 fl (7.4-10.4); MONOCYTES % 10.9 % (2.0-8.0); NEUTROPHILS % 73.9 % (40.0-76.0); PLATELET 141 x1000/uL (130-400); RED CELL DISTRIBUTION WIDTH 16.6 % (11.6-14.6)
[2020-11-30] MEDS: FAMOTIDINE 20MG TABLET PO SCH (21:19)
[2020-12-01] VITALS (12 sets, daily range): BP systolic 91–144; BP diastolic 53–78
[2020-12-01] MEDS: BLOOD SUGAR DIAGNOSTIC STRIP TEST SCH ×4 (00:15→17:14)
[2020-12-01] MEDS: METOCLOPRAMIDE HCL 10MG/2ML VIAL IV SCH ×4 (00:26→17:24)
[2020-12-01] MEDS: INSULIN LISPRO 100 UNITS/ML SUBCUT SCH ×4 (00:27→17:25)
[2020-12-01] MEDS: HYDRALAZINE HCL 25MG TABLET GT SCH ×3 (06:00→22:00)
[2020-12-01] MEDS: NITROGLYCERIN OINT 1GM/INCH UDPKT TD SCH ×3 (06:00→22:00)
[2020-12-01] MEDS: SEVELAMER CARBONATE 800 MG TABLET PO SCH ×3 (08:59→17:23)
[2020-12-01] MEDS: ASPIRIN 325MG TABLET PO SCH (08:59)
[2020-12-01] MEDS: POTASSIUM CHLORIDE 20MEQ/PACKET PO SCH (08:59)
[2020-12-01] MEDS: FOLIC ACID/VITAMIN B COMP W-C TABLET PO SCH (08:59)
[2020-12-01] MEDS: LEVETIRACETAM 500MG TABLET PO SCH ×2 (08:59→22:19)
[2020-12-01] MEDS: LACTULOSE 20G/30ML UDC PO SCH ×2 (09:00→21:00)
[2020-12-01] MEDS: AMLODIPINE 10MG TABLET PO SCH (09:00)
[2020-12-01] MEDS: FAMOTIDINE 20MG TABLET PO SCH (22:19)
[2020-12-02] VITALS (11 sets, daily range): BP systolic 103–161; BP diastolic 52–94
[2020-12-02] MEDS: BLOOD SUGAR DIAGNOSTIC STRIP TEST SCH ×5 (00:45→23:11)
[2020-12-02] MEDS: INSULIN LISPRO 100 UNITS/ML SUBCUT SCH ×5 (01:13→23:30)
[2020-12-02] MEDS: METOCLOPRAMIDE HCL 10MG/2ML VIAL IV SCH ×5 (01:27→23:30)
[2020-12-02] MEDS: HYDRALAZINE HCL 25MG TABLET GT SCH ×3 (05:32→20:52)
[2020-12-02] MEDS: NITROGLYCERIN OINT 1GM/INCH UDPKT TD SCH ×3 (05:34→20:52)
[2020-12-02 05:45] LABS: BASOPHILS % 0.8 % (0.0-2.0); EOSINOPHILS % 2.5 % (0.0-5.0); HEMATOCRIT. 25.6 % (36.0-48.0); HEMOGLOBIN. 8.2 g/dL (12.0-16.0); MEAN CORPUSCULAR HEMOGLOBIN 31.1 pg (28.0-32.0); MEAN CORPUSCULAR VOLUME 97.2 fL (81.0-99.0); MEAN PLATELET VOLUME 10.1 fl (7.4-10.4); MONOCYTES % 11.7 % (2.0-8.0); PLATELET 137 x1000/uL (130-400); RED BLOOD CELL COUNT 2.63 mill/uL (4.2-5.4); RED CELL DISTRIBUTION WIDTH 16.3 % (11.6-14.6)
[2020-12-02] MEDS: LACTULOSE 20G/30ML UDC PO SCH ×2 (09:00→20:50)
[2020-12-02] MEDS: SEVELAMER CARBONATE 800 MG TABLET PO SCH ×3 (09:00→17:36)
[2020-12-02] MEDS: AMLODIPINE 10MG TABLET PO SCH (09:00)
[2020-12-02] MEDS: ASPIRIN 325MG TABLET PO SCH (09:00)
[2020-12-02] MEDS: POTASSIUM CHLORIDE 20MEQ/PACKET PO SCH (09:00)
[2020-12-02] MEDS: FOLIC ACID/VITAMIN B COMP W-C TABLET PO SCH (09:00)
[2020-12-02] MEDS: LEVETIRACETAM 500MG TABLET PO SCH ×2 (09:00→20:52)
[2020-12-02] MEDS: FAMOTIDINE 20MG TABLET PO SCH (20:53)
[2020-12-03] VITALS (13 sets, daily range): BP systolic 101–165; BP diastolic 58–86
[2020-12-03] MEDS: BLOOD SUGAR DIAGNOSTIC STRIP TEST SCH ×4 (05:19→23:45)
[2020-12-03] MEDS: HYDRALAZINE HCL 25MG TABLET GT SCH ×3 (05:19→20:47)
[2020-12-03] MEDS: NITROGLYCERIN OINT 1GM/INCH UDPKT TD SCH ×3 (05:24→20:47)
[2020-12-03] MEDS: METOCLOPRAMIDE HCL 10MG/2ML VIAL IV SCH ×4 (05:24→23:01)
[2020-12-03] MEDS: INSULIN LISPRO 100 UNITS/ML SUBCUT SCH ×4 (05:40→23:49)
[2020-12-03] MEDS: AMLODIPINE 10MG TABLET PO SCH (09:00)
[2020-12-03] MEDS: LACTULOSE 20G/30ML UDC PO SCH ×2 (10:40→20:46)
[2020-12-03] MEDS: POTASSIUM CHLORIDE 20MEQ/PACKET PO SCH (10:40)
[2020-12-03] MEDS: LEVETIRACETAM 500MG TABLET PO SCH ×2 (10:41→20:46)
[2020-12-03] MEDS: ASPIRIN 325MG TABLET PO SCH (10:41)
[2020-12-03] MEDS: SEVELAMER CARBONATE 800 MG TABLET PO SCH ×3 (10:41→18:07)
[2020-12-03] MEDS: SULFAMETHOXAZOLE/TRIMETHOPRIM 800/160MG TABLET PO SCH (10:41)
[2020-12-03] MEDS: FOLIC ACID/VITAMIN B COMP W-C TABLET PO SCH (10:41)
[2020-12-03 16:43] LABS: BASOPHILS % 0.7 % (0.0-2.0); EOSINOPHILS % 3.2 % (0.0-5.0); HEMATOCRIT. 25.2 % (36.0-48.0); HEMOGLOBIN. 8.2 g/dL (12.0-16.0); LYMPHOCYTES % 13.3 % (20.0-50.0); MEAN CORPUSCULAR HEMOGLOBIN 31.3 pg (28.0-32.0); MEAN CORPUSCULAR VOLUME 96.2 fL (81.0-99.0); MEAN PLATELET VOLUME 9.7 fl (7.4-10.4); MONOCYTES % 9.3 % (2.0-8.0); NEUTROPHILS % 73.5 % (40.0-76.0); PLATELET 142 x1000/uL (130-400); RED BLOOD CELL COUNT 2.62 mill/uL (4.2-5.4); RED CELL DISTRIBUTION WIDTH 15.9 % (11.6-14.6)
[2020-12-03] MEDS: FAMOTIDINE 20MG TABLET PO SCH (20:48)
[2020-12-04] VITALS (13 sets, daily range): BP systolic 115–179; BP diastolic 60–92
[2020-12-04] MEDS: INSULIN LISPRO 100 UNITS/ML SUBCUT SCH ×4 (05:24→23:27)
[2020-12-04] MEDS: BLOOD SUGAR DIAGNOSTIC STRIP TEST SCH ×4 (05:25→23:18)
[2020-12-04] MEDS: NITROGLYCERIN OINT 1GM/INCH UDPKT TD SCH ×3 (06:00→20:43)
[2020-12-04] MEDS: HYDRALAZINE HCL 25MG TABLET GT SCH ×3 (06:00→20:43)
[2020-12-04] MEDS: METOCLOPRAMIDE HCL 10MG/2ML VIAL IV SCH ×4 (06:00→23:22)
[2020-12-04] MEDS: LACTULOSE 20G/30ML UDC PO SCH ×2 (08:43→20:34)
[2020-12-04] MEDS: SEVELAMER CARBONATE 800 MG TABLET PO SCH ×3 (08:43→18:46)
[2020-12-04] MEDS: LEVETIRACETAM 500MG TABLET PO SCH ×2 (08:45→20:34)
[2020-12-04] MEDS: AMLODIPINE 10MG TABLET PO SCH (08:45)
[2020-12-04] MEDS: ASPIRIN 325MG TABLET PO SCH (08:45)
[2020-12-04] MEDS: FOLIC ACID/VITAMIN B COMP W-C TABLET PO SCH (08:45)
[2020-12-04] MEDS: POTASSIUM CHLORIDE 20MEQ/PACKET PO SCH (09:00)
[2020-12-04] MEDS: FAMOTIDINE 20MG TABLET PO SCH (20:34)
[2020-12-05] VITALS (12 sets, daily range): BP systolic 89–146; BP diastolic 45–77
[2020-12-05] MEDS: IPRATROPIUM/ALBUTEROL 0.5-3(2.5)MG/3ML NEB HHN SCH ×4 (01:32→21:06)
[2020-12-05] MEDS: METOCLOPRAMIDE HCL 10MG/2ML VIAL IV SCH ×4 (05:32→23:54)
[2020-12-05] MEDS: HYDRALAZINE HCL 25MG TABLET GT SCH ×3 (05:35→21:35)
[2020-12-05] MEDS: BLOOD SUGAR DIAGNOSTIC STRIP TEST SCH ×4 (05:39→23:54)
[2020-12-05] MEDS: INSULIN LISPRO 100 UNITS/ML SUBCUT SCH ×4 (05:39→23:56)
[2020-12-05] MEDS: NITROGLYCERIN OINT 1GM/INCH UDPKT TD SCH ×3 (05:42→21:35)
[2020-12-05] MEDS: FOLIC ACID/VITAMIN B COMP W-C TABLET PO SCH (10:04)
[2020-12-05] MEDS: POTASSIUM CHLORIDE 20MEQ/PACKET PO SCH (10:04)
[2020-12-05] MEDS: LACTULOSE 20G/30ML UDC PO SCH ×2 (10:04→21:34)
[2020-12-05] MEDS: SEVELAMER CARBONATE 800 MG TABLET PO SCH ×2 (10:04→17:17)
[2020-12-05] MEDS: ASPIRIN 325MG TABLET PO SCH (10:05)
[2020-12-05] MEDS: LEVETIRACETAM 500MG TABLET PO SCH ×2 (10:05→21:35)
[2020-12-05] MEDS: SULFAMETHOXAZOLE/TRIMETHOPRIM 800/160MG TABLET PO SCH (10:05)
[2020-12-05] MEDS: AMLODIPINE 10MG TABLET PO SCH (10:05)
[2020-12-05] MEDS: FAMOTIDINE 20MG TABLET PO SCH (21:35)
[2020-12-06] VITALS (12 sets, daily range): BP systolic 111–156; BP diastolic 58–85
[2020-12-06] MEDS: IPRATROPIUM/ALBUTEROL 0.5-3(2.5)MG/3ML NEB HHN SCH ×4 (00:18→20:30)
[2020-12-06] MEDS: METOCLOPRAMIDE HCL 10MG/2ML VIAL IV SCH ×3 (05:15→18:06)
[2020-12-06] MEDS: HYDRALAZINE HCL 25MG TABLET GT SCH ×3 (05:16→21:11)
[2020-12-06] MEDS: NITROGLYCERIN OINT 1GM/INCH UDPKT TD SCH ×3 (05:16→21:12)
[2020-12-06] MEDS: BLOOD SUGAR DIAGNOSTIC STRIP TEST SCH ×3 (05:17→17:58)
[2020-12-06] MEDS: INSULIN LISPRO 100 UNITS/ML SUBCUT SCH ×3 (05:59→18:07)
[2020-12-06] MEDS: LACTULOSE 20G/30ML UDC PO SCH ×2 (09:06→21:11)
[2020-12-06] MEDS: FOLIC ACID/VITAMIN B COMP W-C TABLET PO SCH (09:06)
[2020-12-06] MEDS: AMLODIPINE 10MG TABLET PO SCH (09:06)
[2020-12-06] MEDS: ASPIRIN 325MG TABLET PO SCH (09:06)
[2020-12-06] MEDS: POTASSIUM CHLORIDE 20MEQ/PACKET PO SCH (09:07)
[2020-12-06] MEDS: LEVETIRACETAM 500MG TABLET PO SCH ×2 (09:07→21:11)
[2020-12-06] MEDS: SEVELAMER CARBONATE 800 MG TABLET PO SCH ×3 (09:14→18:06)
[2020-12-06] MEDS: FAMOTIDINE 20MG TABLET PO SCH (21:12)
[2020-12-07] VITALS (12 sets, daily range): BP systolic 74–147; BP diastolic 40–70
[2020-12-07] MEDS: METOCLOPRAMIDE HCL 10MG/2ML VIAL IV SCH ×5 (00:38→23:27)
[2020-12-07] MEDS: IPRATROPIUM/ALBUTEROL 0.5-3(2.5)MG/3ML NEB HHN SCH ×4 (03:23→20:10)
[2020-12-07] MEDS: HYDRALAZINE HCL 25MG TABLET GT SCH (05:19)
[2020-12-07] MEDS: NITROGLYCERIN OINT 1GM/INCH UDPKT TD SCH (05:20)
[2020-12-07] MEDS: BLOOD SUGAR DIAGNOSTIC STRIP TEST SCH ×5 (05:26→23:28)
[2020-12-07] MEDS: INSULIN LISPRO 100 UNITS/ML SUBCUT SCH ×5 (05:30→23:29)
[2020-12-07] MEDS: AZITHROMYCIN 500 MG TABLET PO SCH (08:41)
[2020-12-07] MEDS: POTASSIUM CHLORIDE 20MEQ/PACKET PO SCH (08:42)
[2020-12-07] MEDS: SULFAMETHOXAZOLE/TRIMETHOPRIM 800/160MG TABLET PO SCH (08:42)
[2020-12-07] MEDS: FOLIC ACID/VITAMIN B COMP W-C TABLET PO SCH (08:42)
[2020-12-07] MEDS: ASPIRIN 325MG TABLET PO SCH (08:42)
[2020-12-07] MEDS: LEVETIRACETAM 500MG TABLET PO SCH ×2 (08:42→22:17)
[2020-12-07] MEDS: LACTULOSE 20G/30ML UDC PO SCH ×2 (08:42→22:17)
[2020-12-07] MEDS: SEVELAMER CARBONATE 800 MG TABLET PO SCH ×3 (08:42→18:20)
[2020-12-07] MEDS: AMLODIPINE 10MG TABLET PO SCH (08:43)
[2020-12-07] MEDS: MIDODRINE HCL 5MG TABLET PO SCH ×2 (12:52→16:55)
[2020-12-07] MEDS: CEFTAZIDIME PENTAHYDRATE 1 G in DEXTROSE 5% WATER 50 ML IV SCH (15:34)
[2020-12-07] MEDS ORDERED: AMIKACIN 500MG in SODIUM CHLORIDE 0.9% 100ML IV NR (16:00)
[2020-12-07] MEDS ORDERED: VANCOMYCIN 1250MG in DEXTROSE 5% WATER 250ML IV NR (17:00)
[2020-12-07] MEDS: FAMOTIDINE 20MG TABLET PO SCH (22:17)
[2020-12-07 22:52] LABS: BASOPHILS % 0.5 % (0.0-2.0); EOSINOPHILS % 2.4 % (0.0-5.0); HEMATOCRIT. 25.4 % (36.0-48.0); HEMOGLOBIN. 8.4 g/dL (12.0-16.0); LYMPHOCYTES % 11.3 % (20.0-50.0); MEAN CORPUSCULAR HEMOGLOBIN 31.7 pg (28.0-32.0); MEAN CORPUSCULAR VOLUME 96.5 fL (81.0-99.0); MEAN PLATELET VOLUME 9.1 fl (7.4-10.4); MONOCYTES % 8.6 % (2.0-8.0); NEUTROPHILS % 77.2 % (40.0-76.0); PLATELET 250 x1000/uL (130-400); RED BLOOD CELL COUNT 2.63 mill/uL (4.2-5.4); RED CELL DISTRIBUTION WIDTH 16.1 % (11.6-14.6)
[2020-12-08] VITALS (11 sets, daily range): BP systolic 120–174; BP diastolic 58–94
[2020-12-08] MEDS: IPRATROPIUM/ALBUTEROL 0.5-3(2.5)MG/3ML NEB HHN SCH ×3 (02:13→16:55)
[2020-12-08] MEDS: BLOOD SUGAR DIAGNOSTIC STRIP TEST SCH ×3 (06:00→17:26)
[2020-12-08] MEDS: INSULIN LISPRO 100 UNITS/ML SUBCUT SCH ×3 (07:04→17:32)
[2020-12-08] MEDS: METOCLOPRAMIDE HCL 10MG/2ML VIAL IV SCH ×3 (07:08→17:36)
[2020-12-08] MEDS: POTASSIUM CHLORIDE 20MEQ/PACKET PO SCH (10:03)
[2020-12-08] MEDS: MIDODRINE HCL 5MG TABLET PO SCH ×3 (10:03→16:54)
[2020-12-08] MEDS: LACTULOSE 20G/30ML UDC PO SCH ×2 (10:03→20:55)
[2020-12-08] MEDS: FOLIC ACID/VITAMIN B COMP W-C TABLET PO SCH (10:03)
[2020-12-08] MEDS: ASPIRIN 325MG TABLET PO SCH (10:03)
[2020-12-08] MEDS: LEVETIRACETAM 500MG TABLET PO SCH ×2 (10:04→20:56)
[2020-12-08] MEDS: SEVELAMER CARBONATE 800 MG TABLET PO SCH ×2 (10:09→13:07)
[2020-12-08] MEDS: CEFTAZIDIME PENTAHYDRATE 1 G in DEXTROSE 5% WATER 50 ML IV SCH (13:14)
[2020-12-09] VITALS (13 sets, daily range): BP systolic 96–176; BP diastolic 61–88
[2020-12-09] MEDS: METOCLOPRAMIDE HCL 10MG/2ML VIAL IV SCH ×5 (00:03→23:09)
[2020-12-09] MEDS: INSULIN LISPRO 100 UNITS/ML SUBCUT SCH ×5 (00:10→23:10)
[2020-12-09] MEDS: IPRATROPIUM/ALBUTEROL 0.5-3(2.5)MG/3ML NEB HHN SCH ×4 (00:34→18:00)
[2020-12-09] MEDS: BLOOD SUGAR DIAGNOSTIC STRIP TEST SCH ×5 (05:37→23:01)
[2020-12-09 06:27] LABS: HEMATOCRIT 23.3 % (36.0-48.0); HEMOGLOBIN 7.6 g/dL (12.0-16.0); MEAN CORPUSCULAR HEMOGLOBIN 31.5 pg (28.0-32.0); MEAN CORPUSCULAR VOLUME 96.9 fL (81.0-99.0); PLATELET 241 x1000/uL (130-400); RED BLOOD CELL COUNT 2.41 mill/uL (4.2-5.4)
[2020-12-09] MEDS: MIDODRINE HCL 5MG TABLET PO SCH ×3 (09:00→16:27)
[2020-12-09] MEDS: LACTULOSE 20G/30ML UDC PO SCH ×2 (10:03→21:35)
[2020-12-09] MEDS: ASPIRIN 325MG TABLET PO SCH (10:03)
[2020-12-09] MEDS: LEVETIRACETAM 500MG TABLET PO SCH ×2 (10:03→21:13)
[2020-12-09] MEDS: CEFTAZIDIME PENTAHYDRATE 1 G in DEXTROSE 5% WATER 50 ML IV SCH (14:02)
[2020-12-09] MEDS: METRONIDAZOLE 250MG TABLET PO SCH ×2 (16:27→23:09)
[2020-12-10] VITALS (12 sets, daily range): BP systolic 112–162; BP diastolic 63–82
[2020-12-10] MEDS: IPRATROPIUM/ALBUTEROL 0.5-3(2.5)MG/3ML NEB HHN SCH ×3 (03:37→15:20)
[2020-12-10] MEDS: METOCLOPRAMIDE HCL 10MG/2ML VIAL IV SCH ×4 (05:16→23:37)
[2020-12-10] MEDS: INSULIN LISPRO 100 UNITS/ML SUBCUT SCH ×4 (05:17→23:42)
[2020-12-10] MEDS: BLOOD SUGAR DIAGNOSTIC STRIP TEST SCH ×4 (05:17→23:36)
[2020-12-10 06:20] LABS: HEMATOCRIT. 25.5 % (36.0-48.0); HEMOGLOBIN. 8.2 g/dL (12.0-16.0); MEAN CORPUSCULAR VOLUME 95.9 fL (81.0-99.0); MEAN PLATELET VOLUME 8.6 fl (7.4-10.4); PLATELET 256 x1000/uL (130-400); RED BLOOD CELL COUNT 2.66 mill/uL (4.2-5.4)
[2020-12-10] MEDS: METRONIDAZOLE 250MG TABLET PO SCH ×2 (09:00→23:37)
[2020-12-10] MEDS: MIDODRINE HCL 5MG TABLET PO SCH ×3 (09:01→17:35)
[2020-12-10] MEDS: LACTULOSE 20G/30ML UDC PO SCH ×2 (09:01→20:37)
[2020-12-10] MEDS: ASPIRIN 325MG TABLET PO SCH (09:01)
[2020-12-10] MEDS: LEVETIRACETAM 500MG TABLET PO SCH ×2 (09:01→20:37)
[2020-12-10 21:19] LABS: PLATELET ESTIMATE NORMAL
[2020-12-11] VITALS (23 sets, daily range): BP systolic 89–174; BP diastolic 55–96
[2020-12-11] MEDS: IPRATROPIUM/ALBUTEROL 0.5-3(2.5)MG/3ML NEB HHN SCH ×4 (00:54→20:20)
[2020-12-11 05:17] LABS: HEMATOCRIT 26.1 % (36.0-48.0); HEMOGLOBIN 8.2 g/dL (12.0-16.0); MEAN CORPUSCULAR VOLUME 99.1 fL (81.0-99.0); PLATELET 256 x1000/uL (130-400); RED BLOOD CELL COUNT 2.64 mill/uL (4.2-5.4)
[2020-12-11] MEDS: BLOOD SUGAR DIAGNOSTIC STRIP TEST SCH ×4 (06:17→23:29)
[2020-12-11] MEDS: METOCLOPRAMIDE HCL 10MG/2ML VIAL IV SCH ×4 (06:17→23:28)
[2020-12-11] MEDS: INSULIN LISPRO 100 UNITS/ML SUBCUT SCH ×4 (06:19→23:35)
[2020-12-11] MEDS: LACTULOSE 20G/30ML UDC PO SCH ×2 (09:33→20:27)
[2020-12-11] MEDS: MIDODRINE HCL 5MG TABLET PO SCH ×3 (09:34→18:32)
[2020-12-11] MEDS: METRONIDAZOLE 250MG TABLET PO SCH ×3 (09:34→23:27)
[2020-12-11] MEDS: LEVETIRACETAM 500MG TABLET PO SCH ×2 (09:34→20:27)
[2020-12-12] VITALS (12 sets, daily range): BP systolic 91–149; BP diastolic 54–88
[2020-12-12] MEDS: IPRATROPIUM/ALBUTEROL 0.5-3(2.5)MG/3ML NEB HHN SCH ×3 (02:25→16:25)
[2020-12-12] MEDS: BLOOD SUGAR DIAGNOSTIC STRIP TEST SCH ×4 (05:22→23:46)
[2020-12-12] MEDS: INSULIN LISPRO 100 UNITS/ML SUBCUT SCH ×4 (05:22→23:50)
[2020-12-12] MEDS: METOCLOPRAMIDE HCL 10MG/2ML VIAL IV SCH ×4 (05:23→23:39)
[2020-12-12] MEDS: METRONIDAZOLE 250MG TABLET PO SCH ×3 (08:00→23:39)
[2020-12-12] MEDS: MIDODRINE HCL 5MG TABLET PO SCH ×3 (09:00→17:00)
[2020-12-12] MEDS: LEVETIRACETAM 500MG TABLET PO SCH ×2 (09:56→20:26)
[2020-12-12] MEDS: LACTULOSE 20G/30ML UDC PO SCH ×2 (09:57→20:26)
[2020-12-13] VITALS (12 sets, daily range): BP systolic 93–153; BP diastolic 48–84
[2020-12-13] MEDS: IPRATROPIUM/ALBUTEROL 0.5-3(2.5)MG/3ML NEB HHN SCH ×3 (00:08→16:21)
[2020-12-13] MEDS: BLOOD SUGAR DIAGNOSTIC STRIP TEST SCH ×4 (05:48→23:09)
[2020-12-13] MEDS: METOCLOPRAMIDE HCL 10MG/2ML VIAL IV SCH ×4 (05:48→22:49)
[2020-12-13] MEDS: INSULIN LISPRO 100 UNITS/ML SUBCUT SCH ×4 (06:01→23:31)
[2020-12-13] MEDS: MIDODRINE HCL 5MG TABLET PO SCH ×4 (09:00→19:13)
[2020-12-13] MEDS: LEVETIRACETAM 500MG TABLET PO SCH ×2 (09:12→20:25)
[2020-12-13] MEDS: METRONIDAZOLE 250MG TABLET PO SCH ×3 (09:12→22:49)
[2020-12-13] MEDS: LACTULOSE 20G/30ML UDC PO SCH ×2 (09:12→20:25)
[2020-12-14] VITALS (12 sets, daily range): BP systolic 101–157; BP diastolic 57–92
[2020-12-14] MEDS: IPRATROPIUM/ALBUTEROL 0.5-3(2.5)MG/3ML NEB HHN SCH ×3 (00:52→15:26)
[2020-12-14] MEDS: BLOOD SUGAR DIAGNOSTIC STRIP TEST SCH ×3 (05:21→18:08)
[2020-12-14] MEDS: INSULIN LISPRO 100 UNITS/ML SUBCUT SCH ×3 (05:29→17:06)
[2020-12-14] MEDS: METOCLOPRAMIDE HCL 10MG/2ML VIAL IV SCH ×3 (05:29→17:06)
[2020-12-14 06:19] LABS: HEMATOCRIT. 27.9 % (36.0-48.0); HEMOGLOBIN. 8.7 g/dL (12.0-16.0); MEAN CORPUSCULAR HEMOGLOBIN 31.1 pg (28.0-32.0); MEAN CORPUSCULAR VOLUME 99.5 fL (81.0-99.0); PLATELET 288 x1000/uL (130-400); RED BLOOD CELL COUNT 2.81 mill/uL (4.2-5.4); RED CELL DISTRIBUTION WIDTH 15.8 % (11.6-14.6)
[2020-12-14] MEDS: MIDODRINE HCL 5MG TABLET PO SCH ×3 (09:00→16:31)
[2020-12-14] MEDS: METRONIDAZOLE 250MG TABLET PO SCH (09:15)
[2020-12-14] MEDS: LEVETIRACETAM 500MG TABLET PO SCH ×2 (09:16→20:45)
[2020-12-14] MEDS: FOLIC ACID/VITAMIN B COMP W-C TABLET PO SCH (09:16)
[2020-12-14] MEDS: LACTULOSE 20G/30ML UDC PO SCH (09:16)
[2020-12-14] MEDS ORDERED: LACTULOSE 20G/30ML UDC PO PRN (13:45)
[2020-12-14 14:17] LABS: PLATELET ESTIMATE NORMAL
[2020-12-15] VITALS (12 sets, daily range): BP systolic 83–136; BP diastolic 56–79
[2020-12-15] MEDS: METOCLOPRAMIDE HCL 10MG/2ML VIAL IV SCH ×4 (00:03→18:29)
[2020-12-15] MEDS: BLOOD SUGAR DIAGNOSTIC STRIP TEST SCH ×4 (00:06→18:04)
[2020-12-15] MEDS: INSULIN LISPRO 100 UNITS/ML SUBCUT SCH ×4 (00:06→18:30)
[2020-12-15] MEDS: IPRATROPIUM/ALBUTEROL 0.5-3(2.5)MG/3ML NEB HHN SCH ×4 (00:09→20:24)
[2020-12-15] MEDS: LEVETIRACETAM 500MG TABLET PO SCH ×2 (08:04→22:16)
[2020-12-15] MEDS: FOLIC ACID/VITAMIN B COMP W-C TABLET PO SCH (08:04)
[2020-12-15] MEDS: MIDODRINE HCL 5MG TABLET PO SCH ×3 (08:04→15:49)
[2020-12-15] MEDS ORDERED: BLOOD SUGAR DIAGNOSTIC STRIP TEST SCH (18:00)
[2020-12-15] MEDS ORDERED: INSULIN LISPRO 100 UNITS/ML SUBCUT SCH (18:00)
[2020-12-15] MEDS ORDERED: DEXTROSE 50% WATER 50ML SYRINGE IV PRN ×2 (18:00)
[2020-12-16] VITALS (17 sets, daily range): BP systolic 87–152; BP diastolic 45–78
[2020-12-16] MEDS: IPRATROPIUM/ALBUTEROL 0.5-3(2.5)MG/3ML NEB HHN SCH ×3 (00:34→16:10)
[2020-12-16 05:17] LABS: HEMATOCRIT. 26.3 % (36.0-48.0); HEMOGLOBIN. 8.6 g/dL (12.0-16.0); MEAN CORPUSCULAR HEMOGLOBIN 30.8 pg (28.0-32.0); MEAN CORPUSCULAR VOLUME 94.6 fL (81.0-99.0); MEAN PLATELET VOLUME 8.4 fl (7.4-10.4); PLATELET 243 x1000/uL (130-400); RED BLOOD CELL COUNT 2.78 mill/uL (4.2-5.4); RED CELL DISTRIBUTION WIDTH 15.2 % (11.6-14.6)
[2020-12-16] MEDS: BLOOD SUGAR DIAGNOSTIC STRIP TEST SCH ×4 (05:27→17:16)
[2020-12-16] MEDS: INSULIN LISPRO 100 UNITS/ML SUBCUT SCH ×5 (05:29→23:41)
[2020-12-16] MEDS: METOCLOPRAMIDE HCL 10MG/2ML VIAL IV SCH ×5 (05:30→23:42)
[2020-12-16] MEDS: LEVETIRACETAM 500MG TABLET PO SCH ×2 (08:44→21:02)
[2020-12-16] MEDS: FOLIC ACID/VITAMIN B COMP W-C TABLET PO SCH (08:44)
[2020-12-16] MEDS: MIDODRINE HCL 5MG TABLET PO SCH ×3 (08:45→17:59)
[2020-12-16] MEDS ORDERED: [UNRECOGNIZED DRUG - REMARK] XX SCH (16:15)
[2020-12-16] MEDS: METRONIDAZOLE 250MG TABLET PO SCH ×2 (16:38→21:00)
[2020-12-17] VITALS (15 sets, daily range): BP systolic 104–157; BP diastolic 55–82
[2020-12-17] MEDS: IPRATROPIUM/ALBUTEROL 0.5-3(2.5)MG/3ML NEB HHN SCH ×4 (00:09→20:22)
[2020-12-17] MEDS: INSULIN LISPRO 100 UNITS/ML SUBCUT SCH ×4 (06:05→23:51)
[2020-12-17] MEDS: METOCLOPRAMIDE HCL 10MG/2ML VIAL IV SCH ×4 (06:06→23:11)
[2020-12-17] MEDS: METRONIDAZOLE 250MG TABLET PO SCH ×3 (06:06→20:33)
[2020-12-17] MEDS: BLOOD SUGAR DIAGNOSTIC STRIP TEST SCH ×5 (06:06→23:47)
[2020-12-17 08:11] LABS: PLATELET ESTIMATE NORMAL
[2020-12-17] MEDS: LEVETIRACETAM 500MG TABLET PO SCH ×2 (08:20→20:33)
[2020-12-17] MEDS: FOLIC ACID/VITAMIN B COMP W-C TABLET PO SCH (08:21)
[2020-12-17] MEDS: SULFAMETHOXAZOLE/TRIMETHOPRIM 800/160MG TABLET PO SCH (08:22)
[2020-12-17] MEDS: MIDODRINE HCL 5MG TABLET PO SCH ×3 (08:22→17:00)
[2020-12-18] VITALS (13 sets, daily range): BP systolic 110–191; BP diastolic 61–99
[2020-12-18] MEDS: METRONIDAZOLE 250MG TABLET PO SCH ×3 (05:00→21:12)
[2020-12-18] MEDS: METOCLOPRAMIDE HCL 10MG/2ML VIAL IV SCH ×4 (05:00→23:28)
[2020-12-18] MEDS: BLOOD SUGAR DIAGNOSTIC STRIP TEST SCH ×3 (05:18→18:20)
[2020-12-18] MEDS: INSULIN LISPRO 100 UNITS/ML SUBCUT SCH ×3 (05:21→18:28)
[2020-12-18] MEDS: FOLIC ACID/VITAMIN B COMP W-C TABLET PO SCH (08:11)
[2020-12-18] MEDS: LEVETIRACETAM 500MG TABLET PO SCH ×2 (08:11→20:55)
[2020-12-18] MEDS: IPRATROPIUM/ALBUTEROL 0.5-3(2.5)MG/3ML NEB HHN SCH ×2 (08:32→16:14)
[2020-12-18] MEDS: MIDODRINE HCL 5MG TABLET PO SCH ×3 (09:00→17:00)
[2020-12-19] VITALS (12 sets, daily range): BP systolic 78–135; BP diastolic 47–89
[2020-12-19] MEDS: BLOOD SUGAR DIAGNOSTIC STRIP TEST SCH ×4 (00:23→18:32)
[2020-12-19] MEDS: IPRATROPIUM/ALBUTEROL 0.5-3(2.5)MG/3ML NEB HHN SCH ×3 (00:26→18:10)
[2020-12-19] MEDS: INSULIN LISPRO 100 UNITS/ML SUBCUT SCH ×4 (05:17→18:37)
[2020-12-19] MEDS: METOCLOPRAMIDE HCL 10MG/2ML VIAL IV SCH ×4 (05:17→23:18)
[2020-12-19] MEDS: METRONIDAZOLE 250MG TABLET PO SCH ×3 (05:17→20:54)
[2020-12-19] MEDS: ENOXAPARIN 30MG/0.3ML SYR SUBCUT SCH (08:35)
[2020-12-19] MEDS: LEVETIRACETAM 500MG TABLET PO SCH ×2 (08:36→20:55)
[2020-12-19] MEDS: MIDODRINE HCL 5MG TABLET PO SCH ×3 (08:36→18:36)
[2020-12-19] MEDS: SULFAMETHOXAZOLE/TRIMETHOPRIM 800/160MG TABLET PO SCH (08:36)
[2020-12-19] MEDS: FOLIC ACID/VITAMIN B COMP W-C TABLET PO SCH (08:36)
[2020-12-20] VITALS (26 sets, daily range): BP systolic 99–177; BP diastolic 62–92
[2020-12-20] MEDS: IPRATROPIUM/ALBUTEROL 0.5-3(2.5)MG/3ML NEB HHN SCH ×5 (00:25→23:56)
[2020-12-20] MEDS: BLOOD SUGAR DIAGNOSTIC STRIP TEST SCH ×4 (05:50→18:00)
[2020-12-20] MEDS: METOCLOPRAMIDE HCL 10MG/2ML VIAL IV SCH ×3 (05:50→18:36)
[2020-12-20] MEDS: INSULIN LISPRO 100 UNITS/ML SUBCUT SCH ×4 (06:03→18:00)
[2020-12-20] MEDS: METRONIDAZOLE 250MG TABLET PO SCH ×3 (06:17→21:01)
[2020-12-20] MEDS: FOLIC ACID/VITAMIN B COMP W-C TABLET PO SCH (08:12)
[2020-12-20] MEDS: LEVETIRACETAM 500MG TABLET PO SCH ×2 (08:14→21:01)
[2020-12-20] MEDS: MIDODRINE HCL 5MG TABLET PO SCH ×3 (08:15→17:00)
[2020-12-20] MEDS: ENOXAPARIN 30MG/0.3ML SYR SUBCUT SCH (12:34)
[2020-12-21] VITALS (12 sets, daily range): BP systolic 100–139; BP diastolic 52–78
[2020-12-21] MEDS: BLOOD SUGAR DIAGNOSTIC STRIP TEST SCH ×5 (00:10→23:19)
[2020-12-21] MEDS: METOCLOPRAMIDE HCL 10MG/2ML VIAL IV SCH ×5 (00:24→23:17)
[2020-12-21] MEDS: INSULIN LISPRO 100 UNITS/ML SUBCUT SCH ×5 (00:25→23:18)
[2020-12-21] MEDS: METRONIDAZOLE 250MG TABLET PO SCH ×2 (05:33→14:08)
[2020-12-21 06:20] LABS: HEMATOCRIT. 27.2 % (36.0-48.0); HEMOGLOBIN. 8.8 g/dL (12.0-16.0); MEAN CORPUSCULAR HEMOGLOBIN 30.4 pg (28.0-32.0); RED BLOOD CELL COUNT 2.89 mill/uL (4.2-5.4); RED CELL DISTRIBUTION WIDTH 15.4 % (11.6-14.6)
[2020-12-21] MEDS: FOLIC ACID/VITAMIN B COMP W-C TABLET PO SCH (08:00)
[2020-12-21] MEDS: SULFAMETHOXAZOLE/TRIMETHOPRIM 800/160MG TABLET PO SCH (08:01)
[2020-12-21] MEDS: ENOXAPARIN 30MG/0.3ML SYR SUBCUT SCH (08:01)
[2020-12-21] MEDS: LEVETIRACETAM 500MG TABLET PO SCH ×2 (08:01→21:12)
[2020-12-21] MEDS: MIDODRINE HCL 5MG TABLET PO SCH ×3 (08:01→17:00)
[2020-12-21] MEDS ORDERED: AZITHROMYCIN 500 MG TABLET PO SCH (09:00)
[2020-12-21] MEDS: IPRATROPIUM/ALBUTEROL 0.5-3(2.5)MG/3ML NEB HHN SCH ×2 (09:18→16:25)
[2020-12-21 10:58] LABS: PLATELET ESTIMATE NORMAL
[2020-12-21 10:59] LABS: MEAN PLATELET VOLUME 9.3 fl (7.4-10.4); PLATELET 206 x1000/uL (130-400)
[2020-12-22] VITALS (12 sets, daily range): BP systolic 104–156; BP diastolic 63–93
[2020-12-22] MEDS: IPRATROPIUM/ALBUTEROL 0.5-3(2.5)MG/3ML NEB HHN SCH ×3 (00:09→15:59)
[2020-12-22] MEDS: BLOOD SUGAR DIAGNOSTIC STRIP TEST SCH ×3 (06:12→17:58)
[2020-12-22] MEDS: METOCLOPRAMIDE HCL 10MG/2ML VIAL IV SCH ×3 (06:28→17:58)
[2020-12-22] MEDS: INSULIN LISPRO 100 UNITS/ML SUBCUT SCH ×3 (06:29→18:08)
[2020-12-22] MEDS: LEVETIRACETAM 500MG TABLET PO SCH ×2 (08:24→20:54)
[2020-12-22] MEDS: FOLIC ACID/VITAMIN B COMP W-C TABLET PO SCH (08:24)
[2020-12-22] MEDS: ENOXAPARIN 30MG/0.3ML SYR SUBCUT SCH (08:25)
[2020-12-22] MEDS: MIDODRINE HCL 5MG TABLET PO SCH ×3 (09:00→17:00)
[2020-12-22 12:28] LABS: BASOPHILS % 0.6 % (0.0-2.0); EOSINOPHILS % 0.8 % (0.0-5.0); HEMATOCRIT. 24.7 % (36.0-48.0); LYMPHOCYTES % 7.5 % (20.0-50.0); MEAN CORPUSCULAR HEMOGLOBIN 30.4 pg (28.0-32.0); MEAN CORPUSCULAR VOLUME 93.5 fL (81.0-99.0); MEAN PLATELET VOLUME 9.3 fl (7.4-10.4); MONOCYTES % 10.3 % (2.0-8.0); NEUTROPHILS % 80.8 % (40.0-76.0); PLATELET 162 x1000/uL (130-400); RED BLOOD CELL COUNT 2.65 mill/uL (4.2-5.4); RED CELL DISTRIBUTION WIDTH 15.1 % (11.6-14.6)
[2020-12-22] MEDS: DOCUSATE SODIUM SUGAR FREE 100MG/10ML UDC PEG SCH (19:00)
[2020-12-22] MEDS: POLYETHYLENE GLYCOL 3350 (17GM) 1 DOSE PACK PEG SCH (19:13)
[2020-12-22] MEDS: SENNOSIDES/DOCUSATE SOD 8.6/50MG TABLET PEG SCH (20:54)
[2020-12-23] VITALS (12 sets, daily range): BP systolic 93–156; BP diastolic 55–97
[2020-12-23] MEDS: INSULIN LISPRO 100 UNITS/ML SUBCUT SCH ×4 (00:46→17:55)
[2020-12-23] MEDS: METOCLOPRAMIDE HCL 10MG/2ML VIAL IV SCH ×4 (00:46→17:48)
[2020-12-23] MEDS: BLOOD SUGAR DIAGNOSTIC STRIP TEST SCH ×4 (00:47→17:48)
[2020-12-23] MEDS: IPRATROPIUM/ALBUTEROL 0.5-3(2.5)MG/3ML NEB HHN SCH ×2 (01:00→12:56)
[2020-12-23] MEDS: MIDODRINE HCL 5MG TABLET PO SCH ×4 (09:00→17:00)
[2020-12-23] MEDS: POLYETHYLENE GLYCOL 3350 (17GM) 1 DOSE PACK PEG SCH (09:01)
[2020-12-23] MEDS: LEVETIRACETAM 500MG TABLET PO SCH ×2 (09:01→21:37)
[2020-12-23] MEDS: FOLIC ACID/VITAMIN B COMP W-C TABLET PO SCH (09:02)
[2020-12-23] MEDS: ENOXAPARIN 30MG/0.3ML SYR SUBCUT SCH (09:02)
[2020-12-23] MEDS: DOCUSATE SODIUM SUGAR FREE 100MG/10ML UDC PEG SCH (17:58)
[2020-12-23] MEDS: SENNOSIDES/DOCUSATE SOD 8.6/50MG TABLET PEG SCH (21:37)
[2020-12-24] VITALS (14 sets, daily range): BP systolic 92–157; BP diastolic 55–85
[2020-12-24] MEDS: IPRATROPIUM/ALBUTEROL 0.5-3(2.5)MG/3ML NEB HHN SCH ×2 (00:10→21:03)
[2020-12-24] MEDS: INSULIN LISPRO 100 UNITS/ML SUBCUT SCH ×4 (06:14→18:17)
[2020-12-24] MEDS: METOCLOPRAMIDE HCL 10MG/2ML VIAL IV SCH ×4 (06:15→17:37)
[2020-12-24] MEDS: BLOOD SUGAR DIAGNOSTIC STRIP TEST SCH ×4 (06:15→17:48)
[2020-12-24] MEDS: CLONIDINE 0.1MG TABLET PO PRN (06:20)
[2020-12-24] MEDS: POLYETHYLENE GLYCOL 3350 (17GM) 1 DOSE PACK PEG SCH (10:22)
[2020-12-24] MEDS: ENOXAPARIN 30MG/0.3ML SYR SUBCUT SCH (10:22)
[2020-12-24] MEDS: MIDODRINE HCL 5MG TABLET PO SCH ×3 (10:23→17:00)
[2020-12-24] MEDS: LEVETIRACETAM 500MG TABLET PO SCH ×2 (10:23→20:34)
[2020-12-24] MEDS: SULFAMETHOXAZOLE/TRIMETHOPRIM 800/160MG TABLET PO SCH (10:24)
[2020-12-24] MEDS: FOLIC ACID/VITAMIN B COMP W-C TABLET PO SCH (10:26)
[2020-12-24] MEDS: DOCUSATE SODIUM SUGAR FREE 100MG/10ML UDC PEG SCH (10:53)
[2020-12-24] MEDS: SENNOSIDES/DOCUSATE SOD 8.6/50MG TABLET PEG SCH (20:34)
[2020-12-25] VITALS (8 sets, daily range): BP systolic 89–167; BP diastolic 51–104
[2020-12-25] MEDS: BLOOD SUGAR DIAGNOSTIC STRIP TEST SCH ×4 (00:21→18:36)
[2020-12-25] MEDS: METOCLOPRAMIDE HCL 10MG/2ML VIAL IV SCH ×2 (00:21→06:08)
[2020-12-25] MEDS: INSULIN LISPRO 100 UNITS/ML SUBCUT SCH ×4 (00:22→23:57)
[2020-12-25] MEDS: IPRATROPIUM/ALBUTEROL 0.5-3(2.5)MG/3ML NEB HHN SCH (08:20)
[2020-12-25] MEDS: DOCUSATE SODIUM SUGAR FREE 100MG/10ML UDC PEG SCH (10:30)
[2020-12-25] MEDS: FOLIC ACID/VITAMIN B COMP W-C TABLET PO SCH (10:31)
[2020-12-25] MEDS: LEVETIRACETAM 500MG TABLET PO SCH ×2 (10:31→20:00)
[2020-12-25] MEDS: ENOXAPARIN 30MG/0.3ML SYR SUBCUT SCH (10:31)
[2020-12-25] MEDS: POLYETHYLENE GLYCOL 3350 (17GM) 1 DOSE PACK PEG SCH (10:32)
[2020-12-25] MEDS: MIDODRINE HCL 5MG TABLET PO SCH ×3 (10:32→17:43)
[2020-12-25] MEDS: SENNOSIDES/DOCUSATE SOD 8.6/50MG TABLET PEG SCH (20:00)
[2020-12-26] VITALS (7 sets, daily range): BP systolic 120–168; BP diastolic 65–87
[2020-12-26] MEDS: IPRATROPIUM/ALBUTEROL 0.5-3(2.5)MG/3ML NEB HHN SCH ×4 (00:18→22:04)
[2020-12-26] MEDS: INSULIN LISPRO 100 UNITS/ML SUBCUT SCH ×3 (05:15→17:17)
[2020-12-26] MEDS: BLOOD SUGAR DIAGNOSTIC STRIP TEST SCH ×4 (05:16→16:46)
[2020-12-26] MEDS: MIDODRINE HCL 5MG TABLET PO SCH ×3 (09:00→16:46)
[2020-12-26] MEDS: DOCUSATE SODIUM SUGAR FREE 100MG/10ML UDC PEG SCH (09:29)
[2020-12-26] MEDS: POLYETHYLENE GLYCOL 3350 (17GM) 1 DOSE PACK PEG SCH (09:30)
[2020-12-26] MEDS: SULFAMETHOXAZOLE/TRIMETHOPRIM 800/160MG TABLET PO SCH (09:30)
[2020-12-26] MEDS: ENOXAPARIN 30MG/0.3ML SYR SUBCUT SCH (09:30)
[2020-12-26] MEDS: FOLIC ACID/VITAMIN B COMP W-C TABLET PO SCH (09:30)
[2020-12-26] MEDS: CLONIDINE 0.1MG TABLET PO PRN (19:17)
[2020-12-26] MEDS: SENNOSIDES/DOCUSATE SOD 8.6/50MG TABLET PEG SCH (20:40)
[2020-12-27] VITALS (10 sets, daily range): BP systolic 108–155; BP diastolic 60–91
[2020-12-27] MEDS: INSULIN LISPRO 100 UNITS/ML SUBCUT SCH ×5 (01:05→23:57)
[2020-12-27] MEDS: BLOOD SUGAR DIAGNOSTIC STRIP TEST SCH ×4 (06:02→17:40)
[2020-12-27] MEDS: MIDODRINE HCL 5MG TABLET PO SCH ×4 (09:00→21:40)
[2020-12-27] MEDS: IPRATROPIUM/ALBUTEROL 0.5-3(2.5)MG/3ML NEB HHN SCH ×2 (09:23→17:05)
[2020-12-27] MEDS: POLYETHYLENE GLYCOL 3350 (17GM) 1 DOSE PACK PEG SCH (10:49)
[2020-12-27] MEDS: FOLIC ACID/VITAMIN B COMP W-C TABLET PO SCH (10:49)
[2020-12-27] MEDS: ENOXAPARIN 30MG/0.3ML SYR SUBCUT SCH (10:49)
[2020-12-27] MEDS: DOCUSATE SODIUM SUGAR FREE 100MG/10ML UDC PEG SCH (10:49)
[2020-12-27] MEDS: CLONIDINE 0.1MG TABLET PO PRN (13:58)
[2020-12-27 15:20] LABS: HEMATOCRIT. 26.1 % (36.0-48.0); HEMOGLOBIN. 8.5 g/dL (12.0-16.0); MEAN CORPUSCULAR HEMOGLOBIN 30.9 pg (28.0-32.0); MEAN PLATELET VOLUME 9.1 fl (7.4-10.4); PLATELET 191 x1000/uL (130-400); RED BLOOD CELL COUNT 2.75 mill/uL (4.2-5.4); RED CELL DISTRIBUTION WIDTH 14.8 % (11.6-14.6)
[2020-12-27 16:31] LABS: PLATELET ESTIMATE NORMAL
[2020-12-27] MEDS: SENNOSIDES/DOCUSATE SOD 8.6/50MG TABLET PEG SCH (20:13)
[2020-12-27] MEDS ORDERED: POTASSIUM CHLORIDE 20MEQ TABLET SR PO NR (21:30)
[2020-12-27] MEDS ORDERED: POTASSIUM CHLORIDE 20MEQ/PACKET PO SCH (22:00)
[2020-12-28] VITALS (7 sets, daily range): BP systolic 108–196; BP diastolic 57–95
[2020-12-28] MEDS: IPRATROPIUM/ALBUTEROL 0.5-3(2.5)MG/3ML NEB HHN SCH ×4 (00:43→20:34)
[2020-12-28] MEDS: INSULIN LISPRO 100 UNITS/ML SUBCUT SCH ×4 (05:43→23:40)
[2020-12-28] MEDS: MIDODRINE HCL 5MG TABLET PO SCH ×3 (06:00→22:00)
[2020-12-28] MEDS: BLOOD SUGAR DIAGNOSTIC STRIP TEST SCH ×5 (06:00→23:28)
[2020-12-28] MEDS ORDERED: SENNOSIDES/DOCUSATE SOD 8.6/50MG TABLET PEG PRN (07:15)
[2020-12-28] MEDS ORDERED: POLYETHYLENE GLYCOL 3350 (17GM) 1 DOSE PACK PEG PRN (07:15)
[2020-12-28] MEDS: AZITHROMYCIN 500 MG TABLET PO SCH (08:24)
[2020-12-28] MEDS: FOLIC ACID/VITAMIN B COMP W-C TABLET PO SCH (08:25)
[2020-12-28] MEDS: SULFAMETHOXAZOLE/TRIMETHOPRIM 800/160MG TABLET PO SCH (09:22)
[2020-12-28] MEDS: ENOXAPARIN 30MG/0.3ML SYR SUBCUT SCH (09:22)
[2020-12-28] MEDS: DOCUSATE SODIUM SUGAR FREE 100MG/10ML UDC PEG SCH (09:45)
[2020-12-28 13:28] LABS: BG BASE EXCESS 2.5 mmol/L (-2.0-2.0); BG CARBOXYHEMOGLOBIN 0.3 % (0.5-1.5); BG FRACTION INSPIRED OXYGEN 30; BG HCO3 ACT 26.6 mmol/L (22.0-26.0); BG OXYHEMOGLOBIN 93.7 % (94.0-97.0); BG PCO2 39.4 mmHg (35.0-45.0); BG PH 7.448 (7.350-7.450); BG PO2 71.8 mmHg (75.0-100.0); BG SAMPLE SITE RIGHT RADIAL; BG TOTAL HEMOGLOBIN 9.3 g/dL (12.0-18.0); BG TOTAL RESPIRATORY RATE 12 b/min; BG VENT MODE VENT - AC
[2020-12-28] MEDS: CLONIDINE 0.1MG TABLET PO PRN (15:14)
[2020-12-29] VITALS (13 sets, daily range): BP systolic 89–162; BP diastolic 31–101
[2020-12-29] MEDS: MIDODRINE HCL 5MG TABLET PO SCH ×3 (06:00→22:00)
[2020-12-29] MEDS: INSULIN LISPRO 100 UNITS/ML SUBCUT SCH ×3 (06:37→18:38)
[2020-12-29] MEDS: BLOOD SUGAR DIAGNOSTIC STRIP TEST SCH ×3 (06:38→18:18)
[2020-12-29] MEDS: IPRATROPIUM/ALBUTEROL 0.5-3(2.5)MG/3ML NEB HHN SCH ×2 (08:33→16:50)
[2020-12-29] MEDS: DOCUSATE SODIUM SUGAR FREE 100MG/10ML UDC PEG SCH (08:50)
[2020-12-29] MEDS: FOLIC ACID/VITAMIN B COMP W-C TABLET PO SCH (09:17)
[2020-12-29] MEDS: ENOXAPARIN 30MG/0.3ML SYR SUBCUT SCH (09:17)
[2020-12-30] VITALS (15 sets, daily range): BP systolic 93–172; BP diastolic 56–94
[2020-12-30] MEDS: IPRATROPIUM/ALBUTEROL 0.5-3(2.5)MG/3ML NEB HHN SCH ×3 (00:06→16:07)
[2020-12-30] MEDS: INSULIN LISPRO 100 UNITS/ML SUBCUT SCH ×5 (00:44→23:25)
[2020-12-30] MEDS: BLOOD SUGAR DIAGNOSTIC STRIP TEST SCH ×5 (06:00→23:23)
[2020-12-30] MEDS: MIDODRINE HCL 5MG TABLET PO SCH ×3 (06:00→22:00)
[2020-12-30] MEDS: FOLIC ACID/VITAMIN B COMP W-C TABLET PO SCH (09:05)
[2020-12-30] MEDS: ENOXAPARIN 30MG/0.3ML SYR SUBCUT SCH (09:05)
[2020-12-30] MEDS: DOCUSATE SODIUM SUGAR FREE 100MG/10ML UDC PEG SCH (09:05)
[2020-12-31] VITALS (12 sets, daily range): BP systolic 96–183; BP diastolic 50–99
[2020-12-31] MEDS: IPRATROPIUM/ALBUTEROL 0.5-3(2.5)MG/3ML NEB HHN SCH ×3 (01:10→16:32)
[2020-12-31] MEDS: MIDODRINE HCL 5MG TABLET PO SCH ×3 (05:35→23:41)
[2020-12-31] MEDS: BLOOD SUGAR DIAGNOSTIC STRIP TEST SCH ×4 (05:35→23:40)
[2020-12-31] MEDS: INSULIN LISPRO 100 UNITS/ML SUBCUT SCH ×4 (05:37→23:40)
[2020-12-31] MEDS: CLONIDINE 0.1MG TABLET PO PRN (06:35)
[2020-12-31] MEDS: DOCUSATE SODIUM SUGAR FREE 100MG/10ML UDC PEG SCH (09:21)
[2020-12-31] MEDS: ENOXAPARIN 30MG/0.3ML SYR SUBCUT SCH (09:21)
[2020-12-31] MEDS: FOLIC ACID/VITAMIN B COMP W-C TABLET PO SCH (09:23)
[2020-12-31] MEDS: SULFAMETHOXAZOLE/TRIMETHOPRIM 800/160MG TABLET PO SCH (09:23)
[2021-01-01] VITALS (12 sets, daily range): BP systolic 76–155; BP diastolic 51–90
[2021-01-01] MEDS: IPRATROPIUM/ALBUTEROL 0.5-3(2.5)MG/3ML NEB HHN SCH ×3 (01:12→16:33)
[2021-01-01] MEDS: BLOOD SUGAR DIAGNOSTIC STRIP TEST SCH ×3 (05:07→18:23)
[2021-01-01] MEDS: MIDODRINE HCL 5MG TABLET PO SCH ×3 (05:07→22:00)
[2021-01-01] MEDS: INSULIN LISPRO 100 UNITS/ML SUBCUT SCH ×3 (05:08→18:14)
[2021-01-01 06:13] LABS: BASOPHILS % 0.6 % (0.0-2.0); EOSINOPHILS % 1.8 % (0.0-5.0); HEMATOCRIT. 24.8 % (36.0-48.0); HEMOGLOBIN. 8.2 g/dL (12.0-16.0); LYMPHOCYTES % 12.4 % (20.0-50.0); MEAN CORPUSCULAR HEMOGLOBIN 31.3 pg (28.0-32.0); MEAN PLATELET VOLUME 8.7 fl (7.4-10.4); MONOCYTES % 10.4 % (2.0-8.0); NEUTROPHILS % 74.8 % (40.0-76.0); PLATELET 216 x1000/uL (130-400); RED BLOOD CELL COUNT 2.62 mill/uL (4.2-5.4); RED CELL DISTRIBUTION WIDTH 15.2 % (11.6-14.6)
[2021-01-01 06:28] LABS: CHLORIDE 105 mEq/L (98-107)
[2021-01-01] MEDS: FOLIC ACID/VITAMIN B COMP W-C TABLET PO SCH (08:56)
[2021-01-01] MEDS: ENOXAPARIN 30MG/0.3ML SYR SUBCUT SCH (08:57)
[2021-01-01] MEDS: DOCUSATE SODIUM SUGAR FREE 100MG/10ML UDC PEG SCH (09:00)
[2021-01-02] VITALS (16 sets, daily range): BP systolic 103–153; BP diastolic 64–90
[2021-01-02] MEDS: INSULIN LISPRO 100 UNITS/ML SUBCUT SCH ×4 (00:24→18:19)
[2021-01-02] MEDS: BLOOD SUGAR DIAGNOSTIC STRIP TEST SCH ×4 (00:24→17:44)
[2021-01-02] MEDS: IPRATROPIUM/ALBUTEROL 0.5-3(2.5)MG/3ML NEB HHN SCH (00:32)
[2021-01-02] MEDS: CLONIDINE 0.1MG TABLET PO PRN (01:11)
[2021-01-02] MEDS: MIDODRINE HCL 5MG TABLET PO SCH ×3 (06:00→22:00)
[2021-01-02] MEDS: DOCUSATE SODIUM SUGAR FREE 100MG/10ML UDC PEG SCH (08:44)
[2021-01-02] MEDS: FOLIC ACID/VITAMIN B COMP W-C TABLET PO SCH (08:44)
[2021-01-02] MEDS: SULFAMETHOXAZOLE/TRIMETHOPRIM 800/160MG TABLET PO SCH (08:44)
[2021-01-02] MEDS: ENOXAPARIN 30MG/0.3ML SYR SUBCUT SCH (08:44)
[2021-01-03] VITALS (13 sets, daily range): BP systolic 105–159; BP diastolic 56–92
[2021-01-03] MEDS: BLOOD SUGAR DIAGNOSTIC STRIP TEST SCH ×4 (00:44→18:19)
[2021-01-03] MEDS: INSULIN LISPRO 100 UNITS/ML SUBCUT SCH ×4 (00:46→18:21)
[2021-01-03] MEDS: MIDODRINE HCL 5MG TABLET PO SCH ×3 (05:59→22:23)
[2021-01-03] MEDS: FOLIC ACID/VITAMIN B COMP W-C TABLET PO SCH (08:41)
[2021-01-03] MEDS: ENOXAPARIN 30MG/0.3ML SYR SUBCUT SCH (08:43)
[2021-01-03] MEDS: DOCUSATE SODIUM SUGAR FREE 100MG/10ML UDC PEG SCH (09:57)
[2021-01-04] VITALS (12 sets, daily range): BP systolic 123–166; BP diastolic 67–150
[2021-01-04] MEDS: BLOOD SUGAR DIAGNOSTIC STRIP TEST SCH ×4 (00:39→18:27)
[2021-01-04] MEDS: INSULIN LISPRO 100 UNITS/ML SUBCUT SCH ×4 (01:16→18:26)
[2021-01-04] MEDS: MIDODRINE HCL 5MG TABLET PO SCH ×3 (05:52→22:00)
[2021-01-04] MEDS: FOLIC ACID/VITAMIN B COMP W-C TABLET PO SCH (09:17)
[2021-01-04] MEDS: AZITHROMYCIN 500 MG TABLET PO SCH (09:17)
[2021-01-04] MEDS: DOCUSATE SODIUM SUGAR FREE 100MG/10ML UDC PEG SCH (09:17)
[2021-01-04] MEDS: SULFAMETHOXAZOLE/TRIMETHOPRIM 800/160MG TABLET PO SCH (09:17)
[2021-01-04] MEDS: ENOXAPARIN 30MG/0.3ML SYR SUBCUT SCH (09:18)
[2021-01-05] VITALS (23 sets, daily range): BP systolic 65–147; BP diastolic 42–76
[2021-01-05] MEDS: INSULIN LISPRO 100 UNITS/ML SUBCUT SCH ×5 (01:17→23:56)
[2021-01-05] MEDS: MIDODRINE HCL 5MG TABLET PO SCH ×4 (02:03→23:06)
[2021-01-05] MEDS: BLOOD SUGAR DIAGNOSTIC STRIP TEST SCH ×5 (06:34→23:56)
[2021-01-05] MEDS: DOCUSATE SODIUM SUGAR FREE 100MG/10ML UDC PEG SCH (10:37)
[2021-01-05] MEDS: ENOXAPARIN 30MG/0.3ML SYR SUBCUT SCH (10:37)
[2021-01-05] MEDS: FOLIC ACID/VITAMIN B COMP W-C TABLET PO SCH (10:37)
[2021-01-06] VITALS (13 sets, daily range): BP systolic 105–189; BP diastolic 57–105
[2021-01-06] MEDS: MIDODRINE HCL 5MG TABLET PO SCH ×3 (05:17→21:32)
[2021-01-06] MEDS: INSULIN LISPRO 100 UNITS/ML SUBCUT SCH ×4 (06:09→23:14)
[2021-01-06] MEDS: BLOOD SUGAR DIAGNOSTIC STRIP TEST SCH ×4 (06:10→23:18)
[2021-01-06] MEDS: DOCUSATE SODIUM SUGAR FREE 100MG/10ML UDC PEG SCH (08:34)
[2021-01-06] MEDS: ENOXAPARIN 30MG/0.3ML SYR SUBCUT SCH (08:35)
[2021-01-06] MEDS: FOLIC ACID/VITAMIN B COMP W-C TABLET PO SCH (08:35)
[2021-01-07] VITALS (12 sets, daily range): BP systolic 104–165; BP diastolic 58–97
[2021-01-07] MEDS: CLONIDINE 0.1MG TABLET PO PRN (05:37)
[2021-01-07] MEDS: INSULIN LISPRO 100 UNITS/ML SUBCUT SCH ×4 (05:39→23:24)
[2021-01-07] MEDS: MIDODRINE HCL 5MG TABLET PO SCH ×3 (05:56→22:00)
[2021-01-07] MEDS: BLOOD SUGAR DIAGNOSTIC STRIP TEST SCH ×4 (05:56→23:42)
[2021-01-07 06:25] LABS: HEMATOCRIT. 25.4 % (36.0-48.0); HEMOGLOBIN. 8.4 g/dL (12.0-16.0); MEAN CORPUSCULAR HEMOGLOBIN 30.9 pg (28.0-32.0); MEAN CORPUSCULAR VOLUME 93.1 fL (81.0-99.0); MEAN PLATELET VOLUME 9.2 fl (7.4-10.4); PLATELET 222 x1000/uL (130-400); RED BLOOD CELL COUNT 2.73 mill/uL (4.2-5.4); RED CELL DISTRIBUTION WIDTH 15.2 % (11.6-14.6)
[2021-01-07] MEDS: FOLIC ACID/VITAMIN B COMP W-C TABLET PO SCH (08:58)
[2021-01-07] MEDS: ENOXAPARIN 30MG/0.3ML SYR SUBCUT SCH (08:58)
[2021-01-07] MEDS: DOCUSATE SODIUM SUGAR FREE 100MG/10ML UDC PEG SCH (08:58)
[2021-01-07] MEDS: SULFAMETHOXAZOLE/TRIMETHOPRIM 800/160MG TABLET PO SCH (10:42)
[2021-01-07 12:23] LABS: PLATELET ESTIMATE NORMAL
[2021-01-08] VITALS (12 sets, daily range): BP systolic 94–147; BP diastolic 64–81
[2021-01-08] MEDS: MIDODRINE HCL 5MG TABLET PO SCH ×3 (05:36→21:24)
[2021-01-08] MEDS: INSULIN LISPRO 100 UNITS/ML SUBCUT SCH ×4 (06:00→23:20)
[2021-01-08] MEDS: BLOOD SUGAR DIAGNOSTIC STRIP TEST SCH ×4 (06:06→23:15)
[2021-01-08] MEDS: DOCUSATE SODIUM SUGAR FREE 100MG/10ML UDC PEG SCH (08:57)
[2021-01-08] MEDS: FOLIC ACID/VITAMIN B COMP W-C TABLET PO SCH (08:58)
[2021-01-08] MEDS: ENOXAPARIN 30MG/0.3ML SYR SUBCUT SCH (08:58)
[2021-01-08 11:40] LABS: HEMOGLOBIN. 8.1 g/dL (12.0-16.0); MEAN CORPUSCULAR HEMOGLOBIN 30.9 pg (28.0-32.0); MEAN PLATELET VOLUME 9.2 fl (7.4-10.4); PLATELET 192 x1000/uL (130-400); RED BLOOD CELL COUNT 2.61 mill/uL (4.2-5.4); RED CELL DISTRIBUTION WIDTH 14.9 % (11.6-14.6)
[2021-01-08 16:21] LABS: PLATELET ESTIMATE NORMAL
[2021-01-09] VITALS (12 sets, daily range): BP systolic 128–172; BP diastolic 64–88
[2021-01-09] MEDS: BLOOD SUGAR DIAGNOSTIC STRIP TEST SCH ×4 (05:05→23:17)
[2021-01-09] MEDS: MIDODRINE HCL 5MG TABLET PO SCH ×2 (05:15→14:00)
[2021-01-09] MEDS: INSULIN LISPRO 100 UNITS/ML SUBCUT SCH ×4 (05:17→23:23)
[2021-01-09] MEDS: FOLIC ACID/VITAMIN B COMP W-C TABLET PO SCH (09:05)
[2021-01-09] MEDS: SULFAMETHOXAZOLE/TRIMETHOPRIM 800/160MG TABLET PO SCH (09:05)
[2021-01-09] MEDS: ENOXAPARIN 30MG/0.3ML SYR SUBCUT SCH (09:06)
[2021-01-09] MEDS: DOCUSATE SODIUM SUGAR FREE 100MG/10ML UDC PEG SCH (09:06)
[2021-01-09] MEDS: CLONIDINE 0.1MG TABLET PO PRN (17:14)
[2021-01-09] MEDS ORDERED: MIDODRINE HCL 5MG TABLET PO PRN (22:00)
[2021-01-10] VITALS (12 sets, daily range): BP systolic 98–166; BP diastolic 66–90
[2021-01-10] MEDS: BLOOD SUGAR DIAGNOSTIC STRIP TEST SCH ×4 (05:16→23:38)
[2021-01-10] MEDS: INSULIN LISPRO 100 UNITS/ML SUBCUT SCH ×4 (05:22→23:45)
[2021-01-10] MEDS: DOCUSATE SODIUM SUGAR FREE 100MG/10ML UDC PEG SCH (09:13)
[2021-01-10] MEDS: FOLIC ACID/VITAMIN B COMP W-C TABLET PO SCH (09:13)
[2021-01-10] MEDS: ENOXAPARIN 30MG/0.3ML SYR SUBCUT SCH (09:13)
[2021-01-10] MEDS ORDERED: DEXTROSE 50% WATER 50ML SYRINGE IV PRN (12:00)
[2021-01-11] VITALS (15 sets, daily range): BP systolic 90–167; BP diastolic 58–91
[2021-01-11] MEDS: INSULIN LISPRO 100 UNITS/ML SUBCUT SCH ×4 (06:36→23:54)
[2021-01-11] MEDS: BLOOD SUGAR DIAGNOSTIC STRIP TEST SCH ×4 (07:00→23:52)
[2021-01-11] MEDS: DOCUSATE SODIUM SUGAR FREE 100MG/10ML UDC PEG SCH (08:51)
[2021-01-11] MEDS: FOLIC ACID/VITAMIN B COMP W-C TABLET PO SCH (08:51)
[2021-01-11] MEDS: ENOXAPARIN 30MG/0.3ML SYR SUBCUT SCH (08:52)
[2021-01-11] MEDS: SULFAMETHOXAZOLE/TRIMETHOPRIM 800/160MG TABLET PO SCH (08:53)
[2021-01-11] MEDS: AZITHROMYCIN 500 MG TABLET PO SCH (08:53)
[2021-01-11 08:57] LABS: BG BASE EXCESS 5.6 mmol/L (-2.0-2.0); BG CARBOXYHEMOGLOBIN 0.4 % (0.5-1.5); BG FRACTION INSPIRED OXYGEN 30; BG HCO3 ACT 28.3 mmol/L (22.0-26.0); BG METHEMOGLOBIN 0.2 % (0.0-1.5); BG OXYHEMOGLOBIN 96.4 % (94.0-97.0); BG PCO2 33.9 mmHg (35.0-45.0); BG PO2 88.5 mmHg (75.0-100.0); BG SAMPLE SITE RIGHT RADIAL; BG TOTAL HEMOGLOBIN 9.1 g/dL (12.0-18.0); BG VENT MODE VENT - AC
[2021-01-12] VITALS (15 sets, daily range): BP systolic 90–178; BP diastolic 52–102
[2021-01-12] MEDS: BLOOD SUGAR DIAGNOSTIC STRIP TEST SCH ×3 (06:27→18:36)
[2021-01-12] MEDS: INSULIN LISPRO 100 UNITS/ML SUBCUT SCH ×3 (06:41→17:41)
[2021-01-12] MEDS: ENOXAPARIN 30MG/0.3ML SYR SUBCUT SCH (07:59)
[2021-01-12] MEDS: DOCUSATE SODIUM SUGAR FREE 100MG/10ML UDC PEG SCH (09:00)
[2021-01-12 11:22] LABS: CHLORIDE 99 mEq/L (98-107)
[2021-01-12 13:09] LABS: HEMATOCRIT 23.5 % (36.0-48.0); HEMOGLOBIN 7.9 g/dL (12.0-16.0); MEAN CORPUSCULAR HEMOGLOBIN 31.9 pg (28.0-32.0); MEAN CORPUSCULAR VOLUME 95.1 fL (81.0-99.0); PLATELET 180 x1000/uL (130-400); RED BLOOD CELL COUNT 2.47 mill/uL (4.2-5.4)
[2021-01-12] MEDS: CLONIDINE 0.1MG TABLET PO PRN (21:40)
[2021-01-13] VITALS (13 sets, daily range): BP systolic 97–167; BP diastolic 56–88
[2021-01-13] MEDS: INSULIN LISPRO 100 UNITS/ML SUBCUT SCH ×4 (00:26→17:50)
[2021-01-13] MEDS ORDERED: EPOETIN ALFA-EPBX 4,000 UNIT/ML VIAL SUBCUT SCH (03:00)
[2021-01-13] MEDS: BLOOD SUGAR DIAGNOSTIC STRIP TEST SCH ×3 (05:41→17:50)
[2021-01-13] MEDS: FERROUS SULFATE 300MG/5ML UDC GT SCH ×2 (08:35→17:17)
[2021-01-13] MEDS: DOCUSATE SODIUM SUGAR FREE 100MG/10ML UDC PEG SCH (09:00)
[2021-01-13] MEDS: ENOXAPARIN 30MG/0.3ML SYR SUBCUT SCH (09:00)
[2021-01-14] VITALS (13 sets, daily range): BP systolic 108–164; BP diastolic 56–95
[2021-01-14] MEDS: BLOOD SUGAR DIAGNOSTIC STRIP TEST SCH ×5 (00:18→23:05)
[2021-01-14] MEDS: INSULIN LISPRO 100 UNITS/ML SUBCUT SCH ×5 (00:23→23:11)
[2021-01-14] MEDS: CLONIDINE 0.1MG TABLET PO PRN (00:40)
[2021-01-14] MEDS: SULFAMETHOXAZOLE/TRIMETHOPRIM 800/160MG TABLET PO SCH (10:30)
[2021-01-14] MEDS: DOCUSATE SODIUM SUGAR FREE 100MG/10ML UDC PEG SCH (10:30)
[2021-01-14] MEDS: FERROUS SULFATE 300MG/5ML UDC GT SCH ×2 (10:30→17:44)
[2021-01-14] MEDS: ENOXAPARIN 30MG/0.3ML SYR SUBCUT SCH (10:31)
[2021-01-15] VITALS (11 sets, daily range): BP systolic 91–152; BP diastolic 51–84
[2021-01-15] MEDS: BLOOD SUGAR DIAGNOSTIC STRIP TEST SCH ×4 (05:01→23:03)
[2021-01-15] MEDS: INSULIN LISPRO 100 UNITS/ML SUBCUT SCH ×4 (05:04→23:16)
[2021-01-15] MEDS: DOCUSATE SODIUM SUGAR FREE 100MG/10ML UDC PEG SCH (09:31)
[2021-01-15] MEDS: ENOXAPARIN 30MG/0.3ML SYR SUBCUT SCH (09:31)
[2021-01-15] MEDS: FERROUS SULFATE 300MG/5ML UDC GT SCH ×2 (09:31→18:07)
[2021-01-15] MEDS: EPOETIN ALFA-EPBX 4,000 UNIT/ML VIAL SUBCUT SCH (20:57)
[2021-01-16] VITALS (17 sets, daily range): BP systolic 91–143; BP diastolic 51–81
[2021-01-16] MEDS: BLOOD SUGAR DIAGNOSTIC STRIP TEST SCH ×4 (06:09→23:27)
[2021-01-16] MEDS: INSULIN LISPRO 100 UNITS/ML SUBCUT SCH ×4 (06:23→23:38)
[2021-01-16 08:26] LABS: BASOPHILS % 0.6 % (0.0-2.0); EOSINOPHILS % 1.3 % (0.0-5.0); HEMATOCRIT. 21.3 % (36.0-48.0); LYMPHOCYTES % 15.1 % (20.0-50.0); MEAN CORPUSCULAR HEMOGLOBIN 31.8 pg (28.0-32.0); MEAN CORPUSCULAR VOLUME 96.9 fL (81.0-99.0); MEAN PLATELET VOLUME 9.1 fl (7.4-10.4); MONOCYTES % 12.5 % (2.0-8.0); NEUTROPHILS % 70.5 % (40.0-76.0); PLATELET 198 x1000/uL (130-400); RED CELL DISTRIBUTION WIDTH 14.5 % (11.6-14.6)
[2021-01-16] MEDS: ENOXAPARIN 30MG/0.3ML SYR SUBCUT SCH (09:15)
[2021-01-16] MEDS: SULFAMETHOXAZOLE/TRIMETHOPRIM 800/160MG TABLET PO SCH (09:16)
[2021-01-16] MEDS: FERROUS SULFATE 300MG/5ML UDC GT SCH ×2 (09:16→17:07)
[2021-01-16] MEDS: DOCUSATE SODIUM SUGAR FREE 100MG/10ML UDC PEG SCH (09:16)
[2021-01-16] MEDS: EPOETIN ALFA-EPBX 4,000 UNIT/ML VIAL SUBCUT SCH (21:00)
[2021-01-17] VITALS (15 sets, daily range): BP systolic 77–180; BP diastolic 50–96
[2021-01-17] MEDS: BLOOD SUGAR DIAGNOSTIC STRIP TEST SCH ×3 (05:36→18:00)
[2021-01-17] MEDS: INSULIN LISPRO 100 UNITS/ML SUBCUT SCH ×3 (05:41→18:56)
[2021-01-17] MEDS: FERROUS SULFATE 300MG/5ML UDC GT SCH ×2 (09:00→17:00)
[2021-01-17] MEDS: DOCUSATE SODIUM SUGAR FREE 100MG/10ML UDC PEG SCH (09:00)
[2021-01-17 09:39] LABS: HEMATOCRIT 24.8 % (36.0-48.0); HEMOGLOBIN 8.1 g/dL (12.0-16.0)
[2021-01-17] MEDS ORDERED: MIDODRINE HCL 2.5MG TABLET PO PRN (15:19)
[2021-01-17] MEDS: EPOETIN ALFA-EPBX 4,000 UNIT/ML VIAL SUBCUT SCH (23:45)
[2021-01-18] VITALS (8 sets, daily range): BP systolic 102–139; BP diastolic 55–80
[2021-01-18] MEDS: INSULIN LISPRO 100 UNITS/ML SUBCUT SCH ×5 (00:03→23:33)
[2021-01-18] MEDS: BLOOD SUGAR DIAGNOSTIC STRIP TEST SCH ×5 (00:03→23:33)
[2021-01-18] MEDS: AZITHROMYCIN 500 MG TABLET PO SCH (09:00)
[2021-01-18] MEDS: FERROUS SULFATE 300MG/5ML UDC GT SCH ×2 (09:00→18:04)
[2021-01-18] MEDS: SULFAMETHOXAZOLE/TRIMETHOPRIM 800/160MG TABLET PO SCH (09:00)
[2021-01-18] MEDS: DOCUSATE SODIUM SUGAR FREE 100MG/10ML UDC PEG SCH (09:00)
[2021-01-18] MEDS: EPOETIN ALFA-EPBX 4,000 UNIT/ML VIAL SUBCUT SCH (19:40)
[2021-01-18 21:58] LABS: HEMATOCRIT 22.8 % (36.0-48.0); HEMOGLOBIN 7.3 g/dL (12.0-16.0)
[2021-01-19] VITALS (13 sets, daily range): BP systolic 111–163; BP diastolic 49–90
[2021-01-19] MEDS: BLOOD SUGAR DIAGNOSTIC STRIP TEST SCH ×3 (05:36→18:24)
[2021-01-19] MEDS: INSULIN LISPRO 100 UNITS/ML SUBCUT SCH ×3 (05:38→17:36)
[2021-01-19] MEDS: FERROUS SULFATE 300MG/5ML UDC GT SCH ×2 (09:56→17:35)
[2021-01-19] MEDS: DOCUSATE SODIUM SUGAR FREE 100MG/10ML UDC PEG SCH (09:57)
[2021-01-19] MEDS: EPOETIN ALFA-EPBX 4,000 UNIT/ML VIAL SUBCUT SCH (21:00)
[2021-01-20] VITALS (13 sets, daily range): BP systolic 107–167; BP diastolic 68–96
[2021-01-20] MEDS: BLOOD SUGAR DIAGNOSTIC STRIP TEST SCH ×4 (00:14→18:19)
[2021-01-20] MEDS: INSULIN LISPRO 100 UNITS/ML SUBCUT SCH ×4 (00:17→18:19)
[2021-01-20] MEDS: FERROUS SULFATE 300MG/5ML UDC GT SCH ×2 (09:12→18:11)
[2021-01-20] MEDS: HYDRALAZINE HCL 10MG TABLET PO PRN (11:56)
[2021-01-20 17:38] LABS: BASOPHILS % 0.3 % (0.0-2.0); EOSINOPHILS % 1.3 % (0.0-5.0); LYMPHOCYTES % 13.7 % (20.0-50.0); MEAN CORPUSCULAR HEMOGLOBIN 31.2 pg (28.0-32.0); MEAN CORPUSCULAR VOLUME 94.7 fL (81.0-99.0); MONOCYTES % 9.4 % (2.0-8.0); NEUTROPHILS % 75.3 % (40.0-76.0); PLATELET 195 x1000/uL (130-400); RED BLOOD CELL COUNT 2.24 mill/uL (4.2-5.4); RED CELL DISTRIBUTION WIDTH 14.4 % (11.6-14.6)
[2021-01-20 17:49] LABS: HEMATOCRIT. 21.2 % (36.0-48.0)
[2021-01-20] MEDS: EPOETIN ALFA-EPBX 4,000 UNIT/ML VIAL SUBCUT SCH (21:00)
[2021-01-21] VITALS (17 sets, daily range): BP systolic 102–153; BP diastolic 56–81
[2021-01-21] MEDS: BLOOD SUGAR DIAGNOSTIC STRIP TEST SCH ×4 (00:32→18:35)
[2021-01-21] MEDS: INSULIN LISPRO 100 UNITS/ML SUBCUT SCH ×4 (00:42→18:51)
[2021-01-21] MEDS: FERROUS SULFATE 300MG/5ML UDC GT SCH ×2 (11:07→18:49)
[2021-01-21] MEDS: ASCORBIC ACID 500 MG TABLET PO SCH (11:08)
[2021-01-21] MEDS: SULFAMETHOXAZOLE/TRIMETHOPRIM 800/160MG TABLET PO SCH (11:08)
[2021-01-21] MEDS: ZINC SULFATE 220 MG ( 50 ) CAPSULE PO SCH (11:08)
[2021-01-22] VITALS (12 sets, daily range): BP systolic 109–164; BP diastolic 56–94
[2021-01-22] MEDS: BLOOD SUGAR DIAGNOSTIC STRIP TEST SCH ×4 (00:30→18:34)
[2021-01-22] MEDS: HYDRALAZINE HCL 10MG TABLET PO PRN (06:38)
[2021-01-22] MEDS: INSULIN LISPRO 100 UNITS/ML SUBCUT SCH ×4 (06:39→18:44)
[2021-01-22 09:54] LABS: BASOPHILS % 0.6 % (0.0-2.0); EOSINOPHILS % 1.3 % (0.0-5.0); HEMATOCRIT. 24.9 % (36.0-48.0); HEMOGLOBIN. 8.1 g/dL (12.0-16.0); LYMPHOCYTES % 9.9 % (20.0-50.0); MEAN CORPUSCULAR HEMOGLOBIN 31.4 pg (28.0-32.0); MEAN CORPUSCULAR VOLUME 96.6 fL (81.0-99.0); MEAN PLATELET VOLUME 8.4 fl (7.4-10.4); MONOCYTES % 9.2 % (2.0-8.0); PLATELET 199 x1000/uL (130-400); RED BLOOD CELL COUNT 2.57 mill/uL (4.2-5.4)
[2021-01-22] MEDS: FERROUS SULFATE 300MG/5ML UDC GT SCH ×2 (11:00→18:43)
[2021-01-22] MEDS: ZINC SULFATE 220 MG ( 50 ) CAPSULE PO SCH (11:00)
[2021-01-22] MEDS: ASCORBIC ACID 500 MG TABLET PO SCH (11:00)
[2021-01-23] VITALS (11 sets, daily range): BP systolic 107–189; BP diastolic 60–111
[2021-01-23] MEDS: INSULIN LISPRO 100 UNITS/ML SUBCUT SCH ×4 (01:19→18:41)
[2021-01-23] MEDS: BLOOD SUGAR DIAGNOSTIC STRIP TEST SCH ×4 (05:38→17:12)
[2021-01-23] MEDS: HYDRALAZINE HCL 10MG TABLET PO PRN (07:56)
[2021-01-23] MEDS: SULFAMETHOXAZOLE/TRIMETHOPRIM 800/160MG TABLET PO SCH (09:20)
[2021-01-23] MEDS: FERROUS SULFATE 300MG/5ML UDC GT SCH ×2 (09:20→18:27)
[2021-01-23] MEDS: ZINC SULFATE 220 MG ( 50 ) CAPSULE PO SCH (09:20)
[2021-01-23] MEDS: ASCORBIC ACID 500 MG TABLET PO SCH (09:20)
[2021-01-24] VITALS (12 sets, daily range): BP systolic 121–187; BP diastolic 60–95
[2021-01-24] MEDS: INSULIN LISPRO 100 UNITS/ML SUBCUT SCH ×4 (00:22→17:45)
[2021-01-24] MEDS: HYDRALAZINE HCL 10MG TABLET PO PRN (02:07)
[2021-01-24] MEDS: BLOOD SUGAR DIAGNOSTIC STRIP TEST SCH ×5 (05:50→23:57)
[2021-01-24 08:11] LABS: CHLORIDE 101 mEq/L (98-107)
[2021-01-24] MEDS: FERROUS SULFATE 300MG/5ML UDC GT SCH ×2 (08:46→17:45)
[2021-01-24] MEDS: ASCORBIC ACID 500 MG TABLET PO SCH (08:46)
[2021-01-24] MEDS: ZINC SULFATE 220 MG ( 50 ) CAPSULE PO SCH (08:46)
[2021-01-25] VITALS (12 sets, daily range): BP systolic 127–189; BP diastolic 70–99
[2021-01-25] MEDS: HYDRALAZINE HCL 10MG TABLET PO PRN ×2 (00:20→17:25)
[2021-01-25] MEDS: INSULIN LISPRO 100 UNITS/ML SUBCUT SCH ×4 (00:26→17:16)
[2021-01-25] MEDS: BLOOD SUGAR DIAGNOSTIC STRIP TEST SCH ×4 (06:00→23:55)
[2021-01-25] MEDS: FERROUS SULFATE 300MG/5ML UDC GT SCH ×2 (08:39→17:15)
[2021-01-25] MEDS: AZITHROMYCIN 500 MG TABLET PO SCH (08:40)
[2021-01-25] MEDS: ZINC SULFATE 220 MG ( 50 ) CAPSULE PO SCH (08:40)
[2021-01-25] MEDS: SULFAMETHOXAZOLE/TRIMETHOPRIM 800/160MG TABLET PO SCH (08:40)
[2021-01-25] MEDS: ASCORBIC ACID 500 MG TABLET PO SCH (08:40)
[2021-01-25 11:24] LABS: HEMATOCRIT. 28.3 % (36.0-48.0); HEMOGLOBIN. 9.6 g/dL (12.0-16.0); MEAN PLATELET VOLUME 8.8 fl (7.4-10.4); PLATELET 210 x1000/uL (130-400); RED BLOOD CELL COUNT 3.01 mill/uL (4.2-5.4)
[2021-01-25 21:52] LABS: PLATELET ESTIMATE NORMAL
[2021-01-26] VITALS (12 sets, daily range): BP systolic 117–159; BP diastolic 70–105
[2021-01-26] MEDS: HYDRALAZINE HCL 10MG TABLET PO PRN (04:40)
[2021-01-26] MEDS: BLOOD SUGAR DIAGNOSTIC STRIP TEST SCH ×3 (05:21→17:36)
[2021-01-26] MEDS: INSULIN LISPRO 100 UNITS/ML SUBCUT SCH ×4 (06:04→17:35)
[2021-01-26] MEDS: FERROUS SULFATE 300MG/5ML UDC GT SCH ×2 (09:18→17:33)
[2021-01-26] MEDS: ZINC SULFATE 220 MG ( 50 ) CAPSULE PO SCH (09:18)
[2021-01-26] MEDS: ASCORBIC ACID 500 MG TABLET PO SCH (09:18)
[2021-01-27] VITALS (13 sets, daily range): BP systolic 105–165; BP diastolic 65–92
[2021-01-27] MEDS: BLOOD SUGAR DIAGNOSTIC STRIP TEST SCH ×4 (00:58→17:24)
[2021-01-27] MEDS: INSULIN LISPRO 100 UNITS/ML SUBCUT SCH ×4 (06:11→18:09)
[2021-01-27] MEDS: HYDRALAZINE HCL 10MG TABLET PO PRN (06:28)
[2021-01-27] MEDS: ZINC SULFATE 220 MG ( 50 ) CAPSULE PO SCH ×2 (08:17→17:25)
[2021-01-27] MEDS: ASCORBIC ACID 500 MG TABLET PO SCH (08:17)
[2021-01-27] MEDS: FERROUS SULFATE 300MG/5ML UDC GT SCH ×2 (08:17→17:43)
[2021-01-27] MEDS ORDERED: MIDODRINE HCL 2.5MG TABLET PO PRN (12:15)
[2021-01-28] VITALS (12 sets, daily range): BP systolic 110–181; BP diastolic 70–96
[2021-01-28] MEDS: BLOOD SUGAR DIAGNOSTIC STRIP TEST SCH ×4 (00:41→17:31)
[2021-01-28] MEDS: INSULIN LISPRO 100 UNITS/ML SUBCUT SCH ×5 (00:48→17:38)
[2021-01-28] MEDS: HYDRALAZINE HCL 10MG TABLET PO PRN ×2 (06:23→18:35)
[2021-01-28 06:29] LABS: HEMOGLOBIN. 9.2 g/dL (12.0-16.0); MEAN CORPUSCULAR HEMOGLOBIN 31.3 pg (28.0-32.0); MEAN CORPUSCULAR VOLUME 92.1 fL (81.0-99.0); MEAN PLATELET VOLUME 8.9 fl (7.4-10.4); PLATELET 214 x1000/uL (130-400); RED BLOOD CELL COUNT 2.93 mill/uL (4.2-5.4)
[2021-01-28] MEDS: ZINC SULFATE 220 MG ( 50 ) CAPSULE PO SCH (08:38)
[2021-01-28] MEDS: SULFAMETHOXAZOLE/TRIMETHOPRIM 800/160MG TABLET PO SCH (08:38)
[2021-01-28] MEDS: ASCORBIC ACID 500 MG TABLET PO SCH (08:38)
[2021-01-28] MEDS: FERROUS SULFATE 300MG/5ML UDC GT SCH ×2 (08:42→17:37)
[2021-01-28] MEDS ORDERED: LIDOCAINE HCL/EPINEPHRINE 1%-EPI 1:100,000 20 ML VIAL INFIL NR (09:00)
[2021-01-28 18:44] LABS: PLATELET ESTIMATE NORMAL
[2021-01-28 19:50] LABS: CHLORIDE 100 mEq/L (98-107)
[2021-01-29] VITALS (12 sets, daily range): BP systolic 82–179; BP diastolic 47–90
[2021-01-29] MEDS: BLOOD SUGAR DIAGNOSTIC STRIP TEST SCH ×5 (00:44→23:32)
[2021-01-29] MEDS: INSULIN LISPRO 100 UNITS/ML SUBCUT SCH ×5 (00:47→23:35)
[2021-01-29] MEDS: HYDRALAZINE HCL 10MG TABLET PO PRN (02:38)
[2021-01-29 05:33] LABS: BASOPHILS % 0.3 % (0.0-2.0); EOSINOPHILS % 0.6 % (0.0-5.0); HEMATOCRIT. 25.8 % (36.0-48.0); HEMOGLOBIN. 8.4 g/dL (12.0-16.0); LYMPHOCYTES % 9.3 % (20.0-50.0); MEAN CORPUSCULAR HEMOGLOBIN 30.7 pg (28.0-32.0); MEAN CORPUSCULAR VOLUME 94.2 fL (81.0-99.0); MONOCYTES % 5.9 % (2.0-8.0); NEUTROPHILS % 83.9 % (40.0-76.0); PLATELET 208 x1000/uL (130-400); RED BLOOD CELL COUNT 2.74 mill/uL (4.2-5.4); RED CELL DISTRIBUTION WIDTH 14.9 % (11.6-14.6)
[2021-01-29 05:58] LABS: CHLORIDE 97 mEq/L (98-107)
[2021-01-29] MEDS: FERROUS SULFATE 300MG/5ML UDC GT SCH ×2 (08:49→17:50)
[2021-01-29] MEDS: ASCORBIC ACID 500 MG TABLET PO SCH (08:49)
[2021-01-29] MEDS: ZINC SULFATE 220 MG ( 50 ) CAPSULE PO SCH (08:50)
[2021-01-30] VITALS (12 sets, daily range): BP systolic 98–167; BP diastolic 68–141
[2021-01-30] MEDS: BLOOD SUGAR DIAGNOSTIC STRIP TEST SCH ×3 (05:15→17:38)
[2021-01-30] MEDS: INSULIN LISPRO 100 UNITS/ML SUBCUT SCH ×3 (05:16→17:40)
[2021-01-30 05:53] LABS: HEMATOCRIT. 25.4 % (36.0-48.0); HEMOGLOBIN. 8.5 g/dL (12.0-16.0); MEAN CORPUSCULAR HEMOGLOBIN 31.1 pg (28.0-32.0); MEAN CORPUSCULAR VOLUME 92.4 fL (81.0-99.0); MEAN PLATELET VOLUME 8.7 fl (7.4-10.4); PLATELET 209 x1000/uL (130-400); RED BLOOD CELL COUNT 2.75 mill/uL (4.2-5.4)
[2021-01-30 06:00] LABS: CHLORIDE 102 mEq/L (98-107)
[2021-01-30] MEDS: SULFAMETHOXAZOLE/TRIMETHOPRIM 800/160MG TABLET PO SCH (09:02)
[2021-01-30] MEDS: ASCORBIC ACID 500 MG TABLET PO SCH (09:02)
[2021-01-30] MEDS: FERROUS SULFATE 300MG/5ML UDC GT SCH ×2 (09:02→17:52)
[2021-01-30] MEDS: ZINC SULFATE 220 MG ( 50 ) CAPSULE PO SCH (09:02)
[2021-01-30 14:27] LABS: PLATELET ESTIMATE NORMAL
[2021-01-30] MEDS ORDERED: METOCLOPRAMIDE HCL 10MG/2ML VIAL IV SCH (17:30)
[2021-01-31] VITALS (12 sets, daily range): BP systolic 89–151; BP diastolic 49–86
[2021-01-31] MEDS: BLOOD SUGAR DIAGNOSTIC STRIP TEST SCH ×4 (00:23→18:01)
[2021-01-31] MEDS: INSULIN LISPRO 100 UNITS/ML SUBCUT SCH ×4 (00:56→18:05)
[2021-01-31 06:13] LABS: BASOPHILS % 0.8 % (0.0-2.0); EOSINOPHILS % 0.6 % (0.0-5.0); HEMATOCRIT. 25.6 % (36.0-48.0); HEMOGLOBIN. 8.6 g/dL (12.0-16.0); LYMPHOCYTES % 12.9 % (20.0-50.0); MEAN CORPUSCULAR HEMOGLOBIN 31.2 pg (28.0-32.0); MEAN CORPUSCULAR VOLUME 92.8 fL (81.0-99.0); MEAN PLATELET VOLUME 8.8 fl (7.4-10.4); MONOCYTES % 11.7 % (2.0-8.0); PLATELET 238 x1000/uL (130-400); RED BLOOD CELL COUNT 2.75 mill/uL (4.2-5.4); RED CELL DISTRIBUTION WIDTH 14.8 % (11.6-14.6)
[2021-01-31 06:25] LABS: CHLORIDE 103 mEq/L (98-107)
[2021-01-31 08:29] LABS: BG BASE EXCESS 1.7 mmol/L (-2.0-2.0); BG CARBOXYHEMOGLOBIN 0.2 % (0.5-1.5); BG DEOXYHEMOGLOBIN 1.8 % (0.0-5.0); BG HCO3 ACT 24.8 mmol/L (22.0-26.0); BG METHEMOGLOBIN 0.3 % (0.0-1.5); BG OXYGEN SATURATION 98.2 % (92.0-98.5); BG OXYHEMOGLOBIN 97.7 % (94.0-97.0); BG PCO2 32.7 mmHg (35.0-45.0); BG PH 7.498 (7.350-7.450); BG PO2 117.1 mmHg (75.0-100.0); BG SAMPLE SITE RIGHT RADIAL; BG TOTAL HEMOGLOBIN 8.6 g/dL (12.0-18.0); BG VENT MODE VENT - AC
[2021-01-31] MEDS: ZINC SULFATE 220 MG ( 50 ) CAPSULE PO SCH (09:07)
[2021-01-31] MEDS: FERROUS SULFATE 300MG/5ML UDC GT SCH ×2 (09:07→18:01)
[2021-01-31] MEDS: ASCORBIC ACID 500 MG TABLET PO SCH (09:07)
[2021-01-31] MEDS: HYDRALAZINE HCL 10MG TABLET PO PRN (20:48)
[2021-02-01] VITALS (14 sets, daily range): BP systolic 105–178; BP diastolic 55–103
[2021-02-01] MEDS: BLOOD SUGAR DIAGNOSTIC STRIP TEST SCH ×4 (00:44→17:31)
[2021-02-01] MEDS: INSULIN LISPRO 100 UNITS/ML SUBCUT SCH ×4 (00:45→17:54)
[2021-02-01] MEDS: HYDRALAZINE HCL 10MG TABLET PO PRN ×2 (06:04→12:19)
[2021-02-01 08:10] LABS: HEMATOCRIT. 26.3 % (36.0-48.0); HEMOGLOBIN. 8.7 g/dL (12.0-16.0); MEAN CORPUSCULAR HEMOGLOBIN 31.2 pg (28.0-32.0); MEAN CORPUSCULAR VOLUME 94.2 fL (81.0-99.0); MEAN PLATELET VOLUME 8.7 fl (7.4-10.4); PLATELET 221 x1000/uL (130-400); RED CELL DISTRIBUTION WIDTH 14.9 % (11.6-14.6)
[2021-02-01] MEDS: AZITHROMYCIN 500 MG TABLET PO SCH (08:27)
[2021-02-01] MEDS: ASCORBIC ACID 500 MG TABLET PO SCH (08:27)
[2021-02-01] MEDS: SULFAMETHOXAZOLE/TRIMETHOPRIM 800/160MG TABLET PO SCH (08:27)
[2021-02-01] MEDS: ZINC SULFATE 220 MG ( 50 ) CAPSULE PO SCH (08:29)
[2021-02-01] MEDS: FERROUS SULFATE 300MG/5ML UDC GT SCH ×2 (08:29→17:54)
[2021-02-01 09:08] LABS: CHLORIDE 99 mEq/L (98-107)
[2021-02-01 10:17] LABS: PLATELET ESTIMATE NORMAL
[2021-02-02] MEDS: INSULIN LISPRO 100 UNITS/ML SUBCUT SCH (00:07)
[2021-02-02] MEDS: BLOOD SUGAR DIAGNOSTIC STRIP TEST SCH (00:08)
== END 2021-02-02 00:40 | DRG 5 ==
LOC: ER 09:02 → 8WST 12:30 → ENRESERV 14:32 → MICUNO 11-11 22:35 → CVICU 11-16 12:50 → 5EST 11-21 17:29
PROVIDERS: ADMIT Internal Medicine; ATTEND Internal Medicine
PROC: 0J2TXYZ Change Other Device in Trunk Subcutaneous Tissue and Fascia, External Approach (ICD-10-PCS; 2020-11-09)
PROC: 5A1D70Z Performance of Urinary Filtration, Intermittent, Less than 6 Hours Per Day (ICD-10-PCS; 2020-11-10)
PROC: 5A1955Z Respiratory Ventilation, Greater than 96 Consecutive Hours (ICD-10-PCS; principal; 2020-11-11)
PROC: 0BH17EZ Insertion of Endotracheal Airway into Trachea, Via Natural or Artificial Opening (ICD-10-PCS; 2020-11-11)
PROC: 5A12012 Performance of Cardiac Output, Single, Manual (ICD-10-PCS; 2020-11-11)
PROC: 5A2204Z Restoration of Cardiac Rhythm, Single (ICD-10-PCS; 2020-11-11)
PROC: 05HY33Z Insertion of Infusion Device into Upper Vein, Percutaneous Approach (ICD-10-PCS; 2020-11-12)
PROC: B54MZZA Ultrasonography of Right Upper Extremity Veins, Guidance (ICD-10-PCS; 2020-11-12)
PROC: 5A1D70Z Performance of Urinary Filtration, Intermittent, Less than 6 Hours Per Day (ICD-10-PCS; 2020-11-12)
PROC: 4A10X4Z Monitoring of Central Nervous Electrical Activity, External Approach (ICD-10-PCS; 2020-11-14)
PROC: 5A1D70Z Performance of Urinary Filtration, Intermittent, Less than 6 Hours Per Day (ICD-10-PCS; 2020-11-14)
PROC: 5A1D70Z Performance of Urinary Filtration, Intermittent, Less than 6 Hours Per Day (ICD-10-PCS; 2020-11-16)
PROC: 5A1D70Z Performance of Urinary Filtration, Intermittent, Less than 6 Hours Per Day (ICD-10-PCS; 2020-11-19)
PROC: 0B110F4 Bypass Trachea to Cutaneous with Tracheostomy Device, Open Approach (ICD-10-PCS; 2020-11-21)
PROC: 30233N1 Transfusion of Nonautologous Red Blood Cells into Peripheral Vein, Percutaneous Approach (ICD-10-PCS; 2020-11-21)
PROC: 5A1D70Z Performance of Urinary Filtration, Intermittent, Less than 6 Hours Per Day (ICD-10-PCS; 2020-11-21)
PROC: 0DH63UZ Insertion of Feeding Device into Stomach, Percutaneous Approach (ICD-10-PCS; 2020-11-22)
PROC: 5A1D70Z Performance of Urinary Filtration, Intermittent, Less than 6 Hours Per Day (ICD-10-PCS; 2020-11-23)
PROC: 5A1D70Z Performance of Urinary Filtration, Intermittent, Less than 6 Hours Per Day (ICD-10-PCS; 2020-11-26)
PROC: 5A1D70Z Performance of Urinary Filtration, Intermittent, Less than 6 Hours Per Day (ICD-10-PCS; 2020-11-28)
PROC: 5A1D70Z Performance of Urinary Filtration, Intermittent, Less than 6 Hours Per Day (ICD-10-PCS; 2020-12-01)
PROC: 5A1D70Z Performance of Urinary Filtration, Intermittent, Less than 6 Hours Per Day (ICD-10-PCS; 2020-12-04)
PROC: 5A1D70Z Performance of Urinary Filtration, Intermittent, Less than 6 Hours Per Day (ICD-10-PCS; 2020-12-06)
PROC: 5A1D70Z Performance of Urinary Filtration, Intermittent, Less than 6 Hours Per Day (ICD-10-PCS; 2020-12-09)
PROC: 5A1D70Z Performance of Urinary Filtration, Intermittent, Less than 6 Hours Per Day (ICD-10-PCS; 2020-12-11)
PROC: 5A1D70Z Performance of Urinary Filtration, Intermittent, Less than 6 Hours Per Day (ICD-10-PCS; 2020-12-13)
PROC: 5A1D70Z Performance of Urinary Filtration, Intermittent, Less than 6 Hours Per Day (ICD-10-PCS; 2020-12-15)
PROC: 5A1D70Z Performance of Urinary Filtration, Intermittent, Less than 6 Hours Per Day (ICD-10-PCS; 2020-12-18)
PROC: 5A1D70Z Performance of Urinary Filtration, Intermittent, Less than 6 Hours Per Day (ICD-10-PCS; 2020-12-20)
PROC: 5A1D70Z Performance of Urinary Filtration, Intermittent, Less than 6 Hours Per Day (ICD-10-PCS; 2020-12-22)
PROC: 5A1D70Z Performance of Urinary Filtration, Intermittent, Less than 6 Hours Per Day (ICD-10-PCS; 2020-12-24)
PROC: 5A1D70Z Performance of Urinary Filtration, Intermittent, Less than 6 Hours Per Day (ICD-10-PCS; 2020-12-27)
PROC: 5A1D70Z Performance of Urinary Filtration, Intermittent, Less than 6 Hours Per Day (ICD-10-PCS; 2020-12-29)
PROC: 5A1D70Z Performance of Urinary Filtration, Intermittent, Less than 6 Hours Per Day (ICD-10-PCS; 2020-12-31)
PROC: 4A10X4Z Monitoring of Central Nervous Electrical Activity, External Approach (ICD-10-PCS; 2021-01-01)
PROC: 5A1D70Z Performance of Urinary Filtration, Intermittent, Less than 6 Hours Per Day (ICD-10-PCS; 2021-01-02)
PROC: 5A1D70Z Performance of Urinary Filtration, Intermittent, Less than 6 Hours Per Day (ICD-10-PCS; 2021-01-04)
PROC: 5A1D70Z Performance of Urinary Filtration, Intermittent, Less than 6 Hours Per Day (ICD-10-PCS; 2021-01-08)
PROC: 5A1D70Z Performance of Urinary Filtration, Intermittent, Less than 6 Hours Per Day (ICD-10-PCS; 2021-01-09)
PROC: 5A1D70Z Performance of Urinary Filtration, Intermittent, Less than 6 Hours Per Day (ICD-10-PCS; 2021-01-13)
PROC: 5A1D70Z Performance of Urinary Filtration, Intermittent, Less than 6 Hours Per Day (ICD-10-PCS; 2021-01-15)
PROC: 5A1D70Z Performance of Urinary Filtration, Intermittent, Less than 6 Hours Per Day (ICD-10-PCS; 2021-01-18)
PROC: 5A1D70Z Performance of Urinary Filtration, Intermittent, Less than 6 Hours Per Day (ICD-10-PCS; 2021-01-21)
PROC: 5A1D70Z Performance of Urinary Filtration, Intermittent, Less than 6 Hours Per Day (ICD-10-PCS; 2021-01-23)
PROC: 5A1D70Z Performance of Urinary Filtration, Intermittent, Less than 6 Hours Per Day (ICD-10-PCS; 2021-01-25)
PROC: 0JB70ZZ Excision of Back Subcutaneous Tissue and Fascia, Open Approach (ICD-10-PCS; 2021-01-28)
PROC: 5A1D70Z Performance of Urinary Filtration, Intermittent, Less than 6 Hours Per Day (ICD-10-PCS; 2021-01-29)
PROC: 5A1D70Z Performance of Urinary Filtration, Intermittent, Less than 6 Hours Per Day (ICD-10-PCS; 2021-01-31)
PROC: 5A1D70Z Performance of Urinary Filtration, Intermittent, Less than 6 Hours Per Day (ICD-10-PCS; 2021-02-01)
DX: A41.52 Sepsis due to Pseudomonas (principal); R65.21 Severe sepsis with septic shock; I63.9 Cerebral infarction, unspecified; E44.0 Moderate protein-calorie malnutrition; B20 Human immunodeficiency virus [HIV] disease; D63.1 Anemia in chronic kidney disease; I95.3 Hypotension of hemodialysis; E11.649 Type 2 diabetes mellitus with hypoglycemia without coma; D69.6 Thrombocytopenia, unspecified; L89.153 Pressure ulcer of sacral region, stage 3; N18.6 End stage renal disease; E83.51 Hypocalcemia; G93.1 Anoxic brain damage, not elsewhere classified; E11.22 Type 2 diabetes mellitus with diabetic chronic kidney disease; N39.0 Urinary tract infection, site not specified; I48.91 Unspecified atrial fibrillation; B96.20 Unspecified Escherichia coli [E. coli] as the cause of diseases classified elsewhere; I46.9 Cardiac arrest, cause unspecified; T82.41XA Breakdown (mechanical) of vascular dialysis catheter, initial encounter; I13.2 Hypertensive heart and chronic kidney disease with heart failure and with stage 5 chronic kidney disease, or end stage renal disease; Z20.822 Contact with and (suspected) exposure to COVID-19; E87.5 Hyperkalemia; I16.1 Hypertensive emergency; F20.9 Schizophrenia, unspecified; E87.1 Hypo-osmolality and hyponatremia; G40.909 Epilepsy, unspecified, not intractable, without status epilepticus; J96.01 Acute respiratory failure with hypoxia; Z16.12 Extended spectrum beta lactamase (ESBL) resistance; K29.60 Other gastritis without bleeding; R07.89 Other chest pain; R13.12 Dysphagia, oropharyngeal phase; L60.2 Onychogryphosis; E11.65 Type 2 diabetes mellitus with hyperglycemia; I50.9 Heart failure, unspecified; Y84.8 Other medical procedures as the cause of abnormal reaction of the patient, or of later complication, without mention of misadventure at the time of the procedure; Z86.73 Personal history of transient ischemic attack (TIA), and cerebral infarction without residual deficits; Z99.2 Dependence on renal dialysis; Z99.11 Dependence on respirator [ventilator] status; Z68.30 Body mass index [BMI] 30.0-30.9, adult; Z88.5 Allergy status to narcotic agent; Z86.14 Personal history of Methicillin resistant Staphylococcus aureus infection; Z74.01 Bed confinement status; Y92.89 Other specified places as the place of occurrence of the external cause; Z90.49 Acquired absence of other specified parts of digestive tract; Z90.710 Acquired absence of both cervix and uterus
CPT/HCPCS: 36415; 36558; 36600; 70551; 71045; 76937; 77001; 80048; 80053; 80061; 80076; 80150; 80170; 80202; 82040; 82248; 82375; 82550; 82553; 82805; 82962; 83036; 83735; 83880; 84100; 84132; 84134; 84145; 84450; 84478; 84484; 85014; 85018; 85025; 85027; 86705; 86706; 86709; 86803; 86850; 86900; 86920; 87070; 87077; 87186; 87340; 87426; 93005; 93306; 93970; 94002; 94003; 94640; 95816; 99152; 99153; 99291; A6261; C1725; C1769; J0278; J0360; J0690; J0692; J0713; J0885; J1200; J1580; J1644; J1650; J1815; J1953; J2060; J2250; J2270; J2370; J2704; J2765; J2920; J3010; J3370; J3480; J3490; J7040; J7042; J7050; J7060; P9016; U0003; U0005; G0500